=== PATIENT | male | born 1935 | race Caucasian/White ===

== ENCOUNTER 2024-01-28 09:18 | Emergency (ER) | payer MEDICARE, SELFPAY ==
--- NOTE | 2024-01-28 09:21 | ED.GENMED ---
History of Present Illness
General
Chief Complaint: Fall
Time Seen by Provider: 01/28/24 09:20
History of Present Illness
History of Present Illness:
HPI: I spoke to the ER nurse who spoke to EMS for the history. The patient fell earlier today. He had some hip pain earlier that is since resolved. The etiology of the fall is unclear and he is somewhat of a limited historian. When he was moving
from EMS stretcher to our stretcher, he had a small episode of vomitus but currently denies any pain.
EXAM:
GENERAL: Appears chronically ill
CERVICAL SPINE: No midline c-spine tenderness with excellent AROM
HEAD: No evidence of craniofacial trauma
CHEST: No chest wall tenderness, normal heart sounds
LUNGS: Equal lung sounds, no respiratory distress
ABDOMEN: No abdominal tenderness, no peritoneal signs, Alvarado catheter present
EXTREMITIES: Normal active range of motion, no tenderness
NEURO: Equally decreased strength all extremities, somewhat limited insight and judgment and is a limited historian
ED COURSE:
9:30 AM: I initially evaluated patient
NUMBER AND COMPLEXITY OF PROBLEMS ADDRESSED AT THE ENCOUNTER
� Chronic conditions affecting care: High blood pressure, hyperlipidemia, BPH/prostate cancer
� Acute Exacerbation and/or Progression of Chronic Illness: This is an acute problem
� Differential Diagnosis includes: Anemia, electrolyte normality, failure to thrive
AMOUNT AND/OR COMPLEXITY OF DATA TO BE REVIEWED AND ANALYZED
� I performed an independent evaluation of and my interpretation is:
EKG:
CT:
X-rays: I see no evidence of periprosthetic fracture or dislocation on right hip/pelvis x-ray
Laboratory Studies: White count 9.3, hemoglobin 11.3, bicarb slightly high at 32, glucose is 220, otherwise chemistries unremarkable
Other:
� Review of other/old records: The patient was admitted here 3 months ago with hyponatremia
� Clinical information was obtained by an independent historian: I spoke to the daughter over the phone twice. The patient fell overnight and had difficulty getting up complaining of right hip pain earlier.
� Prescriptions/Medications Considered but not given:
� Further testing considered but not performed:
RISK OF COMPLICATIONS AND/OR MORBIDITY OR MORTALITY OF PATIENT MANAGEMENT
� Social determinants of health affecting care: Lives at home with
� Discussion with other providers:
� Escalation of care including admission/observation vs risk of discharge considered: ED RN is calling for further information. CBC reassuring�chronically mildly anemic. No evidence of fracture. The patient currently
denies any pain. Family will be coming to get him.
Past History
Past History
ED Past Medical History: Cancer (Prostate), HTN, Hypercholesterolemia, NIDDM, Valvular disease, Other (Empyema, BPH, chronic indwelling Alvarado catheter, intermittent bladder spasms) and Other (Benign prostate hypertrophy)
ED Past Surgical History: Cardiac and Orthopedic
Patient has exhibited threatening behavior?: No
PSI?: No
Social History
Tobacco: Former smoker
Alcohol: None
Drug: None
Living: with family
Employment: Retired
Phy Exam
Physical Exam
Physical Exam:
See HPI
Course
Orders/Labs/Results
Orders:
Orders
01/28/24 09:37
Basic Metabolic Panel Urgent
Complete Blood Count/With Diff Urgent
01/28/24 09:52
CR Hip - RT w/wo Pel 2-3 Vw* Urgent
Comment:
Reason For Exam: fall pain
Include a pelvis x-ray?: Yes
Abnormal Lab Results
01/28/24
09:37
RBC 3.83 L 10^6/uL
(4.70-6.10)
Hgb 11.3 L g/dL
(13.0-18.0)
Hct 33.2 L %
(39.0-52.0)
Absolute Neuts (auto) 7.1 H 10^3/uL
(1.4-6.5)
Absolute Monos (auto) 0.8 H 10^3/uL
(0.1-0.6)
Neutrophils % 76.9 H %
(42.2-75.2)
Lymphocytes % 14.2 L %
(20.5-51.1)
Sodium 134 L mmol/L
(135-145)
Carbon Dioxide 32 H mmol/L
(22-30)
Glucose 220 H mg/dl
(70-99)
01/28/24 09:37
01/28/24 09:37
Vital Signs
Initial and Last Documented VS:
Initial Vital Signs
Temp Pulse Resp BP Pulse Ox
97.5 F 109 18 146/81 97
01/28/24 09:24 01/28/24 09:24 01/28/24 09:24 01/28/24 09:24 01/28/24 09:24
Last Documented Vital Signs
Temp Pulse Resp BP Pulse Ox
97.5 F 109 18 146/81 97
01/28/24 09:24 01/28/24 09:24 01/28/24 09:24 01/28/24 09:24 01/28/24 09:24
*Critical Care Note
Total Time (30-74mins, 75-104mins- exclusive of procedures): Not Applicable
ED Attending Note
-
Portions of this chart may have been created with voice recognition software.� Occasional wrong word or��sound alike� substitutions may have occurred due to the inherent limitations of voice recognition software.
Discharge Plan
Departure
Patient Disposition: Home (Routine Discharge)
Date of Disposition: 01/28/24
Time of Disposition: 12:28
Patient with high blood pressure during this ER visit?: Yes
Discharge Problem:
Fall
Instructions: Preventing falls in adults
Prescriptions:
No Action
tamsulosin 0.4 MG capsule
0.4 mg PO HS
ferrous sulfate [FeroSul] 325 MG tablet
325 mg PO DAILY
cyanocobalamin (vitamin B-12) 1,000 MCG tablet
1,000 mcg PO DAILY Qty: 30 0RF
metformin 1,000 MG tablet
1,000 mg PO BID@0800,1700 Qty: 180 1RF
Hold Instructions: Resume on 08/23/22. Hold until 08/23/2022
Januvia 100 MG tablet
100 mg PO DAILY Qty: 90 1RF
tolterodine 2 mg Tablet
2 mg PO BIDPRN PRN (Reason: bladder spasms)
Myrbetriq 50 mg Tablet Extended Release 24 Hr
50 mg PO DAILY
atorvastatin 20 mg Tablet
20 mg PO DAILY
clopidogrel [Plavix] 75 mg tablet
75 mg PO DAILY
Xarelto 20 mg tablet
20 mg PO QPM
metoprolol succinate 25 mg Tablet Extended Release 24 Hr
25 mg PO HS Qty: 30 0RF
torsemide 20 mg Tablet
40 mg PO DAILY Qty: 30 0RF
potassium chloride 20 mEq Tablet,Er Particles/Crystals
20 meq PO DAILY Qty: 30 0RF
cefdinir 300 mg capsule
300 mg PO Q12H 6 Days Qty: 12 0RF
Referrals:
Franky Martinez MD [Family Provider] -
Activity Restrictions/Additional Instructions:
X-ray of the right hip and pelvis showed no sign of fracture or dislocation. Basic blood work was relatively unremarkable with exception of elevated glucose. Return here if worse and follow-up with your primary care physician.
Interventions
Interventions:
*Risk Screen - Suicide Last Done: 01/28/24 09:24
*General Assessment Last Done: 01/28/24 09:24
*Neglect/Abuse Screening Last Done: 01/28/24 09:24
ED-Musculoskeletal Assessment Last Done: 01/28/24 09:41
ED- Neurological Assessment Last Done: 01/28/24 09:41
ED-Skin Assessment Last Done: 01/28/24 09:41
[2024-01-28 09:24] VITALS: BP 146/81
[2024-01-28 09:47] LABS: % Basophils 0.2 % (0-2); % Eosinophils 0.2 % (0-6); % Immature Granulocytes 0.4 % (0-0.5); % Lymphocytes 14.2 % (20.5-51.1); % Monocytes 8.1 % (1.7-9.3); % Neutrophils 76.9 % (42.2-75.2); Absolute Lymphocytes 1.3 10^3/uL (1.2-3.4); Absolute Monocytes 0.8 10^3/uL (0.1-0.6); Absolute Neutrophils 7.1 10^3/uL (1.4-6.5); Hematocrit 33.2 % (39.0-52.0); Hemoglobin 11.3 g/dL (13.0-18.0); Mean Corpuscular Hgb 29.5 pg (27.0-31.0); Mean Corpuscular Volume 86.7 fL (80.0-94.0); Mean Platelet Volume 8.9 fL (7.4-10.4); Nucleated Red Blood Cells % 0 % (-); Platelet Count 250 10^3/uL (130-400); Red Blood Cell Count 3.83 10^6/uL (4.70-6.10); Red Cell Dist. Width 13.9 % (11.5-14.5); White Blood Cell Count 9.3 10^3/uL (4.8-10.8)
[2024-01-28 10:00] LABS: Blood Urea Nitrogen 15 mg/dl (9-20); Calcium 9.4 mg/dl (8.4-10.2); Carbon Dioxide 32 mmol/L (22-30); Chloride 98 mmol/L (98-107); Glucose 220 mg/dl (70-99); Potassium 3.6 mmol/L (3.5-5.1); Sodium 134 mmol/L (135-145); eGFR > 60.00
== END 2024-01-28 15:38 | disposition home or self-care (01) ==
LOC: EMR 09:18
PROVIDERS: EMERGENCY PHYSICIAN Emergency Medicine; FAMILY PHYSICIAN Family Medicine
DX: M25.551 Pain in right hip (principal); W19.XXXA Unspecified fall, initial encounter; Z87.891 Personal history of nicotine dependence; I10 Essential (primary) hypertension; E78.00 Pure hypercholesterolemia, unspecified
CPT/HCPCS: 99284; 73502; 80048; 85025

== ENCOUNTER 2024-01-31 20:52 | Inpatient (IN) | payer MEDICARE, SELFPAY ==
[2024-01-31] VITALS (10 sets, daily range): BP systolic 112–139; BP diastolic 62–114; PULSE 105–110; BMI 25.8
[2024-01-31 14:57] LABS: % Basophils 0.2 % (0-2); % Eosinophils 0.2 % (0-6); % Immature Granulocytes 0.4 % (0-0.5); % Lymphocytes 9.9 % (20.5-51.1); % Monocytes 7.6 % (1.7-9.3); % Neutrophils 81.7 % (42.2-75.2); Absolute Lymphocytes 0.8 10^3/uL (1.2-3.4); Absolute Monocytes 0.6 10^3/uL (0.1-0.6); Absolute Neutrophils 6.7 10^3/uL (1.4-6.5); Hematocrit 33.6 % (39.0-52.0); Hemoglobin 11.2 g/dL (13.0-18.0); Mean Corp Hgb Conc. 33.3 g/dL (33.0-37.0); Mean Corpuscular Hgb 29.2 pg (27.0-31.0); Mean Corpuscular Volume 87.7 fL (80.0-94.0); Mean Platelet Volume 8.8 fL (7.4-10.4); Nucleated Red Blood Cells % 0 % (-); Platelet Count 233 10^3/uL (130-400); Red Blood Cell Count 3.83 10^6/uL (4.70-6.10); Red Cell Dist. Width 14.1 % (11.5-14.5); White Blood Cell Count 8.3 10^3/uL (4.8-10.8)
[2024-01-31 15:19] LABS: ALT (SGPT) 10 U/L (0-50); AST (SGOT) 12 U/L (17-59); Albumin 3.9 g/dl (3.5-5.0); Alkaline Phosphatase 76 U/L (38-126); Blood Urea Nitrogen 24 mg/dl (9-20); Calcium 10.3 mg/dl (8.4-10.2); Carbon Dioxide 31 mmol/L (22-30); Chloride 97 mmol/L (98-107); Glucose 238 mg/dl (70-99); Potassium 3.9 mmol/L (3.5-5.1); Sodium 133 mmol/L (135-145); Total Protein 7.1 g/dl (6.3-8.2); eGFR > 60.00
[2024-01-31 17:09] LABS: Urine Albumin Trace (Neg - Trace); Urine Bilirubin Negative (Negative); Urine Character Slightly Cloudy (Clear); Urine Color Yellow; Urine Glucose Negative (Negative); Urine Ketone Negative (Negative); Urine Leukocyte 2+ (Negative); Urine Nitrite Positive (Negative); Urine Occult Blood 2+ (Negative); Urine Specific Gravity 1.015 (<1.030); Urine Urobilinogen Negative (Neg - 1+)
[2024-01-31 17:22] LABS: Urine Bacteria Many (Negative); Urine Calcium Oxalate Crystals Seen; Urine White Cell >100 /HPF (0-5)
[2024-01-31 17:24] LABS: COVID-19 Antigen Negative (Negative)
[2024-01-31 17:30] LABS: NT-proBNP 924 pg/ml
--- NOTE | 2024-01-31 17:31 | ED.GENMED ---
History of Present Illness
General
Chief Complaint: Fall
Source: patient
Exam Limitations: none
Time Seen by Provider: 01/31/24 17:10
Nursing documentation reviewed up to this point in time: agreed with
Travel History
Have you had any contact with someone who has COVID-19?: No
Do you have any symptoms of coronavirus? Fever > 100 degrees, chills, cough, shortness of breath, sore throat, loss of taste or smell, muscle aches, or headache?: No
History of Present Illness
History of Present Illness:
The patient is an 88-year-old man who arrives from home. Patient reports he lives with his and [id number]. Patient reports that he got up and fell due to generalized weakness. He did not hit his head. Patient did not hurt his arms, legs
or back from the fall. Patient complains of decreased appetite and a feeling of fatigue. I called and got a history from his daughter over the phone who reports that the patient has been weak and falling over the last 2 days. She denies any
hitting of the head. patient denies nausea and vomiting.
He denies chest pain shortness of breath.
Past History
Past History
ED Past Medical History: Cancer (Prostate), HTN, Hypercholesterolemia, NIDDM, Valvular disease, Other (Empyema, BPH, chronic indwelling Alvarado catheter, intermittent bladder spasms) and Other (Benign prostate hypertrophy)
ED Past Surgical History: Cardiac and Orthopedic
Patient has exhibited threatening behavior?: No
PSI?: No
Social History
Tobacco: Former smoker
Alcohol: None
Drug: None
Living: with family
Employment: Retired
Family History
Family History: Other
Review of Systems
Review of Systems
Allergies reviewed?: Yes
All Other Systems: ROS reviewed and negative except as documented in HPI and ROS
Constitutional: Reports fatigue
EENT: Reports no symptoms
Respiratory: Reports no symptoms
Cardiac: Reports no symptoms
ABD/GI: Reports no symptoms
: Reports no symptoms
Musculoskeletal: Reports no symptoms
Neurological: Reports no symptoms
Endocrine: Reports no symptoms
Hematologic/Lymphatic: Reports no symptoms
Psychiatric: Reports no symptoms
Phy Exam
Physical Exam
Physical Exam:
Physical Exam
General: no apparent distress, not acutely ill. Atraumatic appearing head and face
Neck: supple. no meningeal signs. normal posterior pharynx. Nontender
Heart: Tachycardic, regular
Lungs: no acute respiratory distress. clear bilaterally. No vertebral spine tenderness
Abdomen: normal bowel sounds. not tender. no CVAT
Neuro: alert and oriented. no focal neurological deficits
Skin: no rash
Psychiatric: well kept. interactive and cooperative
Extremities: no edema. no calf tenderness. negative homans. good distal pulses. Nontender pelvis and hips. Full range of movement in upper lower extremities
Course
Orders/Labs/Results
Orders:
Orders
01/31/24 14:43
CBC/With Diff [Complete Blood Count/With Diff] Urgent
CMP [Comprehensive Metabolic Panel] Urgent
01/31/24 16:39
EKG [Electrocardiogram (*1)] Urgent
Reason for Study: Vertigo / Dizzy
EKG- Treatment ONCE
01/31/24 16:40
Urinalysis Reflex To Culture Urgent
Date Specimen was Collected: 01/31/24
Time Specimen was Collected: 16:39
Urine Microscopic Reflex Cult Urgent
Urine Culture Urgent
VICTOR HUGO Source: U
Specimen Description:
Date Specimen was Collected: 01/31/24
Time Specimen was Collected: 16:39
01/31/24 16:51
COVID-19 Antigen Urgent
Source: Nasal Swab
Pro-BNP [NT-proBNP] Urgent
Influenza A+B Rapid Molecular Urgent
VICTOR HUGO Source: Nasal Swab
Specimen Description:
01/31/24 17:43
0.9% Sodium Chloride 1000 ml [Nss] 1,000 ml IV BOLUS
01/31/24 17:44
CefTRIAXone [Rocephin] 1,000 mg IV NOW STA
Abnormal Lab Results
01/31/24 01/31/24
14:43 16:40
RBC 3.83 L 10^6/uL
(4.70-6.10)
Hgb 11.2 L g/dL
(13.0-18.0)
Hct 33.6 L %
(39.0-52.0)
Absolute Neuts (auto) 6.7 H 10^3/uL
(1.4-6.5)
Absolute Lymphs (auto) 0.8 L 10^3/uL
(1.2-3.4)
Neutrophils % 81.7 H %
(42.2-75.2)
Lymphocytes % 9.9 L %
(20.5-51.1)
Sodium 133 L mmol/L
(135-145)
Chloride 97 L mmol/L
(98-107)
Carbon Dioxide 31 H mmol/L
(22-30)
BUN 24 H mg/dl
(9-20)
Glucose 238 H mg/dl
(70-99)
Calcium 10.3 H mg/dl
(8.4-10.2)
AST 12 L U/L
(17-59)
Ur Occult Blood Reflex 2+ A
(Negative)
Urine Nitrite (Reflex) Positive A
(Negative)
Leukocyte Esterase Rfl 2+ A
(Negative)
Urine RBC 3-6 A /HPF
(0-2)
Urine WBC (Reflex) >100 A /HPF
(0-5)
Urine Bacteria (Reflex) Many A
(Negative)
01/31/24 14:43
03/08/24 14:43
Vital Signs
Initial and Last Documented VS:
Initial Vital Signs
Temp Pulse Resp BP Pulse Ox
97.5 F 115 16 124/80 98
01/31/24 14:34 01/31/24 14:34 01/31/24 14:34 01/31/24 14:34 01/31/24 14:34
Last Documented Vital Signs
Temp Pulse Resp BP Pulse Ox
97.5 F 98 26 131/78 97
01/31/24 14:34 01/31/24 19:00 01/31/24 16:28 01/31/24 18:00 01/31/24 18:45
MDM/Problems Addressed
Differential Diagnosis Includes:
UTI, dehydration, pneumonia
MDM/Problems Addressed:
Patient presents with 2 days of acute fatigue and falls
*Pulse Oximetry
Patient hypoxic: no
*EKG
Interpreted by ED Provider?: Yes
Interpretation: abnormal
Comparison EKG: changes noted (Heart rate more elevated)
[place]: left axis deviation
Interval: normal interval
QRS Pattern: left bundle branch block
Ischemia: non-specific ST changes
*Chain [employer] Machine Interpretation
Rate: normal
Interpretation: normal
Rhythm: sinus
*Critical Care Note
Total Time (30-74mins, 75-104mins- exclusive of procedures): Not Applicable
Data Reviewed
Review of Other/Old Records Reveals: Labs ( urine culture from 10/2023 showed Klebsiella)
Source: family (Spoke to patient's daughter over the phone who gave a good history)
Patient Management
Discussion with other providers: Hospitalist
ED Attending Note
-
Portions of this chart may have been created with voice recognition software.� Occasional wrong word or��sound alike� substitutions may have occurred due to the inherent limitations of voice recognition software.
Discharge Plan
Departure
Patient Disposition: Admit
Date of Disposition: 01/31/24
Time of Disposition: 19:12
Admit to: Med/Surg
Presentation/result/management discussed w/ accepting MD/DO: Hospitalist
Patient with high blood pressure during this ER visit?: Yes
Condition: Good
Covid-19: Negative COVID-19
Discharge Problem:
Acute fatigue, Frequent falls, Acute UTI
Prescriptions:
No Action
tamsulosin 0.4 MG capsule
0.4 mg PO HS
ferrous sulfate [FeroSul] 325 MG tablet
325 mg PO DAILY
cyanocobalamin (vitamin B-12) 1,000 MCG tablet
1,000 mcg PO DAILY Qty: 30 0RF
metformin 1,000 MG tablet
1,000 mg PO BID@0800,1700 Qty: 180 1RF
Hold Instructions: Resume on 08/23/22. Hold until 08/23/2022
Januvia 100 MG tablet
100 mg PO DAILY Qty: 90 1RF
tolterodine 2 mg Tablet
2 mg PO BIDPRN PRN (Reason: bladder spasms)
Myrbetriq 50 mg Tablet Extended Release 24 Hr
50 mg PO DAILY
atorvastatin 20 mg Tablet
20 mg PO DAILY
clopidogrel [Plavix] 75 mg tablet
75 mg PO DAILY
Xarelto 20 mg tablet
20 mg PO QPM
metoprolol succinate 25 mg Tablet Extended Release 24 Hr
25 mg PO HS Qty: 30 0RF
torsemide 20 mg Tablet
40 mg PO DAILY Qty: 30 0RF
potassium chloride 20 mEq Tablet,Er Particles/Crystals
20 meq PO DAILY Qty: 30 0RF
Referrals:
UNKNOWN - PT DOES,NOT KNOW [Unknown Provider] -
Interventions
Interventions:
*Risk Screen - Suicide Last Done: 01/31/24 16:39
*General Assessment Last Done: 01/31/24 16:39
*Neglect/Abuse Screening Last Done: 01/31/24 16:39
ED- Fall Risk Assessment Last Done: 01/31/24 16:39
*ED COVID-19 Vaccine History Last Done: 01/31/24 16:39
ED-Musculoskeletal Assessment Last Done: 01/31/24 16:39
ED- Neurological Assessment Last Done: 01/31/24 16:39
ED-Skin Assessment Last Done: 01/31/24 16:39
[2024-01-31] MEDS: ROCEPHIN 1000 MG IV (17:52)
[2024-01-31] MEDS: NSS 1000 IV (17:52)
--- NOTE | 2024-01-31 19:29 | PHANOTE ---
med rec note- called family on file, Chip the son did not answer but did leave message, called daughter on file she said she does not know his medication and patient not answer question appropriately. did use ecw (as per the daughter) but daughter
did reach out to of patient to see if she could help with medication.
--- NOTE | 2024-01-31 20:46 | HPS.HSE ---
Addendum entered and electronically signed by Williams Marshall DO 01/31/24 21:57:
Patient seen and examined independently. Agree with findings and plan as set forth by Arlene Contreras PA-C.
Patient is an 88y M with PMH significant for CHF, hypertension and DM-II who presents to ED for evaluation after a fall at home. Patient has reportedly been weak for the past 2-3 days according to family. He stood up today and his legs 'gave
out' resulting in a fall. Patient denies any head injury or LOC. He was brought to the ED for further evaluation.
In the ED, patient has UA consistent with infection. He has a chronic indwelling Alvarado catheter.
On exam, patient does have some lower abdominal / suprapubic tenderness.
Ass:
CAUTI - Present on Admission
Generalized weakness
Fall secondary to the above
ASCVD
Benign Hypertension
DM-II
Paroxysmal Atrial Fibrillation / Flutter
BPH with AL and Chronic Alvarado
Plan:
Admit for further evaluation and treatment.
Continue IV abx pending urine culture data.
Exchange Alvarado on admission.
Supportive care including IVFs, etc.
PT / OT evaluations.
Hold diuretics acutely. Follow I/Os, daily weights, etc.
Continue other usual outpatient medications including Xarelto.
Follow glucose and cover with SSI as needed.
Original Note:
Family Physician
-
Family Physician: Amberly Rodriguez DO
Chief Complaint
-
Weakness and Fall
History of Present Illness
Patient is an 88 y/o male with PMH of recurrent UTIs, CHF, hypertension, and lzo-awdxief-chxvjrtdk type II diabetes mellitus who presents to the ED from home after a fall. History is limited due to language barrier. Patient says he fell while
walking with a wheelchair. He admits to lower abdominal discomfort. He reports generalized weakness. He denies fever, sweats or chill, nausea, or diarrhea.
Medical History
Past Medical History
Past Medical History: Reports Other
Additional Past Medical History:
Peripheral Arterial Disease s/p Right Carotid
Heart Failure with preserved EF
Aortic Valve Replacement
Paroxysmal Atrial Fibrillation/Flutter
Essential Hypertension
Hyperlipidemia
Diabetes Mellitus
Interstitial Lung Disease
BPH with Chronic Alvarado
Prostate Cancer
Past Surgical History: Reports Other
Additional Past Surgical History:
Aortic Valve Replacement
Right Hip Surgery
Social History
Tobacco: Former Smoker (Quit over 10 years ago)
Alcohol: Occasional
Living: With Family (Patient reports he lives with his mother in law and )
Family History
Family History: Unable to Obtain
Allergies / Home Medications
Allergies reflects when Allergies were last updated in [employer].
Home Medications with original date entered in [employer]
Allergy/Medication List:
Allergies
Allergy/AdvReac Type Severity Reaction Status Date / Time
No Known Allergies Allergy Verified 06/11/23 13:34
Home Medications
ferrous sulfate 325 mg (65 mg iron) tablet (FeroSul) 325 mg PO DAILY Supplement 10/06/21
tamsulosin 0.4 mg capsule 0.4 mg PO HS Urinary issue 10/06/21
cyanocobalamin (vitamin B-12) 1,000 mcg tablet 1,000 mcg PO DAILY #30 tabs 10/08/21
metformin 1,000 mg tablet 1,000 mg PO BID@0800,1700 Diabetes #180 tabs 05/31/22
sitagliptin phosphate 100 mg tablet (Januvia) 100 mg PO DAILY Diabetes #90 tabs 05/31/22
mirabegron 50 mg tablet,extended release 24 hr (Myrbetriq) 50 mg PO DAILY Urinary issue 07/24/22
tolterodine 2 mg tablet 2 mg PO BIDPRN PRN bladder spasms 08/21/22
atorvastatin 20 mg tablet 20 mg PO DAILY High Cholesterol 11/01/23
clopidogrel 75 mg tablet (Plavix) 75 mg PO DAILY Blood Clot Prevention/Tx 11/01/23
rivaroxaban 20 mg tablet (Xarelto) 20 mg PO QPM Blood Clot Prevention/Tx 11/01/23
metoprolol succinate 25 mg tablet,extended release 24 hr 25 mg PO HS #30 tabs 11/08/23
potassium chloride 20 mEq tablet,extended release(part/cryst) 20 meq PO DAILY #30 tabs 11/08/23
torsemide 20 mg tablet 40 mg PO DAILY #30 tabs 11/08/23
Review of Systems
-
Unable to obtain full review of systems at this time due to: Language Barrier
Physical Exam
Vital Signs
Vital Signs
Temp Pulse Resp BP Pulse Ox
99.3 F 100 20 125/78 98
01/31/24 19:49 01/31/24 19:49 01/31/24 19:49 01/31/24 19:49 01/31/24 19:49
Physical Exam
General: Comfortable and Conversant
HEENT: NormoCephalic and Anicteric
Respiratory: Clear (Anteriorly) and Non Labored Respirations
Cardiac: S1/S2, Regular Rhythm and Murmur
GI: Soft and Tender (Supra-pubic region without rebound or guardin)
Rectal: Deferred by Provider
Genito-urinary: Alvarado
Musculoskeletal: No Clubbing, No Cyanosis and No Edema
Skin: Warm and Dry
Neuro: Awake, Alert, Oriented and Nonfocal/grossly intact
Laboratory Results
-
01/31/24 14:43
01/31/24 14:43
Laboratory Results
Total Bilirubin 1.0 mg/dl (0.2-1.3) 01/31/24 14:43
AST 12 U/L (17-59) L 01/31/24 14:43
ALT 10 U/L (0-50) 01/31/24 14:43
Alkaline Phosphatase 76 U/L (38-126) 01/31/24 14:43
Data Reviewed
-
Lab Data: Labs Reviewed by me
Old Records: Reviewed
Impression/Plan
-
Catheter Associated Urinary Tract Infection
-Change Alvarado catheter
-Continue ceftriaxone
-Await urine and blood culture
Peripheral Arterial Disease s/p Right Carotid Artery Stent
-Continue Plavix
Heart Failure with preserved EF
-Hold Torsemide as patient appears volume depleted
-Monitor Is&Os and Daily Weights
Paroxysmal Atrial Fibrillation/Flutter
-Continue Xarelto for anticoagulation
-Continue metoprolol
Essential Hypertension
-Continue metoprolol with parameters
Hyperlipidemia
-Continue atorvastatin
Diabetes Mellitus, Type II
-Continue Januvia and Metformin
-Monitor sugars and continue coverage inuslin
BPH with Chronic Alvarado
DVT proph: Lovenox
Code Status: Full Code
[2024-01-31] MEDS: TOPROL XL 25 MG PO (23:29)
[2024-01-31] MEDS: FLOMAX 0.400000000000000022 MG PO (23:30)
[2024-01-31 23:34] LABS: Glucose - Point of Care 203 mg/dl (70-99)
--- NOTE | 2024-02-01 03:51 | PTCARENOTE ---
Pt arrived via stretcher from ED. Pt AAOX3. Primary language is colombian. Communicates well enough in Panamanian to complete admission assessment. Pt has chronic Arriaga present on admission. Exchange for new arriaga per order. Call franklin within reach and bed
in lowest position.
[2024-02-01 06:00] VITALS: BMI 26.0
[2024-02-01 07:13] VITALS: BP 107/61
[2024-02-01 07:54] LABS: Glucose - Point of Care 176 mg/dl (70-99)
--- NOTE | 2024-02-01 07:59 | W.PN.HOSP.TC ---
Today's Communication/Plan
-
cont abx
follow urine culture
glycemic control
daily weight I/O
PT/OT
Assessment / Plan
Assessment / Plan
Physical Exam
General: Comfortable and Conversant
HEENT: NormoCephalic and Anicteric
Respiratory: Clear and Non Labored Respirations
Cardiac: S1/S2, Regular Rhythm
GI: Soft nontender Tender Supra-pubic region without rebound or guarding
Genito-urinary: Alvarado
Musculoskeletal: No Clubbing, No Cyanosis and No Edema
Skin: Warm and Dry
Neuro: Awake, Alert, Oriented and Nonfocal/grossly intact
88M PMH recurrent UTI, CHF, HTN, and NIDDM hx Rt Hip Replacement presents from home after fall without loss of consciousness denied head trauma, reportedly weak for past 2-3 days as per family. Urinalysis suggestive of UTI
Catheter Associated Urinary Tract Infection
-Alvarado catheter changed
-Continue ceftriaxone
-follow urine culture
Rt Carotid artery dz/stenosis s/p Stent
-Continue Plavix
Heart Failure with preserved EF
-Torsemide on hold of now, concerns volume depleted
-Monitor Is&Os and Daily Weights
Paroxysmal Atrial Fibrillation/Flutter
-Continue Xarelto for anticoagulation
-Continue metoprolol
Essential Hypertension
-Continue metoprolol with parameters
Hyperlipidemia
-Continue atorvastatin
Diabetes Mellitus, Type II
-Continue Januvia and Metformin
-sliding scale
Mild anemia
monitor H&H
check iron studies B12 level AM
BPH with Chronic Alvarado
DVT proph: Lovenox
Code Status: Full Code
Discussed with patient and his son Chip
I spent a total of 52 minutes with the patient or on the floor. More than 50% of this time involved counseling and coordination of care.
Anticipated Discharge: 24 - 48 hours
Subjective/Interval History
-
Date of Service: February 01, 2024
No acute distress sitting up comfortably in bed. reports overall feeling well. Mozambican speaking but also speaks Maltese. 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 Hard of hearing. Limited Interview.
Objective Data
-
Labs:
Laboratory Results
02/01/24
07:54
WBC Pending
Hgb Pending
Hct Pending
Plt Count Pending
Sodium Pending
Potassium Pending
Chloride Pending
Carbon Dioxide Pending
BUN Pending
Creatinine Pending
Glucose Pending
Calcium Pending
Vital Signs:
Vital Signs
Temp Pulse Resp BP Pulse Ox
99.6 F 98 18 127/82 99
01/31/24 22:35 01/31/24 23:29 01/31/24 22:35 01/31/24 23:29 01/31/24 22:35
I&O
01/31/24 02/01/24 02/02/24
06:59 06:59 07:59
Intake Total 920 / 920
Output Total 520 / 520
Balance 400 / 400
[2024-02-01 08:27] LABS: Hematocrit 28.8 % (39.0-52.0); Hemoglobin 9.9 g/dL (13.0-18.0); Mean Corp Hgb Conc. 34.4 g/dL (33.0-37.0); Mean Corpuscular Hgb 29.6 pg (27.0-31.0); Mean Platelet Volume 9.2 fL (7.4-10.4); Platelet Count 201 10^3/uL (130-400); Red Blood Cell Count 3.35 10^6/uL (4.70-6.10); Red Cell Dist. Width 14.2 % (11.5-14.5); White Blood Cell Count 5.3 10^3/uL (4.8-10.8)
[2024-02-01] MEDS: LIPITOR 20 MG PO (08:30)
[2024-02-01] MEDS: GLUCOPHAGE 1000 MG PO ×2 (08:30→17:20)
[2024-02-01] MEDS: JANUVIA 100 MG PO (08:30)
[2024-02-01] MEDS: FEOSOL 325 MG PO (08:30)
[2024-02-01] MEDS: PLAVIX 75 MG PO (08:30)
[2024-02-01] MEDS: VITAMIN B-12 1000 MCG PO (08:30)
[2024-02-01] MEDS: KCL 20 MEQ PO (08:30)
[2024-02-01 09:09] LABS: Blood Urea Nitrogen 22 mg/dl (9-20); Calcium 9.5 mg/dl (8.4-10.2); Carbon Dioxide 31 mmol/L (22-30); Chloride 100 mmol/L (98-107); Estimated Creatinine Clearance 84 ml/min; Glucose 171 mg/dl (70-99); Potassium 3.7 mmol/L (3.5-5.1); Sodium 133 mmol/L (135-145); eGFR > 60.00
[2024-02-01 09:39] LABS: Glycohemoglobin (HgbA1c) 7.8 % (4.0-5.6)
[2024-02-01] MEDS: NOVOLOG FLEXPEN-LOW RESISTANCE 1 UNITS SC ×2 (10:17→17:19)
[2024-02-01 11:55] LABS: Glucose - Point of Care 228 mg/dl (70-99)
[2024-02-01] MEDS: NOVOLOG FLEXPEN-LOW RESISTANCE 2 UNITS SC (12:07)
[2024-02-01 13:10] LABS: Hematocrit 31.8 % (39.0-52.0); Hemoglobin 10.7 g/dL (13.0-18.0)
--- NOTE | 2024-02-01 14:40 | CM ---
CM following re: discharge planning.
Reviewed pt's chart, met with pt.
Pt is an 88 year old male, admitted with primary dx of Weakness and Fall.
Pt reports he lives with spouse in a 2SH, has 2 supportive children. Pt reports 'i could ambulate with a walker, I could do everything for myself, I could walk independently, I could go to rehab , i never been at rehab'. It was not clear whether or
not pt provides me with accurate information. CM left a message to pt's daughter Dot.
Per chart review, pt was at [facility] and [facility] in the past.
PCP: Amberly Rodriguez
Pharmacy: [facility] [place]
D/C plan: uncertain at this time. PT and OT will evaluate. CM will confirm with the family.
CM will follow with discharge plan updates as hospitalization progresses
[2024-02-01 15:15] VITALS: BP 114/68
[2024-02-01 17:15] LABS: Glucose - Point of Care 176 mg/dl (70-99)
[2024-02-01] MEDS: ROCEPHIN 1000 MG IV (17:22)
[2024-02-01] MEDS: XARELTO 20 MG PO (17:22)
[2024-02-01] MEDS: STERILE WATER FOR INJECTION 10 ML IV (17:22)
[2024-02-01] MEDS: FLUSH (NSS) 2 FLUSH IV (17:23)
[2024-02-01 17:30] VITALS: BP 114/68
[2024-02-01 21:35] LABS: Glucose - Point of Care 155 mg/dl (70-99)
[2024-02-01] MEDS: FLOMAX 0.400000000000000022 MG PO (21:57)
[2024-02-01] MEDS: TOPROL XL 25 MG PO (21:59)
[2024-02-01 23:39] VITALS: BP 122/73
[2024-02-02 06:00] VITALS: BMI 24.4
--- NOTE | 2024-02-02 07:33 | W.PN.HOSP.TC ---
Today's Communication/Plan
-
cont abx converted to oral based on culture sensitivity results
glycemic control
daily weight I/O
PT/OT
discharge planning snf rehab
Assessment / Plan
Assessment / Plan
Physical Exam
General: Comfortable and Conversant
HEENT: NormoCephalic and Anicteric
Respiratory: Clear and Non Labored Respirations
Cardiac: S1/S2, Regular Rhythm
GI: Soft nontender Tender Supra-pubic region without rebound or guarding
Genito-urinary: Alvarado
Musculoskeletal: No Clubbing, No Cyanosis and No Edema
Skin: Warm and Dry
Neuro: Awake, Alert, Oriented and Nonfocal/grossly intact
88M PMH recurrent UTI, CHF, HTN, and NIDDM hx Rt Hip Replacement presents from home after fall without loss of consciousness denied head trauma, reportedly weak for past 2-3 days as per family. Urinalysis suggestive of UTI
Catheter Associated Urinary Tract Infection
-Alvarado catheter changed
-urine culture appreciated citrobacter and serratia with resistance to ampicillin, augmentin, unasyn, and cefazolin
-ceftriaxone converted to cefdinir 5 more days
Rt Carotid artery dz/stenosis s/p Stent
-Continue Plavix
Heart Failure with preserved EF
-Torsemide on hold for now, concerns volume depleted
-Monitor Is&Os and Daily Weights
Paroxysmal Atrial Fibrillation/Flutter
-Continue Xarelto for anticoagulation
-Continue metoprolol
Essential Hypertension
-Continue metoprolol with parameters
Hyperlipidemia
-Continue atorvastatin
Diabetes Mellitus, Type II
-Continue Januvia and Metformin
-sliding scale
Mild anemia
Anemia of Chronic Disease
mild Iron deficiency on oral iron supplements home
monitor H&H
Oral Iron switched to IV while in hospital
Unspecified Depression
psych eval appreciated
patient declines antidepressant
BPH with Chronic Alvarado
DVT proph: Lovenox
Code Status: Full Code
Discussed with patient and his daughter Dot
I spent a total of 52 minutes with the patient or on the floor. More than 50% of this time involved counseling and coordination of care.
Anticipated Discharge: 24 - 48 hours
Subjective/Interval History
-
Date of Service: February 02, 2024
No acute distress resting comfortably in bed. Reports feeling 'bad,' seems to have difficulty elaborating. Denies pain fever.
Objective Data
-
Labs:
Laboratory Results
02/02/24
07:13
WBC Pending
Hgb Pending
Hct Pending
Plt Count Pending
Sodium Pending
Potassium Pending
Chloride Pending
Carbon Dioxide Pending
BUN Pending
Creatinine Pending
Glucose Pending
Calcium Pending
Vital Signs:
Vital Signs
Temp Pulse Resp BP Pulse Ox
98.7 F 77 20 122/73 98
02/01/24 23:39 02/01/24 23:39 02/01/24 23:39 02/01/24 23:39 02/01/24 23:39
I&O
02/01/24 02/02/24 02/03/24
05:59 06:59 06:59
Intake Total
Output Total
Balance
[2024-02-02 07:37] LABS: Hematocrit 29.3 % (39.0-52.0); Hemoglobin 9.8 g/dL (13.0-18.0); Mean Corp Hgb Conc. 33.4 g/dL (33.0-37.0); Mean Corpuscular Hgb 29.1 pg (27.0-31.0); Mean Corpuscular Volume 86.9 fL (80.0-94.0); Mean Platelet Volume 9.3 fL (7.4-10.4); Platelet Count 208 10^3/uL (130-400); Red Blood Cell Count 3.37 10^6/uL (4.70-6.10); Red Cell Dist. Width 14.4 % (11.5-14.5); White Blood Cell Count 4.8 10^3/uL (4.8-10.8)
[2024-02-02 07:40] LABS: Glucose - Point of Care 158 mg/dl (70-99)
[2024-02-02 07:52] VITALS: BP 109/61
[2024-02-02 07:58] LABS: Blood Urea Nitrogen 20 mg/dl (9-20); Calcium 9.3 mg/dl (8.4-10.2); Carbon Dioxide 29 mmol/L (22-30); Chloride 102 mmol/L (98-107); Estimated Creatinine Clearance 98 ml/min; Glucose 138 mg/dl (70-99); Iron 32 ug/dl (49-181); Magnesium 1.8 mg/dl (1.6-2.3); Potassium 3.7 mmol/L (3.5-5.1); Sodium 133 mmol/L (135-145); eGFR > 60.00
[2024-02-02 08:07] LABS: Percent Saturation 12 % (20-50); Total Iron Binding Capacity 251 ug/dl (261-462)
[2024-02-02 09:18] LABS: Vitamin B12 843 pg/ml (239-931)
[2024-02-02] MEDS: PLAVIX 75 MG PO (09:20)
[2024-02-02] MEDS: FEOSOL PO (09:20)
[2024-02-02] MEDS: JANUVIA 100 MG PO (09:20)
[2024-02-02] MEDS: KCL 20 MEQ PO (09:20)
[2024-02-02] MEDS: NOVOLOG FLEXPEN-LOW RESISTANCE 1 UNITS SC ×2 (09:20→16:58)
[2024-02-02] MEDS: GLUCOPHAGE 1000 MG PO ×2 (09:20→16:53)
[2024-02-02] MEDS: LIPITOR 20 MG PO (09:20)
[2024-02-02] MEDS: VITAMIN B-12 1000 MCG PO (09:20)
[2024-02-02] MEDS: OMNICEF 300 MG PO ×2 (11:04→21:10)
[2024-02-02 11:51] LABS: Glucose - Point of Care 202 mg/dl (70-99)
[2024-02-02] MEDS: NOVOLOG FLEXPEN-LOW RESISTANCE 2 UNITS SC (11:54)
--- NOTE | 2024-02-02 12:21 | CS.PSYCHR ---
Consult Summary - Psychiatry
-
Psychiatry consult for depression. Chart reviewed. 88 yo [place] male admitted 3/ s/p fall at home after 2-3 days of weakness, being treated for UTI. Patient admits to being depressed for the past month which he relates to his health condition. He
denies suicidal ideations. He says he does not want any psychiatric medications because he does not believe in them. He says he believes in medications for medical issues only. I explained the potential benefits of an antidepressant but he continues
to refuse politely. Per primary team, family is also leary of starting antidepressants secondary to polypharmacy concerns but they state he has been depressed for years since getting chronic arriaga.
MSE- good eye contact. cooperative. impoverished speech. depressed mood. flat affect. poverty of thought but logical. Denies SI/HI/AVH. no delusions. oriented to person, [facility], month and year
PMH- UTI, CHF, HTN, DM@, BPH with AL and chronic arriaga, parox afib/flutter
Past psych- no prior history
Social- Originally from [place]. primary language is [place]. . lives with . 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
A/P- 88 yo male with unspecified depression. He could likely benefit from an antidepressant but is refusing at this time. Watch for a hypoactive delirium in the context of UTI in eldery too which can look like depression. Psychiatry will sign off.
If patient changes mind about treatment, please call team.
[2024-02-02] MEDS: TYLENOL 650 MG PO (13:00)
[2024-02-02] MEDS: FERRLECIT 110 MG IV (14:41)
[2024-02-02] MEDS: FLUSH (NSS) 2 FLUSH IV (14:42)
[2024-02-02 15:00] VITALS: BP 107/66; PULSE 73; O2SAT 99
[2024-02-02 15:40] VITALS: BP 107/66
[2024-02-02] MEDS: XARELTO 20 MG PO (16:56)
[2024-02-02 16:59] LABS: Glucose - Point of Care 171 mg/dl (70-99)
[2024-02-02] MEDS: FLOMAX 0.400000000000000022 MG PO (20:44)
[2024-02-02] MEDS: TOPROL XL 25 MG PO (20:46)
[2024-02-02 21:29] LABS: Glucose - Point of Care 138 mg/dl (70-99)
[2024-02-02 23:02] VITALS: BP 125/74
[2024-02-03 05:48] VITALS: BMI 24.3
[2024-02-03 06:43] LABS: Hematocrit 32.4 % (39.0-52.0); Hemoglobin 10.8 g/dL (13.0-18.0); Mean Corp Hgb Conc. 33.3 g/dL (33.0-37.0); Mean Corpuscular Hgb 29.5 pg (27.0-31.0); Mean Corpuscular Volume 88.5 fL (80.0-94.0); Mean Platelet Volume 9.4 fL (7.4-10.4); Platelet Count 226 10^3/uL (130-400); Red Blood Cell Count 3.66 10^6/uL (4.70-6.10); Red Cell Dist. Width 14.2 % (11.5-14.5); White Blood Cell Count 4.8 10^3/uL (4.8-10.8)
[2024-02-03 07:03] LABS: Blood Urea Nitrogen 19 mg/dl (9-20); Calcium 9.9 mg/dl (8.4-10.2); Carbon Dioxide 28 mmol/L (22-30); Chloride 98 mmol/L (98-107); Estimated Creatinine Clearance 98 ml/min; Glucose 145 mg/dl (70-99); Magnesium 1.7 mg/dl (1.6-2.3); Phosphorus 3.1 mg/dl (2.5-4.5); Potassium 3.6 mmol/L (3.5-5.1); Sodium 133 mmol/L (135-145); eGFR > 60.00
[2024-02-03 07:35] VITALS: BP 120/75
[2024-02-03 08:00] LABS: Glucose - Point of Care 158 mg/dl (70-99)
[2024-02-03] MEDS: NOVOLOG FLEXPEN-LOW RESISTANCE 1 UNITS SC (09:19)
[2024-02-03] MEDS: KCL 20 MEQ PO (09:22)
[2024-02-03] MEDS: PLAVIX 75 MG PO (09:22)
[2024-02-03] MEDS: JANUVIA 100 MG PO (09:22)
[2024-02-03] MEDS: GLUCOPHAGE 1000 MG PO ×2 (09:22→16:22)
[2024-02-03] MEDS: LIPITOR 20 MG PO (09:23)
[2024-02-03] MEDS: VITAMIN B-12 1000 MCG PO (09:23)
[2024-02-03] MEDS: OMNICEF 300 MG PO ×2 (10:18→20:57)
--- NOTE | 2024-02-03 10:37 | W.PN.HOSP.TC ---
Today's Communication/Plan
-
stool studies
Await placement
Assessment / Plan
Assessment / Plan
Physical Exam
General: Comfortable and Conversant
HEENT: NormoCephalic and Anicteric
Respiratory: Clear and Non Labored Respirations
Cardiac: S1/S2, Regular Rhythm
GI: Soft nontender Tender Supra-pubic region without rebound or guarding
Genito-urinary: Alvarado
Musculoskeletal: No Clubbing, No Cyanosis and No Edema
Skin: Warm and Dry
Neuro: Awake, Alert, Oriented and Nonfocal/grossly intact
88M PMH recurrent UTI, CHF, HTN, and NIDDM hx Rt Hip Replacement presents from home after fall without loss of consciousness denied head trauma, reportedly weak for past 2-3 days as per family. Urinalysis suggestive of UTI
Catheter Associated Urinary Tract Infection
-Alvarado catheter changed
-urine culture appreciated citrobacter and serratia with resistance to ampicillin, augmentin, unasyn, and cefazolin
-ceftriaxone converted to cefdinir
Loose stools ?abx associated
-check stool studies
-may need to start probiotics.
Rt Carotid artery dz/stenosis s/p Stent
-Continue Plavix
Heart Failure with preserved EF
-Torsemide on hold for now, concerns volume depleted
-Monitor Is&Os and Daily Weights
Paroxysmal Atrial Fibrillation/Flutter
-Continue Xarelto for anticoagulation
-Continue metoprolol
Essential Hypertension
-Continue metoprolol with parameters
Hyperlipidemia
-Continue atorvastatin
Diabetes Mellitus, Type II
-Continue Januvia and Metformin
-sliding scale
Mild anemia
Anemia of Chronic Disease
mild Iron deficiency on oral iron supplements home
monitor H&H
Oral Iron switched to IV while in hospital
Unspecified Depression
psych eval appreciated
patient declines antidepressant
BPH with Chronic Alvarado
DVT proph: Lovenox
Code Status: Full Code
PT/OT-SNF. CM aware.
Anticipated Discharge: Within 24 hours
Subjective/Interval History
-
Date of Service: February 03, 2024
3 loose stools
tolerating diet
afebrile
Objective Data
-
Labs:
Laboratory Results
02/03/24
06:16
WBC 4.8
Hgb 10.8 L
Hct 32.4 L
Plt Count 226
Sodium 133 L
Potassium 3.6
Chloride 98
Carbon Dioxide 28
BUN 19
Creatinine 0.6 L
Glucose 145 H
Calcium 9.9
Vital Signs:
Vital Signs
Temp Pulse Resp BP Pulse Ox
97.6 F 79 16 120/75 99
02/03/24 07:35 02/03/24 07:35 02/03/24 07:35 02/03/24 07:35 02/03/24 07:35
I&O
02/02/24 02/03/24 02/04/24
06:59 06:59 06:59
Intake Total 480 / 480
Output Total 650 / 650
Balance -170 / -170
--- NOTE | 2024-02-03 11:00 | CM ---
Reviewed the chart notes and spoke with the patient's son via telephone. IMM reviewed, no questions with regards to the letter. The patient's son in agreement with referral to [facility] and aware that there maybe a co-pay of $20.00/per day since [facility]
is iod-la-gorzsgy. Patient has [id number]-[id number] insurance. CM continues to be available to patient/family and is monitoring medical plan for needs at discharge.
Plan: Discharge to SNF/rehab once bed found and precert obtained. Referral sent to [facility].
[2024-02-03 11:54] VITALS: BMI 24.3
[2024-02-03 12:53] LABS: Glucose - Point of Care 174 mg/dl (70-99)
[2024-02-03] MEDS: NOVOLOG FLEXPEN-LOW RESISTANCE 300 UNITS SC (13:45)
--- NOTE | 2024-02-03 15:10 | PN.CDI ---
CDI
- -
CDI:
Physician Documentation Request
Admit Date: 01/31/24 20:52
Dear Doctor Jace,
Hospitalist progress notes states ' Heart Failure with preserved EF-torsemide on hold for now, concerns volume depleted-Monitor Is&Os and Daily Weights'
Please clarify which of the following accurately represents the acuity of the HFpEF
____ Acute
Acute on Chronic
Chronic
____ Other
Use of terms such as suspected, likely, concern for, or probable (associated with a specific diagnosis that is being evaluated, monitored, or treated as if it exists) are acceptable and can be coded in the inpatient setting, when documented at the
time of discharge.
Thank you,
Krista Rodarte RN, BSN
CDI Specialist
tiger text
Please use your independent medical judgment in providing your response.
[2024-02-03 15:58] VITALS: BP 134/84
[2024-02-03] MEDS: FERRLECIT 110 MG IV (16:21)
[2024-02-03] MEDS: VISBIOME 2 CAP PO (16:21)
[2024-02-03 17:06] LABS: Glucose - Point of Care 125 mg/dl (70-99)
[2024-02-03] MEDS: NOVOLOG FLEXPEN-LOW RESISTANCE SC (17:23)
[2024-02-03] MEDS: XARELTO 20 MG PO (17:24)
[2024-02-03] MEDS: FLOMAX 0.400000000000000022 MG PO (20:57)
[2024-02-03] MEDS: TOPROL XL 25 MG PO (21:01)
[2024-02-03 21:44] LABS: Glucose - Point of Care 150 mg/dl (70-99)
[2024-02-03 23:22] VITALS: BP 130/77
[2024-02-04 06:00] VITALS: BMI 24.4
[2024-02-04 07:25] VITALS: BP 122/69
[2024-02-04 07:47] LABS: Glucose - Point of Care 114 mg/dl (70-99)
[2024-02-04] MEDS: NOVOLOG FLEXPEN-LOW RESISTANCE SC ×2 (07:51→12:08)
[2024-02-04] MEDS: VISBIOME 2 CAP PO (08:07)
[2024-02-04] MEDS: GLUCOPHAGE 1000 MG PO ×2 (08:08→17:27)
[2024-02-04] MEDS: JANUVIA 100 MG PO (08:08)
[2024-02-04] MEDS: LIPITOR 20 MG PO (08:08)
[2024-02-04] MEDS: PLAVIX 75 MG PO (08:08)
[2024-02-04] MEDS: KCL 20 MEQ PO (08:08)
[2024-02-04] MEDS: OMNICEF 300 MG PO ×2 (08:12→20:32)
[2024-02-04] MEDS: VITAMIN B-12 1000 MCG PO (08:12)
--- NOTE | 2024-02-04 10:02 | W.PN.HOSP.TC ---
Addendum entered and electronically signed by Cecilio Mccormick MD 02/04/24 10:08:
chronic HFpEF
Original Note:
Today's Communication/Plan
-
cont abx
monitor mentation
await placement
Assessment / Plan
Assessment / Plan
Physical Exam
General: Comfortable and Conversant
HEENT: NormoCephalic and Anicteric
Respiratory: Clear and Non Labored Respirations
Cardiac: S1/S2, Regular Rhythm
GI: Soft nontender Tender Supra-pubic region without rebound or guarding
Genito-urinary: Alvarado
Musculoskeletal: No Clubbing, No Cyanosis and No Edema
Skin: Warm and Dry
Neuro: Awake, Alert, and Nonfocal/grossly intact. following all commands
88M PMH recurrent UTI, CHF, HTN, and NIDDM hx Rt Hip Replacement presents from home after fall without loss of consciousness denied head trauma, reportedly weak for past 2-3 days as per family. Urinalysis suggestive of UTI
Catheter Associated Urinary Tract Infection
-Alvarado catheter changed
-urine culture appreciated citrobacter and serratia with resistance to ampicillin, augmentin, unasyn, and cefazolin
-ceftriaxone converted to cefdinir
Loose stools due to overflow diarrhea
-had solid bm on 02/03.
-cont probiotics as on abx.
Rt Carotid artery dz/stenosis s/p Stent
-Continue Plavix
Heart Failure with preserved EF
-Torsemide restarted-home dose.
-Monitor Is&Os and Daily Weights
Paroxysmal Atrial Fibrillation/Flutter
-Continue Xarelto for anticoagulation
-Continue metoprolol
Essential Hypertension
-Continue metoprolol with parameters
Hyperlipidemia
-Continue atorvastatin
Diabetes Mellitus, Type II
-Continue Januvia and Metformin
-sliding scale
Mild anemia
Anemia of Chronic Disease
mild Iron deficiency on oral iron supplements home
monitor H&H
Oral Iron switched to IV while in hospital
Unspecified Depression
psych eval appreciated
patient declines antidepressant
BPH with Chronic Alvarado
DVT proph: Lovenox
Code Status: Full Code
PT/OT-SNF. CM aware. await placement
Anticipated Discharge: Within 24 hours
Subjective/Interval History
-
Date of Service: February 04, 2024
Had a huge solid Bm earlier today
intermittent confusion
Objective Data
-
Vital Signs:
Vital Signs
Temp Pulse Resp BP Pulse Ox
97.8 F 73 16 122/69 100
02/04/24 07:25 02/04/24 07:25 02/04/24 07:25 02/04/24 07:25 02/04/24 07:25
I&O
02/03/24 02/04/24 02/05/24
06:59 06:59 06:59
Intake Total 480 / 480 1700 / 1700
Output Total 650 / 650 700 / 700
Balance -170 / -170 1000 / 1000
[2024-02-04 12:01] LABS: Glucose - Point of Care 108 mg/dl (70-99)
[2024-02-04] MEDS: FERRLECIT 110 MG IV (13:46)
[2024-02-04 15:56] VITALS: BP 106/64
--- NOTE | 2024-02-04 16:23 | CM ---
Reviewed the chart notes and attempt to start auth for [facility] through [facility] [employer] ([phone]). Ref# [id number]. Per [employer] representative Stephani, their system was down and to call back tomorrow.
[facility] NPI# [id number]
Dr. Arellano NPI# [id number]
Plan: Discharge to [facility] once auth is obtained.
[2024-02-04 17:06] LABS: Glucose - Point of Care 169 mg/dl (70-99)
[2024-02-04] MEDS: XARELTO 20 MG PO (17:27)
[2024-02-04] MEDS: IMODIUM 2 MG PO (17:27)
[2024-02-04] MEDS: NOVOLOG FLEXPEN-LOW RESISTANCE 1 UNITS SC (17:27)
[2024-02-04] MEDS: TOPROL XL PO (22:08)
[2024-02-04] MEDS: FLOMAX 0.400000000000000022 MG PO (22:09)
[2024-02-04] MEDS: TOPROL XL 25 MG PO (22:12)
[2024-02-04 22:22] LABS: Glucose - Point of Care 133 mg/dl (70-99)
[2024-02-04 23:03] VITALS: BP 101/63
[2024-02-05 06:00] VITALS: BMI 23.8
[2024-02-05 07:40] VITALS: BP 113/67
[2024-02-05 08:01] LABS: Glucose - Point of Care 111 mg/dl (70-99)
[2024-02-05] MEDS: NOVOLOG FLEXPEN-LOW RESISTANCE SC ×2 (08:14→12:16)
[2024-02-05] MEDS: DEMADEX 40 MG PO (08:44)
[2024-02-05] MEDS: VISBIOME 2 CAP PO (08:44)
[2024-02-05] MEDS: VITAMIN B-12 1000 MCG PO (08:45)
[2024-02-05] MEDS: KCL 20 MEQ PO (08:45)
[2024-02-05] MEDS: GLUCOPHAGE 1000 MG PO (08:45)
[2024-02-05] MEDS: LIPITOR 20 MG PO (08:45)
[2024-02-05] MEDS: JANUVIA 100 MG PO (08:45)
[2024-02-05] MEDS: PLAVIX 75 MG PO (08:45)
[2024-02-05] MEDS: OMNICEF 300 MG PO (08:45)
[2024-02-05 09:45] VITALS: BP 113/69; PULSE 70; O2SAT 99
--- NOTE | 2024-02-05 10:55 | W.PN.HOSP.TC ---
Today's Communication/Plan
-
po abx with probiotics
PT/OT
cont home meds
Assessment / Plan
Assessment / Plan
Physical Exam
General: Comfortable and Conversant
HEENT: NormoCephalic and Anicteric
Respiratory: Clear and Non Labored Respirations
Cardiac: S1/S2, Regular Rhythm
GI: Soft nontender Tender Supra-pubic region without rebound or guarding
Genito-urinary: Alvarado
Musculoskeletal: No Clubbing, No Cyanosis and No Edema
Skin: Warm and Dry
Neuro: Awake, Alert, and Nonfocal/grossly intact. following all commands
88M PMH recurrent UTI, CHF, HTN, and NIDDM hx Rt Hip Replacement presents from home after fall without loss of consciousness denied head trauma, reportedly weak for past 2-3 days as per family. Urinalysis suggestive of UTI
Catheter Associated Urinary Tract Infection
-Alvarado catheter changed
-urine culture appreciated citrobacter and serratia with resistance to ampicillin, augmentin, unasyn, and cefazolin
-ceftriaxone converted to cefdinir. Probiotics added.
Loose stools due to overflow diarrhea
-had solid bm on 02/03.
-cont probiotics as on abx.
Rt Carotid artery dz/stenosis s/p Stent
-Continue Plavix
Heart Failure with preserved EF
-Torsemide restarted-home dose.
-Monitor Is&Os and Daily Weights
Paroxysmal Atrial Fibrillation/Flutter
-Continue Xarelto for anticoagulation
-Continue metoprolol
Essential Hypertension
-Continue metoprolol with parameters
Hyperlipidemia
-Continue atorvastatin
Diabetes Mellitus, Type II
-Continue Januvia and Metformin
-sliding scale
Mild anemia
Anemia of Chronic Disease
mild Iron deficiency on oral iron supplements home
monitor H&H
Oral Iron switched to IV while in hospital
Unspecified Depression
psych eval appreciated
patient declines antidepressant
BPH with Chronic Alvarado
DVT proph: Lovenox
Code Status: Full Code
PT/OT-SNF. CM aware. await placement.
Anticipated Discharge: Today
Subjective/Interval History
-
Date of Service: February 05, 2024
No overnight events
had multiple bm yesterday
tolerating diet
Objective Data
-
Vital Signs:
Vital Signs
Temp Pulse Resp BP Pulse Ox
97.4 F 70 18 113/67 100
02/05/24 07:40 02/05/24 08:44 02/05/24 07:40 02/05/24 08:44 02/05/24 07:40
I&O
02/04/24 02/05/24 02/06/24
06:59 06:59 06:59
Intake Total 1700 / 1700 1260 / 1260
Output Total 700 / 700 675 / 675
Balance 1000 / 1000 585 / 585
--- NOTE | 2024-02-05 11:27 | CM ---
Addendum entered by Corine Larios RN 02/05/24 12:25:
CM spoke with the patient's son Cihp and updated on status and anticipated discharge to [facility] today. Discussed transportation arrangements. Family unable to provide transportation, but are agreeable to w/c van and cost of approximately $100.00.
[employer] will be providing credit card to [facility].
Addendum entered by Corine Larios RN 02/05/24 11:51:
Auth approved from [employer]; 02/04-02/06; NRD 02/06 with Daniela Ferguson (p: [phone]/f: [phone]). Per [employer], use reference # [id number].
Original Note:
IMM signed and placed on chart. [facility][phone][facility] Ref# [id number]; Clinicals faxed to ([phone]). CM continues to be available to patient/family and is monitoring medical plan for needs at discharge.
Plan: Discharge to [facility] once auth obtained.
[2024-02-05 11:42] LABS: Glucose - Point of Care 131 mg/dl (70-99)
[2024-02-05] MEDS: TYLENOL 650 MG PO (12:05)
--- NOTE | 2024-02-05 12:16 | W.DCSUMMARY ---
Discharge Summary
Discharge Data
Date of Admission: 01/31/24
Date of Discharge: 02/05/24
-
Pending Results: No
Hospital Course
88M PMH recurrent UTI, CHF, HTN, and NIDDM hx Rt Hip Replacement presents from home after fall without loss of consciousness denied head trauma, reportedly weak for past 2-3 days as per family [employer]. Found to have a catheter associated new tract
infection. Urine culture appreciated citrobacter and serratia with resistance to ampicillin, augmentin, unasyn, and cefazolin. ceftriaxone converted to cefdinir. Probiotics added. Patient also with depression and psychiatry was consulted.
Patient and family did not want started on antidepressant. Anemia with iron deficiency and IV iron received in the hospital. Patient was eval by physical and Occupational Therapy. Patient be discharged to SNF
Discharge Plan
-
Patient Disposition: [facility]/SNF
Discharge Diagnosis/Procedures: Anemia of Chronic Disease, Iron Deficiency, Chronic Alvarado, Urinary Tract infection
Condition: Fair
Diet: Regular
Activity: With assistance and As tolerated
Driving Restrictions: Not until seen by your Dr
Blood Work: cbc and bmp in 1 week via primary doctor.
Referrals:
Hugo Castillo DO [Active] - in two to four weeks
Amberly Rodriguez DO [Family Provider] - in one week
Prescriptions:
New
cefdinir 300 mg Capsule
300 mg PO Q12 Qty: 5 0RF
Lactobac/Bifidobac [Visbiome]
2 cap PO DAILY 10 Days 0RF
Continued
tamsulosin 0.4 MG capsule
0.4 mg PO HS
ferrous sulfate [FeroSul] 325 MG tablet
325 mg PO DAILY
cyanocobalamin (vitamin B-12) 1,000 MCG tablet
1,000 mcg PO DAILY Qty: 30 0RF
metformin 1,000 MG tablet
1,000 mg PO BID@0800,1700 Qty: 180 1RF
Hold Instructions: Resume on 08/23/22. Hold until 08/23/2022
Januvia 100 MG tablet
100 mg PO DAILY Qty: 90 1RF
tolterodine 2 mg Tablet
2 mg PO BIDPRN PRN (Reason: bladder spasms)
Myrbetriq 50 mg Tablet Extended Release 24 Hr
50 mg PO DAILY
atorvastatin 20 mg Tablet
20 mg PO DAILY
clopidogrel [Plavix] 75 mg tablet
75 mg PO DAILY
Xarelto 20 mg tablet
20 mg PO QPM
metoprolol succinate 25 mg Tablet Extended Release 24 Hr
25 mg PO HS Qty: 30 0RF
torsemide 20 mg Tablet
40 mg PO DAILY Qty: 30 0RF
potassium chloride 20 mEq Tablet,Er Particles/Crystals
20 meq PO DAILY Qty: 30 0RF
Discharge Orders:
Discharge Patient (As Directed); Ordered 02/05/24
Ordered By: Cecilio Mccormick
[2024-02-05] MEDS: FERRLECIT 110 MG IV (15:00)
[2024-02-05 15:25] VITALS: BP 105/65
== END 2024-02-05 17:09 | DRG 699 ==
LOC: 2 NORTH 20:52
PROVIDERS: Emergency Medicine; Internal Medicine; Physician Assistant Medical; ADMITTING PHYSICIAN Hospitalist; ATTENDING PHYSICIAN Hospitalist; EMERGENCY PHYSICIAN Emergency Medicine; FAMILY PHYSICIAN Family Medicine; OTHER PHYSICIAN Psychiatry & Neurology Psychiatry
DX: T83.511A Infection and inflammatory reaction due to indwelling urethral catheter, initial encounter (principal); I48.92 Unspecified atrial flutter; I50.32 Chronic diastolic (congestive) heart failure; I11.0 Hypertensive heart disease with heart failure; D63.8 Anemia in other chronic diseases classified elsewhere; I48.0 Paroxysmal atrial fibrillation; E11.9 Type 2 diabetes mellitus without complications; Y84.6 Urinary catheterization as the cause of abnormal reaction of the patient, or of later complication, without mention of misadventure at the time of the procedure; Z79.01 Long term (current) use of anticoagulants; Z79.02 Long term (current) use of antithrombotics/antiplatelets; Z79.84 Long term (current) use of oral hypoglycemic drugs; Z87.891 Personal history of nicotine dependence
CPT/HCPCS: 70450; 80048; 80053; 81003; 81015; 82607; 82962; 83036; 83540; 83550; 83735; 83880; 84100; 85014; 85018; 85025; 85027; 87077; 87086; 87186; 87324; 87449; 87502; 87798; 87811; 93005; 96361; 96374; 97162; 97166; 97530; 99285; J2916

== ENCOUNTER → 2024-02-12 12:11 | Outpatient (REF) | payer MEDICARE, SELFPAY ==
[2024-02-12 13:10] LABS: % Basophils 0.1 % (0-2); % Eosinophils 0.1 % (0-6); % Immature Granulocytes 0.6 % (0-0.5); % Lymphocytes 4.8 % (20.5-51.1); % Monocytes 5.9 % (1.7-9.3); % Neutrophils 88.5 % (42.2-75.2); Absolute Immature Granulocytes 0.1 10^3/uL (0-0.05); Absolute Lymphocytes 0.7 10^3/uL (1.2-3.4); Absolute Monocytes 0.9 10^3/uL (0.1-0.6); Absolute Neutrophils 13.7 10^3/uL (1.4-6.5); Hematocrit 31.2 % (39.0-52.0); Hemoglobin 10.5 g/dL (13.0-18.0); Mean Corp Hgb Conc. 33.7 g/dL (33.0-37.0); Mean Corpuscular Hgb 29.1 pg (27.0-31.0); Mean Corpuscular Volume 86.4 fL (80.0-94.0); Mean Platelet Volume 9.7 fL (7.4-10.4); Nucleated Red Blood Cells % 0 % (-); Platelet Count 267 10^3/uL (130-400); Red Blood Cell Count 3.61 10^6/uL (4.70-6.10); Red Cell Dist. Width 15.6 % (11.5-14.5); White Blood Cell Count 15.5 10^3/uL (4.8-10.8)
[2024-02-12 13:19] LABS: Blood Urea Nitrogen 31 mg/dl (9-20); Calcium 8.5 mg/dl (8.4-10.2); Carbon Dioxide 27 mmol/L (22-30); Chloride 93 mmol/L (98-107); Glucose 240 mg/dl (70-99); Potassium 3.8 mmol/L (3.5-5.1); Sodium 130 mmol/L (135-145); eGFR > 60.00
== END ==
LOC: OLABPG 12:11
PROVIDERS: ATTENDING PHYSICIAN Family Medicine
DX: I50.30 Unspecified diastolic (congestive) heart failure (principal); J44.9 Chronic obstructive pulmonary disease, unspecified; I11.0 Hypertensive heart disease with heart failure; E11.9 Type 2 diabetes mellitus without complications; I48.0 Paroxysmal atrial fibrillation; D64.9 Anemia, unspecified; Z85.46 Personal history of malignant neoplasm of prostate; N40.1 Benign prostatic hyperplasia with lower urinary tract symptoms; E87.1 Hypo-osmolality and hyponatremia; N39.0 Urinary tract infection, site not specified
CPT/HCPCS: 36415; 80048; 85025

== ENCOUNTER → 2024-02-12 23:50 | Outpatient (REF) | payer OTHER, MEDICARE, SELFPAY ==
[2024-02-13 10:36] LABS: % Basophils 0.2 % (0-2); % Eosinophils 0.3 % (0-6); % Immature Granulocytes 1.2 % (0-0.5); % Monocytes 4.9 % (1.7-9.3); % Neutrophils 89.4 % (42.2-75.2); Absolute Eosinophils 0.1 10^3/uL (0-0.7); Absolute Immature Granulocytes 0.2 10^3/uL (0-0.05); Absolute Lymphocytes 0.7 10^3/uL (1.2-3.4); Absolute Monocytes 0.9 10^3/uL (0.1-0.6); Absolute Neutrophils 15.4 10^3/uL (1.4-6.5); Hematocrit 30.7 % (39.0-52.0); Hemoglobin 10.4 g/dL (13.0-18.0); Mean Corp Hgb Conc. 33.9 g/dL (33.0-37.0); Mean Corpuscular Hgb 29.4 pg (27.0-31.0); Mean Corpuscular Volume 86.7 fL (80.0-94.0); Mean Platelet Volume 9.9 fL (7.4-10.4); Nucleated Red Blood Cells % 0 % (-); Platelet Count 242 10^3/uL (130-400); Red Blood Cell Count 3.54 10^6/uL (4.70-6.10); Red Cell Dist. Width 15.5 % (11.5-14.5); White Blood Cell Count 17.3 10^3/uL (4.8-10.8)
[2024-02-13 10:59] LABS: Blood Urea Nitrogen 47 mg/dl (9-20); Calcium 8.1 mg/dl (8.4-10.2); Carbon Dioxide 24 mmol/L (22-30); Chloride 92 mmol/L (98-107); Glucose 261 mg/dl (70-99); Potassium 4.2 mmol/L (3.5-5.1); Sodium 130 mmol/L (135-145); eGFR 44.78
[2024-02-13 19:44] LABS: Urine Albumin 3+ (Neg - Trace); Urine Bilirubin Negative (Negative); Urine Character Bloody (Clear); Urine Color Red; Urine Glucose Negative (Negative); Urine Ketone Negative (Negative); Urine Leukocyte 1+ (Negative); Urine Nitrite Negative (Negative); Urine Occult Blood 4+ (Negative); Urine Urobilinogen Negative (Neg - 1+); Urine pH 6.5 (5.0-9.0)
[2024-02-13 20:10] LABS: Urine Red Blood Cell >100 /HPF (0-2); Urine White Cell >100 /HPF (0-5)
== END ==
LOC: OLABP 23:50
PROVIDERS: ATTENDING PHYSICIAN Family Medicine
DX: I48.0 Paroxysmal atrial fibrillation (principal); D64.9 Anemia, unspecified; N40.1 Benign prostatic hyperplasia with lower urinary tract symptoms; N39.0 Urinary tract infection, site not specified; E87.1 Hypo-osmolality and hyponatremia; I11.0 Hypertensive heart disease with heart failure; I50.30 Unspecified diastolic (congestive) heart failure; J44.9 Chronic obstructive pulmonary disease, unspecified
CPT/HCPCS: 36415; 80048; 81003; 81015; 85025; 87086

== ENCOUNTER 2024-02-13 22:53 | Inpatient (IN) | payer MEDICARE, SELFPAY ==
[2024-02-13] VITALS (13 sets, daily range): BP systolic 88–126; BP diastolic 58–85
[2024-02-13 18:29] LABS: % Basophils 0.2 % (0-2); % Eosinophils 0.1 % (0-6); % Immature Granulocytes 0.5 % (0-0.5); % Lymphocytes 2.5 % (20.5-51.1); % Monocytes 4.9 % (1.7-9.3); % Neutrophils 91.8 % (42.2-75.2); Absolute Immature Granulocytes 0.1 10^3/uL (0-0.05); Absolute Lymphocytes 0.5 10^3/uL (1.2-3.4); Absolute Monocytes 0.9 10^3/uL (0.1-0.6); Absolute Neutrophils 16.3 10^3/uL (1.4-6.5); Hematocrit 33.8 % (39.0-52.0); Hemoglobin 11.6 g/dL (13.0-18.0); Mean Corp Hgb Conc. 34.3 g/dL (33.0-37.0); Mean Corpuscular Hgb 29.1 pg (27.0-31.0); Mean Corpuscular Volume 84.9 fL (80.0-94.0); Nucleated Red Blood Cells % 0 % (-); Platelet Count 236 10^3/uL (130-400); Red Blood Cell Count 3.98 10^6/uL (4.70-6.10); Red Cell Dist. Width 15.2 % (11.5-14.5); White Blood Cell Count 17.7 10^3/uL (4.8-10.8)
--- NOTE | 2024-02-13 18:32 | EDRN ---
Per INTELLIGENCE CLERK, Arriaga cath replaced, pt with a new 16fr arriaga cath, draining bloody-orange urine. Sample sent to lab.
--- NOTE | 2024-02-13 18:40 | ED.GENMED ---
History of Present Illness
General
Chief Complaint: Change in Mental Status
Source: patient
Exam Limitations: none
Time Seen by Provider: 02/13/24 17:54
Travel History
Have you had any contact with someone who has COVID-19?: No
Do you have any symptoms of coronavirus? Fever > 100 degrees, chills, cough, shortness of breath, sore throat, loss of taste or smell, muscle aches, or headache?: No
History of Present Illness
History of Present Illness:
This is a 88 year old male that is brought in by ambulance. Patient states that he was at Rehab and he is not sure why they sent him in. Nursing states that he was sent in with change in mental status. Patient states that he is a little dizzy.
Patient has an indwelling arriaga catheter. Denies any fever, chills, chest pain, SOB, abd pain, nausea, vomiting, diarrhea, headache.
Past History
Past History
ED Past Medical History: Arrthythmia (Atrial fib), Cancer (Prostate), CHF, COPD, HTN, Hypercholesterolemia, NIDDM, Valvular disease, Other (Empyema, BPH, chronic indwelling Arriaga catheter, intermittent bladder spasms, UTi, ) and Other (Benign
prostate hypertrophy)
ED Past Surgical History: Cardiac (Valve replacement) and Orthopedic (right hip surgery)
Patient has exhibited threatening behavior?: No
PSI?: No
Social History
Tobacco: Former smoker
Alcohol: Occasional
Drug: None
Personal:
Living: snf ([facility])
Employment: Retired
Family History
Family History: Other
Review of Systems
Review of Systems
All Other Systems: ROS reviewed and negative except as documented in HPI and ROS
Constitutional: Reports no symptoms; Denies fever or chills
EENT: Reports no symptoms
Respiratory: Reports no symptoms; Denies cough or trouble breathing
Cardiac: Reports no symptoms; Denies chest pain
ABD/GI: Reports no symptoms; Denies abdominal pain, nausea, vomiting or diarrhea
: Reports other (Indwelling Catheter, Hematuria)
Musculoskeletal: Reports no symptoms
Skin: Reports no symptoms
Neurological: Reports dizzy; Denies headache
Psychiatric: Reports no symptoms
Phy Exam
General Physical Exam
General Presentation: no apparent distress
General age: appears stated age
General Skin: warm and dry
General Habitus: elderly
General Mental: alert (Patient able to answer questions properly Oriented to time, place and person)
General Hydration: appears well hydrated
ENT Exam
ENT Exam: TM's normal, pharynx normal and neck supple
Eye Exam
Eye Exam: EOMI
Cardiovascular Exam
Cardiovascular Exam: no edema, normal peripheral pulses, irregularly irregular and tachycardia
Pulmonary Exam
Pulmonary Exam: lungs clear, no respiratory distress, no rales, chest non tender, no crackles, no rhonchi, no wheezing and no cough
Gastrointestinal Exam
Gastrointestinal Exam: normal bowel sounds, soft, no organomegaly, no pulsatile mass, non distended and tender (Generalized abd tenderness with palpation)
Musculoskeletal Exam
Musculoskeletal Exam: full ROM and no edema
Skin Exam
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 )
Psychiatric Exam
Psychiatric Exam: normal mood/affect
Course
Orders/Labs/Results
Orders:
Orders
02/13/24 18:04
EKG [Electrocardiogram (*1)] Urgent
Reason for Study: Tachycardia
EKG- Treatment ONCE
02/13/24 18:20
Complete Blood Count/With Diff Urgent
Comprehensive Metabolic Panel Urgent
Lactic Acid Urgent
PT/INR [Prothrombin Time] Urgent
Blood Culture Q30M
VICTOR HUGO Source: Blood/Venous
Specimen Description:
02/13/24 18:30
Urinalysis Reflex To Culture Urgent
Date Specimen was Collected: 02/13/24
Time Specimen was Collected: 18:29
Urine Microscopic Reflex Cult Urgent
Blood Culture Q30M
VICTOR HUGO Source: Blood/Venous
Specimen Description:
Urine Culture Urgent
VICTOR HUGO Source: U
Specimen Description:
Date Specimen was Collected: 02/13/24
Time Specimen was Collected: 18:29
02/13/24 18:38
Arriaga Placement- Treatment ONCE
Reason for insertion: Chronic Arriaga on Admit
02/13/24 18:39
0.9% Sodium Chloride 500 ml [Nss] 500 ml IV BOLUS
02/13/24 18:48
CT Abd/pel (oral only)-DH Only Urgent
Comment:
Reason For Exam: Generalized abd pain
Iohexol [Omnipaque] See Protocol PO NOW STA
02/13/24 20:46
Piperacillin/Tazo 3.375 Gram [Zosyn] 3.375 gram in 50 ml IV NOW
02/13/24 22:10
0.9% Sodium Chloride 500 ml [Nss] 500 ml IV BOLUS
02/13/24 22:39
Admit/Transfer Patient As Directed
Co-Sign Provider:
Level of Care: Inpatient admission
Assign to:: IMU- Intermediate Care
Physician / Group: ajit
Diagnosis: sepsis catheter associated uti
Reason for Hospitalization: sepsis catheter associated uti
Expected length of stay greater than two midnights?: Yes
ELOS- Estimated Length of Stay in days: 2
I certify the patient meets the requirements for IP care: Yes
Code Status As Directed
Resuscitation Status: Full Code
Abnormal Lab Results
02/13/24 02/13/24
18:20 18:30
WBC 17.7 H 10^3/uL
(4.8-10.8)
RBC 3.98 L 10^6/uL
(4.70-6.10)
Hgb 11.6 L g/dL
(13.0-18.0)
Hct 33.8 L %
(39.0-52.0)
RDW 15.2 H %
(11.5-14.5)
Abs Immat Gran (auto) 0.1 H 10^3/uL
(0-0.05)
Absolute Neuts (auto) 16.3 H 10^3/uL
(1.4-6.5)
Absolute Lymphs (auto) 0.5 L 10^3/uL
(1.2-3.4)
Absolute Monos (auto) 0.9 H 10^3/uL
(0.1-0.6)
Neutrophils % 91.8 H %
(42.2-75.2)
Lymphocytes % 2.5 L %
(20.5-51.1)
PT 16.7 H Sec
(11.4-14.6)
Sodium 130 L mmol/L
(135-145)
Chloride 92 L mmol/L
(98-107)
BUN 53 H mg/dl
(9-20)
Creatinine 1.7 H mg/dL
(0.7-1.3)
Glucose 313 H mg/dl
(70-99)
Lactic Acid 3.4 H mmol/L
(0.7-2.0)
AST 15 L U/L
(17-59)
Urine Ketones Trace A
(Negative)
Ur Occult Blood Reflex 4+ A
(Negative)
Urine Nitrite (Reflex) Positive A
(Negative)
Urine Bilirubin 1+ A
(Negative)
Leukocyte Esterase Rfl 2+ A
(Negative)
Urine RBC >100 A /HPF
(0-2)
Urine WBC (Reflex) >100 A /HPF
(0-5)
Urine Albumin (Reflex) 2+ A
(Neg - Trace)
02/13/24 18:20
02/13/24 18:20
Leukocytosis, H/H low. Sodium slightly low. Chloride low, Chronic renal insufficiency, Glucose nonfasting, Lactic acid elevated at 3.4 PT 16.7 with INR 1.35, Urine positive for infection.
Vital Signs
Initial and Last Documented VS:
Initial Vital Signs
Temp Pulse Resp BP Pulse Ox
99 F 112 16 126/85 98
02/13/24 17:58 02/13/24 17:58 02/13/24 17:58 02/13/24 17:58 02/13/24 17:58
Last Documented Vital Signs
Temp Pulse Resp BP Pulse Ox
99 F 99 23 100/66 98
02/13/24 17:58 02/13/24 21:25 02/13/24 21:25 02/13/24 22:08 02/13/24 17:58
MDM/Problems Addressed
Differential Diagnosis Includes:
UTI, Hematuria
MDM/Problems Addressed:
This is a 88 year old male that comes in with c/o change in mental status according to the snf. Patient states that he is not sure why they sent him. Patient is able to answer questions.
Will check labs urine and get CT of abd. Will change arriaga catheter and give IV fluids
Back into see patient. Explained that he will be admitted. Will give IV antibiotics for the UTI. CT of abd is still pending.
Chronic conditions affecting care:
Indwelling arriaga, UTI
Acute Exacerbation and/or Progression of Chronic Illness:
UTI
*Radiology
Radiology exam reviewed: radiology read reviewed (CT-chronic lung changes in both lung bases right greater then left. Small 1cm left adrenal gland adenoma. 1cm sold nodule in the body the pancreas. Follow-up with contrast-enhanced MRI of the
pancreas is recommended to fully evaluate. mild wall Thickening of the sigmoid colon, may represent very), all reviewed NAD by ED Provider (CT cont- mild colitis. Rim calcified oval structure measuring 5X2cm in the right mid abdomen adjacent to the
ascending colon suggests the possibility of either a enlarged divertciulum or chronic epiploic appendagitis. There is no bowel obstruction. There is a large amount of stool in the colon, ) and other (CT cont- consistent with constipation. No free
air, No free fluid or fluid collection.)
*Pulse Oximetry
Patient hypoxic: no
*EKG
Interpreted by ED Provider?: Yes
Heart Rate: 112
Rate: tachycardiac
Rhythm: sinus tachycardia
[place]: left axis deviation
Interval: normal interval
QRS Pattern: left bundle branch block
Ischemia: no ischemia
*Tariff Supervisor Interpretation
Rate: tachycardiac
Heart Rate: 112
Rhythm: sinus
*Critical Care Note
Total Time (30-74mins, 75-104mins- exclusive of procedures): Not Applicable
ED Attending Note
-
Portions of this chart may have been created with voice recognition software.� Occasional wrong word or��sound alike� substitutions may have occurred due to the inherent limitations of voice recognition software.
Discharge Plan
Departure
Patient Disposition: Admit
Date of Disposition: 02/13/24
Time of Disposition: 21:48
Admit to: Med/Surg
Presentation/result/management discussed w/ accepting MD/DO: Hospitalist
Patient with high blood pressure during this ER visit?: No
Condition: Good
Covid-19: Not Applicable
Discharge Problem:
Urinary tract infection
Prescriptions:
No Action
tamsulosin 0.4 MG capsule
0.4 mg PO HS
ferrous sulfate [FeroSul] 325 MG tablet
325 mg PO DAILY
cyanocobalamin (vitamin B-12) 1,000 MCG tablet
1,000 mcg PO DAILY Qty: 30 0RF
Januvia 100 MG tablet
100 mg PO DAILY Qty: 90 1RF
tolterodine 2 mg Tablet
2 mg PO BID
Myrbetriq 50 mg Tablet Extended Release 24 Hr
50 mg PO DAILY
atorvastatin 20 mg Tablet
20 mg PO HS
clopidogrel [Plavix] 75 mg tablet
75 mg PO DAILY
Xarelto 20 mg tablet
20 mg PO QPM
metoprolol succinate 25 mg Tablet Extended Release 24 Hr
25 mg PO HS Qty: 30 0RF
torsemide 20 mg Tablet
40 mg PO DAILY Qty: 30 0RF
potassium chloride 20 mEq Tablet,Er Particles/Crystals
20 meq PO DAILY Qty: 30 0RF
cefdinir 300 mg Capsule
300 mg PO Q12 Qty: 5 0RF
acetaminophen 325 mg Tablet
650 mg PO Q4H PRN (Reason: mild pain/fever>100)
phenazopyridine [Pyridium] 200 mg Tablet
200 mg PO TID
magnesium hydroxide [Milk of Magnesia] 400 mg/5 mL Suspension
30 ml PO DAILY PRN (Reason: if no bm on day 4)
bisacodyl [Dulcolax (bisacodyl)] 10 mg Suppository
10 mg WA DAILY PRN (Reason: constipation)
Fleet Enema 19-7 gram/118 mL Enema
118 ml WA DAILY PRN (Reason: constipation)
Visbiome 112.5 billion cell Capsule
2 cap PO DAILY
metformin 1,000 MG tablet
1,000 mg PO BID
Referrals:
Dhaval Arellano MD [Family Provider] -
Interventions
Interventions:
*Risk Screen - Suicide Last Done: 02/13/24 18:06
*General Assessment Last Done: 02/13/24 18:05
*Neglect/Abuse Screening Last Done: 02/13/24 18:06
ED- Fall Risk Assessment Last Done: 02/13/24 18:07
*ED COVID-19 Vaccine History Last Done: 02/13/24 18:03
ED- Neurological Assessment Last Done: 02/13/24 18:07
ED Swallowing Screen Last Done: 02/13/24 19:00
[2024-02-13 18:42] LABS: Lactic Acid 3.4 mmol/L (0.7-2.0)
[2024-02-13 18:43] LABS: ALT (SGPT) 14 U/L (0-50); AST (SGOT) 15 U/L (17-59); Albumin 3.5 g/dl (3.5-5.0); Alkaline Phosphatase 120 U/L (38-126); Blood Urea Nitrogen 53 mg/dl (9-20); Calcium 8.9 mg/dl (8.4-10.2); Carbon Dioxide 23 mmol/L (22-30); Chloride 92 mmol/L (98-107); Glucose 313 mg/dl (70-99); Potassium 5.1 mmol/L (3.5-5.1); Sodium 130 mmol/L (135-145); Total Bilirubin 1.2 mg/dl (0.2-1.3); Total Protein 6.8 g/dl (6.3-8.2); eGFR 38.53
[2024-02-13 18:44] LABS: INR 1.35; PT 16.7 Sec (11.4-14.6)
[2024-02-13 18:56] LABS: Urine Albumin 2+ (Neg - Trace); Urine Bilirubin 1+ (Negative); Urine Character Slightly Cloudy (Clear); Urine Color Amber; Urine Glucose Negative (Negative); Urine Ketone Trace (Negative); Urine Leukocyte 2+ (Negative); Urine Nitrite Positive (Negative); Urine Occult Blood 4+ (Negative); Urine Specific Gravity 1.015 (<1.030); Urine Urobilinogen 1+ (Neg - 1+)
[2024-02-13] MEDS: OMNIPAQUE 50 ML PO (19:08)
[2024-02-13] MEDS: NSS 500 IV ×2 (19:11→22:10)
[2024-02-13 19:17] LABS: Urine Red Blood Cell >100 /HPF (0-2); Urine White Cell >100 /HPF (0-5)
[2024-02-13] MEDS: ZOSYN 50 IV (21:06)
--- NOTE | 2024-02-13 22:43 | HPS.HSE ---
Family Physician
-
Family Physician: Dhaval Arellano MD
Chief Complaint
-
altered mental status
History of Present Illness
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
iron deficiency anemia, depression, BPH with chronic Alvarado catheter, presenting from rehab apparently for change in mental status. Patient does not know why he is in the hospital. Complains of some dizziness. He denies any abdominal pain or
nausea vomiting or diarrhea. He denies constipation states he had a bowel movement yesterday and has been going regularly. Denies any chest pain or shortness of breath or headache.
Patient was just admitted from 01/30 to 02/04 for catheter associated urinary tract infection secondary to Citrobacter/Serratia.
Medical History
Past Medical History
Past Medical History: Reports Other (recurrent UTI, HFpEF, paroxysmal atrial fibrillation, right carotid artery stenosis status post stent, hypertension, diabetes, right hip replacement, hyperlipidemia, diabetes, mild anemia of chronic disease, iron
deficiency anemia, depression, BPH with chronic Alvarado catheter)
Past Surgical History: Reports None
Social History
Tobacco: Non-smoker
Alcohol: None
Drug: None
Family History
Family History: Not pertinent
Allergies / Home Medications
Allergies reflects when Allergies were last updated in [facility].
Home Medications with original date entered in [facility]
Allergy/Medication List:
Allergies
Allergy/AdvReac Type Severity Reaction Status Date / Time
No Known Allergies Allergy Verified 06/11/23 13:34
Home Medications
ferrous sulfate 325 mg (65 mg iron) tablet (FeroSul) 325 mg PO DAILY Supplement 10/06/21
tamsulosin 0.4 mg capsule 0.4 mg PO HS Urinary issue 10/06/21
cyanocobalamin (vitamin B-12) 1,000 mcg tablet 1,000 mcg PO DAILY #30 tabs 10/08/21
sitagliptin phosphate 100 mg tablet (Januvia) 100 mg PO DAILY Diabetes #90 tabs 05/31/22
mirabegron 50 mg tablet,extended release 24 hr (Myrbetriq) 50 mg PO DAILY Urinary issue 07/24/22
tolterodine 2 mg tablet 2 mg PO BID 08/21/22
atorvastatin 20 mg tablet 20 mg PO HS High Cholesterol 11/01/23
clopidogrel 75 mg tablet (Plavix) 75 mg PO DAILY Blood Clot Prevention/Tx 11/01/23
rivaroxaban 20 mg tablet (Xarelto) 20 mg PO QPM Blood Clot Prevention/Tx 11/01/23
metoprolol succinate 25 mg tablet,extended release 24 hr 25 mg PO HS #30 tabs 11/08/23
potassium chloride 20 mEq tablet,extended release(part/cryst) 20 meq PO DAILY #30 tabs 11/08/23
torsemide 20 mg tablet 40 mg PO DAILY #30 tabs 11/08/23
cefdinir 300 mg capsule 300 mg PO Q12 #5 caps 02/05/24
Lactobac no.2-Bifidobac no.1-S. thermo 112.5 billion cell capsule (Visbiome) 2 cap PO DAILY 02/13/24
acetaminophen 325 mg tablet 650 mg PO Q4H PRN mild pain/fever>100 02/13/24
bisacodyl 10 mg rectal suppository (Dulcolax (bisacodyl)) 10 mg AL DAILY PRN constipation 02/13/24
magnesium hydroxide 400 mg/5 mL oral suspension (Milk of Magnesia) 30 ml PO DAILY PRN if no bm on day 4 02/13/24
metformin 1,000 mg tablet 1,000 mg PO BID Diabetes 02/13/24
phenazopyridine 200 mg tablet (Pyridium) 200 mg PO TID 02/13/24
sodium phosphates 19 gram-7 gram/118 mL enema (Fleet Enema) 118 ml AL DAILY PRN constipation 02/13/24
Review of Systems
-
History Source: Patient
A 12 point ROS was completed and negative except as noted: Yes
Constitutional: Reports No Symptoms
EENT: Reports No Symptoms
Respiratory: Reports No Symptoms
Cardiac: Reports No Symptoms
Abdomen/GI: Reports No Symptoms
: Reports No Symptoms
Musculoskeletal: Reports No Symptoms
Skin: Reports No Symptoms
Neurological: Reports No Symptoms
Endocrine: Reports No Symptoms
Hematologic/Lymphatic: Reports No Symptoms
Psych: Reports No Symptoms
Physical Exam
Vital Signs
Vital Signs
Temp Pulse Resp BP Pulse Ox
99 F 99 23 100/66 98
02/13/24 17:58 02/13/24 21:25 02/13/24 21:25 02/13/24 22:08 02/13/24 17:58
Physical Exam
General: Well Developed, Well Nourished and No Apparent Distress
HEENT: NormoCephalic, Moist mucous membranes and Atraumatic
Respiratory: Clear
Cardiac: S1/S2 and Regular Rhythm; No Murmur or Rub
GI: Soft, Non Tender, Non Distended and Normal Bowel Sounds; No Organomegaly
Rectal: Deferred by Provider
Musculoskeletal: No Clubbing, No Cyanosis and No Edema
Skin: No Rash
Neuro: Nonfocal/grossly intact
Laboratory Results
-
02/13/24 18:20
02/13/24 18:20
Laboratory Results
PT 16.7 Sec (11.4-14.6) H 02/13/24 18:20
INR 1.35 02/13/24 18:20
Lactic Acid 3.4 mmol/L (0.7-2.0) H 02/13/24 18:20
Total Bilirubin 1.2 mg/dl (0.2-1.3) 02/13/24 18:20
AST 15 U/L (17-59) L 02/13/24 18:20
ALT 14 U/L (0-50) 02/13/24 18:20
Alkaline Phosphatase 120 U/L (38-126) 02/13/24 18:20
Data Reviewed
-
Lab Data: Labs Reviewed by me
Old Records: Reviewed
Impression/Plan
-
IMPRESSION:
PLAN:
# Sepsis (tachycardia, tachypnea, leukocytosis, hypertension) secondary to catheter associated UTI/hemorrhagic cystitis
-Urinalysis positive for infection, and gross/microscopic hematuria
-Urine, blood cultures pending
-CT abdomen/pelvis pending
-Alvarado catheter exchanged
-Prior urine culture grew Citrobacter, Serratia
-IV fluids
-Zosyn
-Continue Pyridium
-Hold Xarelto
# Acute kidney injury likely prerenal
-Hold torsemide
-IV fluids
BPH with chronic Alvarado catheter
-Continue Myrbetriq, tolterodine
-Continue tamsulosin
Chronic HFpEF
-Hold torsemide
Paroxysmal atrial fibrillation
-Continue metoprolol
-Hold Xarelto
Right carotid artery stenosis status post stent
-Continue Plavix
Essential hypertension
Type 2 diabetes
-Hold Januvia
-Hold metformin
-Insulin sliding scale
Right hip replacement
Hyperlipidemia
-Continue statin
Type 2 diabetes
Mild anemia of chronic disease/iron deficiency anemia
-Continue iron supplement
Depression
-Patient declined antidepressant
Full code
DVT prophylaxis�SCDs
Diabetic diet/cardiac
[2024-02-14] VITALS (26 sets, daily range): BP systolic 90–131; BP diastolic 56–97; BMI 25.0
--- NOTE | 2024-02-14 00:42 | PTCARENOTE ---
Pt received from ED via stretcher to ICU room 3372 as IMU level of care. Pt Ox3, drowsy. Primary language is Setswana. SR, palpable pulses, BP stable. RA, breath sounds diminished, pulse ox 95%. Alvarado in place, draining orange urine. L lower leg red
with scabs. NSS @ 100ml/hr. Safe environment maintained, call franklin within reach.
[2024-02-14] MEDS: ZOSYN 50 IV ×4 (04:36→21:52)
--- NOTE | 2024-02-14 06:01 | PTCARENOTE ---
Received call from pts daughter Dot, brianda.
--- NOTE | 2024-02-14 07:48 | W.PN.HOSP.TC ---
Today's Communication/Plan
-
see A/P
Assessment / Plan
Assessment / Plan
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
iron deficiency anemia, depression, BPH with chronic Alvarado catheter, presented from rehab apparently for change in mental status.� Patient does not know why he is in the hospital.� Complains of some dizziness.� He denies any abdominal pain or nausea
vomiting or diarrhea.� He denies constipation.�Denies chest pain or shortness of breath or headache.
Patient was just admitted from 01/30 to 02/04 for catheter associated urinary tract infection secondary to Citrobacter/Serratia.
A/P:
# Sepsis (tachycardia, tachypnea, leukocytosis, hypotension) secondary to catheter associated UTI/hemorrhagic cystitis
# mild lactic acidosis POA
Urinalysis positive for infection, and gross/microscopic hematuria
Follow Urine, blood cultures
CT abdomen/pelvis noted: Small 1 cm left adrenal gland adenoma. 1 cm solid nodule in the body the pancreas. Mild wall thickening of the sigmoid colon, may represent very mild colitis. Also large amount of stool in the colon, consistent with
constipation.�No intrarenal calcifications. No hydronephrosis.
Alvarado catheter was exchanged on admission 02/12
Prior urine culture grew Citrobacter, Serratia
Cont IV fluids
Cont Zosyn
Continue Pyridium
Hold Xarelto
# Acute kidney injury likely prerenal
Hold TOMOGRAPHIC TECH torsemide
Cont IV fluids
Follow SCr
# BPH with chronic Alvarado catheter
Continue Myrbetriq, tolterodine
Continue tamsulosin
# Chronic HFpEF
Hold torsemide
# Paroxysmal atrial fibrillation
Continue metoprolol
Hold Xarelto
# Right carotid artery stenosis status post stent
Continue Plavix
# Essential hypertension
# Type 2 diabetes
Hold Januvia
Hold metformin
Insulin sliding scale
# Right hip replacement
# Hyperlipidemia
Continue statin
# Type 2 diabetes
# Mild anemia of chronic disease/iron deficiency anemia
Continue iron supplement
# Depression
Patient declined antidepressant
# Incidental finding of Small 1 cm left adrenal gland adenoma.
# Incidental finding of 1 cm solid nodule in the body the pancreas
Recc outpt contrast MRI to further evaluate the pancreas nodule
Informed daughter on the phone about this
Full code
DVT prophylaxis�SCDs, TOMOGRAPHIC TECH Xarelto on hold
Diabetic diet/cardiac
DW RN
updated daughter on the phone
total time spent 51 min
Anticipated Discharge: > 48 hours
Subjective/Interval History
-
Date of Service: February 14, 2024
Objective Data
-
Labs:
Laboratory Results
02/14/24
04:33
WBC Pending
Hgb Pending
Hct Pending
Plt Count Pending
Sodium Pending
Potassium Pending
Chloride Pending
Carbon Dioxide Pending
BUN Pending
Creatinine Pending
Glucose Pending
Calcium Pending
Total Bilirubin Pending
AST Pending
ALT Pending
Alkaline Phosphatase Pending
Vital Signs:
Vital Signs
Temp Pulse Resp BP Pulse Ox
36.5 C 94 17 102/65 98
02/14/24 07:42 02/14/24 01:30 02/14/24 01:30 02/14/24 01:30 02/14/24 02:48
I&O
02/13/24 02/14/24 02/15/24
06:59 06:59 06:59
Intake Total 550 / 550
Output Total 1750 / 1750
Balance -1200 / -1200
Review of Systems
-
All other systems: Reviewed and negative
Physical Exam
-
General: Well Developed, Well Nourished, Comfortable and Conversant
HEENT: Normocephalic, Atraumatic and Oxygen (2L NC)
Respiratory: Clear to Auscultation and Non Labored Respirations; Negative Accessory Resp Muscle Use
Cardiac: Regular Rhythm and S1/S2
GI: Soft
Genito-urinary: Alvarado
Neuro: Awake and Alert
Psych: Calm and Intact Judgement/Insight
Data Reviewed
-
CT Scan: Report Reviewed by me
Labs: Labs Reviewed by me
[2024-02-14 08:20] LABS: % Basophils 0.3 % (0-2); % Eosinophils 1.1 % (0-6); % Immature Granulocytes 0.7 % (0-0.5); % Lymphocytes 5.2 % (20.5-51.1); % Monocytes 4.1 % (1.7-9.3); % Neutrophils 88.6 % (42.2-75.2); Absolute Eosinophils 0.1 10^3/uL (0-0.7); Absolute Immature Granulocytes 0.1 10^3/uL (0-0.05); Absolute Lymphocytes 0.6 10^3/uL (1.2-3.4); Absolute Monocytes 0.5 10^3/uL (0.1-0.6); Absolute Neutrophils 10.5 10^3/uL (1.4-6.5); Hematocrit 27.2 % (39.0-52.0); Mean Corp Hgb Conc. 33.8 g/dL (33.0-37.0); Mean Corpuscular Hgb 28.9 pg (27.0-31.0); Mean Corpuscular Volume 85.5 fL (80.0-94.0); Mean Platelet Volume 10.1 fL (7.4-10.4); Nucleated Red Blood Cells % 0 % (-); Platelet Count 203 10^3/uL (130-400); Red Blood Cell Count 3.18 10^6/uL (4.70-6.10); Red Cell Dist. Width 15.1 % (11.5-14.5); White Blood Cell Count 11.8 10^3/uL (4.8-10.8)
[2024-02-14 08:24] LABS: Hemoglobin 9.2 g/dL (13.0-18.0)
[2024-02-14] MEDS: PLAVIX 75 MG PO (08:48)
[2024-02-14] MEDS: FEOSOL 325 MG PO (08:48)
[2024-02-14] MEDS: DETROL 2 MG PO ×2 (08:48→19:59)
[2024-02-14] MEDS: VISBIOME 2 CAP PO (08:48)
[2024-02-14] MEDS: VITAMIN B-12 1000 MCG PO (08:48)
[2024-02-14] MEDS: NSS 1000 IV ×3 (08:52→19:59)
[2024-02-14 09:22] LABS: % Basophils 0.2 % (0-2); % Eosinophils 1.1 % (0-6); % Immature Granulocytes 0.4 % (0-0.5); % Lymphocytes 5.9 % (20.5-51.1); % Monocytes 4.8 % (1.7-9.3); % Neutrophils 87.6 % (42.2-75.2); Absolute Eosinophils 0.1 10^3/uL (0-0.7); Absolute Immature Granulocytes 0.1 10^3/uL (0-0.05); Absolute Lymphocytes 0.7 10^3/uL (1.2-3.4); Absolute Monocytes 0.6 10^3/uL (0.1-0.6); Absolute Neutrophils 10.5 10^3/uL (1.4-6.5); Hematocrit 29.1 % (39.0-52.0); Hemoglobin 9.7 g/dL (13.0-18.0); Mean Corp Hgb Conc. 33.3 g/dL (33.0-37.0); Mean Corpuscular Hgb 29.5 pg (27.0-31.0); Mean Corpuscular Volume 88.4 fL (80.0-94.0); Mean Platelet Volume 10.1 fL (7.4-10.4); Nucleated Red Blood Cells % 0 % (-); Platelet Count 185 10^3/uL (130-400); Red Blood Cell Count 3.29 10^6/uL (4.70-6.10); Red Cell Dist. Width 15.3 % (11.5-14.5)
[2024-02-14 09:49] LABS: ALT (SGPT) < 10 U/L (0-50); AST (SGOT) 13 U/L (17-59); Albumin 2.6 g/dl (3.5-5.0); Alkaline Phosphatase 114 U/L (38-126); Blood Urea Nitrogen 43 mg/dl (9-20); Calcium 7.6 mg/dl (8.4-10.2); Carbon Dioxide 26 mmol/L (22-30); Chloride 98 mmol/L (98-107); Estimated Creatinine Clearance 42 ml/min; Glucose 156 mg/dl (70-99); Potassium 3.6 mmol/L (3.5-5.1); Sodium 130 mmol/L (135-145); Total Bilirubin 0.7 mg/dl (0.2-1.3); Total Protein 5.3 g/dl (6.3-8.2); eGFR 53.17
[2024-02-14 09:53] LABS: Lactic Acid 1.3 mmol/L (0.7-2.0)
[2024-02-14 09:58] LABS: ALT (SGPT) 11 U/L (0-50); AST (SGOT) 14 U/L (17-59); Albumin 2.9 g/dl (3.5-5.0); Alkaline Phosphatase 96 U/L (38-126); Blood Urea Nitrogen 39 mg/dl (9-20); Calcium 7.9 mg/dl (8.4-10.2); Carbon Dioxide 24 mmol/L (22-30); Chloride 100 mmol/L (98-107); Estimated Creatinine Clearance 55 ml/min; Glucose 165 mg/dl (70-99); Sodium 131 mmol/L (135-145); Total Protein 5.8 g/dl (6.3-8.2); eGFR > 60.00
[2024-02-14] MEDS: NOVOLOG FLEXPEN-LOW RESISTANCE 3 UNITS SC (10:47)
[2024-02-14 13:10] LABS: Glucose - Point of Care 160 mg/dl (70-99)
[2024-02-14 13:10] LABS: Glucose - Point of Care 234 mg/dl (70-99)
[2024-02-14 13:10] LABS: Glucose - Point of Care 253 mg/dl (70-99)
--- NOTE | 2024-02-14 13:29 | CM ---
CM following re: discharge planning.
Reviewed pt's chart, met with pt. Pt's spouse Janelle and cousin Brian an bedside.
Pt is an 88 year old male, admitted with primary dx of Sepsis (tachycardia, tachypnea, leukocytosis, hypertension) secondary to catheter associated UTI/hemorrhagic cystitis
Pt reports he lives with spouse in a 2SH, has 2 supportive children. Per spouse, pt was discharged to [facility] last week and she is requested pt returns back to [facility] for a short term rehabilitation treatment.
PT and OT will evaluate the pt to determine a level of care at discharge.
Per chart review, pt was at [facility] and [facility] in the past.
PCP: Amberly Rodriguez
Pharmacy: [facility] [place]
D/C plan: [facility] for a short term rehab.
CM will follow with discharge plan updates as hospitalization progresses
[2024-02-14] MEDS: NOVOLOG FLEXPEN-LOW RESISTANCE 2 UNITS SC (13:57)
--- NOTE | 2024-02-14 14:09 | PTCARENOTE ---
Patient maintains on IVF/abx this shift. Voiding via catheter. 1L NC removed and patient has been 98% all day on RA. Glucose levels corrected per order. Patient remains pleasantly confused- A&Ox2 this shift. Family visited and was updated on plan of
care
[2024-02-14] MEDS: NOVOLOG FLEXPEN-LOW RESISTANCE 4 UNITS SC (16:36)
[2024-02-14 16:46] LABS: Glucose - Point of Care 318 mg/dl (70-99)
[2024-02-14 21:34] LABS: Glucose - Point of Care 183 mg/dl (70-99)
[2024-02-14] MEDS: FLOMAX 0.400000000000000022 MG PO (21:52)
[2024-02-14] MEDS: LIPITOR 20 MG PO (21:52)
[2024-02-14] MEDS: TOPROL XL 25 MG PO (21:52)
--- NOTE | 2024-02-14 22:57 | PTCARENOTE ---
Pt resting comfortably, pleasantly confused, able to make needs known. NÚÑEZ, helps turn in bed but needs assistance. No c/o pain. Afebrile. Controlled Afib on monitor. BP stable. IV lines flushed/patent. Pulses palpable. IVF as ordered along with
antibiotics. Room air, 97%. No distress. Tolerating 2000 ADA diet, ate about 50% dinner. BM on previous shift. Incontinent. Chronic arriaga maintained, draining orange urine. Skin as documented. Will monitor.
[2024-02-15] VITALS (12 sets, daily range): BP systolic 102–161; BP diastolic 65–102; BMI 25.7
[2024-02-15] MEDS: ZOSYN 50 IV ×4 (04:15→21:15)
[2024-02-15] MEDS: NSS 1000 IV (05:16)
[2024-02-15 05:18] LABS: % Basophils 0.1 % (0-2); % Eosinophils 1.8 % (0-6); % Immature Granulocytes 0.5 % (0-0.5); % Lymphocytes 8.1 % (20.5-51.1); % Monocytes 4.8 % (1.7-9.3); % Neutrophils 84.7 % (42.2-75.2); Absolute Eosinophils 0.1 10^3/uL (0-0.7); Absolute Lymphocytes 0.6 10^3/uL (1.2-3.4); Absolute Monocytes 0.4 10^3/uL (0.1-0.6); Absolute Neutrophils 6.6 10^3/uL (1.4-6.5); Hematocrit 29.2 % (39.0-52.0); Hemoglobin 9.6 g/dL (13.0-18.0); Mean Corp Hgb Conc. 32.9 g/dL (33.0-37.0); Mean Corpuscular Hgb 28.8 pg (27.0-31.0); Mean Corpuscular Volume 87.7 fL (80.0-94.0); Mean Platelet Volume 9.4 fL (7.4-10.4); Nucleated Red Blood Cells % 0 % (-); Platelet Count 169 10^3/uL (130-400); Red Blood Cell Count 3.33 10^6/uL (4.70-6.10); Red Cell Dist. Width 14.8 % (11.5-14.5); White Blood Cell Count 7.7 10^3/uL (4.8-10.8)
[2024-02-15 05:42] LABS: Blood Urea Nitrogen 21 mg/dl (9-20); Calcium 7.8 mg/dl (8.4-10.2); Carbon Dioxide 26 mmol/L (22-30); Chloride 104 mmol/L (98-107); Estimated Creatinine Clearance 78 ml/min; Glucose 169 mg/dl (70-99); Potassium 3.6 mmol/L (3.5-5.1); Sodium 131 mmol/L (135-145); eGFR > 60.00
--- NOTE | 2024-02-15 07:44 | W.PN.HOSP.TC ---
Today's Communication/Plan
-
downgrade to tele
Assessment / Plan
Assessment / Plan
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
iron deficiency anemia, depression, BPH with chronic Alvarado catheter, presented from rehab apparently for change in mental status.� Patient does not know why he is in the hospital.� Complains of some dizziness.� He denies any abdominal pain or nausea
vomiting or diarrhea.� He denies constipation.�Denies chest pain or shortness of breath or headache.
Patient was just admitted from 01/30 to 02/04 for catheter associated urinary tract infection secondary to Citrobacter/Serratia.
A/P:
# Sepsis (tachycardia, tachypnea, leukocytosis, hypotension) POA secondary to catheter associated UTI/hemorrhagic cystitis
# mild lactic acidosis POA, resolved
Follow Urine Cx,
blood cultures neg
CT abdomen/pelvis noted: Small 1 cm left adrenal gland adenoma. 1 cm solid nodule in the body the pancreas. Mild wall thickening of the sigmoid colon, may represent very mild colitis. Also large amount of stool in the colon, consistent with
constipation.�No intrarenal calcifications. No hydronephrosis.
Alvarado catheter was exchanged on admission 02/12
Prior urine culture grew Citrobacter, Serratia
Observe off IV fluids
Cont Zosyn
Continue Pyridium
# Acute kidney injury likely prerenal, resolved
SCr on admission at 1.7, today at 0.7
Hold DAIRY INSPECTOR torsemide
Observe off IV fluids
Follow SCr
# BPH with chronic Alvarado catheter
Continue Myrbetriq, tolterodine
Continue tamsulosin
# Chronic HFpEF
Hold torsemide
# Paroxysmal atrial fibrillation
Continue metoprolol
resume DAIRY INSPECTOR Xarelto and observe
# Right carotid artery stenosis status post stent
Continue Plavix
# Essential hypertension
# Type 2 diabetes
Hold Januvia
Hold metformin
Insulin sliding scale
# Right hip replacement
# Hyperlipidemia
Continue statin
# Type 2 diabetes
# Mild anemia of chronic disease/iron deficiency anemia
Continue iron supplement
# Depression
Patient declined antidepressant
# Incidental finding of Small 1 cm left adrenal gland adenoma.
# Incidental finding of 1 cm solid nodule in the body the pancreas
Recc outpt contrast MRI to further evaluate the pancreas nodule
Informed daughter on the phone about these
# subjective nausea per pt
SPL eval
Full code
DVT prophylaxis�resume DAIRY INSPECTOR Xarelto and observe
Diabetic diet/cardiac
DW RN
left VM to daughter on the phone
Anticipated Discharge: 24 - 48 hours
Subjective/Interval History
-
Date of Service: February 15, 2024
Objective Data
-
Labs:
Laboratory Results
02/15/24
05:07
WBC 7.7
Hgb 9.6 L
Hct 29.2 L
Plt Count 169
Sodium 131 L
Potassium 3.6
Chloride 104
Carbon Dioxide 26
BUN 21 H
Creatinine 0.7
Glucose 169 H
Calcium 7.8 L
Vital Signs:
Vital Signs
Temp Pulse Resp BP Pulse Ox
36.9 C 84 17 127/77 96
02/15/24 04:10 02/15/24 06:15 02/15/24 06:15 02/15/24 06:00 02/15/24 06:15
I&O
02/14/24 02/15/24 02/16/24
06:59 06:59 06:59
Intake Total 550 / 550 3740 / 3740
Output Total 1750 / 1750 2550 / 2550
Balance -1200 / -1200 1190 / 1190
Review of Systems
-
All other systems: Reviewed and negative
Physical Exam
-
General: Well Developed, Well Nourished, Comfortable and Conversant
HEENT: Normocephalic and Atraumatic; Negative Oxygen
Respiratory: Clear to Auscultation and Non Labored Respirations; Negative Accessory Resp Muscle Use
Cardiac: Regular Rhythm and S1/S2
GI: Soft
Genito-urinary: Alvarado
Neuro: Awake and Alert
Psych: Calm
Data Reviewed
-
CT Scan: Report Reviewed by me
Labs: Labs Reviewed by me
[2024-02-15 07:56] LABS: Glucose - Point of Care 233 mg/dl (70-99)
[2024-02-15] MEDS: VITAMIN B-12 1000 MCG PO (07:57)
[2024-02-15] MEDS: PLAVIX 75 MG PO (07:57)
[2024-02-15] MEDS: VISBIOME 2 CAP PO (07:57)
[2024-02-15] MEDS: FEOSOL 325 MG PO (07:57)
[2024-02-15] MEDS: DETROL 2 MG PO ×2 (07:57→21:14)
[2024-02-15] MEDS: NOVOLOG FLEXPEN-LOW RESISTANCE 2 UNITS SC ×2 (09:28→12:23)
[2024-02-15] MEDS: ZOFRAN 4 MG IV (11:17)
[2024-02-15 11:47] LABS: Glucose - Point of Care 202 mg/dl (70-99)
--- NOTE | 2024-02-15 12:29 | PTOTSP ---
ST Acute Care Evaluation
This was a limited dysphagia evaluation, as insufficient amount of PO trials were consumed due nausea, bouts of regurgitation/dry-heaving, and pt refusal.
Recommendations:
- Full liquid diet, meds crushed in puree
- Aspiration and reflux/vomiting precautions
- GI consult
- MACHINE ATTENDANT to follow-up
[2024-02-15 15:35] LABS: Glucose - Point of Care 187 mg/dl (70-99)
[2024-02-15] MEDS: NOVOLOG FLEXPEN-LOW RESISTANCE 1 UNITS SC (17:50)
[2024-02-15] MEDS: XARELTO 20 MG PO (17:50)
--- NOTE | 2024-02-15 20:38 | PTCARENOTE ---
Assumed care of pt at 1900. Pt has periods of confusion/says things that don't make sense for the situation at times but generally appropriate with conversation. A/O to person, place time, loosely to situation but not always. Able to follow commands
and make needs known. No c/o pain, and pt reports that he no longer feels nauseous like he did during the day. At start of shift, pt's dinner tray was still in room and he had eaten approx 75% of his full liquid tray. AFib on monitor, 70s-80s. SpO2
97% on RA. Physical assessment completed, see nursing shift assessment flowsheet for full details.
[2024-02-15] MEDS: TOPROL XL 25 MG PO (21:14)
[2024-02-15] MEDS: LIPITOR 20 MG PO (21:14)
[2024-02-15] MEDS: FLOMAX 0.400000000000000022 MG PO (21:15)
[2024-02-15 21:32] LABS: Glucose - Point of Care 277 mg/dl (70-99)
[2024-02-16] VITALS (9 sets, daily range): BP systolic 91–123; BP diastolic 57–70; PULSE 75
[2024-02-16] MEDS: ZOSYN 50 IV ×4 (03:18→21:12)
[2024-02-16 04:33] LABS: % Basophils 0.2 % (0-2); % Eosinophils 1.4 % (0-6); % Immature Granulocytes 1.1 % (0-0.5); % Lymphocytes 15.7 % (20.5-51.1); % Monocytes 6.4 % (1.7-9.3); % Neutrophils 75.2 % (42.2-75.2); Absolute Eosinophils 0.1 10^3/uL (0-0.7); Absolute Immature Granulocytes 0.1 10^3/uL (0-0.05); Absolute Monocytes 0.4 10^3/uL (0.1-0.6); Absolute Neutrophils 4.7 10^3/uL (1.4-6.5); Hematocrit 27.9 % (39.0-52.0); Hemoglobin 9.5 g/dL (13.0-18.0); Mean Corp Hgb Conc. 34.1 g/dL (33.0-37.0); Mean Corpuscular Hgb 29.3 pg (27.0-31.0); Mean Corpuscular Volume 86.1 fL (80.0-94.0); Mean Platelet Volume 9.6 fL (7.4-10.4); Nucleated Red Blood Cells % 0 % (-); Platelet Count 182 10^3/uL (130-400); Red Blood Cell Count 3.24 10^6/uL (4.70-6.10); Red Cell Dist. Width 14.7 % (11.5-14.5); White Blood Cell Count 6.3 10^3/uL (4.8-10.8)
[2024-02-16 05:03] LABS: Blood Urea Nitrogen 13 mg/dl (9-20); Calcium 8.2 mg/dl (8.4-10.2); Carbon Dioxide 28 mmol/L (22-30); Chloride 100 mmol/L (98-107); Estimated Creatinine Clearance 91 ml/min; Glucose 180 mg/dl (70-99); Potassium 3.5 mmol/L (3.5-5.1); Sodium 133 mmol/L (135-145); eGFR > 60.00
--- NOTE | 2024-02-16 05:39 | PTCARENOTE ---
Pt being transferred to room 333. Report called MARIA ELENA Moser.
--- NOTE | 2024-02-16 05:57 | PTCARENOTE ---
Pt transferred to room 333 via wheelchair with RN and PCT at 0555.
--- NOTE | 2024-02-16 06:13 | PTCARENOTE ---
Addendum entered by Megan Chaudhary RN 02/16/24 06:36:
Initiated on electronic device monitor #24 -- AFib with BBBC/prolonged QT, HR 60s.
Original Note:
Patient arrived to [facility] via wheelchair from ICU, assist of 2 person to bed from wheelchair, patient unsteady. Alert and oriented to questions, appears to be forgetful and confused at times. Patient found to have new skin tear to left forearm/wrist
upon arrival - cleaned with saline and silicone foam placed to site. Patient with scattered ecchymosis throughout entire body. Alvarado catheter in place -- small amount of orange urine present in drainage bag upon arrival. Patient has no complaints of
pain, denies SOB/GALLEGOS. Patient is comfortable in bed at this time, call franklin is within reach and patient verbalizes understanding of its use. Will monitor.
[2024-02-16 07:36] LABS: Glucose - Point of Care 172 mg/dl (70-99)
[2024-02-16 07:46] LABS: Magnesium 1.7 mg/dl (1.6-2.3)
[2024-02-16] MEDS: FEOSOL 325 MG PO (09:22)
[2024-02-16] MEDS: VITAMIN B-12 1000 MCG PO (09:22)
[2024-02-16] MEDS: PLAVIX 75 MG PO (09:23)
[2024-02-16] MEDS: VISBIOME 2 CAP PO (09:23)
--- NOTE | 2024-02-16 09:39 | PTCARENOTE ---
Pt getting meds late d/t pharmacy. No meds in the pyxis and awaiting meds to come up from the tube system.
[2024-02-16] MEDS: NOVOLOG FLEXPEN-LOW RESISTANCE 1 UNITS SC (09:40)
[2024-02-16] MEDS: KCL 40 MEQ PO (09:41)
[2024-02-16] MEDS: DETROL 2 MG PO ×2 (09:41→21:11)
--- NOTE | 2024-02-16 09:52 | CM ---
Addendum entered by Gisele Lamb 02/16/24 11:34:
Bedside meeting with family per request
Pt, spouse and his MIL mostly speak Persian
Private paid caregiver bedside-they requested for update on [facility] referral
Noted admissions closed over weekend, will have update likely tomorrow
CM department number provided to caregiver per his request
Original Note:
CM reviewed chart- ADC 1-2 days
Prior CM notes indicate spouse requesting SNF to be arranged at [facility]
TT/Dr Justin requesting PT/OT orders
Pt will require [facility] auth for SNF
Discharge Disposition- anticipate SNF pending outcome of PT/OT evals
--- NOTE | 2024-02-16 10:23 | W.PN.HOSP.TC ---
Today's Communication/Plan
-
see A/P
Assessment / Plan
Assessment / Plan
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
iron deficiency anemia, depression, BPH with chronic Alvarado catheter, presented from rehab apparently for change in mental status.� Patient does not know why he is in the hospital.� Complains of some dizziness.� He denies any abdominal pain or nausea
vomiting or diarrhea.� He denies constipation.�Denies chest pain or shortness of breath or headache.
Patient was just admitted from 01/30 to 02/04 for catheter associated urinary tract infection secondary to Citrobacter/Serratia.
A/P:
# Sepsis (tachycardia, tachypnea, leukocytosis, hypotension) POA secondary to catheter associated UTI/hemorrhagic cystitis
# mild lactic acidosis POA, resolved
Urine Cx with Pseudomonas, follow Abx sensitivity
blood cultures neg
CT abdomen/pelvis noted: Small 1 cm left adrenal gland adenoma. 1 cm solid nodule in the body the pancreas. Mild wall thickening of the sigmoid colon, may represent very mild colitis. Also large amount of stool in the colon, consistent with
constipation.�No intrarenal calcifications. No hydronephrosis.
Alvarado catheter was exchanged on admission 02/12
Off IV fluid
Cont Zosyn
Continue Pyridium
# Acute kidney injury likely prerenal, resolved
SCr on admission at 1.7, today at 0.6
Cont to hold LITHOGRAPH PRESS OPERATOR TINWARE torsemide
Off IV fluid
Follow SCr
# BPH with chronic Alvarado catheter
Continue Myrbetriq, tolterodine
Continue tamsulosin
# Chronic HFpEF
Hold torsemide
# Paroxysmal atrial fibrillation
Continue metoprolol
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
# Right carotid artery stenosis status post stent
Continue Plavix
# Essential hypertension
# Type 2 diabetes
Hold Januvia, Hold metformin
Insulin sliding scale
# Right hip replacement
# Hyperlipidemia
Continue statin
# Type 2 diabetes
# Mild anemia of chronic disease/iron deficiency anemia
Continue iron supplement
# Depression
Patient declined antidepressant
# Incidental finding of Small 1 cm left adrenal gland adenoma.
# Incidental finding of 1 cm solid nodule in the body the pancreas
Recc outpt contrast MRI to further evaluate the pancreas nodule
Informed daughter on the phone about these
# subjective nausea per pt following diet
SPL eval noted bouts of regurgitation/dry-heaving after trial, but improved with soft and bite size
Per family, pt is on modified diet at home
No further nausea
No need for GI CS
Full code
DVT prophylaxis� LITHOGRAPH PRESS OPERATOR TINWARE Xarelto
Dispo: PT OT eval
DW several family members at bedside (, MIL, adopted grandson)
Anticipated Discharge: 24 - 48 hours
Subjective/Interval History
-
Date of Service: February 16, 2024
Objective Data
-
Labs:
Laboratory Results
02/16/24
04:28
WBC 6.3
Hgb 9.5 L
Hct 27.9 L
Plt Count 182
Sodium 133 L
Potassium 3.5
Chloride 100
Carbon Dioxide 28
BUN 13
Creatinine 0.6 L
Glucose 180 H
Calcium 8.2 L
Vital Signs:
Vital Signs
Temp Pulse Resp BP Pulse Ox
36.6 C 68 17 113/66 97
02/16/24 07:00 02/16/24 07:00 02/16/24 07:00 02/16/24 07:00 02/16/24 07:00
I&O
02/15/24 02/16/24 02/17/24
06:59 06:59 06:59
Intake Total 3740 / 4140 690 / 690
Output Total 2550 / 2550 1200 / 1200
Balance 1190 / 1590 -510 / -510
Review of Systems
-
All other systems: Reviewed and negative
Physical Exam
-
General: Well Developed, Well Nourished, Comfortable, Conversant and Appears Chronically Ill
HEENT: Normocephalic, Atraumatic, Nose Appears Normal and Ears Appear Normal; Negative Oxygen
Respiratory: Clear to Auscultation and Non Labored Respirations; Negative Accessory Resp Muscle Use
Cardiac: Regular Rhythm and S1/S2
GI: Soft
Genito-urinary: Alvarado
Neuro: Awake and Alert
Psych: Calm
Data Reviewed
-
CT Scan: Report Reviewed by me
Labs: Labs Reviewed by me
--- NOTE | 2024-02-16 10:53 | PTOTSP ---
ST Follow-Up
Pt presents with mild to moderate oral phase dysphagia characterized by prolonged mastication and bolus formation 2/2 reduced dentition and possible altered mental status.
Recommendations:
- Diet upgrade to SOFT BITE SIZED SOLIDS with REGULAR THIN LIQUIDS; meds as tolerated.
- General aspiration precautions.
- Compensatory strategies: alternate liquids/solids.
- BRIM MOLDER to continue to follow.
[2024-02-16 12:00] LABS: Glucose - Point of Care 253 mg/dl (70-99)
[2024-02-16] MEDS: NOVOLOG FLEXPEN-LOW RESISTANCE 3 UNITS SC (12:27)
[2024-02-16 16:35] LABS: Glucose - Point of Care 243 mg/dl (70-99)
[2024-02-16] MEDS: NOVOLOG FLEXPEN-LOW RESISTANCE 2 UNITS SC (17:10)
[2024-02-16] MEDS: XARELTO 20 MG PO (17:11)
--- NOTE | 2024-02-16 18:08 | PTCARENOTE ---
Pt is alert and oriented x3. Denies any pain. Tolerating diet well. Pt is mostly tunisian speaking but understands most Hungarian. Pt continues on IV abx. Chronic arriaga intact draining yellow/orange urine. Pt currently eating dinner in the chair. Chair
alarm on for safety and pt rings appropriately for needs. VSS. Call franklin is within reach.
[2024-02-16] MEDS: FLOMAX 0.400000000000000022 MG PO (21:11)
[2024-02-16] MEDS: LIPITOR 20 MG PO (21:11)
[2024-02-16] MEDS: TOPROL XL 25 MG PO (21:11)
[2024-02-16 21:36] LABS: Glucose - Point of Care 247 mg/dl (70-99)
[2024-02-17 03:45] VITALS: BP 120/70
[2024-02-17] MEDS: ZOSYN 50 IV ×4 (04:14→22:13)
[2024-02-17 06:22] VITALS: BMI 26.3
[2024-02-17 06:24] LABS: % Basophils 0.3 % (0-2); % Eosinophils 1.6 % (0-6); % Immature Granulocytes 1.9 % (0-0.5); % Lymphocytes 17.9 % (20.5-51.1); % Monocytes 6.9 % (1.7-9.3); % Neutrophils 71.4 % (42.2-75.2); Absolute Eosinophils 0.1 10^3/uL (0-0.7); Absolute Immature Granulocytes 0.1 10^3/uL (0-0.05); Absolute Lymphocytes 1.1 10^3/uL (1.2-3.4); Absolute Monocytes 0.4 10^3/uL (0.1-0.6); Absolute Neutrophils 4.5 10^3/uL (1.4-6.5); Hematocrit 29.6 % (39.0-52.0); Hemoglobin 9.8 g/dL (13.0-18.0); Mean Corp Hgb Conc. 33.1 g/dL (33.0-37.0); Mean Corpuscular Hgb 28.8 pg (27.0-31.0); Mean Corpuscular Volume 87.1 fL (80.0-94.0); Mean Platelet Volume 9.8 fL (7.4-10.4); Nucleated Red Blood Cells % 0 % (-); Platelet Count 194 10^3/uL (130-400); Red Cell Dist. Width 14.3 % (11.5-14.5); White Blood Cell Count 6.3 10^3/uL (4.8-10.8)
[2024-02-17 06:49] LABS: Blood Urea Nitrogen 8 mg/dl (9-20); Calcium 8.5 mg/dl (8.4-10.2); Carbon Dioxide 28 mmol/L (22-30); Chloride 100 mmol/L (98-107); Estimated Creatinine Clearance 91 ml/min; Glucose 153 mg/dl (70-99); Magnesium 1.6 mg/dl (1.6-2.3); Potassium 4.1 mmol/L (3.5-5.1); Sodium 130 mmol/L (135-145); eGFR > 60.00
[2024-02-17 07:00] VITALS: BP 115/72
[2024-02-17 07:47] LABS: Glucose - Point of Care 168 mg/dl (70-99)
[2024-02-17] MEDS: PLAVIX 75 MG PO (09:05)
[2024-02-17] MEDS: DETROL 2 MG PO ×2 (09:05→19:44)
[2024-02-17] MEDS: FEOSOL 325 MG PO (09:05)
[2024-02-17] MEDS: NOVOLOG FLEXPEN-LOW RESISTANCE 1 UNITS SC (09:05)
[2024-02-17] MEDS: VISBIOME 2 CAP PO (09:05)
[2024-02-17] MEDS: VITAMIN B-12 1000 MCG PO (09:05)
[2024-02-17 11:00] VITALS: BP 100/55
[2024-02-17 12:02] LABS: Glucose - Point of Care 222 mg/dl (70-99)
[2024-02-17] MEDS: NOVOLOG FLEXPEN-LOW RESISTANCE 2 UNITS SC ×2 (12:15→17:08)
--- NOTE | 2024-02-17 12:32 | CM ---
CM following for d/c planning
Met with Brian who reports he is a family member and has been helping the pt and family at home
Updated - referral sent to [facility], accepted pending bed availability
Concerned about LTC - explained LTC is not covered thru insurance, facilities require financial information
CM left a list of facilities in pts room
Pts requesting CM call her daughter Dot
CM will reach out to daughter
[2024-02-17 15:00] VITALS: BP 111/68
--- NOTE | 2024-02-17 15:41 | W.PN.HOSP.TC ---
Addendum entered and electronically signed by Dhaval Arellano MD 02/17/24 23:52:
Attending Addendum-
I saw and evaluated the patient. I reviewed the resident�s note and agree with findings and plan as documented in the resident�s note. feels fatigued and weak. Full 12 point ROS reviewed and negative except as documented exam: gen NAD, heart irreg
irreg lungs clear abd soft LE trace b/l edema - arriaga in place draining clear yellow urine Plan:
# Sepsis secondary to CAUTI- recurrent, resolving- urine cx- pseudomonas pansusseptable- transition to PO abx on DC, c/s uro for eval cbc bmp in am
# ERASMO- resolved on IVF cont to monitor dc IVF- repeat BMP in am
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
# Hyponatremia- appears hypervolemic restart torsemide in am, repeat BMP in am
# HFpEF- restart torsemide in am, daily weights fluid restrict strict I and Os
# Paroxysmal A fib- cont xarelto cont meds monitor on tele
# Left carotid stenosis- s/p Left NISHA- cont plavix
Time spent coordinating care, review of plan of care with resident, review of records, med rec, consults, notes, labs, rads, d/w nursing � 56 mins
Original Note:
Today's Communication/Plan
-
IV fluids
Transition to poor oral antibiotics
Urology consult patient
Assessment / Plan
Assessment / Plan
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
iron deficiency anemia, depression, BPH with chronic Arriaga catheter, presented from rehab apparently for change in mental status.� Patient does not know why he is in the hospital.� Complains of some dizziness.� He denies any abdominal pain or nausea
vomiting or diarrhea.� He denies constipation.�Denies chest pain or shortness of breath or headache.
Patient was just admitted from 01/30 to 02/04 for catheter associated urinary tract infection secondary to Citrobacter/Serratia.
A/P:
# Sepsis (tachycardia, tachypnea, leukocytosis, hypotension) secondary to catheter associated UTI/hemorrhagic cystitis
Zosyn-day 5
Will transition patient to oral antibiotics
Urine Cx with Pseudomonas, follow Abx sensitivity
blood cultures neg
Continue Pyridium
Monitor urine output
Consult urology
CT abdomen/pelvis noted: Small 1 cm left adrenal gland adenoma. 1 cm solid nodule in the body the pancreas. Mild wall thickening of the sigmoid colon, may represent very mild colitis. Also large amount of stool in the colon, consistent with
constipation.�No intrarenal calcifications. No hydronephrosis.
# Acute kidney injury
Serum creatinine improving 0.6
Cont to hold torsemide
Volume status hypovolemic, start IV fluids
Follow SCr
# BPH with chronic Arriaga catheter
Continue Myrbetriq, tolterodine
Continue tamsulosin
# Chronic HFpEF
Hold torsemide
# Paroxysmal atrial fibrillation
Continue metoprolol
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
# Right carotid artery stenosis status post stent
Continue Plavix
# Essential hypertension
# Type 2 diabetes
Hold Januvia, Hold metformin
Insulin sliding scale
# Right hip replacement
# Hyperlipidemia
Continue statin
# Type 2 diabetes
# Mild anemia of chronic disease/iron deficiency anemia
Continue iron supplement
# Depression
Patient declined antidepressant
# Incidental finding of Small 1 cm left adrenal gland adenoma.
# Incidental finding of 1 cm solid nodule in the body the pancreas
Recc outpt contrast MRI to further evaluate the pancreas nodule
Informed daughter on the phone about these
# subjective nausea per pt following diet
SPL eval noted bouts of regurgitation/dry-heaving after trial, but improved with soft and bite size
Per family, pt is on modified diet at home
No further nausea
No need for GI CS
Full code
DVT prophylaxis� AUTOMOBILE SERVICE STATION MECHANIC Xarelto
Dispo: PT OT eval
DW several family members at bedside (, SHANIQUA, adopted grandson)
Anticipated Discharge: 24 - 48 hours
Subjective/Interval History
-
Date of Service: February 17, 2024
Patient denies chest pain shortness of breath abdominal pain
Objective Data
-
Labs:
Laboratory Results
02/17/24
05:33
WBC 6.3
Hgb 9.8 L
Hct 29.6 L
Plt Count 194
Sodium 130 L
Potassium 4.1
Chloride 100
Carbon Dioxide 28
BUN 8 L
Creatinine 0.6 L
Glucose 153 H
Calcium 8.5
Vital Signs:
Vital Signs
Temp Pulse Resp BP Pulse Ox
98.2 F 73 17 111/68 97
02/17/24 15:00 02/17/24 15:00 02/17/24 15:00 02/17/24 15:00 02/17/24 15:00
I&O
02/16/24 02/17/24 02/18/24
06:59 06:59 06:59
Intake Total 690 / 690 1000 / 1000
Output Total 1200 / 1200 800 / 800
Balance -510 / -510 200 / 200
Review of Systems
-
History Source: Patient
All other systems: Reviewed and negative
Physical Exam
-
General: Well Developed
HEENT: Normocephalic and Atraumatic
Respiratory: Crackles (b/l bases )
Cardiac: Regular Rhythm and S1/S2
GI: Soft and Nontender
Genito-urinary: Arriaga (Right dark yellow urine)
Neuro: AO x 3
Psych: Calm
Data Reviewed
-
Labs: Labs Reviewed by me and Discussed with Physician
[2024-02-17 16:54] LABS: Glucose - Point of Care 245 mg/dl (70-99)
[2024-02-17] MEDS: XARELTO 20 MG PO (17:08)
[2024-02-17] MEDS: ZOFRAN 4 MG IV (17:12)
[2024-02-17 19:11] VITALS: BP 137/73
[2024-02-17 21:32] LABS: Glucose - Point of Care 262 mg/dl (70-99)
[2024-02-17] MEDS: COMPAZINE 5 MG IV (22:14)
[2024-02-17] MEDS: LIPITOR 20 MG PO (22:14)
[2024-02-17] MEDS: FLOMAX 0.400000000000000022 MG PO (22:14)
[2024-02-17] MEDS: TOPROL XL 25 MG PO (22:14)
[2024-02-17 23:40] VITALS: BP 152/92
[2024-02-18] VITALS (7 sets, daily range): BP systolic 100–142; BP diastolic 54–100; PULSE 66–69; O2SAT 99–100
[2024-02-18] MEDS: ZOSYN 50 IV ×4 (04:25→21:23)
[2024-02-18 06:35] LABS: % Basophils 0.3 % (0-2); % Eosinophils 1.3 % (0-6); % Lymphocytes 15.4 % (20.5-51.1); % Monocytes 7.8 % (1.7-9.3); % Neutrophils 73.2 % (42.2-75.2); Absolute Eosinophils 0.1 10^3/uL (0-0.7); Absolute Immature Granulocytes 0.1 10^3/uL (0-0.05); Absolute Monocytes 0.5 10^3/uL (0.1-0.6); Absolute Neutrophils 4.5 10^3/uL (1.4-6.5); Hematocrit 27.8 % (39.0-52.0); Hemoglobin 9.2 g/dL (13.0-18.0); Mean Corp Hgb Conc. 33.1 g/dL (33.0-37.0); Mean Corpuscular Hgb 28.8 pg (27.0-31.0); Mean Corpuscular Volume 87.1 fL (80.0-94.0); Mean Platelet Volume 9.8 fL (7.4-10.4); Nucleated Red Blood Cells % 0 % (-); Platelet Count 197 10^3/uL (130-400); Red Blood Cell Count 3.19 10^6/uL (4.70-6.10); Red Cell Dist. Width 14.6 % (11.5-14.5); White Blood Cell Count 6.2 10^3/uL (4.8-10.8)
[2024-02-18 06:57] LABS: Blood Urea Nitrogen 5 mg/dl (9-20); Calcium 8.2 mg/dl (8.4-10.2); Carbon Dioxide 27 mmol/L (22-30); Chloride 102 mmol/L (98-107); Estimated Creatinine Clearance 91 ml/min; Glucose 191 mg/dl (70-99); Sodium 130 mmol/L (135-145); eGFR > 60.00
[2024-02-18 08:33] LABS: Glucose - Point of Care 202 mg/dl (70-99)
[2024-02-18] MEDS: PLAVIX 75 MG PO (08:43)
[2024-02-18] MEDS: DETROL 2 MG PO ×2 (08:43→19:39)
[2024-02-18] MEDS: FEOSOL 325 MG PO (08:43)
[2024-02-18] MEDS: VITAMIN B-12 1000 MCG PO (08:43)
[2024-02-18] MEDS: VISBIOME 2 CAP PO (08:43)
[2024-02-18] MEDS: NOVOLOG FLEXPEN-LOW RESISTANCE 2 UNITS SC (08:49)
--- NOTE | 2024-02-18 10:08 | CM ---
Addendum entered by Jaqueline Figueroa 02/18/24 15:00:
Pt for poss d/c tomorrow per Dr Steven Marrero
Pt for SNF - accepted at [facility]
LM for [facility] at [facility] to check on bed availability for tomorrow
Pt will need auth
Addendum entered by Jaqueline Figueroa 02/18/24 10:49:
Received call from pts daughter Dot
Reviewed d/c plan - CM will update Dot and family of d/c plan
Original Note:
CM following for d/c planning
Asked by pts to call her daughter Dot [phone]
Called Dot Agudelo LM with call back number on asking for a return call
Pt for SNF when medically ready - Accepted at [facility], pending bed availability
[2024-02-18 11:25] LABS: Glucose - Point of Care 192 mg/dl (70-99)
--- NOTE | 2024-02-18 11:36 | W.PN.URO.CBU ---
Today's Communication / Plan
-
d/c when stable iout patient follow up
Assessment / Plan
-
resoloving urosepsi no mallorie arriaga discusssed optioons pt interestes in outpatient eval to see if candiddate for voifding
Diagnosis
-
Date of Service: February 18, 2024
-
Patient Diagnosis:
recurent urosespsi in pt with indwelling arriaga for retention
Post Op Day:
Subjective
-
feels better
Objective
-
Vital Signs
Temp Pulse Resp BP Pulse Ox
97.9 F 72 16 142/100 99
02/18/24 10:59 02/18/24 10:59 02/18/24 10:59 02/18/24 10:59 02/18/24 10:59
Intake and Output
02/17/24 02/18/24 02/19/24
06:59 06:59 06:59
Intake Total 1000 / 1000 900 / 900
Output Total 800 / 800 2925 / 2925
Balance 200 / 200 -2024 /
Intake:
Oral fluids 900 / 900 900 / 900
IV piggybacks 100 / 100
Output:
Urine, Arriaga 800 / 800 2925 / 2925
Other:
Number of approximated MODERATE 2
amounts of urine
Laboratory Results
02/18/24 05:38
02/18/24 05:38
Review of Systems
-
: Difficulty Voiding
Physical Exam
-
General - well developed, well nourished, no acute distress
Chest - clear bilaterally
Abdomen - soft, non-tender, positive bowel sounds, no CVAT, no incisional pain or distention
Genitalia - normal
Rectal - normal
Skin - warm & dry with no rash
Neuro - AOx3, no motor deficits
Extremities - no clubbing, no cyanosis, no edema
Incision - clean, dry
Dressing - clean, dry, intact
Care Review
Data Reviewed
CT Scan: Image Pers Reviewed
[2024-02-18] MEDS: NOVOLOG FLEXPEN-LOW RESISTANCE 1 UNITS SC (11:38)
--- NOTE | 2024-02-18 14:46 | W.PN.HOSP.TC ---
Addendum entered and electronically signed by Dhaval Arellano MD 02/18/24 21:28:
Attending Addendum-
I saw and evaluated the patient. I reviewed the resident�s note and agree with findings and plan as documented in the resident�s note. poor historian, states doesnt feel good but cant explain why, Full 12 point ROS reviewed and negative except as
documented exam: gen NAD, heart irreg irreg lungs clear abd soft LE trace b/l edema - arriaga in place draining clear yellow urine Plan:
# Sepsis secondary to CAUTI- recurrent, resolving- urine cx- pseudomonas pansusseptable- cont zosyn transition to PO cipro on DC, c/s uro - no new suggestions while IP, OP follow Up on DC for voiding trial, cbc bmp in am
# ERASMO- resolved on IVF cont to monitor dc IVF- repeat BMP in am
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
# Hyponatremia- appears hypervolemic restart torsemide, repeat BMP in am
# HFpEF- restart torsemide, daily weights fluid restrict strict I and Os
# Paroxysmal A fib- cont xarelto cont meds monitor on tele
# Left carotid stenosis- s/p Left NISHA- cont plavix
Dispo- DC to [facility] tomorrow
Time spent coordinating care, review of plan of care with resident, review of records, med rec, consults, notes, labs, rads, d/w nursing, SW � 51 mins
Original Note:
Today's Communication/Plan
-
Likely discharge tomorrow to [facility]
Transition to p.o. fluoroquinolones
CBC BMP in a.m.
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
Assessment / Plan
Assessment / Plan
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
iron deficiency anemia, depression, BPH with chronic Arriaga catheter, presented from rehab apparently for change in mental status.� Patient does not know why he is in the hospital.� Complains of some dizziness.� He denies any abdominal pain or nausea
vomiting or diarrhea.� He denies constipation.�Denies chest pain or shortness of breath or headache.
Patient was just admitted from 01/30 to 02/04 for catheter associated urinary tract infection secondary to Citrobacter/Serratia.
A/P:
# Sepsis (tachycardia, tachypnea, leukocytosis, hypotension) secondary to catheter associated UTI/hemorrhagic cystitis
Zosyn-day 6
plan is to discharge patient tomorrow to [facility].
Transition from IV antibiotics to p.o. fluoroquinolones for 7 days course on discharge
Appreciate urology evaluation
Urosepsis resolving
Outpatient urology follow-up
Monitor urine output
CT abdomen/pelvis noted: Small 1 cm left adrenal gland adenoma. 1 cm solid nodule in the body the pancreas. Mild wall thickening of the sigmoid colon, may represent very mild colitis. Also large amount of stool in the colon, consistent with
constipation.�No intrarenal calcifications. No hydronephrosis.
# Acute kidney injury
Serum creatinine improving 0.6
Restart torsemide
# BPH with chronic Arriaga catheter
Continue Myrbetriq, tolterodine
Continue tamsulosin
# Chronic HFpEF
Restart torsemide
Monitor I/O, daily weights
# Paroxysmal atrial fibrillation
Continue metoprolol
resumed [employer]ING Xarelto
# Right carotid artery stenosis status post stent
Continue Plavix
# Type 2 diabetes
Hold Januvia, Hold metformin
Blood glucose 262, 202, 192
Moderate dose insulin sliding scale
# Hyperlipidemia
Continue statin
# Type 2 diabetes
Sliding scale
# Mild anemia of chronic disease/iron deficiency anemia
Continue iron supplement
# Depression
Patient declined antidepressant
# Incidental finding of Small 1 cm left adrenal gland adenoma.
# Incidental finding of 1 cm solid nodule in the body the pancreas
Per family, pt is on modified diet at home
No further nausea
No need for GI CS
Full code
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
Dispo: PT OT eval
DW several family members at bedside (, SHANIQUA, adopted grandson)
Anticipated Discharge: Within 24 hours
Subjective/Interval History
-
Date of Service: February 18, 2024
Objective Data
-
Labs:
Laboratory Results
02/18/24
05:38
WBC 6.2
Hgb 9.2 L
Hct 27.8 L
Plt Count 197
Sodium 130 L
Potassium 4.0
Chloride 102
Carbon Dioxide 27
BUN 5 L
Creatinine 0.6 L
Glucose 191 H
Calcium 8.2 L
Vital Signs:
Vital Signs
Temp Pulse Resp BP Pulse Ox
97.9 F 72 16 142/100 99
02/18/24 10:59 02/18/24 10:59 02/18/24 10:59 02/18/24 10:59 02/18/24 10:59
I&O
02/17/24 02/18/24 02/19/24
06:59 06:59 06:59
Intake Total 1000 / 1000 900 / 900
Output Total 800 / 800 2925 / 2925
Balance 200 / 200 -2024 /
Review of Systems
-
History Source: Patient
All other systems: Reviewed and negative
Physical Exam
-
General: Comfortable
HEENT: Normocephalic and Atraumatic
Respiratory: Crackles (Left lower base)
Cardiac: Regular Rhythm and S1/S2
GI: Soft, Nontender and Nondistended
Genito-urinary: Arriaga (Dark yellow urine)
Neuro: AO x 3
Psych: Calm
Data Reviewed
-
Labs: Labs Reviewed by me and Discussed with Physician
[2024-02-18 16:49] LABS: Glucose - Point of Care 196 mg/dl (70-99)
[2024-02-18] MEDS: XARELTO 20 MG PO (17:02)
[2024-02-18] MEDS: DEMADEX 40 MG PO (17:02)
[2024-02-18] MEDS: NOVOLOG FLEXPEN-MODERATE RESISTANCE 1 UNITS SC (17:03)
[2024-02-18] MEDS: MILK OF MAGNESIA 30 ML PO (19:47)
[2024-02-18] MEDS: TOPROL XL PO (21:22)
[2024-02-18] MEDS: LIPITOR 20 MG PO (21:23)
[2024-02-18] MEDS: FLOMAX 0.400000000000000022 MG PO (21:23)
[2024-02-18 21:39] LABS: Glucose - Point of Care 312 mg/dl (70-99)
[2024-02-18] MEDS: NOVOLOG FLEXPEN 7 UNITS SC (22:14)
[2024-02-19 00:10] LABS: Glucose - Point of Care 237 mg/dl (70-99)
--- NOTE | 2024-02-19 03:28 | DOWNTIME ---
There was a [employer] Downtime on 02/19/2024 from 0100 to 02/19/2024 at 0322. Downtime documentation of patient's care, including medication administrations, has been reconciled in the electronic record per guidelines. Refer to the
patient's paper chart under the miscellaneous tab to see printed paper medication records and downtime forms.
[2024-02-19] MEDS: ZOSYN 50 IV ×4 (03:55→21:18)
[2024-02-19 06:48] LABS: % Basophils 0.4 % (0-2); % Eosinophils 1.6 % (0-6); % Immature Granulocytes 2.3 % (0-0.5); % Lymphocytes 14.3 % (20.5-51.1); % Monocytes 6.1 % (1.7-9.3); % Neutrophils 75.3 % (42.2-75.2); Absolute Eosinophils 0.1 10^3/uL (0-0.7); Absolute Immature Granulocytes 0.2 10^3/uL (0-0.05); Absolute Monocytes 0.4 10^3/uL (0.1-0.6); Absolute Neutrophils 5.3 10^3/uL (1.4-6.5); Hemoglobin 9.6 g/dL (13.0-18.0); Mean Corp Hgb Conc. 33.1 g/dL (33.0-37.0); Mean Corpuscular Hgb 28.7 pg (27.0-31.0); Mean Corpuscular Volume 86.8 fL (80.0-94.0); Mean Platelet Volume 9.6 fL (7.4-10.4); Nucleated Red Blood Cells % 0 % (-); Platelet Count 200 10^3/uL (130-400); Red Blood Cell Count 3.34 10^6/uL (4.70-6.10); Red Cell Dist. Width 14.6 % (11.5-14.5); White Blood Cell Count 7.1 10^3/uL (4.8-10.8)
[2024-02-19 07:00] VITALS: BP 110/67
[2024-02-19 07:42] LABS: Blood Urea Nitrogen 5 mg/dl (9-20); Calcium 8.3 mg/dl (8.4-10.2); Carbon Dioxide 29 mmol/L (22-30); Chloride 99 mmol/L (98-107); Estimated Creatinine Clearance 78 ml/min; Glucose 103 mg/dl (70-99); Potassium 3.6 mmol/L (3.5-5.1); Sodium 132 mmol/L (135-145); eGFR > 60.00
[2024-02-19 08:40] LABS: Glucose - Point of Care 135 mg/dl (70-99)
[2024-02-19] MEDS: FEOSOL 325 MG PO (08:40)
[2024-02-19] MEDS: VITAMIN B-12 1000 MCG PO (08:40)
[2024-02-19] MEDS: NOVOLOG FLEXPEN-MODERATE RESISTANCE SC (08:40)
[2024-02-19] MEDS: DETROL 2 MG PO ×2 (08:40→21:17)
[2024-02-19] MEDS: PLAVIX 75 MG PO (08:40)
[2024-02-19] MEDS: VISBIOME 2 CAP PO (08:40)
[2024-02-19] MEDS: DEMADEX 40 MG PO (08:40)
--- NOTE | 2024-02-19 08:40 | W.PN.HOSP.TC ---
Addendum entered and electronically signed by Dhaval Arellano MD 02/19/24 21:27:
Attending Addendum-
I saw and evaluated the patient. I reviewed the resident�s note and agree with findings and plan as documented in the resident�s note. poor historian, no complaints Full 12 point ROS reviewed and negative except as documented Exam: gen NAD, heart
irreg irreg, lungs clear, abd soft, LE trace b/l edema - arriaga in place draining clear yellow urine Plan:
# Sepsis secondary to CAUTI- recurrent, resolving- urine cx- pseudomonas pansusseptable- cont zosyn transition to PO cipro on DC, uro input appreciated - sceduled OP follow up on DC for voiding trial/cystoscopy, cbc, bmp in am
# DM- uncontrolled-restart home metformin and januvia-cont SSI
# ERASMO- resolved on IVF cont to monitor dc IVF- repeat BMP in am
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 Mcgill, cont meds
# Hyponatremia- hypervolemic- improved with restart torsemide, repeat BMP in am
# HFpEF- restart torsemide, daily weights fluid restrict strict I and Os
# Paroxysmal A fib- cont xarelto cont meds monitor on tele
# Left carotid stenosis- s/p Left NISHA- cont plavix
Dispo- DC to [facility] tomorrow
Time spent coordinating care, review of plan of care with resident, review of records, med rec, consults, notes, labs, rads, d/w nursing, SW � 35 mins
Original Note:
Today's Communication/Plan
-
Likely discharge tomorrow
Assessment / Plan
Assessment / Plan
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
iron deficiency anemia, depression, BPH with chronic Arriaga catheter, presented from rehab apparently for change in mental status.� Patient does not know why he is in the hospital.� Complains of some dizziness.� He denies any abdominal pain or nausea
vomiting or diarrhea.� He denies constipation.�Denies chest pain or shortness of breath or headache.
Patient was just admitted from 01/30 to 02/04 for catheter associated urinary tract infection secondary to Citrobacter/Serratia.
A/P:
# Sepsis (tachycardia, tachypnea, leukocytosis, hypotension) secondary to catheter associated UTI/hemorrhagic cystitis
Still waiting for an available bed at [facility], likely discharge tomorrow
Oral ciprofloxacin 500 twice daily 10-day course at discharge
Outpatient urology follow-up
Urine looks clear yellow
CT abdomen/pelvis noted: Small 1 cm left adrenal gland adenoma. 1 cm solid nodule in the body the pancreas. Mild wall thickening of the sigmoid colon, may represent very mild colitis. Also large amount of stool in the colon, consistent with
constipation.�No intrarenal calcifications. No hydronephrosis.
# Acute kidney injury
Serum creatinine improving 0.6
Hyponatremia has improved with start of torsemide
# BPH with chronic Arriaga catheter
Continue Myrbetriq, tolterodine
Continue tamsulosin
# Chronic HFpEF
Continue torsemide
Monitor I/O, daily weights
# Paroxysmal atrial fibrillation
Continue metoprolol
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
# Right carotid artery stenosis status post stent
Continue Plavix
# Type 2 diabetes
Resume home antidiabetic medications
# Hyperlipidemia
Continue statin
# Mild anemia of chronic disease/iron deficiency anemia
Continue iron supplement
# Depression
Patient declined antidepressant
# Incidental finding of Small 1 cm left adrenal gland adenoma.
# Incidental finding of 1 cm solid nodule in the body the pancreas
Per family, pt is on modified diet at home
No further nausea
No need for GI CS
Full code
DVT prophylaxis� [employer] Xarelto
Dispo: PT OT eval
DW several family members at bedside (, MIL, adopted grandson)
Anticipated Discharge: Within 24 hours
Subjective/Interval History
-
Date of Service: February 19, 2024
Objective Data
-
Labs:
Laboratory Results
02/19/24
06:16
WBC 7.1
Hgb 9.6 L
Hct 29.0 L
Plt Count 200
Sodium 132 L
Potassium 3.6
Chloride 99
Carbon Dioxide 29
BUN 5 L
Creatinine 0.7
Glucose 103 H
Calcium 8.3 L
Vital Signs:
Vital Signs
Temp Pulse Resp BP Pulse Ox
97.6 F 72 16 103/57 99
02/18/24 23:40 02/18/24 23:40 02/18/24 23:40 02/18/24 23:40 02/18/24 23:40
I&O
02/18/24 02/19/24 02/20/24
06:59 06:59 06:59
Intake Total 900 / 900 700 / 700 240 / 240
Output Total 2925 / 2925 650 / 650 1550 / 1550
Balance -2024 / -2024 50 / 50 -1310 / -1310
Review of Systems
-
History Source: Patient
All other systems: Reviewed and negative
Physical Exam
-
General: Comfortable
HEENT: Normocephalic and Atraumatic
Respiratory: Crackles
Cardiac: Regular Rhythm and S1/S2
Genito-urinary: Arriaga (Clear yellow)
Musculoskeletal: No Edema
Neuro: AO x 3
Psych: Calm
Data Reviewed
-
Labs: Labs Reviewed by me and Discussed with Physician
[2024-02-19] MEDS: DESENEX/MITRAZOL/ZEASORB 1 APPLIC TOPICAL ×2 (08:41→21:17)
--- NOTE | 2024-02-19 09:10 | W.PN.URO.CBU ---
Today's Communication / Plan
-
per hospitalist
Assessment / Plan
-
resoloving urosepsi no mallorie arriaga discusssed optioons pt interestes in outpatient eval to see if candiddate for voifding
Diagnosis
-
Date of Service: February 19, 2024
-
Patient Diagnosis:
Post Op Day:
Patient Diagnosis:
recurent urosespsi in pt with indwelling arriaga for retention
Post Op Day:
Subjective
-
feeling baseline
Objective
-
Vital Signs
Temp Pulse Resp BP Pulse Ox
97.6 F 86 16 110/67 99
02/18/24 23:40 02/19/24 08:40 02/18/24 23:40 02/19/24 08:40 02/18/24 23:40
Intake and Output
02/18/24 02/19/24 02/20/24
06:59 06:59 06:59
Intake Total 900 / 900 700 / 700 240 / 240
Output Total 2925 / 2925 650 / 650 1550 / 1550
Balance -2024 / -2024 50 / 50 -1310 / -1310
Intake:
Oral fluids 900 / 900 600 / 600 240 / 240
IV piggybacks 100 / 100
Output:
Urine, Arriaga 2925 / 2925 650 / 650 1550 / 1550
Laboratory Results
02/19/24 06:16
02/19/24 06:16
Review of Systems
-
: Difficulty Voiding
Physical Exam
-
General - well developed, well nourished, no acute distress
Chest - clear bilaterally
Abdomen - soft, non-tender, positive bowel sounds, no CVAT, no incisional pain or distention
Genitalia - normal
Rectal - normal
Skin - warm & dry with no rash
Neuro - AOx3, no motor deficits
Extremities - no clubbing, no cyanosis, no edema
Incision - clean, dry
Dressing - clean, dry, intact
--- NOTE | 2024-02-19 09:46 | CM ---
Addendum entered by Jaqueline Figueroa 02/19/24 15:39:
Called and spoke with pts daughter Dot - updated of plan to transfer to [facility] when auth obtained
Original Note:
Spoke with Lina at [facility], can accept pt
Called [facility] [phone], opt 3 to start auth
Spoke with Janiya
Ref # [id number]
Clinicals faxed to [phone]
Plan - transfer to [facility] when auth obtained
[2024-02-19 10:00] VITALS: BMI 25.7
[2024-02-19 12:58] LABS: Glucose - Point of Care 229 mg/dl (70-99)
[2024-02-19] MEDS: NOVOLOG FLEXPEN-MODERATE RESISTANCE 3 UNITS SC ×2 (13:48→17:32)
[2024-02-19 15:30] VITALS: BP 127/86
--- NOTE | 2024-02-19 16:46 | CM ---
Spoke with Hilda form [facility] obtained for [facility] form 02/20/24 to 02/24/24. [facility] fax clinical to [phone] Daniela Sheehan Ref # [id number]
PLAN To [facility]
[2024-02-19] MEDS: XARELTO 20 MG PO (17:21)
[2024-02-19 17:25] LABS: Glucose - Point of Care 204 mg/dl (70-99)
[2024-02-19] MEDS: FLOMAX 0.400000000000000022 MG PO (21:16)
[2024-02-19] MEDS: LIPITOR 20 MG PO (21:17)
[2024-02-19] MEDS: TOPROL XL 25 MG PO (21:17)
[2024-02-19 21:28] LABS: Glucose - Point of Care 165 mg/dl (70-99)
[2024-02-19] MEDS: GLUCOPHAGE 1000 MG PO (21:29)
[2024-02-19] MEDS: ANESTHETIC LOZENGE 1 LOZENGE PO (21:37)
[2024-02-19 23:19] VITALS: BP 123/73
[2024-02-20] MEDS: TYLENOL 650 MG PO (02:29)
[2024-02-20] MEDS: ZOSYN 50 IV ×2 (03:48→10:26)
[2024-02-20 06:00] VITALS: BMI 25.0
[2024-02-20 06:22] LABS: % Basophils 0.3 % (0-2); % Eosinophils 0.2 % (0-6); % Immature Granulocytes 1.3 % (0-0.5); % Lymphocytes 7.7 % (20.5-51.1); % Monocytes 4.7 % (1.7-9.3); % Neutrophils 85.8 % (42.2-75.2); Absolute Immature Granulocytes 0.1 10^3/uL (0-0.05); Absolute Lymphocytes 0.7 10^3/uL (1.2-3.4); Absolute Monocytes 0.4 10^3/uL (0.1-0.6); Absolute Neutrophils 8.1 10^3/uL (1.4-6.5); Hematocrit 27.6 % (39.0-52.0); Hemoglobin 9.2 g/dL (13.0-18.0); Mean Corp Hgb Conc. 33.3 g/dL (33.0-37.0); Mean Corpuscular Hgb 28.8 pg (27.0-31.0); Mean Corpuscular Volume 86.5 fL (80.0-94.0); Mean Platelet Volume 9.4 fL (7.4-10.4); Nucleated Red Blood Cells % 0 % (-); Platelet Count 240 10^3/uL (130-400); Red Blood Cell Count 3.19 10^6/uL (4.70-6.10); Red Cell Dist. Width 15.1 % (11.5-14.5); White Blood Cell Count 9.4 10^3/uL (4.8-10.8)
[2024-02-20 06:30] LABS: Blood Urea Nitrogen 18 mg/dl (9-20); Calcium 8.1 mg/dl (8.4-10.2); Carbon Dioxide 26 mmol/L (22-30); Chloride 100 mmol/L (98-107); Estimated Creatinine Clearance 78 ml/min; Glucose 168 mg/dl (70-99); Potassium 3.7 mmol/L (3.5-5.1); Sodium 128 mmol/L (135-145); eGFR > 60.00
[2024-02-20 07:00] VITALS: BP 112/62
[2024-02-20] MEDS: DETROL 2 MG PO (07:55)
[2024-02-20] MEDS: VISBIOME 2 CAP PO (07:55)
[2024-02-20] MEDS: DEMADEX 40 MG PO (07:55)
[2024-02-20] MEDS: JANUVIA 100 MG PO (07:55)
[2024-02-20] MEDS: PLAVIX 75 MG PO (07:56)
[2024-02-20] MEDS: GLUCOPHAGE 1000 MG PO (07:56)
[2024-02-20] MEDS: FEOSOL 325 MG PO (07:56)
[2024-02-20] MEDS: DESENEX/MITRAZOL/ZEASORB 1 APPLIC TOPICAL (07:56)
[2024-02-20] MEDS: VITAMIN B-12 1000 MCG PO (07:56)
[2024-02-20 08:01] LABS: Glucose - Point of Care 222 mg/dl (70-99)
[2024-02-20] MEDS: NOVOLOG FLEXPEN-MODERATE RESISTANCE 3 UNITS SC (08:02)
--- NOTE | 2024-02-20 10:02 | W.PN.URO.CBU ---
Today's Communication / Plan
-
per hospitalist f/up outpatient eval
Assessment / Plan
-
resoloving urosepsi no mallorie arriaga discusssed optioons pt interestes in outpatient eval to see if candiddate for voifding
Diagnosis
-
Date of Service: February 20, 2024
-
Patient Diagnosis:
Post Op Day:
Patient Diagnosis:
Post Op Day:
Patient Diagnosis:
recurent urosespsi in pt with indwelling arriaga for retention
Post Op Day:
Subjective
-
feels baseline
Objective
-
Vital Signs
Temp Pulse Resp BP Pulse Ox
98.6 F 85 17 112/62 97
02/20/24 07:00 02/20/24 07:55 02/20/24 07:00 02/20/24 07:55 02/20/24 07:00
Intake and Output
02/19/24 02/20/24 02/21/24
06:59 06:59 06:59
Intake Total 700 / 700 720 / 720
Output Total 650 / 650 3675 / 3675
Balance 50 / 50 -2955 / -2955
Intake:
Oral fluids 600 / 600 720 / 720
IV piggybacks 100 / 100
Output:
Urine, Arriaga 650 / 650 3675 / 3675
Laboratory Results
02/20/24 05:44
02/20/24 05:44
Review of Systems
-
: Difficulty Voiding
Physical Exam
-
General - well developed, well nourished, no acute distress
Chest - clear bilaterally
Abdomen - soft, non-tender, positive bowel sounds, no CVAT, no incisional pain or distention
Genitalia - normal
Rectal - normal
Skin - warm & dry with no rash
Neuro - AOx3, no motor deficits
Extremities - no clubbing, no cyanosis, no edema
Incision - clean, dry
Dressing - clean, dry, intact
Counseling
-
per hospitalist
--- NOTE | 2024-02-20 10:43 | CM ---
Addendum entered by Jaqueline Figueroa 02/20/24 13:48:
Transport scheduled for 3PM
Notified Lina at [facility]
Notified daughter Dot
Discussed IMM with daughter
Original Note:
Spoke with Lina at [facility]
Given auth number and review information
Ref # [id number]
From 02/20/24 to 02/24/24. [facility] fax clinical to [phone] Daniela Sheehan
Hospitalist made aware
Plan - transfer to [facility]
R - [phone]
F - [phone]
[2024-02-20 12:11] LABS: Glucose - Point of Care 171 mg/dl (70-99)
[2024-02-20] MEDS: NOVOLOG FLEXPEN-MODERATE RESISTANCE 1 UNITS SC (12:42)
--- NOTE | 2024-02-20 13:15 | W.PN.HOSP.TC ---
Addendum entered and electronically signed by Dhaval Arellano MD 02/20/24 23:14:
Attending Addendum-
I saw and evaluated the patient. I reviewed the resident�s note and agree with findings and plan as documented in the resident�s note. poor historian, no complaints, ' ifeel OK' Full 12 point ROS reviewed and negative except as documented Exam: gen
NAD, heart irreg irreg, lungs clear, abd soft, LE trace b/l edema - arriaga in place draining clear yellow urine Plan:
# Sepsis secondary to CAUTI- recurrent, resolving- urine cx- pseudomonas pansusseptable- cont PO cipro on DC, uro input appreciated - scheduled OP follow up on DC for voiding trial/cystoscopy, cbc, bmp f/u OP
# DM- better controlled-cont home metformin and januvia
# ERASMO- resolved on IVF cont to monitor dc IVF- repeat BMP as op
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 Mcgill, cont meds
# Hyponatremia- hypervolemic- mildly worse start salt tabs on DC restart torsemide, repeat BMP as op
# HFpEF- restart torsemide, daily weights fluid restrict strict I and Os
# Paroxysmal A fib- cont xarelto cont meds monitor on tele
# Left carotid stenosis- s/p Left NISHA- cont plavix
Dispo- DC to [facility] today enema x 2 given prior to DC
Time spent coordinating care, review of plan of care with resident, DC planning review of records, med rec, consults, notes, labs, rads, d/w nursing, � 38 mins
Original Note:
Today's Communication/Plan
-
Discharge today on antibiotics and salt tabs
Repeat EKG at [facility], BMP in 1 week
Assessment / Plan
Assessment / Plan
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
iron deficiency anemia, depression, BPH with chronic Arriaga catheter, presented from rehab apparently for change in mental status.� Patient does not know why he is in the hospital.� Complains of some dizziness.� He denies any abdominal pain or nausea
vomiting or diarrhea.� He denies constipation.�Denies chest pain or shortness of breath or headache.
Patient was just admitted from 01/30 to 02/04 for catheter associated urinary tract infection secondary to Citrobacter/Serratia.
A/P:
# Sepsis (tachycardia, tachypnea, leukocytosis, hypotension) secondary to catheter associated UTI/hemorrhagic cystitis
Discharge patient today
Oral ciprofloxacin 500 twice daily 3-day course at discharge
Repeat EKG for QTc interval at [facility]
Outpatient urology follow-up
Urine looks clear yellow
CT abdomen/pelvis noted: Small 1 cm left adrenal gland adenoma. 1 cm solid nodule in the body the pancreas. Mild wall thickening of the sigmoid colon, may represent very mild colitis. Also large amount of stool in the colon, consistent with
constipation.�No intrarenal calcifications. No hydronephrosis.
# Acute kidney injury
Serum creatinine improving 0.6
Sodium 128
Added salt tabs 1 g twice daily
1500 mill fluid restriction
BMP in 1 week
# BPH with chronic Arriaga catheter
Continue Myrbetriq, tolterodine
Continue tamsulosin
# Chronic HFpEF
Continue torsemide
# Paroxysmal atrial fibrillation
Continue metoprolol for rate control
Continue Xarelto
# Right carotid artery stenosis status post stent
Continue Plavix
# Type 2 diabetes
Metformin 1000 mg twice daily and Januvia 100 mg daily
# Hyperlipidemia
Continue statin
# Mild anemia of chronic disease/iron deficiency anemia
Continue iron supplement
# Depression
Patient declined antidepressant
Follow-up for CT scan of abdomen pelvis for pancreatic nodule
Full code
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
Dispo: Discharge today
Anticipated Discharge: Today
Subjective/Interval History
-
Date of Service: February 20, 2024
Discharge planning today
Objective Data
-
Labs:
Laboratory Results
02/20/24
05:44
WBC 9.4
Hgb 9.2 L
Hct 27.6 L
Plt Count 240
Sodium 128 L
Potassium 3.7
Chloride 100
Carbon Dioxide 26
BUN 18
Creatinine 0.7
Glucose 168 H
Calcium 8.1 L
Vital Signs:
Vital Signs
Temp Pulse Resp BP Pulse Ox
98.6 F 85 17 112/62 97
02/20/24 07:00 02/20/24 07:55 02/20/24 07:00 02/20/24 07:55 02/20/24 07:00
I&O
02/19/24 02/20/24 02/21/24
06:59 06:59 06:59
Intake Total 700 / 700 720 / 720
Output Total 650 / 650 3675 / 3675
Balance 50 / 50 -2955 / -2955
Review of Systems
-
History Source: Patient
All other systems: Reviewed and negative
Physical Exam
-
General: No Apparent Distress
HEENT: Normocephalic and Atraumatic
Respiratory: Clear to Auscultation
Cardiac: Regular Rhythm and S1/S2
GI: Soft, Nontender and Nondistended
Genito-urinary: Arriaga (Clear yellow)
Musculoskeletal: No Edema
Neuro: AO x 3
Psych: Calm
Data Reviewed
-
Labs: Labs Reviewed by me and Discussed with Physician
--- NOTE | 2024-02-20 13:27 | W.DCSUMMARY ---
Addendum entered and electronically signed by Dhaval Arellano MD 02/20/24 23:15:
Read, reviewed, and agree.
Matthew Arellano MD
Original Note:
Documented by User: Steven Marrero MD, Resident 02/20/24 13:27
Discharge Summary
Discharge Data
Date of Admission: 02/13/24
Date of Discharge: 02/20/24
-
Pending Results: No
Hospital Course
Discharge diagnosis
Sepsis secondary to catheter associated UTI
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
Hyponatremia
Right carotid artery stenosis status post stent
HFpEF
Proximal atrial fibrillation
Type 2 diabetes mellitus
Hyperlipidemia
Hospital course:
88-year-old male presented to the ED from [facility] with sepsis secondary to catheter associated UTI. In the ED there was change in mental status, presence of indwelling Arriaga's catheter. Vitals in the ED patient was tachycardic, febrile,
normotensive. Patient was started on Zosyn and IV fluids. Urine and blood cultures and CT abdomen were done . There was an incidental finding of a pancreatic nodule on the CT scan. Creatinine level was 1.5 on admission suspecting acute kidney
injury. We held torsemide and patient was started on IV fluids. Urine culture positive for Pseudomonas. EKG showed left bundle branch block, QTc 540 ON on 02/12. Subsequent EKG on 02/16 showed QTc 501. Patient has a history of type 2 diabetes
mellitus he was started on low-dose of insulin sliding scale. His blood glucose level was above above 160, POC above 250. We changed to moderate moderate insulin sliding scale. Over the course of hospital stay his urine color improved from bloody
red to dark yellow/orange. Urology was consulted, patient agreed to follow outpatient. Urosepsis is improving. Creatinine level started to improve, latest 0.6. Hyponatremia, sodium continues to be at 130, volume status hypervolemic, restarted
torsemide 40 mg p.o.
Sepsis secondary to catheter associated UTI
Start ciprofloxacin 500 mg twice daily for 10-day course. As patient's QTc was 501 on recent EKG. it is recommended to repeat EKG at [facility] to follow QT interval as the patient is on ciprofloxacin which causes increase in the QT interval.
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
Patient will go home on Arriaga's catheter.
Resume Pyridium, Myrbetriq, tolterodine, tamsulosin
-Patient has to follow-up with urologist for cystoscopy and urodynamics once infection has resolved. Also for voiding trials.
Hyponatremia
Repeat BMP in 1 week. 1500 mL fluid restriction. Start salt tab 1 g twice daily
HFpEF
Resume torsemide, metoprolol succinate
Right carotid artery stenosis status post stent\\
Resume on Plavix
Proximal atrial fibrillation
Resume on metoprolol, Xarelto
Type 2 diabetes mellitus
Resume on Januvia 100 mg po , metformin 1000 mg twice daily
Hyperlipidemia
Resume on atorvastatin
Discharge Plan
-
Patient Disposition: Halfway/SNF
Discharge Diagnosis/Procedures: Sepsis secondary to catheter associated UTI
Acute kidney injury
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
Hyponatremia
HFpEF
Paroxysmal atrial fibrillation
Condition: Fair
Diet: Diabetic, Carb Controlled
Additional Diets: 1500 mL fluid restriction
Bathing Restrictions: None
Blood Work: BMP in 1 week
Others Tests: Contrast MRI to further evaluate the pancreas nodule and left adrenal gland adenoma.
EKG to follow QTc
Referrals:
Kendell Mcgill MD [Active] - (call urology Dr Mcgill [phone] if interested in testing to determine if arriaga cath can be removed if not interested no followup indicated)
Dhaval Arellano MD [Family Provider] - in less than 1 week
Additional Discharge Medication Instructions: Ciprofloxacin 500 mg twice daily for 3 days for catheter associated UTI
Salt tabs 1 g twice daily
Prescriptions:
New
ciprofloxacin HCl 500 mg tablet
500 mg PO BID 3 Days Qty: 6 0RF
sodium chloride 1,000 mg tablet,soluble
1,000 mg PO BID 30 Days Qty: 60 0RF
Continued
ferrous sulfate [FeroSul] 325 MG tablet
325 mg PO DAILY
cyanocobalamin (vitamin B-12) 1,000 MCG tablet
1,000 mcg PO DAILY Qty: 30 0RF
Januvia 100 MG tablet
100 mg PO DAILY Qty: 90 1RF
atorvastatin 20 mg Tablet
20 mg PO HS
metoprolol succinate 25 mg Tablet Extended Release 24 Hr
25 mg PO HS Qty: 30 0RF
potassium chloride 20 mEq Tablet,Er Particles/Crystals
20 meq PO DAILY Qty: 30 0RF
acetaminophen 325 mg Tablet
650 mg PO Q4H PRN (Reason: mild pain/fever>100)
magnesium hydroxide [Milk of Magnesia] 400 mg/5 mL Suspension
30 ml PO DAILY PRN (Reason: if no bm on day 4)
bisacodyl [Dulcolax (bisacodyl)] 10 mg Suppository
10 mg IA DAILY PRN (Reason: constipation)
Fleet Enema 19-7 gram/118 mL Enema
118 ml IA DAILY PRN (Reason: constipation)
metformin 1,000 MG tablet
1,000 mg PO BID
torsemide 20 mg tablet
40 mg PO DAILY 30 Days Qty: 60 0RF
phenazopyridine [Pyridium] 200 mg Tablet
200 mg PO TID Qty: 30 0RF
clopidogrel [Plavix] 75 mg tablet
75 mg PO DAILY 30 Days Qty: 30 0RF
tolterodine 2 mg Tablet
2 mg PO BID Qty: 30 0RF
tamsulosin 0.4 MG capsule
0.4 mg PO HS 30 Days Qty: 30 0RF
Visbiome 112.5 billion cell Capsule
2 cap PO DAILY Qty: 30 0RF
Xarelto 20 mg tablet
20 mg PO QPM Qty: 30 0RF
Myrbetriq 50 mg Tablet Extended Release 24 Hr
50 mg PO DAILY 30 Days Qty: 30 0RF
Discontinued
cefdinir 300 mg capsule
300 mg PO Q12
Discharge Orders:
Discharge Patient (As Directed); Ordered 02/20/24
Ordered By: Steven Marrero
Discharge Date and Time
Discharge Date/Time: 02/20/24 16:36
Print Language: MICRONESIAN

Documented by User: Dhaval Arellano MD 02/20/24 23:11
Discharge Summary
Discharge Data
Date of Admission: 02/13/24
Date of Discharge: 02/20/24
Discharge Plan
-
Patient Disposition: Halfway/SNF
Discharge Diagnosis/Procedures: Sepsis secondary to catheter associated UTI
Acute kidney injury
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
Hyponatremia
HFpEF
Paroxysmal atrial fibrillation
Condition: Fair
Diet: Diabetic, Carb Controlled
Additional Diets: 1500 mL fluid restriction
Bathing Restrictions: None
Blood Work: BMP in 1 week
Others Tests: Contrast MRI to further evaluate the pancreas nodule and left adrenal gland adenoma.
EKG to follow QTc
Referrals:
Kendell Mcgill MD [Active] - (call urology Dr Mcgill [phone] if interested in testing to determine if arriaga cath can be removed if not interested no followup indicated)
Dhaval Arellano MD [Family Provider] - in less than 1 week
Additional Discharge Medication Instructions: Ciprofloxacin 500 mg twice daily for 3 days for catheter associated UTI
Salt tabs 1 g twice daily
Prescriptions:
New
ciprofloxacin HCl 500 mg tablet
500 mg PO BID 3 Days Qty: 6 0RF
sodium chloride 1,000 mg tablet,soluble
1,000 mg PO BID 30 Days Qty: 60 0RF
Continued
ferrous sulfate [FeroSul] 325 MG tablet
325 mg PO DAILY
cyanocobalamin (vitamin B-12) 1,000 MCG tablet
1,000 mcg PO DAILY Qty: 30 0RF
Januvia 100 MG tablet
100 mg PO DAILY Qty: 90 1RF
atorvastatin 20 mg Tablet
20 mg PO HS
metoprolol succinate 25 mg Tablet Extended Release 24 Hr
25 mg PO HS Qty: 30 0RF
potassium chloride 20 mEq Tablet,Er Particles/Crystals
20 meq PO DAILY Qty: 30 0RF
acetaminophen 325 mg Tablet
650 mg PO Q4H PRN (Reason: mild pain/fever>100)
magnesium hydroxide [Milk of Magnesia] 400 mg/5 mL Suspension
30 ml PO DAILY PRN (Reason: if no bm on day 4)
bisacodyl [Dulcolax (bisacodyl)] 10 mg Suppository
10 mg IA DAILY PRN (Reason: constipation)
Fleet Enema 19-7 gram/118 mL Enema
118 ml IA DAILY PRN (Reason: constipation)
metformin 1,000 MG tablet
1,000 mg PO BID
torsemide 20 mg tablet
40 mg PO DAILY 30 Days Qty: 60 0RF
phenazopyridine [Pyridium] 200 mg Tablet
200 mg PO TID Qty: 30 0RF
clopidogrel [Plavix] 75 mg tablet
75 mg PO DAILY 30 Days Qty: 30 0RF
tolterodine 2 mg Tablet
2 mg PO BID Qty: 30 0RF
tamsulosin 0.4 MG capsule
0.4 mg PO HS 30 Days Qty: 30 0RF
Visbiome 112.5 billion cell Capsule
2 cap PO DAILY Qty: 30 0RF
Xarelto 20 mg tablet
20 mg PO QPM Qty: 30 0RF
Myrbetriq 50 mg Tablet Extended Release 24 Hr
50 mg PO DAILY 30 Days Qty: 30 0RF
Discontinued
cefdinir 300 mg capsule
300 mg PO Q12
Discharge Orders:
Discharge Patient (As Directed); Ordered 02/20/24
Ordered By: Steven Marrero
Discharge Date and Time
Discharge Date/Time: 02/20/24 16:36
Print Language: MICRONESIAN
[2024-02-20 15:29] VITALS: BP 106/66
--- NOTE | 2024-02-20 16:21 | PTCARENOTE ---
tap water enema given w/out bm. milk and molasses enema given with small soft bm.
== END 2024-02-20 16:36 | DRG 698 ==
LOC: 3 WEST ACU 22:53
PROVIDERS: Clinical Nurse Specialist Family Health; Internal Medicine; Student in an Organized Health Care Education/Training Program; ADMITTING PHYSICIAN Hospitalist; ATTENDING PHYSICIAN Family Medicine; CONSULT PHYSICIAN Specialist; EMERGENCY PHYSICIAN Emergency Medicine; FAMILY PHYSICIAN Family Medicine
DX: T83.518A Infection and inflammatory reaction due to other urinary catheter, initial encounter (principal); A41.9 Sepsis, unspecified organism; N17.9 Acute kidney failure, unspecified; I50.32 Chronic diastolic (congestive) heart failure; I13.0 Hypertensive heart and chronic kidney disease with heart failure and stage 1 through stage 4 chronic kidney disease, or unspecified chronic kidney disease; E87.1 Hypo-osmolality and hyponatremia; Z87.891 Personal history of nicotine dependence; N30.91 Cystitis, unspecified with hematuria; Y84.6 Urinary catheterization as the cause of abnormal reaction of the patient, or of later complication, without mention of misadventure at the time of the procedure; N40.0 Benign prostatic hyperplasia without lower urinary tract symptoms; I48.0 Paroxysmal atrial fibrillation; I65.21 Occlusion and stenosis of right carotid artery; Z79.02 Long term (current) use of antithrombotics/antiplatelets; N18.9 Chronic kidney disease, unspecified; E11.22 Type 2 diabetes mellitus with diabetic chronic kidney disease; Z96.641 Presence of right artificial hip joint; D50.9 Iron deficiency anemia, unspecified; D63.8 Anemia in other chronic diseases classified elsewhere; F32.A Depression, unspecified; C61 Malignant neoplasm of prostate; E78.00 Pure hypercholesterolemia, unspecified; R33.8 Other retention of urine
CPT/HCPCS: 51702; 74176; 80048; 80053; 81003; 81015; 82962; 83605; 83735; 85025; 85610; 87040; 87077; 87086; 87186; 92526; 92610; 93005; 96361; 96365; 97162; 97166; 97530; 97535; 99285

== ENCOUNTER → 2024-02-21 09:36 | Outpatient (REF) | payer MEDICARE, SELFPAY ==
[2024-02-21 12:05] LABS: % Basophils 0.2 % (0-2); % Eosinophils 0.2 % (0-6); % Immature Granulocytes 0.7 % (0-0.5); % Lymphocytes 5.1 % (20.5-51.1); % Monocytes 4.2 % (1.7-9.3); % Neutrophils 89.6 % (42.2-75.2); Absolute Immature Granulocytes 0.1 10^3/uL (0-0.05); Absolute Lymphocytes 0.4 10^3/uL (1.2-3.4); Absolute Monocytes 0.3 10^3/uL (0.1-0.6); Absolute Neutrophils 7.2 10^3/uL (1.4-6.5); Hematocrit 25.1 % (39.0-52.0); Hemoglobin 8.5 g/dL (13.0-18.0); Mean Corp Hgb Conc. 33.9 g/dL (33.0-37.0); Mean Corpuscular Hgb 29.1 pg (27.0-31.0); Nucleated Red Blood Cells % 0 % (-); Platelet Count 200 10^3/uL (130-400); Red Blood Cell Count 2.92 10^6/uL (4.70-6.10); Red Cell Dist. Width 15.5 % (11.5-14.5); White Blood Cell Count 8.1 10^3/uL (4.8-10.8)
[2024-02-21 12:06] LABS: Blood Urea Nitrogen 22 mg/dl (9-20); Carbon Dioxide 25 mmol/L (22-30); Chloride 101 mmol/L (98-107); Glucose 179 mg/dl (70-99); Potassium 3.6 mmol/L (3.5-5.1); Sodium 129 mmol/L (135-145); eGFR > 60.00
== END ==
LOC: OLABP 09:36
PROVIDERS: ATTENDING PHYSICIAN Family Medicine
DX: J44.9 Chronic obstructive pulmonary disease, unspecified (principal); E87.1 Hypo-osmolality and hyponatremia; I50.30 Unspecified diastolic (congestive) heart failure; I11.0 Hypertensive heart disease with heart failure; E11.9 Type 2 diabetes mellitus without complications; D64.9 Anemia, unspecified; N39.0 Urinary tract infection, site not specified
CPT/HCPCS: 36415; 80048; 85025

== ENCOUNTER → 2024-02-24 12:50 | Outpatient (REF) | payer OTHER, MEDICARE, SELFPAY ==
[2024-02-24 13:44] LABS: % Basophils 0.4 % (0-2); % Eosinophils 0.9 % (0-6); % Immature Granulocytes 0.7 % (0-0.5); % Lymphocytes 17.2 % (20.5-51.1); % Monocytes 8.3 % (1.7-9.3); % Neutrophils 72.5 % (42.2-75.2); Absolute Lymphocytes 0.8 10^3/uL (1.2-3.4); Absolute Monocytes 0.4 10^3/uL (0.1-0.6); Absolute Neutrophils 3.3 10^3/uL (1.4-6.5); Hematocrit 24.8 % (39.0-52.0); Hemoglobin 8.3 g/dL (13.0-18.0); Mean Corp Hgb Conc. 33.5 g/dL (33.0-37.0); Mean Corpuscular Volume 86.7 fL (80.0-94.0); Mean Platelet Volume 9.7 fL (7.4-10.4); Nucleated Red Blood Cells % 0 % (-); Platelet Count 231 10^3/uL (130-400); Red Blood Cell Count 2.86 10^6/uL (4.70-6.10); Red Cell Dist. Width 15.7 % (11.5-14.5); White Blood Cell Count 4.6 10^3/uL (4.8-10.8)
[2024-02-24 13:53] LABS: Blood Urea Nitrogen 19 mg/dl (9-20); Calcium 8.2 mg/dl (8.4-10.2); Carbon Dioxide 28 mmol/L (22-30); Chloride 104 mmol/L (98-107); Glucose 136 mg/dl (70-99); Potassium 3.1 mmol/L (3.5-5.1); Sodium 132 mmol/L (135-145); eGFR > 60.00
== END ==
LOC: OLABP 12:50
PROVIDERS: ATTENDING PHYSICIAN Family Medicine
DX: A41.9 Sepsis, unspecified organism (principal); T83.511D Infection and inflammatory reaction due to indwelling urethral catheter, subsequent encounter; N30.01 Acute cystitis with hematuria; M62.81 Muscle weakness (generalized); I50.30 Unspecified diastolic (congestive) heart failure; E11.9 Type 2 diabetes mellitus without complications; E78.5 Hyperlipidemia, unspecified; Z85.46 Personal history of malignant neoplasm of prostate; B96.5 Pseudomonas (aeruginosa) (mallei) (pseudomallei) as the cause of diseases classified elsewhere; R41.82 Altered mental status, unspecified; N40.1 Benign prostatic hyperplasia with lower urinary tract symptoms; E87.1 Hypo-osmolality and hyponatremia; R26.2 Difficulty in walking, not elsewhere classified; Z74.1 Need for assistance with personal care; R27.8 Other lack of coordination; D64.9 Anemia, unspecified; N13.9 Obstructive and reflux uropathy, unspecified
CPT/HCPCS: 36415; 80048; 85025

== ENCOUNTER → 2024-02-26 10:20 | Outpatient (REF) | payer MEDICARE, SELFPAY ==
[2024-02-26 10:46] LABS: Hematocrit 26.7 % (39.0-52.0); Hemoglobin 8.9 g/dL (13.0-18.0); Mean Corp Hgb Conc. 33.3 g/dL (33.0-37.0); Mean Corpuscular Hgb 28.5 pg (27.0-31.0); Mean Corpuscular Volume 85.6 fL (80.0-94.0); Mean Platelet Volume 9.9 fL (7.4-10.4); Platelet Count 257 10^3/uL (130-400); Red Blood Cell Count 3.12 10^6/uL (4.70-6.10); Red Cell Dist. Width 15.5 % (11.5-14.5); White Blood Cell Count 6.6 10^3/uL (4.8-10.8)
[2024-02-26 11:48] LABS: ALT (SGPT) < 10 U/L (0-50); AST (SGOT) 11 U/L (17-59); Albumin 2.6 g/dl (3.5-5.0); Alkaline Phosphatase 101 U/L (38-126); Blood Urea Nitrogen 14 mg/dl (9-20); Carbon Dioxide 27 mmol/L (22-30); Chloride 101 mmol/L (98-107); Glucose 122 mg/dl (70-99); Potassium 3.1 mmol/L (3.5-5.1); Sodium 132 mmol/L (135-145); Total Bilirubin 0.6 mg/dl (0.2-1.3); Total Protein 5.5 g/dl (6.3-8.2); eGFR > 60.00
== END ==
LOC: OLABP 10:20
PROVIDERS: ATTENDING PHYSICIAN Family Medicine
DX: I50.30 Unspecified diastolic (congestive) heart failure (principal); J44.9 Chronic obstructive pulmonary disease, unspecified; I11.0 Hypertensive heart disease with heart failure; E11.9 Type 2 diabetes mellitus without complications; I48.0 Paroxysmal atrial fibrillation; D64.9 Anemia, unspecified; Z85.46 Personal history of malignant neoplasm of prostate; N40.1 Benign prostatic hyperplasia with lower urinary tract symptoms; E87.1 Hypo-osmolality and hyponatremia
CPT/HCPCS: 36415; 80053; 85027

== ENCOUNTER → 2024-02-27 10:57 | Outpatient (REF) | payer OTHER, MEDICARE, SELFPAY ==
[2024-02-27 12:44] LABS: % Basophils 0.2 % (0-2); % Eosinophils 1.1 % (0-6); % Immature Granulocytes 0.6 % (0-0.5); % Lymphocytes 18.9 % (20.5-51.1); % Monocytes 5.9 % (1.7-9.3); % Neutrophils 73.3 % (42.2-75.2); Absolute Eosinophils 0.1 10^3/uL (0-0.7); Absolute Lymphocytes 1.3 10^3/uL (1.2-3.4); Absolute Monocytes 0.4 10^3/uL (0.1-0.6); Absolute Neutrophils 4.8 10^3/uL (1.4-6.5); Hematocrit 27.9 % (39.0-52.0); Hemoglobin 8.9 g/dL (13.0-18.0); Mean Corp Hgb Conc. 31.9 g/dL (33.0-37.0); Mean Corpuscular Hgb 28.5 pg (27.0-31.0); Mean Corpuscular Volume 89.4 fL (80.0-94.0); Mean Platelet Volume 9.7 fL (7.4-10.4); Nucleated Red Blood Cells % 0 % (-); Platelet Count 248 10^3/uL (130-400); Red Blood Cell Count 3.12 10^6/uL (4.70-6.10); White Blood Cell Count 6.6 10^3/uL (4.8-10.8)
[2024-02-27 12:53] LABS: Blood Urea Nitrogen 19 mg/dl (9-20); Calcium 8.1 mg/dl (8.4-10.2); Carbon Dioxide 25 mmol/L (22-30); Chloride 101 mmol/L (98-107); Glucose 96 mg/dl (70-99); Magnesium 1.4 mg/dl (1.6-2.3); Potassium 3.1 mmol/L (3.5-5.1); Sodium 132 mmol/L (135-145); eGFR 44.78
== END ==
LOC: OLABP 10:57
PROVIDERS: ATTENDING PHYSICIAN Family Medicine
DX: I50.30 Unspecified diastolic (congestive) heart failure (principal); J44.9 Chronic obstructive pulmonary disease, unspecified; I11.0 Hypertensive heart disease with heart failure; E11.9 Type 2 diabetes mellitus without complications; I48.0 Paroxysmal atrial fibrillation; D64.9 Anemia, unspecified; Z85.46 Personal history of malignant neoplasm of prostate; N40.1 Benign prostatic hyperplasia with lower urinary tract symptoms; E87.1 Hypo-osmolality and hyponatremia; N39.0 Urinary tract infection, site not specified
CPT/HCPCS: 36415; 80048; 83735; 85025

== ENCOUNTER → 2024-02-28 11:00 | Outpatient (REF) | payer OTHER, MEDICARE, SELFPAY ==
[2024-02-28 11:34] LABS: Blood Urea Nitrogen 19 mg/dl (9-20); Calcium 8.1 mg/dl (8.4-10.2); Carbon Dioxide 27 mmol/L (22-30); Chloride 100 mmol/L (98-107); Glucose 73 mg/dl (70-99); Magnesium 1.3 mg/dl (1.6-2.3); Potassium 3.3 mmol/L (3.5-5.1); Sodium 131 mmol/L (135-145); eGFR > 60.00
== END ==
LOC: OLABP 11:00
PROVIDERS: ATTENDING PHYSICIAN Family Medicine
DX: Z85.46 Personal history of malignant neoplasm of prostate (principal); A41.9 Sepsis, unspecified organism; T83.511A Infection and inflammatory reaction due to indwelling urethral catheter, initial encounter; B96.5 Pseudomonas (aeruginosa) (mallei) (pseudomallei) as the cause of diseases classified elsewhere; R41.82 Altered mental status, unspecified; N30.01 Acute cystitis with hematuria; I65.21 Occlusion and stenosis of right carotid artery; I50.30 Unspecified diastolic (congestive) heart failure; J44.9 Chronic obstructive pulmonary disease, unspecified; I11.0 Hypertensive heart disease with heart failure; I48.0 Paroxysmal atrial fibrillation; E11.9 Type 2 diabetes mellitus without complications
CPT/HCPCS: 36415; 80048; 83735

== ENCOUNTER → 2024-03-02 15:57 | Outpatient (REF) | payer OTHER, MEDICARE, SELFPAY ==
[2024-03-02 16:27] LABS: % Basophils 0.2 % (0-2); % Eosinophils 0.9 % (0-6); % Immature Granulocytes 0.9 % (0-0.5); % Lymphocytes 14.2 % (20.5-51.1); % Monocytes 8.1 % (1.7-9.3); % Neutrophils 75.7 % (42.2-75.2); Absolute Eosinophils 0.1 10^3/uL (0-0.7); Absolute Immature Granulocytes 0.1 10^3/uL (0-0.05); Absolute Lymphocytes 0.9 10^3/uL (1.2-3.4); Absolute Monocytes 0.5 10^3/uL (0.1-0.6); Hematocrit 27.6 % (39.0-52.0); Hemoglobin 9.2 g/dL (13.0-18.0); Mean Corp Hgb Conc. 33.3 g/dL (33.0-37.0); Mean Corpuscular Hgb 29.7 pg (27.0-31.0); Mean Platelet Volume 9.8 fL (7.4-10.4); Nucleated Red Blood Cells % 0 % (-); Platelet Count 320 10^3/uL (130-400); Red Cell Dist. Width 16.8 % (11.5-14.5); White Blood Cell Count 6.5 10^3/uL (4.8-10.8)
[2024-03-02 16:34] LABS: Blood Urea Nitrogen 21 mg/dl (9-20); Calcium 8.7 mg/dl (8.4-10.2); Carbon Dioxide 29 mmol/L (22-30); Chloride 101 mmol/L (98-107); Glucose 136 mg/dl (70-99); Magnesium 1.4 mg/dl (1.6-2.3); Potassium 4.5 mmol/L (3.5-5.1); Sodium 131 mmol/L (135-145); eGFR > 60.00
== END ==
LOC: OLABP 15:57
PROVIDERS: ATTENDING PHYSICIAN Family Medicine
DX: A41.9 Sepsis, unspecified organism (principal); R41.82 Altered mental status, unspecified; N30.01 Acute cystitis with hematuria; I65.21 Occlusion and stenosis of right carotid artery; I50.30 Unspecified diastolic (congestive) heart failure; J44.9 Chronic obstructive pulmonary disease, unspecified; I11.0 Hypertensive heart disease with heart failure; E11.9 Type 2 diabetes mellitus without complications
CPT/HCPCS: 36415; 80048; 83735; 85025

== ENCOUNTER → 2024-03-09 08:54 | Outpatient (REF) | payer OTHER, MEDICARE, SELFPAY ==
[2024-03-09 09:45] LABS: % Basophils 0.6 % (0-2); % Eosinophils 1.6 % (0-6); % Immature Granulocytes 1.1 % (0-0.5); % Lymphocytes 17.7 % (20.5-51.1); % Monocytes 8.5 % (1.7-9.3); % Neutrophils 70.5 % (42.2-75.2); Absolute Eosinophils 0.1 10^3/uL (0-0.7); Absolute Immature Granulocytes 0.1 10^3/uL (0-0.05); Absolute Lymphocytes 1.1 10^3/uL (1.2-3.4); Absolute Monocytes 0.5 10^3/uL (0.1-0.6); Absolute Neutrophils 4.5 10^3/uL (1.4-6.5); Hematocrit 25.6 % (39.0-52.0); Hemoglobin 8.3 g/dL (13.0-18.0); Mean Corp Hgb Conc. 32.4 g/dL (33.0-37.0); Mean Corpuscular Hgb 28.6 pg (27.0-31.0); Mean Corpuscular Volume 88.3 fL (80.0-94.0); Mean Platelet Volume 10.1 fL (7.4-10.4); Nucleated Red Blood Cells % 0 % (-); Platelet Count 264 10^3/uL (130-400); Red Cell Dist. Width 17.2 % (11.5-14.5); White Blood Cell Count 6.3 10^3/uL (4.8-10.8)
[2024-03-09 09:58] LABS: ALT (SGPT) < 10 U/L (0-50); AST (SGOT) 11 U/L (17-59); Albumin 2.5 g/dl (3.5-5.0); Alkaline Phosphatase 106 U/L (38-126); Blood Urea Nitrogen 15 mg/dl (9-20); Calcium 8.8 mg/dl (8.4-10.2); Carbon Dioxide 28 mmol/L (22-30); Chloride 95 mmol/L (98-107); Glucose 112 mg/dl (70-99); Magnesium 1.5 mg/dl (1.6-2.3); Potassium 4.2 mmol/L (3.5-5.1); Sodium 129 mmol/L (135-145); Total Bilirubin 0.4 mg/dl (0.2-1.3); Total Protein 5.4 g/dl (6.3-8.2); eGFR > 60.00
== END ==
LOC: OLABP 08:54
PROVIDERS: ATTENDING PHYSICIAN Family Medicine
DX: A41.9 Sepsis, unspecified organism (principal); B96.5 Pseudomonas (aeruginosa) (mallei) (pseudomallei) as the cause of diseases classified elsewhere; R41.82 Altered mental status, unspecified; N30.01 Acute cystitis with hematuria; I65.21 Occlusion and stenosis of right carotid artery; I50.30 Unspecified diastolic (congestive) heart failure; J44.9 Chronic obstructive pulmonary disease, unspecified; I11.0 Hypertensive heart disease with heart failure; E11.9 Type 2 diabetes mellitus without complications
CPT/HCPCS: 36415; 80053; 83735; 85025

== ENCOUNTER → 2024-03-11 11:17 | Outpatient (REF) | payer OTHER, MEDICARE, SELFPAY ==
[2024-03-11 12:58] LABS: Hematocrit 27.7 % (39.0-52.0); Hemoglobin 9.2 g/dL (13.0-18.0); Mean Corp Hgb Conc. 33.2 g/dL (33.0-37.0); Mean Corpuscular Hgb 29.4 pg (27.0-31.0); Mean Corpuscular Volume 88.5 fL (80.0-94.0); Mean Platelet Volume 10.4 fL (7.4-10.4); Platelet Count 208 10^3/uL (130-400); Red Blood Cell Count 3.13 10^6/uL (4.70-6.10); Red Cell Dist. Width 17.6 % (11.5-14.5); White Blood Cell Count 5.7 10^3/uL (4.8-10.8)
[2024-03-11 14:14] LABS: Blood Urea Nitrogen 13 mg/dl (9-20); Calcium 8.9 mg/dl (8.4-10.2); Carbon Dioxide 26 mmol/L (22-30); Chloride 96 mmol/L (98-107); Glucose 85 mg/dl (70-99); Magnesium 1.6 mg/dl (1.6-2.3); Potassium 4.7 mmol/L (3.5-5.1); Sodium 131 mmol/L (135-145); eGFR > 60.00
== END ==
LOC: OLABP 11:17
PROVIDERS: ATTENDING PHYSICIAN Family Medicine
DX: I50.30 Unspecified diastolic (congestive) heart failure (principal); A41.9 Sepsis, unspecified organism; B96.5 Pseudomonas (aeruginosa) (mallei) (pseudomallei) as the cause of diseases classified elsewhere; R41.82 Altered mental status, unspecified; I65.21 Occlusion and stenosis of right carotid artery; I11.0 Hypertensive heart disease with heart failure; E11.9 Type 2 diabetes mellitus without complications
CPT/HCPCS: 36415; 80048; 83735; 85027

== ENCOUNTER → 2024-03-16 12:27 | Outpatient (REF) | payer OTHER, MEDICARE, SELFPAY ==
[2024-03-16 13:12] LABS: % Basophils 0.7 % (0-2); % Immature Granulocytes 0.4 % (0-0.5); % Lymphocytes 20.9 % (20.5-51.1); % Monocytes 11.9 % (1.7-9.3); % Neutrophils 64.1 % (42.2-75.2); Absolute Eosinophils 0.1 10^3/uL (0-0.7); Absolute Lymphocytes 1.1 10^3/uL (1.2-3.4); Absolute Monocytes 0.7 10^3/uL (0.1-0.6); Absolute Neutrophils 3.5 10^3/uL (1.4-6.5); Hematocrit 26.1 % (39.0-52.0); Hemoglobin 8.5 g/dL (13.0-18.0); Mean Corp Hgb Conc. 32.6 g/dL (33.0-37.0); Mean Corpuscular Hgb 29.3 pg (27.0-31.0); Mean Platelet Volume 9.9 fL (7.4-10.4); Nucleated Red Blood Cells % 0 % (-); Platelet Count 174 10^3/uL (130-400); Red Cell Dist. Width 18.7 % (11.5-14.5); White Blood Cell Count 5.5 10^3/uL (4.8-10.8)
[2024-03-16 13:53] LABS: ALT (SGPT) < 10 U/L (0-50); AST (SGOT) 10 U/L (17-59); Albumin 2.5 g/dl (3.5-5.0); Alkaline Phosphatase 113 U/L (38-126); Blood Urea Nitrogen 16 mg/dl (9-20); Calcium 8.8 mg/dl (8.4-10.2); Carbon Dioxide 29 mmol/L (22-30); Chloride 102 mmol/L (98-107); Glucose 89 mg/dl (70-99); Magnesium 1.6 mg/dl (1.6-2.3); Potassium 3.8 mmol/L (3.5-5.1); Sodium 135 mmol/L (135-145); Total Bilirubin 0.5 mg/dl (0.2-1.3); Total Protein 5.4 g/dl (6.3-8.2); eGFR > 60.00
== END ==
LOC: OLABP 12:27
PROVIDERS: ATTENDING PHYSICIAN Family Medicine
DX: A41.9 Sepsis, unspecified organism (principal); T83.511D Infection and inflammatory reaction due to indwelling urethral catheter, subsequent encounter; B96.5 Pseudomonas (aeruginosa) (mallei) (pseudomallei) as the cause of diseases classified elsewhere; R41.82 Altered mental status, unspecified; N30.01 Acute cystitis with hematuria; I65.21 Occlusion and stenosis of right carotid artery; I50.30 Unspecified diastolic (congestive) heart failure; J44.9 Chronic obstructive pulmonary disease, unspecified; I11.0 Hypertensive heart disease with heart failure; E11.9 Type 2 diabetes mellitus without complications; I48.0 Paroxysmal atrial fibrillation
CPT/HCPCS: 36415; 80053; 83735; 85025

== ENCOUNTER 2024-03-20 13:33 | Inpatient (IN) | payer MEDICARE, SELFPAY ==
[2024-03-20] VITALS (24 sets, daily range): BP systolic 84–127; BP diastolic 53–114
--- NOTE | 2024-03-20 08:26 | ED.GENMED ---
History of Present Illness
General
Chief Complaint: Catheter/Tube Problem
Source: records (Consult from urology Dr. Mcgill from prior visit reviewed) and previous hospital records
Exam Limitations: dementia
Time Seen by Provider: 03/20/24 08:09
Nursing documentation reviewed up to this point in time: agreed with
Travel History
Have you had any contact with someone who has COVID-19?: No
Do you have any symptoms of coronavirus? Fever > 100 degrees, chills, cough, shortness of breath, sore throat, loss of taste or smell, muscle aches, or headache?: No
History of Present Illness
History of Present Illness:
89-year-old male from home via EMS nonfunctioning Alvarado catheter patient without complaints has been admitted previously with urosepsis apparently has an indwelling Alvarado
Past History
Past History
ED Past Medical History: Arrthythmia (Atrial fib), Cancer (Prostate), CHF, COPD, HTN, Hypercholesterolemia, NIDDM, Valvular disease, Other (Empyema, BPH, chronic indwelling Alvarado catheter, intermittent bladder spasms, UTi, ) and Other (Benign
prostate hypertrophy)
ED Past Surgical History: Cardiac (Valve replacement) and Orthopedic (right hip surgery)
Patient has exhibited threatening behavior?: No
PSI?: No
Social History
Tobacco: Former smoker
Alcohol: Occasional
Drug: None
Personal:
Living: [facility] ([facility])
Employment: Retired
Family History
Family History: Other
Review of Systems
Review of Systems
All Other Systems: Not applicable
Phy Exam
Physical Exam
Physical Exam:
Physical Exam
General: Disheveled male
Neck: No jaundice
Heart: Regular
Lungs: no acute respiratory distress.
Abdomen: mild suprpubic pain
Neuro: alert and oriented.
Skin: no rash
Psychiatric: dishelved
Extremities: no edema.
Course
Orders/Labs/Results
Orders:
Orders
03/20/24 08:23
Lidocaine 2% [Lidocaine Uro-Jet 2%] 1 syringe .ROUTE .STK-MED ONE
03/20/24 08:29
Alvarado Placement- Treatment ONCE
Reason for insertion: Outlet obstruction
03/20/24 08:30
Case Management Consult ONCE
Case Management Consult: Discharge Planning
03/20/24 08:53
Urinalysis Reflex To Culture Urgent
Date Specimen was Collected: 03/20/24
Time Specimen was Collected: 08:48
Urine Microscopic Reflex Cult Urgent
Urine Culture Urgent
VICTOR HUGO Source: U
Specimen Description:
Obtained by: Random
Date Specimen was Collected: 03/20/24
Time Specimen was Collected: 08:48
03/20/24 09:10
0.9% Sodium Chloride 1000 ml [Nss] 2,000 ml IV BOLUS
03/20/24 09:11
Cefepime HCl [Maxipime] 1,000 mg IV NOW STA
03/20/24 09:15
CMP [Comprehensive Metabolic Panel] Urgent
Complete Blood Count/With Diff Urgent
Lactic Acid Urgent
Blood Culture Routine
VICTOR HUGO Source: Blood/Venous
Specimen Description:
Date Specimen was Collected: 03/20/24
Time Specimen was Collected: 09:09
03/20/24 09:19
Blood Culture Routine
VICTOR HUGO Source: Blood/Venous
Specimen Description:
Date Specimen was Collected: 03/20/24
Time Specimen was Collected: 09:11
03/20/24 09:26
Sterile Water [Sterile Water For Injection] 10 ml .ROUTE .STK-MED ONE
03/20/24 11:39
NSS 1000mL Bolus WIDE OPEN 0.9% Sodium Chloride 1000 ml [Nss] 1,000 ml IV BOLUS
03/20/24 11:45
NORepinephrine INF (STD CONC) CONTINUOUS NORepinephrine 4 MG/250 ML [Levophed] 4 mg in 250 ml IV PER PROTOCOL
Initial dose in mcg/min, then titrate:: 2
Titrate to keep:: SBP > 90 mmHg
Titrate by mcg/min:: 1-2 mcg/min
Frequency of titrations (minutes):: 5
Maximum dose in ICU in mcg/min:: 30
Maximum dose in IMU in mcg/min:: 8
Maximum dose in IVU in mcg/min:: 4
Begin to taper infusion when:: Remained at goal for 4hrs
Taper by mcg/min:: 1-2 mcg/min
Frequency of taper (minutes) if patient maintains goal:: 30
Taper to off?: Yes
If infusion off & no longer maintaining goal:: Contact Provider
03/20/24 13:15
Lactic Acid Urgent
Abnormal Lab Results
03/20/24 03/20/24
08:53 09:15
RBC 3.45 L 10^6/uL
(4.70-6.10)
Hgb 10.2 L g/dL
(13.0-18.0)
Hct 31.3 L %
(39.0-52.0)
MCHC 32.6 L g/dL
(33.0-37.0)
RDW 19.2 H %
(11.5-14.5)
Absolute Neuts (auto) 7.3 H 10^3/uL
(1.4-6.5)
Absolute Lymphs (auto) 0.4 L 10^3/uL
(1.2-3.4)
Neutrophils % 87.8 H %
(42.2-75.2)
Lymphocytes % 5.1 L %
(20.5-51.1)
Sodium 134 L mmol/L
(135-145)
Glucose 194 H mg/dl
(70-99)
Lactic Acid 2.7 H mmol/L
(0.7-2.0)
AST 12 L U/L
(17-59)
Alkaline Phosphatase 156 H U/L
(38-126)
Albumin 3.2 L g/dl
(3.5-5.0)
Urine Ketones Trace A
(Negative)
Ur Occult Blood Reflex 4+ A
(Negative)
Leukocyte Esterase Rfl 2+ A
(Negative)
Urine RBC 30-40 A /HPF
(0-2)
Urine WBC (Reflex) 11-15 A /HPF
(0-5)
Urine Bacteria (Reflex) Few A
(Negative)
03/20/24 09:15
03/20/24 09:15
Vital Signs
Initial and Last Documented VS:
Initial Vital Signs
Temp Pulse Resp BP Pulse Ox
99.0 F 113 18 119/64 95
03/20/24 08:06 03/20/24 08:06 03/20/24 08:06 03/20/24 08:06 03/20/24 08:06
Last Documented Vital Signs
Temp Pulse Resp BP Pulse Ox
99.6 F 92 21 99/67 98
03/20/24 09:07 03/20/24 11:00 03/20/24 11:00 03/20/24 11:00 03/20/24 10:00
MDM/Problems Addressed
Differential Diagnosis Includes:
Blocked Alvarado infection, no stones by urology report
MDM/Problems Addressed:
Nonfunctioning Alvarado
Chronic conditions affecting care: DM and Neurological disorder
Acute Exacerbation and/or Progression of Chronic Illness: DM and Neurological disorder
*Critical Care Note
Total Time (30-74mins, 75-104mins- exclusive of procedures): 32
Patient Management
Social determinants of health affecting care: Living situation and Poor social support
Update Note
Update Note:
Alvarado switched out by RN patient with blood and pus, now low blood pressure prior records reviewed with Pseudomonas in his urine pansensitive cefepime ordered well resuscitation ordered reviewed with case management was recently discharged from [facility]
run to home with elderly caregivers
11:40 AM reviewed with nursing blood pressure still low after 2 L of give third liter then start pressors
ED Attending Note
-
Portions of this chart may have been created with voice recognition software.� Occasional wrong word or��sound alike� substitutions may have occurred due to the inherent limitations of voice recognition software.
Discharge Plan
Departure
Patient Disposition: Admit
Date of Disposition: 03/20/24
Time of Disposition: 11:04
Admit to: Med/Surg and IMU
Presentation/result/management discussed w/ accepting MD/DO: Hospitalist
Patient with high blood pressure during this ER visit?: No
Condition: Fair
Covid-19: Not Applicable
Discharge Problem:
Urinary retention, Lactic acidosis, urosepsis
Prescriptions:
No Action
cyanocobalamin (vitamin B-12) 1,000 MCG tablet
1,000 mcg PO DAILY Qty: 30 0RF
Januvia 100 MG tablet
100 mg PO DAILY Qty: 90 1RF
atorvastatin 20 mg Tablet
20 mg PO DAILY
metoprolol succinate 25 mg Tablet Extended Release 24 Hr
25 mg PO HS Qty: 30 0RF
Patient Comments:
03/20/2024, HOLD for SBP<100 or AP<60.
acetaminophen 325 mg Tablet
650 mg PO Q4H MDD 3000 mg PRN (Reason: mild pain/fever>100)
magnesium hydroxide [Milk of Magnesia] 400 mg/5 mL Suspension
30 ml PO DAILY PRN (Reason: if no BM on day 4)
bisacodyl [Dulcolax (bisacodyl)] 10 mg Suppository
10 mg [place] DAILY PRN (Reason: constipation)
Fleet Enema 19-7 gram/118 mL Enema
118 ml [place] DAILY PRN (Reason: constipation)
metformin 1,000 MG tablet
1,000 mg PO BID
sodium chloride 1,000 mg tablet,soluble
1,000 mg PO BID 30 Days Qty: 60 0RF
clopidogrel [Plavix] 75 mg tablet
75 mg PO DAILY 30 Days Qty: 30 0RF
tolterodine 2 mg Tablet
2 mg PO BID Qty: 30 0RF
Visbiome 112.5 billion cell Capsule
2 cap PO DAILY Qty: 30 0RF
Myrbetriq 50 mg Tablet Extended Release 24 Hr
50 mg PO DAILY 30 Days Qty: 30 0RF
polyethylene glycol 3350 [Miralax] 17 gram Powder In Packet
17 g PO BID
midodrine 5 mg Tablet
5 mg PO TID
pantoprazole 40 mg Tablet,Delayed Release (Dr/Ec)
40 mg PO BID
ferrous sulfate 325 mg (65 mg iron) Tablet
325 mg PO DAILY
mirtazapine 15 mg Tablet
15 mg PO DAILY
potassium chloride 20 mEq Tablet Extended Release
20 meq PO DAILY
magnesium oxide 400 mg magnesium Tablet
400 mg PO TID
torsemide 20 mg tablet
20 mg PO DAILY
tamsulosin 0.4 MG capsule
0.4 mg PO DAILY
Xarelto 20 mg tablet
20 mg PO DAILY
Referrals:
Amberly Rodriguez DO [Family Provider] -
Interventions
Interventions:
*General Assessment Last Done: 03/20/24 08:28
ED- Fall Risk Assessment Last Done: 03/20/24 08:47
*ED COVID-19 Vaccine History Last Done: 03/20/24 08:06
OD-Ncufna-Rwzwrzknba Assessment Last Done: 03/20/24 09:06
ED-Male Genitourinary Assessment Last Done: 03/20/24 09:06
Discharge Date and Time
Print Language: AFGHAN
--- NOTE | 2024-03-20 08:30 | EDRN ---
EMS reported pt lives in a private residence and caretakers ' were incompetant' to take care of him
--- NOTE | 2024-03-20 08:42 | CM ---
CM reviewed medical records. CM left message for Lina at [facility] to discuss discharge planning after patient left [facility].
--- NOTE | 2024-03-20 08:44 | EDRN ---
The arriaga that was in place from home was removed-- was not in the bladder as it fell out when I defalted the balloon followed by bleeding from the urethat. His penis was incredibly dirty - pericare given ( uncircumcised ) and without difficult a
new catheter was placed. Urine initially bloody and cloudy but then cleared. Provider updated. Sean well
--- NOTE | 2024-03-20 08:47 | EDRN ---
see arriaga note
--- NOTE | 2024-03-20 08:55 | CM ---
Addendum entered by Di Hernandez RN 03/20/24 09:18:
CM update [facility] application development liaison that patient had presented to ED.
Addendum entered by Di Hernandez RN 03/20/24 09:13:
CM updated beside RN and ED MD. Plan for admit/OBS.
Addendum entered by Di Hernandez RN 03/20/24 09:02:
Patient was just discharged from [facility]. Patient was discharged as [facility] would no longer authorize additional time. Patient lives with and mother in law. Patient's family is paying for home health aides from 10-2 7 days per week
through [employer]. Patient was also referred to [facility]. Patient has a electric hospital bed, wheelchair and walker. LITHOPRESS OPERATOR at [facility] made a recommendation that patient have additional care in the home, but family decided on only 4 hours/day.
There were discussions with family about LTC, but family decided on home discharge.
Original Note:
Cm was advised by bedside RN that EMS felt patient was not adequately able to care for patient. EMS did not describe who was in the home at the time. Bedside RN found arriaga catheter dislodged and 'wrapped around' patient's penis. Bedside RN did
confirm that patient was not clean and looks very dishevel.
Patient was just recently discharged from [facility]. CM left message for patient's social worker health services Jazmine Palomino [phone] to discuss services.
[2024-03-20 09:00] LABS: Urine Albumin Trace (Neg - Trace); Urine Bilirubin Negative (Negative); Urine Character Very Cloudy (Clear); Urine Color Yellow; Urine Glucose Negative (Negative); Urine Ketone Trace (Negative); Urine Leukocyte 2+ (Negative); Urine Nitrite Negative (Negative); Urine Occult Blood 4+ (Negative); Urine Urobilinogen Negative (Neg - 1+)
[2024-03-20] MEDS: NSS 2000 IV (09:17)
[2024-03-20 09:29] LABS: % Basophils 0.4 % (0-2); % Eosinophils 0.2 % (0-6); % Immature Granulocytes 0.4 % (0-0.5); % Lymphocytes 5.1 % (20.5-51.1); % Monocytes 6.1 % (1.7-9.3); % Neutrophils 87.8 % (42.2-75.2); Absolute Lymphocytes 0.4 10^3/uL (1.2-3.4); Absolute Monocytes 0.5 10^3/uL (0.1-0.6); Absolute Neutrophils 7.3 10^3/uL (1.4-6.5); Hematocrit 31.3 % (39.0-52.0); Hemoglobin 10.2 g/dL (13.0-18.0); Mean Corp Hgb Conc. 32.6 g/dL (33.0-37.0); Mean Corpuscular Hgb 29.6 pg (27.0-31.0); Mean Corpuscular Volume 90.7 fL (80.0-94.0); Mean Platelet Volume 9.6 fL (7.4-10.4); Nucleated Red Blood Cells % 0 % (-); Platelet Count 194 10^3/uL (130-400); Red Blood Cell Count 3.45 10^6/uL (4.70-6.10); Red Cell Dist. Width 19.2 % (11.5-14.5); White Blood Cell Count 8.4 10^3/uL (4.8-10.8)
[2024-03-20 09:33] LABS: Urine Bacteria Few (Negative); Urine Red Blood Cell 30-40 /HPF (0-2)
[2024-03-20] MEDS: MAXIPIME 1000 MG IV (09:36)
[2024-03-20 09:40] LABS: ALT (SGPT) 12 U/L (0-50); AST (SGOT) 12 U/L (17-59); Albumin 3.2 g/dl (3.5-5.0); Alkaline Phosphatase 156 U/L (38-126); Blood Urea Nitrogen 17 mg/dl (9-20); Calcium 9.4 mg/dl (8.4-10.2); Carbon Dioxide 30 mmol/L (22-30); Chloride 101 mmol/L (98-107); Glucose 194 mg/dl (70-99); Lactic Acid 2.7 mmol/L (0.7-2.0); Potassium 4.2 mmol/L (3.5-5.1); Sodium 134 mmol/L (135-145); Total Bilirubin 0.7 mg/dl (0.2-1.3); Total Protein 6.4 g/dl (6.3-8.2); eGFR > 60.00
[2024-03-20] MEDS: NSS 1000 IV ×2 (11:42→17:19)
[2024-03-20] MEDS: LEVOPHED 250 IV (13:16)
--- NOTE | 2024-03-20 13:21 | HPS.HSE ---
Family Physician
-
Family Physician: Amberly Rodriguez, DO
Chief Complaint
-
I do not feel good
History of Present Illness
89-year-old male past medical history of multiple hospitalization for urinary tract infection is presenting from home. Patient was recently admitted to hospital and subsequently transferred to [facility]. Patient was discharged from [facility] due to
insurance issues and is did not authorize additional time. Patient was transferred to home with home health aide. Upon admission to the ER and found Alvarado catheter dislodged and wrapped around his penis. Alvarado catheter easily came out. Upon
insertion of new Alvarado catheter pulse was noted in the ER. Currently patient finished third liter of IV fluid and remains persistent hypotensive. Patient currently feels tired. Denies any chest pain shortness of breath. States of intermittent
cough. No nausea vomiting or diarrhea. States not currently hungry. Denies lightheadedness or dizziness.
Medical History
Past Medical History
Past Medical History: Reports Other
Additional Past Medical History:
Chronic Alvarado catheter
History of Alvarado catheter associated UTI
Chronic HFpEF
Atrial fibrillation paroxysmal
Right carotid artery stenosis status post stent
Primary hypertension
Diabetes mellitus
Hyperlipidemia
Anemia of chronic disease
Iron deficiency anemia
Depression
BPH
Past Surgical History: Reports Other
Additional Past Surgical History:
Right carotid artery stenosis status post stent
Aortic Valve Replacement
Social History
Tobacco: Former Smoker (Quit over 10 years ago)
Living: With Family
Family History
Family History: Not pertinent
Allergies / Home Medications
Allergies reflects when Allergies were last updated in [employer].
Home Medications with original date entered in [facility]
Allergy/Medication List:
Allergies
Allergy/AdvReac Type Severity Reaction Status Date / Time
No Known Allergies Allergy Verified 03/20/24 08:07
Home Medications
cyanocobalamin (vitamin B-12) 1,000 mcg tablet 1,000 mcg PO DAILY #30 tabs 10/08/21
sitagliptin phosphate 100 mg tablet (Januvia) 100 mg PO DAILY Diabetes #90 tabs 05/31/22
atorvastatin 20 mg tablet 20 mg PO DAILY High Cholesterol 11/01/23
metoprolol succinate 25 mg tablet,extended release 24 hr 25 mg PO HS #30 tabs 11/08/23
acetaminophen 325 mg tablet 650 mg PO Q4H PRN mild pain/fever>100 02/13/24
bisacodyl 10 mg rectal suppository (Dulcolax (bisacodyl)) 10 mg MA DAILY PRN constipation 02/13/24
magnesium hydroxide 400 mg/5 mL oral suspension (Milk of Magnesia) 30 ml PO DAILY PRN if no BM on day 4 02/13/24
metformin 1,000 mg tablet 1,000 mg PO BID Diabetes 02/13/24
sodium phosphates 19 gram-7 gram/118 mL enema (Fleet Enema) 118 ml MA DAILY PRN constipation 02/13/24
Lactobac no.2-Bifidobac no.1-S. thermo 112.5 billion cell capsule (Visbiome) 2 cap PO DAILY Gastrointestinal Issue #30 caps 02/20/24
clopidogrel 75 mg tablet (Plavix) 75 mg PO DAILY Blood Clot Prevention/Tx 30 days #30 tabs 02/20/24
mirabegron 50 mg tablet,extended release 24 hr (Myrbetriq) 50 mg PO DAILY Urinary issue 30 days #30 tabs 02/20/24
sodium chloride 1,000 mg soluble tablet 1,000 mg PO BID 30 days #60 tabs 02/20/24
tolterodine 2 mg tablet 2 mg PO BID Urinary Issue #30 tabs 02/20/24
ferrous sulfate 325 mg (65 mg iron) tablet 325 mg PO DAILY 03/20/24
magnesium oxide 400 mg PO TID 03/20/24
midodrine 5 mg tablet 5 mg PO TID 03/20/24
mirtazapine 15 mg tablet 15 mg PO DAILY 03/20/24
pantoprazole 40 mg tablet,delayed release 40 mg PO BID 03/20/24
polyethylene glycol 3350 17 gram oral powder packet (Miralax) 17 g PO BID 03/20/24
potassium chloride 20 mEq tablet,extended release 20 meq PO DAILY 03/20/24
rivaroxaban 20 mg tablet (Xarelto) 20 mg PO DAILY Blood Clot Prevention/Tx 03/20/24
tamsulosin 0.4 mg capsule 0.4 mg PO DAILY Urinary issue 03/20/24
torsemide 20 mg tablet 20 mg PO DAILY Fluid Retention/Swelling 03/20/24
Review of Systems
-
Unable to obtain full review of systems at this time due to: Acuity
Physical Exam
Vital Signs
Vital Signs
Temp Pulse Resp BP Pulse Ox
99.6 F 85 20 89/56 98
03/20/24 09:07 03/20/24 13:00 03/20/24 13:00 03/20/24 13:00 03/20/24 10:00
Physical Exam
General: Well Developed, Well Nourished and No Apparent Distress
HEENT: NormoCephalic, Moist mucous membranes and Atraumatic
Respiratory: Clear
Cardiac: S1/S2 and Regular Rhythm; No Murmur or Rub
GI: Soft, Non Tender, Non Distended and Normal Bowel Sounds; No Organomegaly
Rectal: Deferred by Provider
Musculoskeletal: No Clubbing, No Cyanosis and No Edema
Skin: No Rash
Neuro: Awake and Nonfocal/grossly intact
Psych: Calm
Laboratory Results
-
03/20/24 09:15
03/20/24 09:15
Laboratory Results
Lactic Acid 2.7 mmol/L (0.7-2.0) H 03/20/24 09:15
Total Bilirubin 0.7 mg/dl (0.2-1.3) 03/20/24 09:15
AST 12 U/L (17-59) L 03/20/24 09:15
ALT 12 U/L (0-50) 03/20/24 09:15
Alkaline Phosphatase 156 U/L (38-126) H 03/20/24 09:15
Impression/Plan
-
#Sepsis shock likely 2/2 CAUTI -poa
#Chronic Alvarado catheter
#History of Alvarado catheter associated UTI
#BPH
Status post 3 L IV fluid bolus per sepsis protocol
Remains with hypotension started on Levophed
Continue with midodrine
Started on IV cefepime based on prior cultures
Lactic acidosis resolved with IV fluid.
#Chronic hypotension
Restart home dose of midodrine
#Chronic HFpEF
Hold diuretics septic shock
Monitor oxygenation closely
#Paroxysmal Atrial Fibrillation/Flutter
Continue Xarelto for anticoagulation
hold metoprolol
#Hyperlipidemia
Continue atorvastatin
#Diabetes Mellitus, Type II
hold Januvia and Metformin
sliding scale
#Mild anemia
Anemia of Chronic Disease
-monitor H&H
# Chronic hyponatremia
Continue salt tabs. Monitor sodium closely.
#Unspecified Depression
Refused antidepressant in the past
Continue Remeron
DVT proph: Xarelto
Code Status: Full Code
I spent a total of 78 minutes with the patient or on the floor. More than 50% of this time involved counseling and coordination of care.
[2024-03-20 13:39] LABS: Lactic Acid 1.5 mmol/L (0.7-2.0)
--- NOTE | 2024-03-20 16:34 | PTCARENOTE ---
Pt received from ED via stretcher. Aox3, CATAWBA and forgetful. Reports Uzbek is his first language. NSR on tele monitor. Levo infusing as ordered via RAC. DTI present on b/l buttocks- open to air. Air cushion under pt. Alvarado draining yellow urine with
sediment. Able to make needs known, call franklin within reach.
[2024-03-20 16:53] LABS: Glucose - Point of Care 167 mg/dl (70-99)
[2024-03-20] MEDS: ProAmatine 5 MG PO (17:13)
[2024-03-20] MEDS: STERILE WATER FOR INJECTION 10 ML IV (17:14)
[2024-03-20] MEDS: MAXIPIME 2000 MG IV (17:14)
[2024-03-20] MEDS: NOVOLOG FLEXPEN-LOW RESISTANCE 1 UNITS SC (17:22)
[2024-03-20] MEDS: PROTONIX 40 MG PO (20:02)
[2024-03-20] MEDS: SODIUM CHLORIDE 1 GRAM PO (20:02)
[2024-03-20] MEDS: MIRALAX PO (20:02)
[2024-03-20] MEDS: MAG-TAB SR 84 MG PO (20:02)
[2024-03-20] MEDS: REMERON 15 MG PO (20:04)
[2024-03-20] MEDS: DETROL 2 MG PO (20:05)
[2024-03-20 22:00] LABS: Glucose - Point of Care 190 mg/dl (70-99)
[2024-03-21] VITALS (26 sets, daily range): BP systolic 86–124; BP diastolic 52–76; BMI 25.4
--- NOTE | 2024-03-21 00:11 | PTCARENOTE ---
Patient with positive blood cultures- gram positive bacilli. weight caller provider made aware. Patient already on IV abx.
[2024-03-21] MEDS: MAXIPIME 2000 MG IV ×3 (02:00→17:55)
[2024-03-21] MEDS: STERILE WATER FOR INJECTION 10 ML IV ×3 (02:01→17:55)
[2024-03-21] MEDS: NSS 1000 IV (03:49)
[2024-03-21 04:05] LABS: % Basophils 0.3 % (0-2); % Eosinophils 2.5 % (0-6); % Immature Granulocytes 0.3 % (0-0.5); % Lymphocytes 19.2 % (20.5-51.1); % Monocytes 9.1 % (1.7-9.3); % Neutrophils 68.6 % (42.2-75.2); Absolute Eosinophils 0.2 10^3/uL (0-0.7); Absolute Lymphocytes 1.4 10^3/uL (1.2-3.4); Absolute Monocytes 0.7 10^3/uL (0.1-0.6); Absolute Neutrophils 4.9 10^3/uL (1.4-6.5); Hematocrit 25.7 % (39.0-52.0); Hemoglobin 8.3 g/dL (13.0-18.0); Mean Corp Hgb Conc. 32.3 g/dL (33.0-37.0); Mean Corpuscular Hgb 29.6 pg (27.0-31.0); Mean Corpuscular Volume 91.8 fL (80.0-94.0); Mean Platelet Volume 9.2 fL (7.4-10.4); Nucleated Red Blood Cells % 0 % (-); Platelet Count 151 10^3/uL (130-400); Red Cell Dist. Width 19.6 % (11.5-14.5); White Blood Cell Count 7.2 10^3/uL (4.8-10.8)
[2024-03-21 04:29] LABS: Blood Urea Nitrogen 13 mg/dl (9-20); Calcium 8.5 mg/dl (8.4-10.2); Carbon Dioxide 25 mmol/L (22-30); Chloride 109 mmol/L (98-107); Estimated Creatinine Clearance 90 ml/min; Glucose 113 mg/dl (70-99); Potassium 3.8 mmol/L (3.5-5.1); Sodium 135 mmol/L (135-145); eGFR > 60.00
[2024-03-21 07:47] LABS: Glucose - Point of Care 125 mg/dl (70-99)
--- NOTE | 2024-03-21 08:52 | PHA.VAN.IN ---
Assessment
- Assessment
Renal Function: Appears similar to baseline
Maximum Temperature: 99
Minimum Temperature: 97.4
Concomitant Antimicrobials: Cefepime
Plan
- Plan
Initial / Loading Dose: Vanc 2000mg--24.5mg/kg. Administration pending
Maintenance Regimen: PRN by level for now. May switch to 1gm q12H if SCr/CrCl stable
Monitoring: Random level 02/19 AM
Pharmacokinetics Vancomycin I
- -
Patient Age: 89
Patient Sex: Male
Vancomycin Day #: 1
Indication: Bacteremia
Requesting Provider: Jace
Height / Weight:
Height 5 ft 10.6 in
Actual Weight 81.6 kg
IBW in k.4
Adjusted BW in k.3
Pertinent Past Medical History: Chronic arriaga catheter. Hx arriaga catheter UTI
- Vital Signs / Lab Results
Temp Pulse Resp BP Pulse Ox
97.4 F 77 14 110/67 98
03/21/24 07:26 03/21/24 06:03 03/21/24 06:03 03/21/24 06:03 03/21/24 06:03
Lab Results - Hematology
03/20/24 03/21/24
09:15 03:57
WBC 8.4 7.2
Lab Results - Chemistry
03/20/24 03/21/24
09:15 03:57
BUN 17 13
Creatinine 0.9 0.6 L
Estimated Creat Clear 90
Albumin 3.2 L
03/20/24 03/20/24
09:15 13:18
Lactic Acid 2.7 H 1.5
Lab Results - Urine
03/20/24
08:53
Urine Nitrite (Reflex) Negative
Leukocyte Esterase Rfl 2+ A
Urine WBC (Reflex) 11-15 A
Urine Bacteria (Reflex) Few A
Microbiology Results
03/20/24 08:53 Urine Culture - Preliminary
Urine Enterococcus species
03/20/24 09:19 Blood Culture - Preliminary
Blood/Venous Positive culture in progress
Gram Stain - Final
03/20/24 09:15 Blood Culture - Preliminary
Blood/Venous Positive culture in progress
Gram Stain - Final
[2024-03-21] MEDS: NOVOLOG FLEXPEN-LOW RESISTANCE SC ×3 (09:01→16:54)
[2024-03-21] MEDS: MIRALAX 17 GRAMS PO ×2 (09:10→19:18)
[2024-03-21] MEDS: MYRBETRIQ EXTENDED RELEASE 50 MG PO (09:10)
[2024-03-21] MEDS: MAG-TAB SR 84 MG PO ×2 (09:11→19:18)
[2024-03-21] MEDS: PROTONIX 40 MG PO ×2 (09:14→19:17)
[2024-03-21] MEDS: VISBIOME 2 CAP PO (09:14)
[2024-03-21] MEDS: FLOMAX 0.400000000000000022 MG PO (09:15)
[2024-03-21] MEDS: VITAMIN B-12 1000 MCG PO (09:15)
[2024-03-21] MEDS: LIPITOR 20 MG PO (09:15)
[2024-03-21] MEDS: SODIUM CHLORIDE 1 GRAM PO ×2 (09:15→19:17)
[2024-03-21] MEDS: DETROL 2 MG PO ×2 (09:16→19:17)
[2024-03-21] MEDS: PLAVIX 75 MG PO (09:16)
[2024-03-21] MEDS: FEOSOL 325 MG PO (09:17)
[2024-03-21] MEDS: XARELTO 20 MG PO (09:17)
[2024-03-21] MEDS: VANCOCIN 540 MG IV (09:24)
[2024-03-21 09:31] LABS: Glycohemoglobin (HgbA1c) 7.2 % (4.0-5.6)
[2024-03-21] MEDS: ProAmatine 5 MG PO ×3 (09:31→17:54)
--- NOTE | 2024-03-21 11:19 | CON.ID ---
Consultation
-
Date/Time Consultation Requested: March 21, 2024 0821
Date/Time Consultation Performed: March 21, 2024 1120
Requesting Provider: Dr. Cecilio Mccormick
Performing Provider: Dr. Violetta Barrera
Reason for Consultation: Bacteremia
Chief Complaint / Past History
Chief Complaint
Feels weak.
History of Present Illness
89-year-old male with history of diabetes mellitus, urinary retention with chronic indwelling Arriaga catheter, atrial fibrillation, who was hospitalized in January for Pseudomonas CAUTI than he was transferred to [facility]. He was then discharged to
home recently. While at home patient noted to have decreased urine output in the Arriaga bag. He had suprapubic pain. EMS was called and brought to the hospital March 20. The Arriaga noted to be partially dislodged and wrapped around his penis. The
Arriaga was replaced. Patient then dropped his blood pressure which responded to IV fluids. His blood cultures are now positive. Patient reports no fevers or chills at home. No flank pain. No nausea vomiting or diarrhea. Appetite is poor.
Past History
Additional Past Medical History:
Diabetes mellitus
Hypertension
Dyslipidemia
paroxysmal Atrial fibrillation
Heart failure with preserved EF
BPH with chronic indwelling Arriaga catheter
Right carotid artery stenosis status post stent
Depression
R THR
Allergy History:
No Known Allergies Allergy (Verified 03/20/24 08:07)
Medications Reviewed: Yes
Current Antibiotics:
Vancomycin
Cefepime
Social History
Tobacco: Former Smoker
Alcohol: None
Drug: None
Personal:
Family History
Family History: Not Pertinent
Review of Systems
Review of Systems
General: Change in Appetite; Negative Fever or Chills
HEENT: Negative Sinus Problems, Headache or Pharyngitis
Cardiovascular: Negative Chest Pain or Dyspnea
Respiratory: Negative Dyspnea or Cough
Gasteroenterology: Negative Nausea or Vomiting
Genital / Urological: Negative Flank Pain
Endocrine: Weakness
Skin / Hair / Nails: Negative Rash
Neurological: Negative Headache or Dizziness
All systems: All other systems were reviewed and were negative
Vital Signs
Temp Pulse Resp BP Pulse Ox
97.7 F 70 17 116/63 96
03/21/24 11:10 03/21/24 10:00 03/21/24 10:00 03/21/24 10:00 03/21/24 10:56
Physical Exam
Physical Exam
Constitutional: No Acute Distress
Eyes: No Conjunctival Hemorrhage and Sclera Anicteric
Cardiovascular: Regular Rate and S1/S2
Pulmonary: Clear
Gastrointestinal: Soft, Non Tender, Non Distended and Normal Bowel Sounds
Genito-Urinary: Arriaga (dark clear urine); Negative CVA Tenderness
Extremities: Negative Edema
Neurological: AO x 3
Lab / Diagnostic Study Results
03/21/24 03:57
03/21/24 03:57
Abs Immat Gran (auto) 0.0 10^3/uL (0-0.05) 03/21/24 03:57
Absolute Neuts (auto) 4.9 10^3/uL (1.4-6.5) 03/21/24 03:57
Absolute Lymphs (auto) 1.4 10^3/uL (1.2-3.4) 03/21/24 03:57
Absolute Monos (auto) 0.7 10^3/uL (0.1-0.6) H 03/21/24 03:57
Absolute Basos (auto) 0.0 10^3/uL (0-0.2) 03/21/24 03:57
Immature Gran % 0.3 % (0-0.5) 03/21/24 03:57
Neutrophils % 68.6 % (42.2-75.2) 03/21/24 03:57
Lymphocytes % 19.2 % (20.5-51.1) L 03/21/24 03:57
Monocytes % 9.1 % (1.7-9.3) 03/21/24 03:57
Eosinophils % 2.5 % (0-6) 03/21/24 03:57
Basophils % 0.3 % (0-2) 03/21/24 03:57
Lactic Acid 1.5 mmol/L (0.7-2.0) 03/20/24 13:18
Microbiology Results
Micro:
03/20/24 09:15 Blood Culture - Preliminary
Blood/Venous Enterococcus faecalis
Gram Stain - Final
03/20/24 08:53 Urine Culture - Preliminary
Urine Enterococcus species
03/20/24 09:19 Blood Culture - Preliminary
Blood/Venous Positive culture in progress
Gram Stain - Final
03/20/24 CXR: No focal parenchymal consolidation to suggest pneumonia.
Assessment / Plan
# Enterococcus faecalis bacteremia due to malfunctioned chronic arriaga
- Repeat blood cx's
- Start ampicillin 2g IV q6h
-DC Vanco/cefepime.
--- NOTE | 2024-03-21 12:32 | W.PN.HOSP.TC ---
Today's Communication/Plan
-
wean off levophed as tolerated
Continue midodrine
Antibiotic adjusted
Assessment / Plan
Assessment / Plan
#Sepsis shock likely 2/2 Enterococcus faecalis bacteremia secondary to malfunctioning chronic Alvarado catheter
#Chronic Alvaraod catheter
#History of Alvarado catheter associated UTI
#BPH
Status post 3 L IV fluid bolus per sepsis protocol
Remains on Levophed
Continue with midodrine
Lactic acidosis resolved with IV fluid.
Identification with Enterococcus and antibiotics adjusted by infectious disease. Started on ampicillin
Vanco and cefepime discontinued
Surveillance cultures ordered
#Chronic hypotension
Restart home dose of midodrine
#Chronic HFpEF
Hold diuretics septic shock and requiring Levophed
Monitor oxygenation closely
#Paroxysmal Atrial Fibrillation/Flutter
Continue Xarelto for anticoagulation
hold metoprolol
#Hyperlipidemia
Continue atorvastatin
#Diabetes Mellitus, Type II
hold Januvia and Metformin
sliding scale. A1C at 7.2
#Mild anemia
Anemia of Chronic Disease
-monitor H&H
# Chronic hyponatremia
Continue salt tabs. Monitor sodium closely.
#Unspecified Depression
Refused antidepressant in the past
Continue Remeron
DVT proph: Xarelto
Code Status: Full Code
Updated patient's son over the phone in details.
Anticipated Discharge: > 48 hours
Subjective/Interval History
-
Date of Service: March 21, 2024
not much appetite
requiring pressors
Objective Data
-
Labs:
Laboratory Results
03/21/24
03:57
WBC 7.2
Hgb 8.3 L
Hct 25.7 L
Plt Count 151 D
Sodium 135
Potassium 3.8
Chloride 109 H
Carbon Dioxide 25
BUN 13
Creatinine 0.6 L
Glucose 113 H
Calcium 8.5
Vital Signs:
Vital Signs
Temp Pulse Resp BP Pulse Ox
97.7 F 70 17 116/63 96
03/21/24 11:10 03/21/24 10:00 03/21/24 10:00 03/21/24 10:00 03/21/24 10:56
I&O
03/20/24 03/21/24 03/22/24
06:59 06:59 06:59
Intake Total 1850 / 1850
Output Total 1275 / 1275
Balance 575 / 575
Physical Exam
-
General: No Apparent Distress
HEENT: Normocephalic and Atraumatic
Respiratory: Clear to Auscultation
Cardiac: Regular Rhythm and S1/S2
GI: Soft, Nontender and Nondistended
Genito-urinary: Alvarado (Clear yellow)
Musculoskeletal: No Edema
Neuro: Awake and No Motor Deficits
Psych: Calm
Data Reviewed
-
Total Time Spent with Patient (in minutes): 55
[2024-03-21] MEDS: AMPICILLIN 108 MG IV ×3 (12:56→23:30)
[2024-03-21 13:10] LABS: Glucose - Point of Care 138 mg/dl (70-99)
[2024-03-21 17:05] LABS: Glucose - Point of Care 113 mg/dl (70-99)
[2024-03-21] MEDS: REMERON 15 MG PO (19:17)
[2024-03-21 22:22] LABS: Glucose - Point of Care 133 mg/dl (70-99)
[2024-03-22] VITALS (25 sets, daily range): BP systolic 78–141; BP diastolic 50–98; PULSE 102; BMI 25.7
[2024-03-22] MEDS: MAXIPIME 2000 MG IV (02:04)
[2024-03-22] MEDS: STERILE WATER FOR INJECTION 10 ML IV (02:05)
[2024-03-22 04:36] LABS: % Basophils 0.4 % (0-2); % Eosinophils 3.2 % (0-6); % Immature Granulocytes 0.7 % (0-0.5); % Lymphocytes 11.7 % (20.5-51.1); % Monocytes 5.6 % (1.7-9.3); % Neutrophils 78.4 % (42.2-75.2); Absolute Eosinophils 0.2 10^3/uL (0-0.7); Absolute Immature Granulocytes 0.1 10^3/uL (0-0.05); Absolute Lymphocytes 0.9 10^3/uL (1.2-3.4); Absolute Monocytes 0.4 10^3/uL (0.1-0.6); Absolute Neutrophils 5.7 10^3/uL (1.4-6.5); Hematocrit 29.2 % (39.0-52.0); Hemoglobin 9.4 g/dL (13.0-18.0); Mean Corp Hgb Conc. 32.2 g/dL (33.0-37.0); Mean Corpuscular Hgb 29.1 pg (27.0-31.0); Mean Corpuscular Volume 90.4 fL (80.0-94.0); Mean Platelet Volume 9.5 fL (7.4-10.4); Nucleated Red Blood Cells % 0 % (-); Platelet Count 199 10^3/uL (130-400); Red Blood Cell Count 3.23 10^6/uL (4.70-6.10); Red Cell Dist. Width 19.9 % (11.5-14.5); White Blood Cell Count 7.3 10^3/uL (4.8-10.8)
[2024-03-22] MEDS: AMPICILLIN 108 MG IV ×3 (05:08→17:48)
[2024-03-22 05:14] LABS: Blood Urea Nitrogen 13 mg/dl (9-20); Calcium 9.1 mg/dl (8.4-10.2); Carbon Dioxide 25 mmol/L (22-30); Chloride 108 mmol/L (98-107); Estimated Creatinine Clearance 90 ml/min; Glucose 101 mg/dl (70-99); Potassium 4.3 mmol/L (3.5-5.1); Sodium 136 mmol/L (135-145); eGFR > 60.00
--- NOTE | 2024-03-22 06:30 | PTCARENOTE ---
No acute events overnight. Afebrile.
[2024-03-22] MEDS: VISBIOME 2 CAP PO (07:41)
[2024-03-22] MEDS: FEOSOL 325 MG PO (07:41)
[2024-03-22] MEDS: VITAMIN B-12 1000 MCG PO (07:42)
[2024-03-22] MEDS: DETROL 2 MG PO ×2 (07:42→20:00)
[2024-03-22] MEDS: SODIUM CHLORIDE 1 GRAM PO ×2 (07:43→20:00)
[2024-03-22] MEDS: PROTONIX 40 MG PO ×2 (07:43→20:00)
[2024-03-22] MEDS: XARELTO 20 MG PO (07:43)
[2024-03-22] MEDS: MAG-TAB SR 84 MG PO ×2 (07:44→20:00)
[2024-03-22] MEDS: LIPITOR 20 MG PO (07:44)
[2024-03-22] MEDS: ProAmatine 5 MG PO ×3 (07:45→20:00)
[2024-03-22] MEDS: FLOMAX 0.400000000000000022 MG PO (07:46)
[2024-03-22] MEDS: MYRBETRIQ EXTENDED RELEASE 50 MG PO (07:46)
[2024-03-22] MEDS: MIRALAX 17 GRAMS PO ×2 (07:48→20:01)
[2024-03-22 08:23] LABS: Glucose - Point of Care 121 mg/dl (70-99)
[2024-03-22] MEDS: NOVOLOG FLEXPEN-LOW RESISTANCE SC ×3 (09:19→18:28)
--- NOTE | 2024-03-22 10:06 | W.PN.ID1 ---
Date of Service
Date of Service: March 22, 2024
Today's Communication
Continue IV ampicillin.
Assessment / Plan
# Enterococcus faecalis bacteremia due to malfunctioned chronic arriaga
- Repeat blood cx's
- Continue ampicillin 2g IV q6h (d2)
#Additional Past Medical History:
Diabetes mellitus
Hypertension
Dyslipidemia
paroxysmal Atrial fibrillation
Heart failure with preserved EF
BPH with chronic indwelling Arriaga catheter
Right carotid artery stenosis status post stent
Depression
R THR
Chief Complaint
-: UTI and Bacteremia
Subjective / Review of Systems
Feels OK today.
Vital Signs / Physical Exam
Vital Signs
Vital Signs
Temp Pulse Resp BP Pulse Ox
97.5 F 95 15 118/75 99
03/22/24 08:00 03/22/24 06:00 03/22/24 06:00 03/22/24 07:45 03/22/24 06:00
Physical Exam
Constitutional: No Acute Distress and Comfortable
Gastrointestinal: Soft, Non Tender and Non Distended
Genito-Urinary: Arriaga
Objective Data
Lab Data
Lab Results
03/22/24 04:20
03/22/24 04:20
Estimated Creat Clear 90 ml/min 03/22/24 04:20
Lactic Acid 1.5 mmol/L (0.7-2.0) 03/20/24 13:18
Total Bilirubin 0.7 mg/dl (0.2-1.3) 03/20/24 09:15
AST 12 U/L (17-59) L 03/20/24 09:15
ALT 12 U/L (0-50) 03/20/24 09:15
Alkaline Phosphatase 156 U/L (38-126) H 03/20/24 09:15
Most recent labs reviewed.
Micro Results:
03/20/24 08:53 Urine Culture - Final
Urine Enterococcus faecalis
03/20/24 09:19 Blood Culture - Preliminary
Blood/Venous Enterococcus faecalis
Gram Stain - Final
03/20/24 09:15 Blood Culture - Preliminary
Blood/Venous Enterococcus faecalis
Gram Stain - Final
03/22/24 04:20 Blood Culture - Pending
Blood/Venous
03/20/24 CXR: No focal parenchymal consolidation to suggest pneumonia.
--- NOTE | 2024-03-22 10:52 | W.PN.HOSP.TC ---
Today's Communication/Plan
-
restart diuretics
monitor BP
IV abx
surveillance culture
PT/OT
Assessment / Plan
Assessment / Plan
#Sepsis shock likely 2/2 Enterococcus faecalis bacteremia secondary to malfunctioning chronic Alvarado catheter
#Chronic Alvarado catheter
#History of Alvarado catheter associated UTI
#BPH
Status post 3 L IV fluid bolus per sepsis protocol
s/p Levophed. BP stable
Continue with midodrine
Lactic acidosis resolved with IV fluid.
Identification with Enterococcus and antibiotics adjusted by infectious disease. Started on ampicillin
Vanco and cefepime discontinued
Surveillance cultures ordered
#Chronic hypotension
Restart home dose of midodrine
#Chronic HFpEF
restart diuretics and monitor BP
Monitor oxygenation closely
#Paroxysmal Atrial Fibrillation/Flutter
Continue Xarelto for anticoagulation
RESTART metoprolol
#Hyperlipidemia
Continue atorvastatin
#Diabetes Mellitus, Type II
hold Januvia and Metformin
sliding scale. A1C at 7.2
#Mild anemia
Anemia of Chronic Disease
-monitor H&H
# Chronic hyponatremia
monitor on salt tab at home
#Unspecified Depression
Refused antidepressant in the past
Continue Remeron
DVT proph: Xarelto
Code Status: Full Code
PT/OT
Updated patient's son over the phone in details on 03/21
Anticipated Discharge: > 48 hours
Subjective/Interval History
-
Date of Service: March 22, 2024
afebrile overnight
no complaints this morning
Objective Data
-
Labs:
Laboratory Results
03/22/24
04:20
WBC 7.3
Hgb 9.4 L
Hct 29.2 L
Plt Count 199 D
Sodium 136
Potassium 4.3
Chloride 108 H
Carbon Dioxide 25
BUN 13
Creatinine 0.6 L
Glucose 101 H
Calcium 9.1
Vital Signs:
Vital Signs
Temp Pulse Resp BP Pulse Ox
97.5 F 95 15 118/75 99
03/22/24 08:00 03/22/24 06:00 03/22/24 06:00 03/22/24 07:45 03/22/24 06:00
I&O
03/21/24 03/22/24 03/23/24
06:59 06:59 06:59
Intake Total 1850 / 1850
Output Total 1275 / 1275 925 / 925
Balance 575 / 575 -925 / -925
Physical Exam
-
General: No Apparent Distress
HEENT: Normocephalic and Atraumatic
Respiratory: Clear to Auscultation
Cardiac: Regular Rhythm and S1/S2
GI: Soft, Nontender and Nondistended
Genito-urinary: Alvarado (Clear yellow)
Musculoskeletal: No Edema
Neuro: Awake and No Motor Deficits
Psych: Calm
Data Reviewed
-
Total Time Spent with Patient (in minutes): 55
[2024-03-22] MEDS: DEMADEX 20 MG PO (11:25)
[2024-03-22 12:33] LABS: Glucose - Point of Care 138 mg/dl (70-99)
[2024-03-22] MEDS: ProAmatine PO (13:35)
[2024-03-22 18:17] LABS: Glucose - Point of Care 148 mg/dl (70-99)
[2024-03-22] MEDS: TOPROL XL PO (19:54)
[2024-03-22] MEDS: REMERON 15 MG PO (20:00)
[2024-03-22] MEDS: NSS 250 IV (20:01)
[2024-03-22 22:08] LABS: Glucose - Point of Care 190 mg/dl (70-99)
[2024-03-23] VITALS (29 sets, daily range): BP systolic 79–128; BP diastolic 56–106; PULSE 88–100; O2SAT 98–100; BMI 25.5
[2024-03-23] MEDS: AMPICILLIN 108 MG IV ×4 (00:21→17:49)
[2024-03-23 04:12] LABS: % Basophils 0.6 % (0-2); % Eosinophils 3.6 % (0-6); % Immature Granulocytes 0.4 % (0-0.5); % Lymphocytes 22.6 % (20.5-51.1); % Monocytes 8.9 % (1.7-9.3); % Neutrophils 63.9 % (42.2-75.2); Absolute Eosinophils 0.2 10^3/uL (0-0.7); Absolute Lymphocytes 1.2 10^3/uL (1.2-3.4); Absolute Monocytes 0.5 10^3/uL (0.1-0.6); Absolute Neutrophils 3.4 10^3/uL (1.4-6.5); Hematocrit 27.1 % (39.0-52.0); Mean Corp Hgb Conc. 33.2 g/dL (33.0-37.0); Mean Corpuscular Hgb 29.8 pg (27.0-31.0); Mean Corpuscular Volume 89.7 fL (80.0-94.0); Mean Platelet Volume 9.6 fL (7.4-10.4); Nucleated Red Blood Cells % 0 % (-); Platelet Count 172 10^3/uL (130-400); Red Blood Cell Count 3.02 10^6/uL (4.70-6.10); Red Cell Dist. Width 19.7 % (11.5-14.5); White Blood Cell Count 5.3 10^3/uL (4.8-10.8)
[2024-03-23 04:30] LABS: Blood Urea Nitrogen 11 mg/dl (9-20); Calcium 8.4 mg/dl (8.4-10.2); Carbon Dioxide 27 mmol/L (22-30); Chloride 106 mmol/L (98-107); Estimated Creatinine Clearance 90 ml/min; Glucose 114 mg/dl (70-99); Potassium 3.6 mmol/L (3.5-5.1); Sodium 133 mmol/L (135-145); eGFR > 60.00
--- NOTE | 2024-03-23 07:37 | PTCARENOTE ---
NO acute events overnight. Afebrile. Soft BPs- remains on room air.
[2024-03-23 08:21] LABS: Glucose - Point of Care 108 mg/dl (70-99)
[2024-03-23] MEDS: NOVOLOG FLEXPEN-LOW RESISTANCE SC (08:39)
[2024-03-23] MEDS: LIPITOR 20 MG PO (08:50)
[2024-03-23] MEDS: VISBIOME 2 CAP PO (08:50)
[2024-03-23] MEDS: VITAMIN B-12 1000 MCG PO (08:51)
[2024-03-23] MEDS: FLOMAX 0.400000000000000022 MG PO (08:51)
[2024-03-23] MEDS: SODIUM CHLORIDE 1 GRAM PO ×2 (08:51→20:34)
[2024-03-23] MEDS: PROTONIX 40 MG PO ×2 (08:51→20:34)
[2024-03-23] MEDS: DEMADEX 20 MG PO (08:51)
[2024-03-23] MEDS: ProAmatine 5 MG PO ×3 (08:51→17:48)
[2024-03-23] MEDS: FEOSOL 325 MG PO (08:51)
[2024-03-23] MEDS: MAG-TAB SR 84 MG PO ×2 (08:51→20:34)
[2024-03-23] MEDS: DETROL 2 MG PO ×2 (08:51→20:48)
[2024-03-23] MEDS: MYRBETRIQ EXTENDED RELEASE 50 MG PO (08:51)
[2024-03-23] MEDS: MIRALAX 17 GRAMS PO ×2 (08:52→20:34)
[2024-03-23] MEDS: XARELTO 20 MG PO (08:52)
--- NOTE | 2024-03-23 09:24 | WOUNDNOTE ---
R GREAT TOE (MEDIAL)
--- NOTE | 2024-03-23 09:25 | WOUNDNOTE ---
[facility] RN note: Patient admitted with sepsis, dislodged Alvarado. ED reinserted Alvarado. Patient admitted from home after recent discharge from [facility].
See H&P for complete history.
PMH: Alvarado, UTI, CHF, A fib, R carotid artery stenosis post stent, HTN, DM, anemia, depression, BPH, aortic valve replacement, former smoker.
Wound Location and type/assessment: Patient admitted with: sacral/buttocks scattered red skin with stage 2 pressure injuries. L lateral posterior heel stage 2 pressure injury. R heel stage 1 pressure injury. L lateral calf dermal pink abrasion vs
broken blister. R medial great toe small dry scabbed abrasion.
Appetite: good.
Pressure redistribution devices in place: [employer] NicOx air bed. Patient assists with turning. Heels off bed with pillow. Air chair cushion.
Plan: Patient incontinent of smear soft BM, jennyfer care given. Silicone border foam changed on sacrum. Non adhesive foam maintained on heels. Silicone border foam to L calf. Patient turned to L semi side lying position with help from ISMAEL Brito. Heels
off bed with pillow.
Will confirm orders with hospitalist and updated MARIA ELENA Drake.
Care plan to be updated and will follow as needed.
Note to case management of equipment requested for discharge: hospital bed with air overlay or air mattress.
Recommend follow up at wound care center upon discharge.
--- NOTE | 2024-03-23 11:56 | W.PN.ID1 ---
Date of Service
Date of Service: March 23, 2024
Today's Communication
- Continue ampicillin 2g IV q6h (d3)
- At time of discharge, transition to amoxicillin 1000 mg po tid through 04/13/2024.
Assessment / Plan
# Enterococcus faecalis bacteremia due to malfunctioned chronic arriaga
- blood cx's neg to date
- Continue ampicillin 2g IV q6h (d3)
- At time of discharge, transition to amoxicillin 1000 mg po tid through 04/13/2024.
#Additional Past Medical History:
Diabetes mellitus
Hypertension
Dyslipidemia
paroxysmal Atrial fibrillation
Heart failure with preserved EF
BPH with chronic indwelling Arriaga catheter
Right carotid artery stenosis status post stent
Depression
R THR
Chief Complaint
-: UTI and Bacteremia
Subjective / Review of Systems
at bedside.
Vital Signs / Physical Exam
Vital Signs
Vital Signs
Temp Pulse Resp BP Pulse Ox
97.7 F 88 19 110/63 97
03/23/24 07:25 03/23/24 11:00 03/23/24 11:00 03/23/24 11:00 03/23/24 11:00
Physical Exam
Constitutional: No Acute Distress and Comfortable
Gastrointestinal: Soft, Non Tender and Non Distended
Genito-Urinary: Arriaga and Clear Urine
Objective Data
Lab Data
Lab Results
03/23/24 03:46
03/23/24 03:46
Estimated Creat Clear 90 ml/min 03/23/24 03:46
Lactic Acid 1.5 mmol/L (0.7-2.0) 03/20/24 13:18
Total Bilirubin 0.7 mg/dl (0.2-1.3) 03/20/24 09:15
AST 12 U/L (17-59) L 03/20/24 09:15
ALT 12 U/L (0-50) 03/20/24 09:15
Alkaline Phosphatase 156 U/L (38-126) H 03/20/24 09:15
Most recent labs reviewed.
Micro Results:
03/20/24 09:19 Blood Culture - Final
Blood/Venous Enterococcus faecalis
Gram Stain - Final
03/20/24 09:15 Blood Culture - Final
Blood/Venous Enterococcus faecalis
Gram Stain - Final
03/22/24 04:20 Blood Culture - Preliminary
Blood/Venous No Growth in 24 hours- Final report to follow
03/23/24 03:46 Blood Culture - Pending
Blood/Venous
03/20/24 08:53 Urine Culture - Final
Urine Enterococcus faecalis
03/20/24 CXR: No focal parenchymal consolidation to suggest pneumonia.
[2024-03-23 12:55] LABS: Glucose - Point of Care 193 mg/dl (70-99)
[2024-03-23] MEDS: NOVOLOG FLEXPEN-LOW RESISTANCE 1 UNITS SC (13:48)
--- NOTE | 2024-03-23 16:42 | W.PN.HOSP.TC ---
Today's Communication/Plan
-
continue current Tx, plan transfer [facility] if continues to do well within next 24 hrs
Assessment / Plan
Assessment / Plan
#Sepsis shock likely 2/2 Enterococcus faecalis bacteremia secondary to malfunctioning chronic Alvarado catheter
#Chronic Alvarado catheter
#History of Alvarado catheter associated UTI
#BPH
Status post 3 L IV fluid bolus per sepsis protocol
s/p Levophed. off pressors and BP stable
Continue with midodrine
Lactic acidosis resolved with IV fluid.
Identification with Enterococcus and antibiotics adjusted by infectious disease. Started on ampicillin
Vanco and cefepime discontinued
Surveillance cultures ordered
#Chronic hypotension
Restart home dose of midodrine
#Chronic HFpEF
restart diuretics and monitor BP
Monitor oxygenation closely
#Paroxysmal Atrial Fibrillation/Flutter
Continue Xarelto for anticoagulation
RESTARTed metoprolol
#Hyperlipidemia
Continue atorvastatin
#Diabetes Mellitus, Type II
hold Januvia and Metformin
sliding scale. A1C at 7.2
#Mild anemia
Anemia of Chronic Disease
-monitor H&H
# Chronic hyponatremia
monitor on salt tab at home
#Unspecified Depression
Refused antidepressant in the past
Continue Remeron
DVT proph: Xarelto
Code Status: Full Code
PT/OT
Dr. Mccormick updated patient's son over the phone in details on 03/21
Anticipated Discharge: > 48 hours
Subjective/Interval History
-
Date of Service: March 23, 2024
remains weak
Objective Data
-
Vital Signs:
Vital Signs
Temp Pulse Resp BP Pulse Ox
98.5 F 88 19 114/75 97
03/23/24 15:58 03/23/24 11:00 03/23/24 11:00 03/23/24 13:49 04/29/24 11:00
I&O
03/22/24 03/23/24 03/24/24
06:59 06:59 06:59
Intake Total 1666 / 1666
Output Total 925 / 925 1250 / 1250 1400 / 1400
Balance -925 / -925 416 / 416 -1400 / -1400
Review of Systems
-
History Source: Patient and Coordinated Provider
Constitutional: Denies Fever
EENT: Reports No Symptoms Reported
Respiratory: Reports No Symptoms
Cardiac: Reports No Symptoms
Abdomen/GI: Reports No Symptoms
Neuro: Reports Weakness
Physical Exam
-
General: No Apparent Distress
HEENT: Normocephalic and Atraumatic
Respiratory: Clear to Auscultation
Cardiac: Regular Rhythm and S1/S2
GI: Soft, Nontender and Nondistended
Genito-urinary: Alvarado (Clear yellow)
Musculoskeletal: No Edema
Neuro: Awake and No Motor Deficits
Psych: Calm
[2024-03-23 16:56] LABS: Glucose - Point of Care 210 mg/dl (70-99)
[2024-03-23] MEDS: NOVOLOG FLEXPEN-LOW RESISTANCE 2 UNITS SC (17:48)
[2024-03-23] MEDS: DESENEX/MITRAZOL/ZEASORB 1 APPLIC TOPICAL (20:35)
--- NOTE | 2024-03-23 20:42 | PTCARENOTE ---
Pt received from day shift. pt finishing dinner up in the chair. pt ate 75% of dinner. pt took Pm oral pills with apple juice without complication. Pt AAO, makes needs known. pt resting in chair. pt brushed teeth with assistance. Pt satting 99% on
RA. call franklin in reach.
[2024-03-23] MEDS: REMERON 15 MG PO (21:47)
[2024-03-23] MEDS: TOPROL XL 25 MG PO (21:47)
[2024-03-23 21:58] LABS: Glucose - Point of Care 271 mg/dl (70-99)
--- NOTE | 2024-03-23 22:11 | PTCARENOTE ---
Pt transferred from chair to bed. Pt required assistance of 2 RNS, and rolling walker. Pt stood and pivoted with difficulty, pt had weakness in his legs when ambulating. Pt now resting in bed. call franklin in reach.
[2024-03-24] VITALS (22 sets, daily range): BP systolic 92–139; BP diastolic 56–81; BMI 25.8
[2024-03-24] MEDS: AMPICILLIN 108 MG IV ×4 (00:10→18:13)
--- NOTE | 2024-03-24 04:32 | PTCARENOTE ---
Pt removed R AC IV during sleep. Pt stated it was an accident.
[2024-03-24] MEDS: VISBIOME 2 CAP PO (07:49)
[2024-03-24] MEDS: XARELTO 20 MG PO (07:49)
[2024-03-24] MEDS: FEOSOL 325 MG PO (07:49)
[2024-03-24] MEDS: ProAmatine 5 MG PO ×3 (07:49→17:23)
[2024-03-24] MEDS: DETROL 2 MG PO ×2 (07:49→20:58)
[2024-03-24] MEDS: MIRALAX 17 GRAMS PO ×2 (07:49→20:59)
[2024-03-24] MEDS: MAG-TAB SR 84 MG PO ×2 (07:50→20:59)
[2024-03-24] MEDS: VITAMIN B-12 1000 MCG PO (07:50)
[2024-03-24] MEDS: PROTONIX 40 MG PO ×2 (07:50→20:59)
[2024-03-24] MEDS: FLOMAX 0.400000000000000022 MG PO (07:50)
[2024-03-24] MEDS: MYRBETRIQ EXTENDED RELEASE 50 MG PO (07:50)
[2024-03-24] MEDS: LIPITOR 20 MG PO (07:50)
[2024-03-24] MEDS: SODIUM CHLORIDE 1 GRAM PO ×2 (07:50→20:59)
[2024-03-24] MEDS: DEMADEX 20 MG PO (07:51)
[2024-03-24] MEDS: NOVOLOG FLEXPEN-LOW RESISTANCE SC ×3 (08:44→17:00)
[2024-03-24 08:49] LABS: Glucose - Point of Care 112 mg/dl (70-99)
--- NOTE | 2024-03-24 09:05 | W.PN.ID1 ---
Addendum entered and electronically signed by Violetta Barrera MD 03/24/24 18:47:
CORRECTION. At time of discharge, transition to amoxicillin 1000 mg po tid through 04/03/2024 (not 04/13/2024).
Original Note:
Date of Service
Date of Service: March 24, 2024
Today's Communication
- At time of discharge, transition to amoxicillin 1000 mg po tid through 04/13/2024.
- From ID standpoint, OK for dc.
Assessment / Plan
# Enterococcus faecalis bacteremia due to malfunctioned chronic arriaga
- blood cx's neg to date
- Continue ampicillin 2g IV q6h
- At time of discharge, transition to amoxicillin 1000 mg po tid through 04/13/2024.
- From ID standpoint, OK for dc.
#Additional Past Medical History:
Diabetes mellitus
Hypertension
Dyslipidemia
paroxysmal Atrial fibrillation
Heart failure with preserved EF
BPH with chronic indwelling Arriaga catheter
Right carotid artery stenosis status post stent
Depression
R THR
Chief Complaint
-: UTI and Bacteremia
Subjective / Review of Systems
sleeping
Vital Signs / Physical Exam
Vital Signs
Vital Signs
Temp Pulse Resp BP Pulse Ox
98.1 F 68 16 106/66 99
03/24/24 07:21 03/24/24 06:01 03/24/24 06:01 03/24/24 06:00 03/24/24 06:01
Physical Exam
Constitutional: No Acute Distress
Gastrointestinal: Soft, Non Tender and Non Distended
Genito-Urinary: Arriaga and Clear Urine
Objective Data
Lab Data
Lab Results
03/23/24 03:46
03/23/24 03:46
Estimated Creat Clear 90 ml/min 03/23/24 03:46
Lactic Acid 1.5 mmol/L (0.7-2.0) 03/20/24 13:18
Total Bilirubin 0.7 mg/dl (0.2-1.3) 03/20/24 09:15
AST 12 U/L (17-59) L 03/20/24 09:15
ALT 12 U/L (0-50) 03/20/24 09:15
Alkaline Phosphatase 156 U/L (38-126) H 03/20/24 09:15
Most recent labs reviewed.
Micro Results:
03/22/24 04:20 Blood Culture - Preliminary
Blood/Venous No Growth in 48 hours- Final report to follow
03/23/24 03:46 Blood Culture - Preliminary
Blood/Venous No Growth in 24 hours- Final report to follow
03/20/24 09:19 Blood Culture - Final
Blood/Venous Enterococcus faecalis
Gram Stain - Final
03/20/24 09:15 Blood Culture - Final
Blood/Venous Enterococcus faecalis
Gram Stain - Final
03/20/24 08:53 Urine Culture - Final
Urine Enterococcus faecalis
03/20/24 CXR: No focal parenchymal consolidation to suggest pneumonia.
[2024-03-24 12:06] LABS: Glucose - Point of Care 115 mg/dl (70-99)
--- NOTE | 2024-03-24 14:07 | W.PN.HOSP.TC ---
Today's Communication/Plan
-
continue IV abx until dc, then oral Amox 1000 mg q8h through 04/13
await decision on optimal dispo, reviewed with CM
Assessment / Plan
Assessment / Plan
#Sepsis shock likely 2/2 Enterococcus faecalis bacteremia secondary to malfunctioning chronic Alvarado catheter
#Chronic Alvarado catheter
#History of Alvarado catheter associated UTI
#BPH
Status post 3 L IV fluid bolus per sepsis protocol
s/p Levophed. off pressors and BP stable
Continue with midodrine
Lactic acidosis resolved with IV fluid.
Identification with Enterococcus and antibiotics adjusted by infectious disease. Started on ampicillin
Vanco and cefepime discontinued
Surveillance cultures ordered
#Chronic hypotension
Restart home dose of midodrine
#Chronic HFpEF
restart diuretics and monitor BP
Monitor oxygenation closely
#Paroxysmal Atrial Fibrillation/Flutter
Continue Xarelto for anticoagulation
RESTARTed metoprolol
#Hyperlipidemia
Continue atorvastatin
#Diabetes Mellitus, Type II
hold Januvia and Metformin
sliding scale. A1C at 7.2
#Mild anemia
Anemia of Chronic Disease
-monitor H&H
# Chronic hyponatremia
monitor on salt tab at home
#Unspecified Depression
Refused antidepressant in the past
Continue Remeron
DVT proph: Xarelto
Code Status: Full Code
PT/OT
Dr. Mccormick updated patient's son over the phone in details on 03/21
Call placed and reviewed with [facility]. PT is recommending SNF, but family apparently wants to take home.
Will transfer to tele. DC once arrangements confirmed, SNF vs home
Anticipated Discharge: 24 - 48 hours
Subjective/Interval History
-
Date of Service: March 24, 2024
Awake, alert. Pt answering basic questions
Objective Data
-
Vital Signs:
Vital Signs
Temp Pulse Resp BP Pulse Ox
98.1 F 68 16 106/66 99
03/24/24 11:27 03/24/24 06:01 03/24/24 06:01 03/24/24 06:00 03/24/24 06:01
I&O
03/23/24 03/24/24 03/25/24
06:59 06:59 06:59
Intake Total 1666 / 1666
Output Total 1250 / 1250 1900 / 1900
Balance 416 / 416 -1900 / -1900
Review of Systems
-
History Source: Patient and Coordinated Provider
Constitutional: Denies Fever
EENT: Reports No Symptoms Reported
Respiratory: Reports No Symptoms
Cardiac: Reports No Symptoms
Abdomen/GI: Reports No Symptoms
Neuro: Reports Weakness
Physical Exam
-
General: No Apparent Distress
HEENT: Normocephalic and Atraumatic
Respiratory: Clear to Auscultation
Cardiac: Regular Rhythm and S1/S2
GI: Soft, Nontender and Nondistended
Genito-urinary: Alvarado (Clear yellow)
Musculoskeletal: No Edema
Neuro: Awake
Psych: Calm
--- NOTE | 2024-03-24 14:21 | CM ---
Addendum entered by Selina Zaidi RN 03/24/24 16:55:
Spoke with [facility]; they are able to accept the patient tomorrow once insurance approves.
Spoke with [facility] their computers are down so they cannot issue a reference #. CM can fax request for SNF to [phone]---> sent via [facility] Fax.
Plan [facility] SNF once insurance auth obtained.
Addendum entered by Selina Zaidi RN 03/24/24 15:45:
Met with patient with son Chip on speaker phone; patient agrees to short term SNF for rehab. Patient/son agree to referrals to [facility]. Son is flying in from [facility] and will be available by phone tomorrow and at
[facility] tomorrow around 5:30pm.
Spoke with [facility]; they have no available beds in the foreseeable future.
Spoke with [facility]; she will review the referral and let CM know if can accept.
Plan follow up SNF referrals.
Original Note:
Patient with Dx Sepsis likely bacteremia. Room air. Receiving IV Abx. PT & OT; requires mod/max assist of 2, recommend skilled rehab.
Case discussed with Dr Sotelo; possible concern for ability to care for self/neglect at home.
As per CM notes 03/20: ' was advised by bedside RN that EMS felt patient was not adequately able to care for patient. EMS did not describe who was in the home at the time...Bedside RN did confirm that patient was not clean and looks very
dishevel'.
Spoke with patient's daughter Dot, who lives in [place]; patient's is able to assist at home with personal care and meals. The mother in law is also in the home. Dot thinks that her parents have been managing well at home together.
Related patient's current status as per PT/OT. Daughter says that the patient doesn't want to return to [facility]. Her brother is working on [facility] - Dot says her brother Chip has been handling the caregiver arrangements. She thinks
her brother has also been looking into SNFs and she defers to him for d/c planning.
Spoke with Chip, patient's son, who lives in [place]; discussed short term SNF for rehab. His [facility] before and [facility]. Son liked [facility] but understands his sister's concern that they did not address his UTI
sooner. He will talk to his dad about his SNF preferences. He states his parents are very stubborn about accepting help at home. His mother is 68 yrs old, had a stroke 25 yrs ago, is hard to understand and cannot fully help the patient. Son had
to push his parents just to get [address] The mother in law is 97 yrs old but still well and assists. The son sees some issues with them managing at home however his parents are very independent and have resisted efforts for
more services. Discussed 24 hr caregiver need at this time if patient goes home. Discussed some local SNFs and provided NH ratings - Chip wants to talk with his father about SNF options.
Plan referral to [facility] if patient goes home.
Plan discuss SNF preferences with patient/son and make referrals.
[2024-03-24 17:04] LABS: Glucose - Point of Care 142 mg/dl (70-99)
[2024-03-24] MEDS: DESENEX/MITRAZOL/ZEASORB 1 APPLIC TOPICAL (21:04)
[2024-03-24 22:08] LABS: Glucose - Point of Care 183 mg/dl (70-99)
[2024-03-24] MEDS: TOPROL XL 25 MG PO (22:08)
[2024-03-24] MEDS: REMERON 15 MG PO (22:08)
[2024-03-25] VITALS (13 sets, daily range): BP systolic 97–131; BP diastolic 53–86; PULSE 88; BMI 25.3
[2024-03-25] MEDS: AMPICILLIN 108 MG IV ×4 (00:07→17:33)
[2024-03-25 08:13] LABS: Glucose - Point of Care 121 mg/dl (70-99)
[2024-03-25] MEDS: NOVOLOG FLEXPEN-LOW RESISTANCE SC ×2 (08:19→12:49)
[2024-03-25] MEDS: MYRBETRIQ EXTENDED RELEASE 50 MG PO (08:19)
[2024-03-25] MEDS: SENOKOT-S 1 TABLET PO (08:20)
[2024-03-25] MEDS: PROTONIX 40 MG PO ×2 (08:20→21:32)
[2024-03-25] MEDS: VISBIOME 2 CAP PO (08:20)
[2024-03-25] MEDS: DETROL 2 MG PO ×2 (08:20→21:31)
[2024-03-25] MEDS: FEOSOL 325 MG PO (08:20)
[2024-03-25] MEDS: XARELTO 20 MG PO (08:20)
[2024-03-25] MEDS: DEMADEX 20 MG PO (08:20)
[2024-03-25] MEDS: SODIUM CHLORIDE 1 GRAM PO ×2 (08:20→21:31)
[2024-03-25] MEDS: VITAMIN B-12 1000 MCG PO (08:20)
[2024-03-25] MEDS: MIRALAX 17 GRAMS PO (08:20)
[2024-03-25] MEDS: MAG-TAB SR 84 MG PO ×2 (08:20→21:31)
[2024-03-25] MEDS: ProAmatine 5 MG PO ×3 (08:21→18:00)
[2024-03-25] MEDS: DESENEX/MITRAZOL/ZEASORB 1 APPLIC TOPICAL ×2 (08:21→21:43)
[2024-03-25] MEDS: FLOMAX 0.400000000000000022 MG PO (08:21)
[2024-03-25] MEDS: LIPITOR 20 MG PO (08:21)
--- NOTE | 2024-03-25 09:17 | W.PN.ID1 ---
Date of Service
Date of Service: March 25, 2024
Today's Communication
- Continue ampicillin 2g IV q6h
- At time of discharge, transition to amoxicillin 1000 mg po tid through 04/13/2024.
Assessment / Plan
# Enterococcus faecalis bacteremia due to malfunctioned chronic arriaga
# Chronic hypotension
- blood cx's neg to date
- arriaga exchanged 03/20
- Continue ampicillin 2g IV q6h
- At time of discharge, transition to amoxicillin 1000 mg po tid through 04/13/2024.
- From ID standpoint, OK for dc.
#Additional Past Medical History:
Diabetes mellitus
Hypertension
Dyslipidemia
paroxysmal Atrial fibrillation
Heart failure with preserved EF
BPH with chronic indwelling Arriaga catheter
Right carotid artery stenosis status post stent
Depression
R THR
Chief Complaint
-: UTI and Bacteremia
Subjective / Review of Systems
afebrile
bp overall stable
no leukocytosis and L shift resolved when last evaluated 03/23
no new cbc or bmp today
03/22 and 03/23 blood cultures no growth to date
no suprapubic tenderness, no complaints
Vital Signs / Physical Exam
Vital Signs
Vital Signs
Temp Pulse Resp BP Pulse Ox
98.8 F 81 16 97/60 96
03/25/24 07:10 03/25/24 08:00 03/25/24 08:00 03/25/24 08:00 03/25/24 08:00
Physical Exam
Constitutional: No Acute Distress and Comfortable
Cardiovascular: Regular Rate and S1/S2; Negative Murmur or Rub
Pulmonary: Clear and Symmetric; Negative Wheezes or Rales
Gastrointestinal: Soft, Non Tender, Non Distended and Normal Bowel Sounds
Skin: Warm and Dry; Negative Rash or Jaundice
Objective Data
Lab Data
Lab Results
03/23/24 03:46
03/23/24 03:46
Estimated Creat Clear 90 ml/min 03/23/24 03:46
Lactic Acid 1.5 mmol/L (0.7-2.0) 03/20/24 13:18
Total Bilirubin 0.7 mg/dl (0.2-1.3) 03/20/24 09:15
AST 12 U/L (17-59) L 03/20/24 09:15
ALT 12 U/L (0-50) 03/20/24 09:15
Alkaline Phosphatase 156 U/L (38-126) H 03/20/24 09:15
Most recent labs reviewed.
Micro Results:
03/22/24 04:20 Blood Culture - Preliminary
Blood/Venous No Growth in 72 hours- Final report to follow
03/23/24 03:46 Blood Culture - Preliminary
Blood/Venous No Growth in 48 hours- Final report to follow
03/20/24 09:19 Blood Culture - Final
Blood/Venous Enterococcus faecalis
Gram Stain - Final
03/20/24 09:15 Blood Culture - Final
Blood/Venous Enterococcus faecalis
Gram Stain - Final
03/20/24 08:53 Urine Culture - Final
Urine Enterococcus faecalis
03/20/24 CXR: No focal parenchymal consolidation to suggest pneumonia.
--- NOTE | 2024-03-25 10:50 | CM ---
Patient with Dx Sepsis likely bacteremia. Room air. Receiving IV Abx. PT & OT; requires mod/max assist of 2, recommend skilled rehab.
Spoke with [facility] (ph [phone]); they received the fax of clinical info with request for SNF. Reference # [id number]. Case was assigned to clinician for review- will be completed today/tomorrow. Case
cannot be expedited.
Spoke with Chip, patient's son; he has flown in from [place] and stay locally in [place]. Provided update that insurance approval for [facility] is pending and unknown if will receive approval today or tomorrow. Son will be here after
5:30pm today to see his dad- CM agrees to call son today if patient would be discharging.
Plan [facility] once insurance auth obtained.
[2024-03-25 12:35] LABS: Glucose - Point of Care 178 mg/dl (70-99)
--- NOTE | 2024-03-25 15:47 | W.PN.HOSP.TC ---
Today's Communication/Plan
-
await prior auth
continue Amox 1000 mg q8h until 04/13 at time of discharge
Assessment / Plan
Assessment / Plan
#Sepsis shock likely 2/2 Enterococcus faecalis bacteremia secondary to malfunctioning chronic Alvarado catheter
#Chronic Alvarado catheter
#History of Alvarado catheter associated UTI
#BPH
Status post 3 L IV fluid bolus per sepsis protocol
s/p Levophed. off pressors and BP stable
Continue with midodrine
Lactic acidosis resolved with IV fluid.
Identification with Enterococcus and antibiotics adjusted by infectious disease. Started on ampicillin
Vanco and cefepime discontinued
Surveillance cultures ordered
Pt remains very weak post infection. Agree with planned dc to SNF. Discussed with [facility]. Await prior auth
#Chronic hypotension
Restart home dose of midodrine
#Chronic HFpEF
restart diuretics and monitor BP
Monitor oxygenation closely
#Paroxysmal Atrial Fibrillation/Flutter
Continue Xarelto for anticoagulation
RESTARTed metoprolol
currently in NSR
#Hyperlipidemia
Continue atorvastatin
#Diabetes Mellitus, Type II
hold Januvia and Metformin
sliding scale. A1C at 7.2
#Mild anemia
Anemia of Chronic Disease
-monitor H&H
# Chronic hyponatremia
monitor on salt tab at home
#Unspecified Depression
Refused antidepressant in the past
Continue Remeron
DVT proph: Xarelto
Code Status: Full Code
PT/OT
Dr. Mccormick updated patient's son over the phone in details on 03/21
Pt to go to SNF once auth obtained
change to oral abx on dc
Anticipated Discharge: Within 24 hours
Subjective/Interval History
-
Date of Service: March 25, 2024
Awake, conversant
Objective Data
-
Vital Signs:
Vital Signs
Temp Pulse Resp BP Pulse Ox
98.2 F 96 27 113/80 93
03/25/24 11:15 03/25/24 11:00 03/25/24 11:00 03/25/24 10:00 03/25/24 11:00
I&O
03/24/24 03/25/24 03/26/24
06:59 06:59 06:59
Intake Total 716 / 716
Output Total 1900 / 1900 2400 / 2400
Balance -1900 / -1900 -1684 / -1684
Review of Systems
-
History Source: Patient and Coordinated Provider
Constitutional: Denies Fever
EENT: Reports No Symptoms Reported
Respiratory: Reports No Symptoms
Cardiac: Reports No Symptoms
Abdomen/GI: Reports No Symptoms
Musculoskeletal: Reports Muscle Weakness
Neuro: Reports Weakness
Physical Exam
-
General: No Apparent Distress
HEENT: Normocephalic and Atraumatic
Respiratory: Clear to Auscultation
Cardiac: Regular Rhythm and S1/S2
GI: Soft, Nontender and Nondistended
Genito-urinary: Alvarado (Clear yellow)
Musculoskeletal: No Edema
Neuro: Awake
Psych: Calm
[2024-03-25] MEDS: NOVOLOG FLEXPEN-LOW RESISTANCE 1 UNITS SC (18:00)
[2024-03-25 18:07] LABS: Glucose - Point of Care 190 mg/dl (70-99)
[2024-03-25] MEDS: TOPROL XL 25 MG PO (21:31)
[2024-03-25] MEDS: MIRALAX PO (21:32)
[2024-03-25] MEDS: REMERON 15 MG PO (21:32)
[2024-03-25 21:54] LABS: Glucose - Point of Care 133 mg/dl (70-99)
[2024-03-26] VITALS (29 sets, daily range): BP systolic 73–122; BP diastolic 44–78; PULSE 70; O2SAT 98; BMI 24.7
[2024-03-26] MEDS: AMPICILLIN 108 MG IV ×4 (00:33→17:33)
--- NOTE | 2024-03-26 04:57 | PTCARENOTE ---
Family visited yesterday evening before bed. Patient understands [place] per the son. Pt very [place]. Denies any pain. NSR w/ BBB on tele, BP soft; asymptomatic. Alvarado draining yellow colored urine. Tolerating IV Abx. Swallowed pills with applesauce
w/o issues. Complete bed bath done this morning, all linens changed, pt shaved, hair washed. Repositioned throughout the night, heels floated. Bed alarm set for safety. Call franklin within reach.
[2024-03-26 08:08] LABS: Glucose - Point of Care 106 mg/dl (70-99)
[2024-03-26] MEDS: NOVOLOG FLEXPEN-LOW RESISTANCE SC (08:47)
[2024-03-26] MEDS: DEMADEX 20 MG PO (09:33)
[2024-03-26] MEDS: FLOMAX 0.400000000000000022 MG PO (09:34)
[2024-03-26] MEDS: FEOSOL 325 MG PO (09:34)
[2024-03-26] MEDS: LIPITOR 20 MG PO (09:34)
[2024-03-26] MEDS: DETROL 2 MG PO ×2 (09:34→20:35)
[2024-03-26] MEDS: MAG-TAB SR 84 MG PO ×2 (09:35→20:35)
[2024-03-26] MEDS: MIRALAX 17 GRAMS PO ×2 (09:36→20:35)
[2024-03-26] MEDS: MYRBETRIQ EXTENDED RELEASE 50 MG PO (09:36)
[2024-03-26] MEDS: ProAmatine 5 MG PO ×3 (09:38→17:34)
[2024-03-26] MEDS: SODIUM CHLORIDE 1 GRAM PO ×2 (09:39→20:35)
[2024-03-26] MEDS: PROTONIX 40 MG PO ×2 (09:39→20:35)
[2024-03-26] MEDS: VISBIOME 2 CAP PO (09:39)
[2024-03-26] MEDS: XARELTO 20 MG PO (09:40)
[2024-03-26] MEDS: VITAMIN B-12 1000 MCG PO (09:40)
--- NOTE | 2024-03-26 09:44 | PTCARENOTE ---
Assumed care of patient at change of shift. Patient with no complaints. VSS. Awaiting insurance approval for transfer to . Continuing to monitor.
--- NOTE | 2024-03-26 11:05 | WOUNDNOTE ---
WOC RN note: Mauri Doe re: recommend air mattress at SNF; patient has stage 2 sacral and heel pressure injuries.
[2024-03-26] MEDS: TYLENOL 650 MG PO (11:35)
[2024-03-26 12:08] LABS: Glucose - Point of Care 167 mg/dl (70-99)
[2024-03-26] MEDS: NOVOLOG FLEXPEN-LOW RESISTANCE 1 UNITS SC (12:31)
--- NOTE | 2024-03-26 12:47 | CM ---
Addendum entered by Israel Doe 03/26/24 16:20:
CM just received a phone call from [facility] event sales representative Neal and he stated after reviewing pt's updated PT and OT notes, MD has denied a request for SNF level of care.
Phone number to appeal: [phone].
CM will, develop an alterative discharge plan with the pt and his family.
Addendum entered by Israel Doe 03/26/24 14:03:
Updated PT and OT evaluations noted.
As requested by Dr. Padilla from [facility], CM faxed updated PT and OT note to [phone] forb a review.
Awaiting for determination from [facility].
If SNF level of care approved, then pt will be discharged to [facility] for a short term rehab.
Addendum entered by Israel Doe 03/26/24 13:00:
per physician advisor, [facility] medical and health services manager Dr. Padilla requested updated PT and OT notes.
CM spoke to PT and OT and they will re-evaluate the pt shortly.
CM will fax updated PT and OT note to [facility] with attention to Dr. Padilla.
Original Note:
CM following re: discharge planning.
Pt has been denied for SNF level of care by [facility]. Peer to peer offered. option 5. Phone call needs to be made by 4:00 p.m. today.
Physician advisor has been notified.
Peer to peer appeal in progress.
D/C plan: [facility] if insurance approves after peer to peer review.
--- NOTE | 2024-03-26 14:04 | W.PN.ID1 ---
Date of Service
Date of Service: March 26, 2024
Today's Communication
- Continue ampicillin 2g IV q6h
- At time of discharge, transition to amoxicillin 1000 mg po tid through 04/13/2024.
ID service will no longer actively follow this patient please recall for further questions
Assessment / Plan
# Enterococcus faecalis bacteremia due to malfunctioned chronic arriaga
# Chronic hypotension
- blood cx's neg to date
- arriaga exchanged 03/20
- Continue ampicillin 2g IV q6h
- At time of discharge, transition to amoxicillin 1000 mg po tid through 04/13/2024.
ID service will no longer actively follow this patient please recall for further questions
#Additional Past Medical History:
Diabetes mellitus
Hypertension
Dyslipidemia
paroxysmal Atrial fibrillation
Heart failure with preserved EF
BPH with chronic indwelling Arriaga catheter
Right carotid artery stenosis status post stent
Depression
R THR
Chief Complaint
-: UTI and Bacteremia
Subjective / Review of Systems
afebrile
bp overall stable
03/22 and 03/23 blood cultures no growth to date
no complaints
Vital Signs / Physical Exam
Vital Signs
Vital Signs
Temp Pulse Resp BP Pulse Ox
98.1 F 74 18 94/69 98
03/26/24 11:00 03/26/24 13:42 03/26/24 11:00 03/26/24 13:42 03/26/24 11:00
Physical Exam
Constitutional: No Acute Distress
Cardiovascular: Regular Rate and S1/S2; Negative Murmur or Rub
Pulmonary: Clear and Symmetric; Negative Wheezes or Rales
Gastrointestinal: Soft, Non Tender, Non Distended and Normal Bowel Sounds
Genito-Urinary: Negative Suprapubic Tenderness
Skin: Warm and Dry; Negative Rash or Jaundice
Objective Data
Lab Data
Lab Results
03/23/24 03:46
03/23/24 03:46
Estimated Creat Clear 90 ml/min 03/23/24 03:46
Lactic Acid 1.5 mmol/L (0.7-2.0) 03/20/24 13:18
Total Bilirubin 0.7 mg/dl (0.2-1.3) 03/20/24 09:15
AST 12 U/L (17-59) L 03/20/24 09:15
ALT 12 U/L (0-50) 03/20/24 09:15
Alkaline Phosphatase 156 U/L (38-126) H 03/20/24 09:15
Most recent labs reviewed.
Micro Results:
03/22/24 04:20 Blood Culture - Preliminary
Blood/Venous No Growth in 4 days- Final report to follow
03/23/24 03:46 Blood Culture - Preliminary
Blood/Venous No Growth in 72 hours- Final report to follow
03/20/24 09:19 Blood Culture - Final
Blood/Venous Enterococcus faecalis
Gram Stain - Final
03/20/24 09:15 Blood Culture - Final
Blood/Venous Enterococcus faecalis
Gram Stain - Final
03/20/24 08:53 Urine Culture - Final
Urine Enterococcus faecalis
03/20/24 CXR: No focal parenchymal consolidation to suggest pneumonia.
[2024-03-26] MEDS: NOVOLOG FLEXPEN-LOW RESISTANCE 3 UNITS SC (17:33)
[2024-03-26 17:43] LABS: Glucose - Point of Care 268 mg/dl (70-99)
--- NOTE | 2024-03-26 19:36 | W.PN.HOSP.TC ---
Today's Communication/Plan
-
continue current Tx
Assessment / Plan
Assessment / Plan
#Sepsis shock likely 2/2 Enterococcus faecalis bacteremia secondary to malfunctioning chronic Alvarado catheter
#Chronic Alvarado catheter
#History of Alvarado catheter associated UTI
#BPH
Status post 3 L IV fluid bolus per sepsis protocol
s/p Levophed. off pressors and BP stable
Continue with midodrine
Lactic acidosis resolved with IV fluid.
Identification with Enterococcus and antibiotics adjusted by infectious disease. Started on ampicillin
Vanco and cefepime discontinued
Surveillance cultures ordered
Pt remains very weak post infection. Agree with planned dc to SNF. Discussed with CM. Await prior auth
At 16:20 CM was notified that appeal of denial for SNF was reviewed and request for SNF was once again denied. CM states will develop an alternative discharge plan
#Chronic hypotension
Restart home dose of midodrine
#Chronic HFpEF
restart diuretics and monitor BP
Monitor oxygenation closely
#Paroxysmal Atrial Fibrillation/Flutter
Continue Xarelto for anticoagulation
RESTARTed metoprolol
currently in NSR
#Hyperlipidemia
Continue atorvastatin
#Diabetes Mellitus, Type II
hold Januvia and Metformin
sliding scale. A1C at 7.2
#Mild anemia
Anemia of Chronic Disease
-monitor H&H
# Chronic hyponatremia
monitor on salt tab at home
#Unspecified Depression
Refused antidepressant in the past
Continue Remeron
DVT proph: Xarelto
Code Status: Full Code
PT/OT
Dr. Mccormick updated patient's son over the phone in details on 03/21
Await further dispo plans
change to oral abx on dc
Anticipated Discharge: 24 - 48 hours
Subjective/Interval History
-
Date of Service: March 26, 2024
Remains weak
Objective Data
-
Vital Signs:
Vital Signs
Temp Pulse Resp BP Pulse Ox
97.6 F 74 23 122/65 95
03/26/24 19:27 03/26/24 19:00 03/26/24 19:00 03/26/24 18:00 03/26/24 19:00
I&O
03/25/24 03/26/24 03/27/24
06:59 06:59 06:59
Intake Total 716 / 716 456 / 456
Output Total 2400 / 2400 950 / 950
Balance -1684 / -1684 -494 / -494
Review of Systems
-
History Source: Patient and Coordinated Provider
Constitutional: Denies Fever
EENT: Reports No Symptoms Reported
Respiratory: Reports No Symptoms
Cardiac: Reports No Symptoms
Abdomen/GI: Reports No Symptoms
Musculoskeletal: Reports Muscle Weakness
Neuro: Reports Weakness
Physical Exam
-
General: No Apparent Distress
HEENT: Normocephalic and Atraumatic
Respiratory: Clear to Auscultation
Cardiac: Regular Rhythm and S1/S2
GI: Soft, Nontender and Nondistended
Genito-urinary: Alvarado (Clear yellow)
Musculoskeletal: No Edema
Neuro: Awake
Psych: Calm
[2024-03-26] MEDS: REMERON 15 MG PO (20:35)
[2024-03-26 21:00] LABS: Glucose - Point of Care 183 mg/dl (70-99)
[2024-03-26] MEDS: TOPROL XL PO (23:07)
[2024-03-27] VITALS (15 sets, daily range): BP systolic 92–142; BP diastolic 58–101; O2SAT 99; BMI 24.0
[2024-03-27] MEDS: AMPICILLIN 108 MG IV ×4 (00:56→17:41)
[2024-03-27 08:20] LABS: Glucose - Point of Care 118 mg/dl (70-99)
[2024-03-27] MEDS: NOVOLOG FLEXPEN-LOW RESISTANCE SC (09:09)
[2024-03-27] MEDS: SODIUM CHLORIDE 1 GRAM PO ×2 (09:20→20:36)
[2024-03-27] MEDS: FLOMAX 0.400000000000000022 MG PO (09:20)
[2024-03-27] MEDS: MYRBETRIQ EXTENDED RELEASE 50 MG PO (09:20)
[2024-03-27] MEDS: MIRALAX 17 GRAMS PO ×2 (09:20→20:36)
[2024-03-27] MEDS: VISBIOME 2 CAP PO (09:21)
[2024-03-27] MEDS: XARELTO 20 MG PO (09:21)
[2024-03-27] MEDS: ProAmatine 5 MG PO ×3 (09:25→17:41)
[2024-03-27] MEDS: MAG-TAB SR 84 MG PO ×2 (09:25→20:36)
[2024-03-27] MEDS: FEOSOL 325 MG PO (09:26)
[2024-03-27] MEDS: DETROL 2 MG PO ×2 (09:26→20:35)
[2024-03-27] MEDS: TYLENOL 650 MG PO (09:26)
[2024-03-27] MEDS: LIPITOR 20 MG PO (09:26)
[2024-03-27] MEDS: DEMADEX 20 MG PO (09:26)
[2024-03-27] MEDS: PROTONIX 40 MG PO ×2 (09:26→20:36)
[2024-03-27] MEDS: VITAMIN B-12 1000 MCG PO (09:26)
[2024-03-27 12:06] LABS: Glucose - Point of Care 201 mg/dl (70-99)
[2024-03-27] MEDS: NOVOLOG FLEXPEN-LOW RESISTANCE 2 UNITS SC (12:24)
--- NOTE | 2024-03-27 13:11 | PTCARENOTE ---
Patient AAOx2. No complaints, VSS. Up in chair with 2 assist. Moving better than yesterday. Awaiting discharge plans. Update provided to daughter Dot. Continuing to closely monitor.
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
--- NOTE | 2024-03-27 14:55 | PN.CDI ---
CDI
- -
CDI:
Physician Documentation Request
Admit Date: 03/20/24 13:33
Dear Doctor Deepak,
Patient admitted with sepsis.
03/23 N note, 'Patient admitted with: sacral/buttocks scattered red skin with stage 2 pressure injuries. L lateral posterior heel stage 2 pressure injury. R heel stage 1 pressure injury. '
Physician documentation of the type and location of wounds is required for compliant documentation. Based on the above clinical findings and your assessment, please provide the following in your progress note:
Type (etiology) of ulcer/wound:
- Pressure (decubitus) ulcer
- Other
- Unable to determine
For a pressure ulcer, please also include the stage* of the ulcer:
- Stage 1 - Skin intact, non-blanchable redness
- Stage 2 - Partial thickness loss of dermis, includes intact or open blister
- Stage 3 - Full thickness tissue not including bone, tendon or muscle
- Stage 4 - Full thickness tissue loss, including exposed bone, tendon or muscle
- Unstageable - Full thickness loss in which the base of the ulcer is covered by slough (yellow, barajas, burnham, green or brown) and/or eschar (barajas, brown or black) in the wound bed.
- Unable to determine
Use of terms such as suspected, likely, concern for, or probable (associated with a specific diagnosis that is being evaluated, monitored, or treated as if it exists) are acceptable and can be coded in the inpatient setting, when documented at the
time of discharge.
Thank you,
Riri PULIDO,RN,CCDS
CDI Specialist
Available via [place] text
Please use your independent medical judgment in providing your response.
*Source: National Pressure Ulcer Advisory Panel (NPUAP)
[2024-03-27 17:15] LABS: Glucose - Point of Care 160 mg/dl (70-99)
--- NOTE | 2024-03-27 17:37 | W.PN.HOSP.TC ---
Today's Communication/Plan
-
await final appeal for dc to SNF
Assessment / Plan
Assessment / Plan
#Sepsis shock likely 2/2 Enterococcus faecalis bacteremia secondary to malfunctioning chronic Alvarado catheter
#Chronic Alvarado catheter
#History of Alvarado catheter associated UTI
#BPH
Status post 3 L IV fluid bolus per sepsis protocol
s/p Levophed. off pressors and BP stable
Continue with midodrine
Lactic acidosis resolved with IV fluid.
Identification with Enterococcus and antibiotics adjusted by infectious disease. Started on ampicillin
Vanco and cefepime discontinued
Surveillance cultures ordered
Pt remains very weak post infection. Agree with planned dc to SNF. Discussed with CM. Await prior auth
At 16:20 on 03/26 CM was notified that appeal of denial for SNF was reviewed and request for SNF was once again denied. states will develop an alternative discharge plan. Son is doing a family appeal. Await response
#Chronic hypotension
Restart home dose of midodrine
#Chronic HFpEF
restart diuretics and monitor BP
Monitor oxygenation closely
#Paroxysmal Atrial Fibrillation/Flutter
Continue Xarelto for anticoagulation
RESTARTed metoprolol
currently in NSR
#Hyperlipidemia
Continue atorvastatin
#Diabetes Mellitus, Type II
hold Januvia and Metformin
sliding scale. A1C at 7.2
#Mild anemia
Anemia of Chronic Disease
-monitor H&H
# Chronic hyponatremia
monitor on salt tab at home
#Unspecified Depression
Refused antidepressant in the past
Continue Remeron
DVT proph: Xarelto
Code Status: Full Code
PT/OT
Dr. Mccormick updated patient's son over the phone in details on 03/21
Await further dispo plans
change to oral abx on dc
Anticipated Discharge: > 48 hours
Subjective/Interval History
-
Date of Service: March 27, 2024
Mentation ~same
Objective Data
-
Vital Signs:
Vital Signs
Temp Pulse Resp BP Pulse Ox
97.4 F 85 19 100/63 96
03/27/24 15:22 03/27/24 14:32 03/27/24 10:01 03/27/24 16:59 03/27/24 17:00
I&O
03/26/24 03/27/24 03/28/24
06:59 06:59 06:59
Intake Total 456 / 456 456 / 456
Output Total 950 / 950 1600 / 1600 900 / 900
Balance -494 / -494 -1144 / -1144 -900 / -900
Review of Systems
-
History Source: Patient and Coordinated Provider
Constitutional: Denies Fever
EENT: Reports No Symptoms Reported
Respiratory: Reports No Symptoms
Cardiac: Reports No Symptoms
Abdomen/GI: Reports No Symptoms
Musculoskeletal: Reports Muscle Weakness
Neuro: Reports Weakness
Physical Exam
-
General: No Apparent Distress
HEENT: Normocephalic and Atraumatic
Respiratory: Clear to Auscultation
Cardiac: Regular Rhythm and S1/S2
GI: Soft, Nontender and Nondistended
Genito-urinary: Alvarado (Clear yellow)
Musculoskeletal: No Edema
Neuro: Awake
Psych: Calm
[2024-03-27] MEDS: NOVOLOG FLEXPEN-LOW RESISTANCE 1 UNITS SC (17:40)
[2024-03-27] MEDS: DESENEX/MITRAZOL/ZEASORB 1 APPLIC TOPICAL (20:39)
[2024-03-27 21:56] LABS: Glucose - Point of Care 227 mg/dl (70-99)
[2024-03-27] MEDS: REMERON 15 MG PO (22:22)
[2024-03-27] MEDS: TOPROL XL 25 MG PO (22:23)
--- NOTE | 2024-03-27 22:39 | PTCARENOTE ---
Received Pt from Day RN. Pt family at bed side with food from home. Pt ate 100% of dinner from and food brought in from home. Pt has no complaints at this time. Assessment care and vitals as charted.
[2024-03-28] VITALS (12 sets, daily range): BP systolic 97–140; BP diastolic 56–85
[2024-03-28] MEDS: AMPICILLIN 108 MG IV ×4 (00:18→17:44)
[2024-03-28] MEDS: LIPITOR 20 MG PO (07:50)
[2024-03-28] MEDS: PROTONIX 40 MG PO ×2 (07:50→19:40)
[2024-03-28] MEDS: FLOMAX 0.400000000000000022 MG PO (07:50)
[2024-03-28] MEDS: VITAMIN B-12 1000 MCG PO (07:50)
[2024-03-28] MEDS: DETROL 2 MG PO ×2 (07:50→19:40)
[2024-03-28] MEDS: SODIUM CHLORIDE 1 GRAM PO ×2 (07:50→19:40)
[2024-03-28] MEDS: FEOSOL 325 MG PO (07:50)
[2024-03-28] MEDS: MIRALAX 17 GRAMS PO ×2 (07:51→19:41)
[2024-03-28] MEDS: MYRBETRIQ EXTENDED RELEASE 50 MG PO (07:51)
[2024-03-28] MEDS: ProAmatine 5 MG PO ×3 (07:51→17:45)
[2024-03-28] MEDS: DEMADEX 20 MG PO (07:51)
[2024-03-28] MEDS: VISBIOME 2 CAP PO (07:51)
[2024-03-28] MEDS: MAG-TAB SR 84 MG PO ×2 (07:51→19:40)
[2024-03-28] MEDS: XARELTO 20 MG PO (07:52)
[2024-03-28 08:20] LABS: Glucose - Point of Care 140 mg/dl (70-99)
[2024-03-28] MEDS: NOVOLOG FLEXPEN-LOW RESISTANCE SC ×2 (08:39→11:54)
[2024-03-28 12:05] LABS: Glucose - Point of Care 143 mg/dl (70-99)
--- NOTE | 2024-03-28 12:31 | PTCARENOTE ---
PT WITH RA INFILTRATE FROM US GUIDED IV =1-2 EDEMA. ARM ELEVATED AND WARM COMPRESS APPLIED. PT RESTING, WILL CONT TO MONITOR VAT NEEDS
--- NOTE | 2024-03-28 12:40 | PTCARENOTE ---
[PT WITH R HAND INFILTRATE +1 EDEMA. HAND ELEVATED, WARMTH APPLIED. WILL CONT TO MONITOR FOR VAT NEEDS
--- NOTE | 2024-03-28 16:41 | W.PN.HOSP.TC ---
Today's Communication/Plan
-
Family appeal on Saturday
Assessment / Plan
Assessment / Plan
#Sepsis shock likely 2/2 Enterococcus faecalis bacteremia secondary to malfunctioning chronic Alvarado catheter
#Chronic Alvarado catheter
#History of Alvarado catheter associated UTI
#BPH
Status post 3 L IV fluid bolus per sepsis protocol
s/p Levophed. off pressors and BP stable
Continue with midodrine
Lactic acidosis resolved with IV fluid.
Identification with Enterococcus and antibiotics adjusted by infectious disease. Started on ampicillin
Vanco and cefepime discontinued
Surveillance cultures ordered
Pt remains very weak post infection. Agree with planned dc to SNF. Discussed with CM. Await prior auth
At 16:20 on 03/26 CM was notified that appeal of denial for SNF was reviewed and request for SNF was once again denied. CM states will develop an alternative discharge plan. Son is doing a family appeal on Saturday. Await response
Met with son, Chip today 03/28.He is concerned that pt remains too weak to be dc to home. Also would like Torsemide decreased as pt showing no edema and is not taking in as much fluid as he did prior to becoming sick. He is also questioning why pt
needs to continue on supplemental oxygen
#Chronic hypotension
Restart home dose of midodrine
'Patient admitted with: sacral/buttocks scattered red skin with stage 2 pressure injuries. L lateral posterior heel stage 2 pressure injury. R heel stage 1 pressure injury
#Chronic HFpEF
restart diuretics and monitor BP
Monitor oxygenation closely
#Paroxysmal Atrial Fibrillation/Flutter
Continue Xarelto for anticoagulation
RESTARTed metoprolol
currently in NSR
#Hyperlipidemia
Continue atorvastatin
#Diabetes Mellitus, Type II
hold Januvia and Metformin
sliding scale. A1C at 7.2
can resume at time of DC
#Mild anemia
Anemia of Chronic Disease
-monitor H&H, will recheck
# Chronic hyponatremia
monitor on salt tab at home
#Unspecified Depression
Refused antidepressant in the past
Continue Remeron
DVT proph: Xarelto
Code Status: Full Code
PT/OT
Extensive review of multiples aspects with son 5/4 out of room
Await further dispo plans
change to oral abx on dc
Decrease Torsemide to 10 mg daily starting tomorrow
Try wean off oxygen as tolerates
Anticipated Discharge: > 48 hours
Subjective/Interval History
-
Date of Service: March 28, 2024
mentation remains less than prior to becoming sick, as per son
Objective Data
-
Vital Signs:
Vital Signs
Temp Pulse Resp BP Pulse Ox
97.8 F 78 19 97/56 96
03/28/24 11:35 03/28/24 14:05 03/28/24 14:00 03/28/24 14:05 03/28/24 14:00
I&O
03/27/24 03/28/24 03/29/24
06:59 06:59 06:59
Intake Total 456 / 456 806 / 806
Output Total 1600 / 1600 1450 / 1450
Balance -1144 / -1144 -644 / -644
Review of Systems
-
History Source: Patient and Coordinated Provider
Constitutional: Denies Fever
EENT: Reports No Symptoms Reported
Respiratory: Reports No Symptoms
Cardiac: Reports No Symptoms
Abdomen/GI: Reports No Symptoms
Musculoskeletal: Reports Muscle Weakness
Neuro: Reports Weakness
Physical Exam
-
General: No Apparent Distress
HEENT: Normocephalic and Atraumatic
Respiratory: Clear to Auscultation
Cardiac: Regular Rhythm and S1/S2
GI: Soft, Nontender and Nondistended
Genito-urinary: Alvarado (Clear yellow)
Musculoskeletal: No Edema
Neuro: Awake
Psych: Calm
[2024-03-28 17:12] LABS: Glucose - Point of Care 242 mg/dl (70-99)
[2024-03-28] MEDS: NOVOLOG FLEXPEN-LOW RESISTANCE 2 UNITS SC (17:44)
--- NOTE | 2024-03-28 19:08 | PTCARENOTE ---
Assumed care of pt from nightshift RN. no acute events throughout this shift. VSS. Full assessment is as charted.
[2024-03-28 22:06] LABS: Glucose - Point of Care 137 mg/dl (70-99)
[2024-03-28] MEDS: TOPROL XL 25 MG PO (22:09)
[2024-03-28] MEDS: REMERON 15 MG PO (22:10)
--- NOTE | 2024-03-28 22:42 | PTCARENOTE ---
Received pt from previous shift. aaox2, flat affect, sleepy. Remains on RA. NSR BBB. No pain. No SOB. +1 edema BLE. SCDS. Q2T. Lassiter in place draining. Bed alarm on. Call franklin in reach. PT sleeping, will continue to monitor.
[2024-03-29] VITALS (13 sets, daily range): BP systolic 83–138; BP diastolic 61–122
[2024-03-29] MEDS: AMPICILLIN 108 MG IV ×5 (01:00→23:00)
[2024-03-29 05:30] LABS: % Basophils 0.9 % (0-2); % Eosinophils 3.1 % (0-6); % Immature Granulocytes 0.7 % (0-0.5); % Lymphocytes 30.5 % (20.5-51.1); % Monocytes 11.3 % (1.7-9.3); % Neutrophils 53.5 % (42.2-75.2); Absolute Eosinophils 0.1 10^3/uL (0-0.7); Absolute Lymphocytes 1.4 10^3/uL (1.2-3.4); Absolute Monocytes 0.5 10^3/uL (0.1-0.6); Absolute Neutrophils 2.4 10^3/uL (1.4-6.5); Hematocrit 29.1 % (39.0-52.0); Hemoglobin 9.5 g/dL (13.0-18.0); Mean Corp Hgb Conc. 32.6 g/dL (33.0-37.0); Mean Corpuscular Volume 91.8 fL (80.0-94.0); Mean Platelet Volume 9.2 fL (7.4-10.4); Nucleated Red Blood Cells % 0 % (-); Platelet Count 222 10^3/uL (130-400); Red Blood Cell Count 3.17 10^6/uL (4.70-6.10); Red Cell Dist. Width 19.8 % (11.5-14.5); White Blood Cell Count 4.5 10^3/uL (4.8-10.8)
[2024-03-29 05:46] LABS: Blood Urea Nitrogen 11 mg/dl (9-20); Calcium 8.3 mg/dl (8.4-10.2); Carbon Dioxide 28 mmol/L (22-30); Chloride 101 mmol/L (98-107); Estimated Creatinine Clearance 90 ml/min; Glucose 107 mg/dl (70-99); Potassium 4.1 mmol/L (3.5-5.1); Sodium 133 mmol/L (135-145); eGFR > 60.00
--- NOTE | 2024-03-29 06:30 | PTCARENOTE ---
Pt pulled IV out X2, order for trin[place] [employer] cindy for pt protection. Pt also gave himself a skin tear on his RFA when removing his IV. Dressing applied.
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
[2024-03-29 09:01] LABS: Glucose - Point of Care 117 mg/dl (70-99)
[2024-03-29] MEDS: NOVOLOG FLEXPEN-LOW RESISTANCE SC ×2 (09:01→12:05)
[2024-03-29] MEDS: FEOSOL 325 MG PO (09:10)
[2024-03-29] MEDS: MAG-TAB SR 84 MG PO ×2 (09:11→19:40)
[2024-03-29] MEDS: MYRBETRIQ EXTENDED RELEASE 50 MG PO (09:11)
[2024-03-29] MEDS: VISBIOME 2 CAP PO (09:11)
[2024-03-29] MEDS: DETROL 2 MG PO ×2 (09:13→19:40)
[2024-03-29] MEDS: SODIUM CHLORIDE 1 GRAM PO ×2 (09:13→19:40)
[2024-03-29] MEDS: PROTONIX 40 MG PO ×2 (09:13→19:40)
[2024-03-29] MEDS: FLOMAX 0.400000000000000022 MG PO (09:14)
[2024-03-29] MEDS: VITAMIN B-12 1000 MCG PO (09:14)
[2024-03-29] MEDS: ProAmatine 5 MG PO ×3 (09:14→17:58)
[2024-03-29] MEDS: XARELTO 20 MG PO (09:15)
[2024-03-29] MEDS: LIPITOR 20 MG PO (09:16)
[2024-03-29] MEDS: MIRALAX 17 GRAMS PO ×2 (09:17→19:40)
[2024-03-29] MEDS: DEMADEX 10 MG PO (09:17)
--- NOTE | 2024-03-29 11:11 | W.PN.HOSP.TC ---
Today's Communication/Plan
-
Await family appeal to insurance regarding dispo
Assessment / Plan
Assessment / Plan
#Sepsis shock likely 2/2 Enterococcus faecalis bacteremia secondary to malfunctioning chronic Alvarado catheter
#Chronic Alvarado catheter
#History of Alvarado catheter associated UTI
#BPH
Status post 3 L IV fluid bolus per sepsis protocol
s/p Levophed. off pressors and BP stable
Continue with midodrine
Lactic acidosis resolved with IV fluid.
Identification with Enterococcus and antibiotics adjusted by infectious disease. Started on ampicillin
Vanco and cefepime discontinued
Surveillance cultures ordered
Pt remains very weak post infection. Agree with planned dc to SNF. Discussed with CM. Await prior auth
At 16:20 on 03/26 was notified that appeal of denial for SNF was reviewed and request for SNF was once again denied. states will develop an alternative discharge plan. Son is doing a family appeal on Saturday. Await response
Met with son, Chip 03/28.He is concerned that pt remains too weak to be dc to home. Also would like Torsemide decreased as pt showing no edema and is not taking in as much fluid as he did prior to becoming sick, this is a reasonable request and
Torsemide has been decreased. He is also questioning why pt needs to continue on supplemental oxygen, as such oxygen was weaned and at rest, on room air he is currently 94%
#Chronic hypotension
Restart home dose of midodrine
'Patient admitted with: sacral/buttocks scattered red skin with stage 2 pressure injuries. L lateral posterior heel stage 2 pressure injury. R heel stage 1 pressure injury
#Chronic HFpEF
restart diuretics and monitor BP
Monitor oxygenation closely
#Paroxysmal Atrial Fibrillation/Flutter
Continue Xarelto for anticoagulation
RESTARTed metoprolol
currently in NSR
#Hyperlipidemia
Continue atorvastatin
#Diabetes Mellitus, Type II
hold Januvia and Metformin
sliding scale. A1C at 7.2
can resume at time of DC
#Mild anemia
Anemia of Chronic Disease
-monitor H&H, will recheck
# Chronic hyponatremia
monitor on salt tab at home
#Unspecified Depression
Refused antidepressant in the past
Continue Remeron
DVT proph: Xarelto
Code Status: Full Code
PT/OT
Extensive review of multiples aspects with son 5/4 out of room
Await further dispo plans
change to oral abx on dc
Decrease Torsemide to 10 mg daily starting 03/29
Anticipated Discharge: 24 - 48 hours
Subjective/Interval History
-
Date of Service: March 29, 2024
As per nursing, Pt became confused and agitated during the night, currently sleeping
Objective Data
-
Labs:
Laboratory Results
03/29/24
04:52
WBC 4.5 L
Hgb 9.5 L
Hct 29.1 L
Plt Count 222 D
Sodium 133 L
Potassium 4.1
Chloride 101
Carbon Dioxide 28
BUN 11
Creatinine 0.6 L
Glucose 107 H
Calcium 8.3 L
Vital Signs:
Vital Signs
Temp Pulse Resp BP Pulse Ox
98.4 F 75 17 101/64 94
03/28/24 23:00 03/29/24 02:00 03/29/24 02:00 03/29/24 00:00 03/29/24 02:00
I&O
03/28/24 03/29/24 03/30/24
06:59 06:59 06:59
Intake Total 806 / 806
Output Total 1450 / 1450 1100 / 1100
Balance -644 / -644 -1100 / -1100
Review of Systems
-
History Source: Patient and Coordinated Provider
Constitutional: Denies Fever
EENT: Reports No Symptoms Reported
Respiratory: Reports No Symptoms
Cardiac: Reports No Symptoms
Abdomen/GI: Reports No Symptoms
Musculoskeletal: Reports Muscle Weakness
Neuro: Reports Weakness
Physical Exam
-
General: No Apparent Distress
HEENT: Normocephalic and Atraumatic
Respiratory: Clear to Auscultation
Cardiac: Regular Rhythm and S1/S2
GI: Soft, Nontender and Nondistended
Genito-urinary: Alvarado (Clear yellow)
Musculoskeletal: No Edema
Neuro: Awake
Psych: Calm
[2024-03-29 12:15] LABS: Glucose - Point of Care 148 mg/dl (70-99)
[2024-03-29] MEDS: NOVOLOG FLEXPEN-LOW RESISTANCE 1 UNITS SC (16:34)
[2024-03-29 16:47] LABS: Glucose - Point of Care 169 mg/dl (70-99)
[2024-03-29] MEDS: REMERON 15 MG PO (19:40)
[2024-03-29] MEDS: TOPROL XL 25 MG PO (19:40)
[2024-03-29 23:51] LABS: Glucose - Point of Care 158 mg/dl (70-99)
[2024-03-30] VITALS (12 sets, daily range): BP systolic 94–138; BP diastolic 46–97
[2024-03-30] MEDS: AMPICILLIN 108 MG IV ×3 (05:03→18:15)
[2024-03-30 05:38] LABS: Glucose - Point of Care 126 mg/dl (70-99)
[2024-03-30] MEDS: MIRALAX 17 GRAMS PO ×2 (08:04→20:37)
[2024-03-30] MEDS: DEMADEX 10 MG PO (08:04)
[2024-03-30] MEDS: XARELTO 20 MG PO (08:04)
[2024-03-30] MEDS: NOVOLOG FLEXPEN-LOW RESISTANCE SC (08:04)
[2024-03-30] MEDS: VITAMIN B-12 1000 MCG PO (08:04)
[2024-03-30] MEDS: LIPITOR 20 MG PO (08:04)
[2024-03-30] MEDS: VISBIOME 2 CAP PO (08:04)
[2024-03-30] MEDS: MYRBETRIQ EXTENDED RELEASE 50 MG PO (08:11)
[2024-03-30] MEDS: ProAmatine 5 MG PO ×3 (08:11→18:15)
[2024-03-30] MEDS: SODIUM CHLORIDE 1 GRAM PO ×2 (08:11→20:37)
[2024-03-30] MEDS: MAG-TAB SR 84 MG PO ×2 (08:11→20:36)
[2024-03-30] MEDS: FLOMAX 0.400000000000000022 MG PO (08:11)
[2024-03-30] MEDS: PROTONIX 40 MG PO ×2 (08:11→20:37)
[2024-03-30] MEDS: FEOSOL 325 MG PO (08:11)
[2024-03-30] MEDS: DETROL 2 MG PO ×2 (08:12→20:36)
[2024-03-30 08:24] LABS: Glucose - Point of Care 123 mg/dl (70-99)
--- NOTE | 2024-03-30 10:29 | CM ---
Addendum entered by Rachael Gamble 03/30/24 16:21:
Patient's son called and said [facility] called and told him that Auth was approved
CM called [facility] and confirmed that authorization for SNF was approved
Authorization # [id number]
Lenka Minaya said that she will call CM tomorrow morning and confirm if bed is available @ [facility]
CM needs to call [facility] @ [facility] if SNF admission date is confirmed for tomorrow, 03/31/24
Attending made aware of status
Addendum entered by Rachael Gamble 03/30/24 13:21:
Received a call from Josefa from [facility]; requested that CM call her @ #[phone] when discharge plan is finalized
Original Note:
Per request from Abigail @ [facility], current PT/OT and MD notes faxed to [phone]
--- NOTE | 2024-03-30 10:46 | PTCARENOTE ---
Received Pt resting comfortably in bed. AAO x 2; Pleasant, follows commands - d/c'd Medsitter. Improved appetite in AM; Denies pain; NSR w/ BBB on monitor. Possible d/c today - awaiting response from insurance for rehab coverage. Will continue
to monitor and assess.
--- NOTE | 2024-03-30 10:55 | W.PN.HOSP.TC ---
Today's Communication/Plan
-
Transfer out of IMU
Monitor POC
Await placement
Assessment / Plan
Assessment / Plan
#Sepsis shock likely 2/2 Enterococcus faecalis bacteremia secondary to malfunctioning chronic Arriaga catheter
#Chronic Arriaga catheter
#History of Arriaga catheter associated UTI
#BPH
Status post 3 L IV fluid bolus per sepsis protocol
s/p Levophed. off pressors and BP stable
Continue with midodrine
Lactic acidosis resolved with IV fluid.
Identification with Enterococcus and antibiotics adjusted by infectious disease. Started on ampicillin 2 g every 6 hours and on discharge transition to amoxicillin 1 g 3 times daily through 04/13/2024
Vanco and cefepime discontinued
Surveillance cultures ordered
#Chronic hypotension
Restart home dose of midodrine
BP holding so far
#Chronic HFpEF
restart diuretics at lower dose and monitor BP
Monitor oxygenation closely
#Paroxysmal Atrial Fibrillation/Flutter
Continue Xarelto for anticoagulation
Restarted metoprolol
currently in NSR
monitor on tele
#Hyperlipidemia
Continue atorvastatin
#Diabetes Mellitus, Type II
hold Metformin
Restart januvia and monitor poc
sliding scale. A1C at 7.2
#Mild anemia
Anemia of Chronic Disease
-monitor H&H. Hgb 9.5
# Chronic hyponatremia
monitor on salt tab at home
#Unspecified Depression
Refused antidepressant in the past
Continue Remeron
'Patient admitted with: sacral/buttocks scattered red skin with stage 2 pressure injuries. L lateral posterior heel stage 2 pressure injury. R heel stage 1 pressure injury
DVT proph: Xarelto
Code Status: Full Code
PT/OT-SNF. Will benefit from placement due to severe deconditioning, arriaga care management, medication adjustment etc. Family appeal to insurance company pending. Tx out of IMU
Anticipated Discharge: 24 - 48 hours
Subjective/Interval History
-
Date of Service: March 30, 2024
Eating breakfast
No overnight events
Objective Data
-
Vital Signs:
Vital Signs
Temp Pulse Resp BP Pulse Ox
97.9 F 85 19 109/72 96
03/30/24 07:10 03/30/24 10:00 03/30/24 10:00 03/30/24 10:00 03/30/24 10:15
I&O
03/29/24 03/30/24 03/31/24
06:59 06:59 06:59
Output Total 1100 / 1100
Balance -1100 / -1100
Physical Exam
-
General: No Apparent Distress and Appears Chronically Ill
HEENT: Normocephalic and Atraumatic
Respiratory: Clear to Auscultation
Cardiac: Regular Rhythm and S1/S2
GI: Soft, Nontender, Nondistended and Normal Bowel Sounds
Rectal: Deferred by Provider
Genito-urinary: Arriaga (Clear yellow)
Musculoskeletal: No Edema
Neuro: Awake
Psych: Calm
[2024-03-30 12:17] LABS: Glucose - Point of Care 229 mg/dl (70-99)
[2024-03-30] MEDS: NOVOLOG FLEXPEN-LOW RESISTANCE 2 UNITS SC ×2 (12:25→18:15)
[2024-03-30 17:46] LABS: Glucose - Point of Care 204 mg/dl (70-99)
--- NOTE | 2024-03-30 17:52 | WOUNDNOTE ---
[facility] RN note: t/c [address], spoke with RN Violetta who will confirm patient is on an air mattress or air overlay mattress.
--- NOTE | 2024-03-30 18:37 | PTCARENOTE ---
Received pt from IMU. Report from Cruz ARREDONDO. Pt awake, alert and oriented x2-3 confused at times. Pt is primarily Stateless speaking with thick accent but understands Italian. Pt has no c/o pain at this time. Pt VSS, 96% on RA. Pt previous NSR with BBBc
on tele. Rhythm appears irregular, Afib ? EKG showing 'undermined rhythm' MD aware pt does have hx of afib, rate controlled at this time. Waffle overlay placed on bed due to wounds. Pt oriented to room, call franklin within reach, bed alarm placed for
safety, plan of care ongoing.
[2024-03-30] MEDS: REMERON 15 MG PO (20:40)
[2024-03-30 21:34] LABS: Glucose - Point of Care 230 mg/dl (70-99)
[2024-03-31] MEDS: TOPROL XL 25 MG PO (00:08)
[2024-03-31] MEDS: FLUSH (NSS) 2 FLUSH IV (00:10)
[2024-03-31] MEDS: AMPICILLIN 108 MG IV ×3 (00:10→12:37)
[2024-03-31 03:15] VITALS: BP 106/66
[2024-03-31 07:44] LABS: Glucose - Point of Care 135 mg/dl (70-99)
[2024-03-31] MEDS: NOVOLOG FLEXPEN-LOW RESISTANCE SC (07:45)
[2024-03-31 07:55] VITALS: BP 115/80
[2024-03-31] MEDS: DETROL 2 MG PO (09:32)
[2024-03-31] MEDS: ProAmatine 5 MG PO ×2 (09:32→12:36)
[2024-03-31] MEDS: FEOSOL 325 MG PO (09:32)
[2024-03-31] MEDS: MYRBETRIQ EXTENDED RELEASE 50 MG PO (09:33)
[2024-03-31] MEDS: FLOMAX 0.400000000000000022 MG PO (09:33)
[2024-03-31] MEDS: XARELTO 20 MG PO (09:33)
[2024-03-31] MEDS: PLAVIX 75 MG PO (09:36)
[2024-03-31] MEDS: PROTONIX 40 MG PO (09:36)
[2024-03-31] MEDS: VITAMIN B-12 1000 MCG PO (09:38)
[2024-03-31] MEDS: LIPITOR 20 MG PO (09:38)
[2024-03-31] MEDS: JANUVIA 100 MG PO (09:38)
[2024-03-31] MEDS: SODIUM CHLORIDE 1 GRAM PO (09:38)
[2024-03-31] MEDS: DEMADEX 10 MG PO (09:39)
[2024-03-31] MEDS: MAG-TAB SR 84 MG PO (09:39)
[2024-03-31] MEDS: MIRALAX PO (09:40)
[2024-03-31] MEDS: VISBIOME 2 CAP PO (09:40)
--- NOTE | 2024-03-31 11:06 | W.PN.HOSP.TC ---
Today's Communication/Plan
-
dc to snf
po abx
Assessment / Plan
Assessment / Plan
#Sepsis shock likely 2/2 Enterococcus faecalis bacteremia secondary to malfunctioning chronic Alvarado catheter
#Chronic Alvarado catheter
#History of Alvarado catheter associated UTI
#BPH
Status post 3 L IV fluid bolus per sepsis protocol
s/p Levophed. off pressors and BP stable
Continue with midodrine
Lactic acidosis resolved with IV fluid.
Identification with Enterococcus and antibiotics adjusted by infectious disease. Started on ampicillin 2 g every 6 hours and on discharge transition to amoxicillin 1 g 3 times daily through 04/13/2024
Vanco and cefepime discontinued
Surveillance cultures negative.
#Chronic hypotension
Restart home dose of midodrine
BP stalbe
#Chronic HFpEF
restart diuretics
Monitor oxygenation closely
#Paroxysmal Atrial Fibrillation/Flutter
Continue Xarelto for anticoagulation
Restarted metoprolol
monitor on tele
#Hyperlipidemia
Continue atorvastatin
#Diabetes Mellitus, Type II
restart Metformin on dc
Restart januvia and monitor poc
sliding scale. A1C at 7.2
#Mild anemia
Anemia of Chronic Disease
-monitor H&H. Hgb 9.5
# Chronic hyponatremia
monitor on salt tab at home
#Unspecified Depression
Refused antidepressant in the past
Continue Remeron
'Patient admitted with: sacral/buttocks scattered red skin with stage 2 pressure injuries. L lateral posterior heel stage 2 pressure injury. R heel stage 1 pressure injury
DVT proph: Xarelto
Code Status: Full Code
PT/OT-SNF.
More than 30 minutes spent in discharge including
Final examination of the patient
Summarizing hospital stay
Instructions for continuing care to all relevant caregivers
Preparation of discharge records, prescriptions, and referral forms
Total time spent (in minutes): 52
Anticipated Discharge: Today
Subjective/Interval History
-
Date of Service: March 31, 2024
Tolerating diet
Had bowel movement earlier today
Denies any complaints. Denies any chest pain shortness of breath nausea vomiting.
Objective Data
-
Vital Signs:
Vital Signs
Temp Pulse Resp BP Pulse Ox
97.9 F 83 18 115/80 94
03/31/24 07:55 03/31/24 07:55 03/31/24 07:55 03/31/24 07:55 03/31/24 07:55
I&O
03/30/24 03/31/24 04/01/24
06:59 06:59 06:59
Intake Total 440 / 440
Output Total 525 / 525
Balance -85 / -85
Physical Exam
-
General: No Apparent Distress and Appears Chronically Ill
HEENT: Normocephalic and Atraumatic
Respiratory: Clear to Auscultation
Cardiac: Regular Rhythm and S1/S2
GI: Soft, Nontender, Nondistended and Normal Bowel Sounds
Rectal: Deferred by Provider
Genito-urinary: Alvarado (Clear yellow)
Musculoskeletal: No Edema
Neuro: Awake
Psych: Calm
--- NOTE | 2024-03-31 11:10 | W.DCSUMMARY ---
Discharge Summary
Discharge Data
Date of Admission: 03/20/24
Date of Discharge: 03/31/24
-
Pending Results: No
Hospital Course
89-year-old male past medical history of chronic hypertension, chronic HFpEF, atrial fibrillation, hyperlipidemia, diabetes mellitus, anemia, chronic hyponatremia, depression, BPH with history of chronic Alvarado catheter who is presenting from home
with fevers and chills. Upon admission the hospital it was found that patient Alvarado catheter was probably kinked and new Alvarado catheter was reinserted. However upon removing the old catheter pulse was noted in the urine. Patient with hypotension
and found to be in septic shock. Patient received 3L of IV fluids and was started on Levophed. Patient was started on broad-spectrum antibiotic with Vanco and cefepime. Patient was further found to have Enterococcus faecalis bacteremia and ID was
consulted. Levophed was weaned off and started on midodrine home dose. Blood pressure stabilized. Patient remains off Levophed. Antibiotics were adjusted by infectious disease and vancomycin and cefepime was discontinued and started on
ampicillin which was transition to amoxicillin on discharge. Patient remained afebrile. Patient was worked up by physical and Occupational Therapy. Diuretics dose was decreased as patient with decreased p.o. intake. Patient [facility].
Discharge Plan
-
Patient Disposition: Residential/SNF
Discharge Diagnosis/Procedures: Sepsis shock likely 2/2 Enterococcus faecalis bacteremia secondary to malfunctioning chronic Alvarado catheter
Chronic hypotension
Condition: Fair
Diet: Diabetic, Carb Controlled and Restrict fluids to 48 oz
Activity: With assistance and As tolerated
Driving Restrictions: No driving
Activity Restrictions/Additional Instructions:
Wound Care Instructions
Sacral/buttocks-clean with saline or soap and water, miconazole powder prn yeasty red skin followed by no sting barrier wipe, silicone border foam, change q 2 days and prn loosened dressing.
Bilateral heels-clean with saline, foam dressing, change q 3 days and prn loosened dressing.
L lateral calf wound-clean with saline, silicone border foam, change q 3 days and prn loosened dressing.
Air mattress.
Elevate heels off bed with pillows.
Pressure redistributing chair cushion (i.e. Air chair cushion).
Follow up at wound care center call for an appointment.
amoxicillin 1000 mg po tid through 04/13/2024.
Referrals:
Amberly Rodriguez DO [Family Provider] - in less than 1 week
Prescriptions:
New
amoxicillin 500 mg tablet
1,000 mg PO TID 14 Days Qty: 84 0RF
Continued
Januvia 100 MG tablet
100 mg PO DAILY Qty: 90 1RF
atorvastatin 20 mg Tablet
20 mg PO DAILY
acetaminophen 325 mg Tablet
650 mg PO Q4H MDD 3000 mg PRN (Reason: mild pain/fever>100)
magnesium hydroxide [Milk of Magnesia] 400 mg/5 mL Suspension
30 ml PO DAILY PRN (Reason: if no BM on day 4)
bisacodyl [Dulcolax (bisacodyl)] 10 mg Suppository
10 mg [place] DAILY PRN (Reason: constipation)
metformin 1,000 MG tablet
1,000 mg PO BID
clopidogrel [Plavix] 75 mg tablet
75 mg PO DAILY 30 Days Qty: 30 0RF
tolterodine 2 mg Tablet
2 mg PO BID Qty: 30 0RF
Visbiome 112.5 billion cell Capsule
2 cap PO DAILY Qty: 30 0RF
Myrbetriq 50 mg Tablet Extended Release 24 Hr
50 mg PO DAILY 30 Days Qty: 30 0RF
polyethylene glycol 3350 [Miralax] 17 gram Powder In Packet
17 g PO BID
midodrine 5 mg Tablet
5 mg PO TID
pantoprazole 40 mg Tablet,Delayed Release (Dr/Ec)
40 mg PO BID
ferrous sulfate 325 mg (65 mg iron) Tablet
325 mg PO DAILY
mirtazapine 15 mg Tablet
15 mg PO DAILY
magnesium oxide 400 mg magnesium Tablet
400 mg PO TID
tamsulosin 0.4 MG capsule
0.4 mg PO DAILY
Xarelto 20 mg tablet
20 mg PO DAILY
cyanocobalamin (vitamin B-12) 1,000 MCG tablet
1,000 mcg PO DAILY
metoprolol succinate 25 mg tablet extended release 24 hr
25 mg PO HS
Patient Comments:
03/20/2024, HOLD for SBP<100 or AP<60.
sodium chloride 1,000 mg tablet,soluble
1,000 mg PO BID
Changed
torsemide 20 mg tablet
10 mg PO DAILY Qty: 0 0RF
Discontinued
Fleet Enema 19-7 gram/118 mL Enema
118 ml [place] DAILY PRN (Reason: constipation)
potassium chloride 20 mEq Tablet Extended Release
20 meq PO DAILY
Discharge Orders:
Discharge Patient (As Directed); Ordered 03/31/24
Ordered By: Cecilio Mccormick
Discharge Date and Time
Print Language: ICELANDIC
--- NOTE | 2024-03-31 11:17 | CM ---
Addendum entered by Gisele Lamb 03/31/24 15:48:
Update/VM left for Jsoefa/Eduardo AAA [phone]
Original Note:
CM reviewed pt with Dr Mccormick- pt ready for dc
Bed confirmed with [facility]
Update to [facility] with discharge date
[facility] auth obtained day prior
Call to son with update
IMM verbally reviewed- copy emailed ([email or web address])
Transport forms on chart
Discharge Disposition- [facility] via ambulance
Phone- [phone] Fax- [phone]
[2024-03-31 11:37] VITALS: BP 95/56
[2024-03-31 12:36] LABS: Glucose - Point of Care 222 mg/dl (70-99)
[2024-03-31] MEDS: NOVOLOG FLEXPEN-LOW RESISTANCE 2 UNITS SC (12:37)
[2024-03-31 15:55] VITALS: BP 108/59
== END 2024-03-31 16:56 | DRG 698 ==
LOC: 4 EAST ACU 13:33
PROVIDERS: Internal Medicine; ADMITTING PHYSICIAN Hospitalist; CONSULT PHYSICIAN Internal Medicine Infectious Disease; EMERGENCY PHYSICIAN Emergency Medicine; FAMILY PHYSICIAN Family Medicine
DX: T83.518A Infection and inflammatory reaction due to other urinary catheter, initial encounter (principal); A41.81 Sepsis due to Enterococcus; R65.21 Severe sepsis with septic shock; N39.0 Urinary tract infection, site not specified; E87.20 Acidosis, unspecified; I50.32 Chronic diastolic (congestive) heart failure; I48.92 Unspecified atrial flutter; E87.1 Hypo-osmolality and hyponatremia; F03.93 Unspecified dementia, unspecified severity, with mood disturbance; Y84.6 Urinary catheterization as the cause of abnormal reaction of the patient, or of later complication, without mention of misadventure at the time of the procedure; I95.89 Other hypotension; I11.0 Hypertensive heart disease with heart failure; I48.0 Paroxysmal atrial fibrillation; E78.00 Pure hypercholesterolemia, unspecified; E11.9 Type 2 diabetes mellitus without complications; D50.9 Iron deficiency anemia, unspecified; D63.8 Anemia in other chronic diseases classified elsewhere; F32.A Depression, unspecified; N40.0 Benign prostatic hyperplasia without lower urinary tract symptoms; L89.622 Pressure ulcer of left heel, stage 2; L89.152 Pressure ulcer of sacral region, stage 2; L89.611 Pressure ulcer of right heel, stage 1
CPT/HCPCS: 51702; 51798; 71045; 80048; 80053; 81003; 81015; 82962; 83036; 83605; 85025; 87040; 87077; 87086; 87149; 87186; 87205; 93005; 96361; 96365; 96366; 96375; 97162; 97167; 97530; 97535; 99291

== ENCOUNTER 2024-05-01 11:57 | Inpatient (IN) | payer MEDICARE, SELFPAY ==
[2024-04-27 15:18] VITALS: BP 122/87
--- NOTE | 2024-04-27 15:40 | ED.GENMED ---
History of Present Illness
General
Chief Complaint: Breathing Problem
Source: patient
Exam Limitations: none
Time Seen by Provider: 04/27/24 15:14
Nursing documentation reviewed up to this point in time: agreed with
Travel History
Have you had any contact with someone who has COVID-19?: No
Do you have any symptoms of coronavirus? Fever > 100 degrees, chills, cough, shortness of breath, sore throat, loss of taste or smell, muscle aches, or headache?: No
History of Present Illness
History of Present Illness:
The patient is an 89-year-old man who reports that his doctor wanted him to come to the emergency department. Patient arrives by ambulance for shortness of breath. However, he denies all complaints including shortness of breath. However the
patient is tachypneic in the bed. The patient is coughing. He does report a cough and says that he has had pneumonia before and this feels like it. He denies chest pain and leg swelling. He denies fever, nausea and vomiting. He denies sick
contacts.
Past History
Past History
ED Past Medical History: Arrthythmia (Atrial fib), Cancer (Prostate), CHF, COPD, HTN, Hypercholesterolemia, NIDDM, Valvular disease, Other (Empyema, BPH, chronic indwelling Alvarado catheter, intermittent bladder spasms, UTi, ) and Other (Benign
prostate hypertrophy)
ED Past Surgical History: Cardiac (Valve replacement) and Orthopedic (right hip surgery)
Patient has exhibited threatening behavior?: No
PSI?: No
Social History
Tobacco: Former smoker
Alcohol: Occasional
Drug: None
Personal:
Living: penitentiary ([facility] rehab)
Employment: Retired
Family History
Family History: Other
Review of Systems
Review of Systems
Allergies reviewed?: Yes
All Other Systems: ROS reviewed and negative except as documented in HPI and ROS
Constitutional: Reports no symptoms
EENT: Reports no symptoms
Respiratory: Reports cough and trouble breathing
Cardiac: Reports no symptoms
ABD/GI: Reports no symptoms
: Reports no symptoms
Musculoskeletal: Reports no symptoms
Skin: Reports no symptoms
Neurological: Reports no symptoms
Endocrine: Reports no symptoms
Hematologic/Lymphatic: Reports no symptoms
Psychiatric: Reports no symptoms
Phy Exam
Physical Exam
Physical Exam:
Physical Exam
General: Nontoxic but appears tachypneic. Conversational. I did offer patient a Hungarian manager warehouse but he says he could speak Kiswahili
Neck: supple. no meningeal signs. normal psoterior pharynx
Heart: Tachycardic
Lungs: Decreased breath sounds bilaterally. Tachypneic at rest
Abdomen: normal bowel sounds. not tender. no CVAT
Neuro: alert and oriented. no focal neurological deficits
Skin: no rash
Psychiatric: well kept. interactive and cooperative
Extremities: no edema. no calf tenderness. negative homans. good distal pulses
Scores
Heart Failure Risk
Heart Failure Risk Score: Not Applicable
Course
Orders/Labs/Results
Orders:
Orders
04/27/24 15:40
Electrocardiogram (*1) Urgent
Reason for Study: Tachycardia
EKG- Treatment ONCE
04/27/24 15:[address] Non Medication Order As Directed
Physician Order: walking pulse ox
Above order entered?: Yes
CR Chest - 2 Views Urgent
Comment:
Reason For Exam: cough
04/27/24 16:10
Basic Metabolic Panel Urgent
COVID-19 Antigen Urgent
Source: Nasal Swab
Complete Blood Count/With Diff Urgent
Urinalysis Reflex To Culture Urgent
Date Specimen was Collected: 04/27/24
Time Specimen was Collected: 16:02
Urine Microscopic Reflex Cult Urgent
Urine Culture Urgent
VICTOR HUGO Source: U
Specimen Description:
Date Specimen was Collected: 04/27/24
Time Specimen was Collected: 16:02
04/27/24 17:43
Comprehensive Metabolic Panel Urgent
04/27/24 17:58
CT Chest Pe Study Urgent
Comment:
Reason For Exam: SOB, tachycardic
04/27/24 18:14
NT-proBNP Urgent
Troponin I Urgent
04/27/24 19:16
0.9% Sodium Chloride 500 ml [Nss] 500 ml IV BOLUS
Abnormal Lab Results
04/27/24 04/27/24
16:10 17:43
RBC 3.37 L 10^6/uL
(4.70-6.10)
Hgb 10.3 L g/dL
(13.0-18.0)
Hct 30.5 L %
(39.0-52.0)
RDW 16.7 H %
(11.5-14.5)
Monocytes % 10.5 H %
(1.7-9.3)
Sodium 134 L mmol/L
(135-145)
Creatinine 0.5 L mg/dL 0.5 L mg/dL
(0.7-1.3) (0.7-1.3)
Glucose 115 H mg/dl 113 H mg/dl
(70-99) (70-99)
AST 10 L U/L
(17-59)
Albumin 3.1 L g/dl
(3.5-5.0)
Urine Ketones Trace A
(Negative)
Ur Occult Blood Reflex 4+ A
(Negative)
Urine Nitrite (Reflex) Positive A
(Negative)
Urine Bilirubin 1+ A
(Negative)
Urine Urobilinogen 2+ A
(Neg - 1+)
Leukocyte Esterase Rfl 2+ A
(Negative)
Urine RBC 16-20 A /HPF
(0-2)
Urine WBC (Reflex) 50-60 A /HPF
(0-5)
Urine Bacteria (Reflex) Moderate A
(Negative)
Urine Albumin (Reflex) 1+ A
(Neg - Trace)
04/27/24 16:10
04/27/24 17:43
Vital Signs
Initial and Last Documented VS:
Initial Vital Signs
Temp Pulse Resp BP Pulse Ox
98.2 F 113 24 122/87 94
04/27/24 15:18 04/27/24 15:18 04/27/24 15:18 04/27/24 15:18 04/27/24 15:18
Last Documented Vital Signs
Temp Pulse Resp BP Pulse Ox
98.2 F 94 19 143/94 94
04/27/24 15:18 04/27/24 21:30 04/27/24 21:30 04/27/24 21:30 04/27/24 21:30
MDM/Problems Addressed
Differential Diagnosis Includes:
Pneumonia, CHF, PE
MDM/Problems Addressed:
Patient presents with acute cough and shortness of breath
Chronic conditions affecting care: Cardiomyopathy and Arrhythmia
Acute Exacerbation and/or Progression of Chronic Illness:
Patient may have acute exacerbation of A-fib. We will check EKG
*Radiology
Radiology exam reviewed: preliminary read by ED provider (Cardiomegaly without acute disease) and radiology read reviewed
*Pulse Oximetry
Patient hypoxic: no
Comment: 91% ROOM AIR
*EKG
Interpreted by ED Provider?: Yes
Interpretation: abnormal
Comparison EKG: changes noted
Rate: normal
Rhythm: sinus
Kingsley: left axis deviation
Interval: normal interval
QRS Pattern: left bundle branch block
Ischemia: non-specific ST changes
*Arts Administrator Or Manager Interpretation
Rate: tachycardiac
Interpretation: abnormal
Rhythm: sinus
*Critical Care Note
Total Time (30-74mins, 75-104mins- exclusive of procedures): Not Applicable
Patient Management
Social determinants of health affecting care: Living situation and Strong social support
Discussion with other providers: Hospitalist
Escalation/DeEscalation of care consider admission/obs:
Patient is still tachypneic at rest. CT shows bilateral pleural effusions that are new. Patient is coughing, however, he has no fever or elevated white blood cell count. Perhaps this could be new onset heart failure or copd
ED Attending Note
-
Portions of this chart may have been created with voice recognition software.� Occasional wrong word or��sound alike� substitutions may have occurred due to the inherent limitations of voice recognition software.
Discharge Plan
Departure
Patient Disposition: Admit
Date of Disposition: 04/27/24
Time of Disposition: 22:34
Admit to: Med/Surg
Presentation/result/management discussed w/ accepting MD/DO: Hospitalist
Patient with high blood pressure during this ER visit?: Yes
Condition: Good
Discharge Problem:
acute tachypnea , Bilateral pleural effusion
Prescriptions:
No Action
Januvia 100 MG tablet
100 mg PO DAILY Qty: 90 1RF
atorvastatin 20 mg Tablet
20 mg PO DAILY
acetaminophen 325 mg Tablet
650 mg PO Q4H MDD 3000 mg PRN (Reason: mild pain/fever>100)
magnesium hydroxide [Milk of Magnesia] 400 mg/5 mL Suspension
30 ml PO DAILY PRN (Reason: if no BM on day 4)
bisacodyl [Dulcolax (bisacodyl)] 10 mg Suppository
10 mg SD DAILY PRN (Reason: constipation)
metformin 1,000 MG tablet
1,000 mg PO BID
clopidogrel [Plavix] 75 mg tablet
75 mg PO DAILY 30 Days Qty: 30 0RF
tolterodine 2 mg Tablet
2 mg PO BID Qty: 30 0RF
Visbiome 112.5 billion cell Capsule
2 cap PO DAILY Qty: 30 0RF
mirabegron [Myrbetriq] 50 mg Tablet Extended Release 24 Hr
50 mg PO DAILY 30 Days Qty: 30 0RF
polyethylene glycol 3350 [Miralax] 17 gram Powder In Packet
17 g PO BID
midodrine 5 mg Tablet
5 mg PO TID
pantoprazole 40 mg Tablet,Delayed Release (Dr/Ec)
40 mg PO BID
ferrous sulfate 325 mg (65 mg iron) Tablet
325 mg PO DAILY
mirtazapine 15 mg Tablet
15 mg PO DAILY
magnesium oxide 400 mg magnesium Tablet
400 mg PO TID
tamsulosin 0.4 MG capsule
0.4 mg PO DAILY
Xarelto 20 mg tablet
20 mg PO DAILY
cyanocobalamin (vitamin B-12) 1,000 MCG tablet
1,000 mcg PO DAILY
metoprolol succinate 25 mg tablet extended release 24 hr
25 mg PO HS
Patient Comments:
03/20/2024, HOLD for SBP<100 or AP<60.
sodium chloride 1,000 mg tablet,soluble
1,000 mg PO BID
amoxicillin 500 mg tablet
1,000 mg PO TID 14 Days Qty: 84 0RF
torsemide 20 mg tablet
10 mg PO DAILY Qty: 0 0RF
Referrals:
Franky Martinez MD [Family Provider] -
Interventions
Interventions:
*Risk Screen - Suicide Last Done: 04/27/24 15:18
*General Assessment Last Done: 04/27/24 15:18
*Neglect/Abuse Screening Last Done: 04/27/24 15:18
ED- Fall Risk Assessment Last Done: 04/27/24 18:59
ED- Cardiac Assessment Last Done: 04/27/24 18:59
ED- Pulmonary Assessment Last Done: 04/27/24 18:59
Discharge Date and Time
Print Language: PANAMANIAN
[2024-04-27 16:18] LABS: % Basophils 0.9 % (0-2); % Eosinophils 5.2 % (0-6); % Immature Granulocytes 0.3 % (0-0.5); % Lymphocytes 24.4 % (20.5-51.1); % Monocytes 10.5 % (1.7-9.3); % Neutrophils 58.7 % (42.2-75.2); Absolute Basophils 0.1 10^3/uL (0-0.2); Absolute Eosinophils 0.3 10^3/uL (0-0.7); Absolute Lymphocytes 1.4 10^3/uL (1.2-3.4); Absolute Monocytes 0.6 10^3/uL (0.1-0.6); Absolute Neutrophils 3.4 10^3/uL (1.4-6.5); Hematocrit 30.5 % (39.0-52.0); Hemoglobin 10.3 g/dL (13.0-18.0); Mean Corp Hgb Conc. 33.8 g/dL (33.0-37.0); Mean Corpuscular Hgb 30.6 pg (27.0-31.0); Mean Corpuscular Volume 90.5 fL (80.0-94.0); Mean Platelet Volume 9.6 fL (7.4-10.4); Nucleated Red Blood Cells % 0 % (-); Platelet Count 311 10^3/uL (130-400); Red Blood Cell Count 3.37 10^6/uL (4.70-6.10); Red Cell Dist. Width 16.7 % (11.5-14.5); White Blood Cell Count 5.7 10^3/uL (4.8-10.8)
[2024-04-27 16:21] LABS: Urine Albumin 1+ (Neg - Trace); Urine Bilirubin 1+ (Negative); Urine Character Slightly Cloudy (Clear); Urine Color Yellow; Urine Glucose Negative (Negative); Urine Ketone Trace (Negative); Urine Leukocyte 2+ (Negative); Urine Nitrite Positive (Negative); Urine Occult Blood 4+ (Negative); Urine Urobilinogen 2+ (Neg - 1+)
[2024-04-27 16:35] LABS: Urine Bacteria Moderate (Negative); Urine Red Blood Cell 16-20 /HPF (0-2); Urine White Cell 50-60 /HPF (0-5)
[2024-04-27 16:41] LABS: COVID-19 Antigen Negative (Negative)
[2024-04-27 16:49] LABS: Blood Urea Nitrogen 11 mg/dl (9-20); Calcium 9.2 mg/dl (8.4-10.2); Carbon Dioxide 23 mmol/L (22-30); Chloride 105 mmol/L (98-107); Glucose 115 mg/dl (70-99); Sodium 134 mmol/L (135-145); eGFR > 60.00
[2024-04-27 18:30] LABS: ALT (SGPT) < 10 U/L (0-50); AST (SGOT) 10 U/L (17-59); Albumin 3.1 g/dl (3.5-5.0); Alkaline Phosphatase 116 U/L (38-126); Blood Urea Nitrogen 10 mg/dl (9-20); Calcium 9.1 mg/dl (8.4-10.2); Carbon Dioxide 26 mmol/L (22-30); Chloride 105 mmol/L (98-107); Glucose 113 mg/dl (70-99); Potassium 4.3 mmol/L (3.5-5.1); Sodium 136 mmol/L (135-145); Total Bilirubin 0.4 mg/dl (0.2-1.3); Total Protein 6.4 g/dl (6.3-8.2); eGFR > 60.00
[2024-04-27 18:45] LABS: NT-proBNP 1050 pg/ml; Troponin I < 0.012 ng/ml
[2024-04-27 19:07] VITALS: BP 123/80
[2024-04-27] MEDS: NSS 500 IV (19:34)
[2024-04-27 21:30] VITALS: BP 143/94
--- NOTE | 2024-04-27 23:10 | HPS.HSE ---
Addendum entered and electronically signed by Williams Marshall DO 04/28/24 02:21:
Late Entry - Patient seen and examined 04/27/24.
Patient seen and examined independently. Agree with findings and plan as set forth by CLINT Garcia.
Patient is an 89y M with PMH significant for CHF, COPD, DM-II and chronic indwelling Alvarado who presents to ED from home complaining of cough. No fevers / chills. Cough is non-productive. No chest pain or dyspnea.
Evaluation in the ED is fairly unremarkable. 'Tiny' pleural effusions seen on CT. UA c/w possible infection - but with chronic Alvarado in place.
At the time of my exam, patient is sleeping comfortably.
Ass:
Cough
Chronic HFpEF
COPD without Acute Exacerbation
Anemia of Chronic Disease
Paroxysmal A-Fib / Flutter
ASCVD
Chronic Hypotension
DM-II
Chronic Indwelling Alvarado Catheter
Plan:
Observe overnight for further evaluation and treatment.
Patient reportedly in significantly greater distress previously with tachypnea - now sleeping.
Afebrile non-toxic appearing, etc.
Observe off of any abx.
Supportive care with budesonide, cough suppressants, nebs, etc.
Speech eval - ? aspiration.
Patient's medications seem significantly changed from prior discharge - including absence of diuretics, etc.
Resume appropriate medications including torsemide.
Follow I/Os, daily weights, etc.
Original Note:
Family Physician
-
Family Physician: Franky Martinez
Chief Complaint
-
cough
History of Present Illness
89 year old with PMH for atrial fib, CHF, COPD, HTN, HLD, NIDDM< BPH, chornic Alvarado cath, UTI, BPH presented to us with terrible cough for past few days. denied any sputum production. denied chest pain, sob. denied KENNEDY, dizzy or syncopal episode.
denied abdominal pain, n,v,d. denied dysuria hematuria.
positive UA in ER. chest CT with pleural effusion. received normal saline in ER. admitting for further management.
Medical History
Past Medical History
Past Medical History: Reports Other
Additional Past Medical History:
bladder retention
right carotid artery stenosis
BPH
ILD
PAD
type 2 DM
chronic catheter
ambulatory dysfunction
iron def anemia
HLD
SVT
CHF
CAD
neurogenic bladder
paroxysmal atrial fib
o
Past Surgical History: Reports Other
Additional Past Surgical History:
heart valve replacement
carotid endarterectomy
right THR
Social History
Tobacco: Non-smoker
Alcohol: None
Drug: None
Living: With Family
Family History
Family History: Not pertinent
Allergies / Home Medications
Allergies reflects when Allergies were last updated in [email or web address].
Home Medications with original date entered in [email or web address]
Allergy/Medication List:
Allergies
Allergy/AdvReac Type Severity Reaction Status Date / Time
No Known Allergies Allergy Verified 04/27/24 15:17
Home Medications
sitagliptin phosphate 100 mg tablet (Januvia) 100 mg PO DAILY Diabetes #90 tabs 05/31/22
atorvastatin 20 mg tablet 20 mg PO DAILY High Cholesterol 11/01/23
acetaminophen 325 mg tablet 650 mg PO Q4H PRN mild pain/fever>100 02/13/24
bisacodyl 10 mg rectal suppository (Dulcolax (bisacodyl)) 10 mg SD DAILY PRN constipation 02/13/24
magnesium hydroxide 400 mg/5 mL oral suspension (Milk of Magnesia) 30 ml PO DAILY PRN if no BM on day 4 02/13/24
metformin 1,000 mg tablet 1,000 mg PO BID Diabetes 02/13/24
Lactobac no.2-Bifidobac no.1-S. thermo 112.5 billion cell capsule (Visbiome) 2 cap PO DAILY Gastrointestinal Issue #30 caps 02/20/24
clopidogrel 75 mg tablet (Plavix) 75 mg PO DAILY Blood Clot Prevention/Tx 30 days #30 tabs 02/20/24
mirabegron 50 mg tablet,extended release 24 hr (Myrbetriq) 50 mg PO DAILY Urinary issue 30 days #30 tabs 02/20/24
tolterodine 2 mg tablet 2 mg PO BID Urinary Issue #30 tabs 02/20/24
cyanocobalamin (vitamin B-12) 1,000 mcg tablet 1,000 mcg PO DAILY Supplement 03/20/24
ferrous sulfate 325 mg (65 mg iron) tablet 325 mg PO DAILY Supplement 03/20/24
magnesium oxide 400 mg PO TID Supplement 03/20/24
metoprolol succinate 25 mg tablet,extended release 24 hr 25 mg PO HS Blood Pressure 03/20/24
midodrine 5 mg tablet 5 mg PO TID Blood Pressure 03/20/24
mirtazapine 15 mg tablet 15 mg PO DAILY Mental Health/Anxiety 03/20/24
pantoprazole 40 mg tablet,delayed release 40 mg PO BID GERD 03/20/24
polyethylene glycol 3350 17 gram oral powder packet (Miralax) 17 g PO BID Constipation 03/20/24
rivaroxaban 20 mg tablet (Xarelto) 20 mg PO DAILY Blood Clot Prevention/Tx 03/20/24
sodium chloride 1,000 mg soluble tablet 1,000 mg PO BID Electrolyte Repletion 03/20/24
tamsulosin 0.4 mg capsule 0.4 mg PO DAILY Urinary issue 03/20/24
amoxicillin 500 mg tablet 1,000 mg (2 x 500 mg) PO TID 14 days #84 tabs 03/30/24
torsemide 20 mg tablet 10 mg (1/2 x 20 mg) PO DAILY Fluid Retention/Swelling #0 tabs 03/30/24
Review of Systems
-
Constitutional: Reports No Symptoms
EENT: Reports No Symptoms
Respiratory: Reports Cough
Cardiac: Reports No Symptoms
Abdomen/GI: Reports No Symptoms
: Reports No Symptoms
Musculoskeletal: Reports No Symptoms
Skin: Reports No Symptoms
Neurological: Reports No Symptoms
Endocrine: Reports No Symptoms
Hematologic/Lymphatic: Reports No Symptoms
Psych: Reports No Symptoms
Physical Exam
Vital Signs
Vital Signs
Temp Pulse Resp BP Pulse Ox
98.2 F 94 19 143/94 94
04/27/24 15:18 04/27/24 21:30 04/27/24 21:30 04/27/24 21:30 04/27/24 21:30
Physical Exam
General: Well Developed, Well Nourished and No Apparent Distress
HEENT: NormoCephalic, Moist mucous membranes and Atraumatic
Respiratory: Decreased Breath Sounds
Cardiac: S1/S2 and Regular Rhythm; No Murmur or Rub
GI: Soft, Non Tender, Non Distended and Normal Bowel Sounds; No Organomegaly
Rectal: Deferred by Provider
Musculoskeletal: No Clubbing, No Cyanosis and No Edema
Skin: No Rash
Neuro: AO x 3 and Nonfocal/grossly intact
Psych: Calm
Laboratory Results
-
04/27/24 16:10
04/27/24 17:43
Laboratory Results
Total Bilirubin 0.4 mg/dl (0.2-1.3) 04/27/24 17:43
AST 10 U/L (17-59) L 04/27/24 17:43
ALT < 10 U/L (0-50) 04/27/24 17:43
Alkaline Phosphatase 116 U/L (38-126) 04/27/24 17:43
Troponin I < 0.012 ng/ml 04/27/24 18:14
Data Reviewed
-
Diagnostic Radiology: Report Reviewed by me
CT Scan: Report Reviewed by me
Lab Data: Labs Reviewed by me
Impression/Plan
-
#cough likely from COPD/pleural effusion
-Chest CT with no evidence of PE.Bilateral pleural effusions. New Mild right hilar lymphadenopathy. Likely reactive. New Moderate hiatal hernia. Stable.Stable left lower lobe pulmonary nodule for 2 years suggesting it is benign.
-Chest x-ray with no acute disease of the chest. Mild cardiomegaly. Stable. Findings suggesting COPD. Mild. new
-nebs prn for sob/wheezing
-budesonide
-robitussin prn for cough
-will give torsemide 10mg daily
# Anemia of chronic disease
-Hemoglobin stable at 10.3
-No active bleeding
-Continue to monitor
# Chronic catheter associated UTIs
#History of Enterococcus facialis bacteremia
#Chronic hypotension
-BP stable
-ctm
-midodrine continued
#Chronic HFpEF
-not in acute exacerbation
-resumed torsemide
-daily weight
-strict I &O
#Paroxysmal Atrial Fibrillation/Flutter
-Continue Xarelto for anticoagulation
-metoprolol
-monitor on tele
#Diabetes Mellitus, Type II
-, Januvia continued
-held metformin
-sliding scale.
-CHO diet
DVT proph: Xarelto
Code Status: Full Code
PT/OT
[2024-04-28] VITALS (23 sets, daily range): BP systolic 92–127; BP diastolic 57–86; PULSE 116
[2024-04-28] MEDS: PULMICORT 0.5 MG INH ×2 (07:46→20:34)
[2024-04-28] MEDS: PULMICORT INH (08:42)
[2024-04-28] MEDS: VITAMIN B-12 1000 MCG PO (08:54)
[2024-04-28] MEDS: NOVOLOG FLEXPEN-LOW RESISTANCE SC ×2 (08:54→11:57)
[2024-04-28] MEDS: FLOMAX 0.400000000000000022 MG PO (08:54)
[2024-04-28 08:55] LABS: Glucose - Point of Care 104 mg/dl (70-99)
[2024-04-28] MEDS: XARELTO 20 MG PO (08:55)
[2024-04-28] MEDS: DEMADEX 10 MG PO (08:55)
[2024-04-28] MEDS: FEOSOL 325 MG PO (08:55)
[2024-04-28] MEDS: JANUVIA 100 MG PO (08:55)
[2024-04-28] MEDS: PLAVIX 75 MG PO (08:55)
--- NOTE | 2024-04-28 10:28 | VNURNOTE ---
Chart reviewed. [facility] [place] [facility] control manager with information/concerns about patient's home situation. Info forwarded to [facility] and attending
--- NOTE | 2024-04-28 10:31 | PTOTSP ---
Dysphagia Evaluation
Patient presents with signs concerning for at least mild oral stage and unspecified pharyngeal dysphagia. He has a known history of esophageal dysphagia (i.e., tortuous esophagus, hiatal hernia). Patient declined further objective assessment via
swallow study.
Recommend:
1. IDDSI Level 4 Puree, IDDSI Level 0 Thin Liquids
2. Medications - in puree
3. Strategies: supervision/assistance, upright to 90 degrees, small single sips/bites, slow rate, reflux precautions
4. Oral care 3x daily
5. Dysphagia tx f/u at the acute care level.
[2024-04-28 11:57] LABS: Glucose - Point of Care 125 mg/dl (70-99)
--- NOTE | 2024-04-28 14:28 | W.PN.HOSP.TC ---
Today's Communication/Plan
-
iv lasix
IDDSI 4 - VSE
Echo
Assessment / Plan
Assessment / Plan
Physical Exam
General: Well Developed, Well Nourished and No Apparent Distress
HEENT: NormoCephalic, Moist mucous membranes and Atraumatic
Respiratory: Decreased Breath Sounds
Cardiac: S1/S2 and Regular Rhythm; No Murmur or Rub
GI: Soft, Non Tender, Non Distended and Normal Bowel Sounds; No Organomegaly
Rectal: Deferred by Provider
Musculoskeletal: No Clubbing, No Cyanosis and No Edema
Skin: No Rash
Neuro: AO x 3 and Nonfocal/grossly intact
Psych: Calm
#cough ikely from COPD/pleural effusion + aspiration
-Duonebs PRN
-F/u ECHO
-Speech eval - VSE; IDDSI 4
-Chest CT with no evidence of PE.Bilateral pleural effusions. New Mild right hilar lymphadenopathy. Likely reactive. New Moderate hiatal hernia. Stable.Stable left lower lobe pulmonary nodule for 2 years suggesting it is benign.
-nebs prn for sob/wheezing
-budesonide
-robitussin prn for cough
-Lasix 20mg IV daily
# Anemia of chronic disease
-Hemoglobin stable at 10.3
-No active bleeding
-Continue to monitor
# Chronic catheter associated UTIs
#History of Enterococcus facialis bacteremia
-F/u urine cultures;
#Chronic hypotension
-BP stable
-ctm
-midodrine continued
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
-iv lasix
-daily weight
-strict I &O
#Paroxysmal Atrial Fibrillation/Flutter
-Continue Xarelto for anticoagulation
-metoprolol
-monitor on tele
#Diabetes Mellitus, Type II
-, Januvia continued
-held metformin
-sliding scale.
-CHO diet
DVT proph: Xarelto
Code Status: Full Code
PT/OT
Anticipated Discharge: Within 24 hours
Subjective/Interval History
-
Date of Service: April 28, 2024
downgraded diet, concern for aspiration
Objective Data
-
Vital Signs:
Vital Signs
Temp Pulse Resp BP Pulse Ox
97.8 F 112 20 114/80 98
04/28/24 12:45 04/28/24 12:45 04/28/24 12:45 04/28/24 12:45 04/28/24 12:45
I&O
04/27/24 04/28/24 04/29/24
06:59 06:59 06:59
Output Total 900 / 900
Balance -900 / -900
Review of Systems
-
History Source: Patient
All other systems: Not reviewed unless documented
Physical Exam
-
General: No Apparent Distress and Appears Chronically Ill
HEENT: Normocephalic and Atraumatic
Respiratory: Clear to Auscultation
Cardiac: Regular Rhythm and S1/S2
GI: Soft, Nontender, Nondistended and Normal Bowel Sounds
Rectal: Deferred by Provider
Genito-urinary: Alvarado (Clear yellow)
Musculoskeletal: No Edema
Neuro: Awake
Psych: Calm
Data Reviewed
-
CT Scan: Image personally visualized and interpreted and Report Reviewed by me
Labs: Labs Reviewed by me
[2024-04-28] MEDS: LASIX IV (14:52)
--- NOTE | 2024-04-28 15:57 | CM ---
Patient seen bedside.
Able to answer a few questions.
Spoke with daughter Mike via phone.
Patient recently at [facility] and [facility] most recently, d/c 04/17/24.
Patient has patient has
[2024-04-28 15:59] LABS: Glucose - Point of Care 153 mg/dl (70-99)
[2024-04-28] MEDS: NOVOLOG FLEXPEN-LOW RESISTANCE 1 UNITS SC (16:05)
--- NOTE | 2024-04-28 16:07 | CM ---
Spoke with patient bedside, he was able to answer some questions.
Spoke with daughter Dot via phone.
Per Dot patient has private caregivers in the home and .
She would prefer for the patient to be d/c home with resumption of services.
Patient recently in [facility] 03/31/24-04/17/24.
Per daughter patient was able to ambulate 70 feet with RW at time of d/c.
Patient d/c home with private caregivers thru [facility] 4 hours per day 7 days per week and [facility].
Daughter states patient lives with spouse and mother in law.
Per daughter mother still makes the decisions and her dad does not do well in a facility as he gets depressed.
Per daughter when dad is d/c to home he gets less motivated to ambulate and sits most of the day.
Discussed patient returning to [facility] for skilled rehab at d/c and daughter stated she would need to discuss with her mother and brother but would prefer home.
Discussed [facility] and daughter was not familiar, CM explained they are available to assist with services in the community and possibly provide more assistance in the home.
Daughter agreeable to speak with [facility] ([facility] already open with patient, cm following is Jayesh p# [phone]. [facility] notified RACHEL)
CM spoke with Jayesh from [facility] and will provide information- H+P and therapy notes and fax to [phone]. Jayesh will reach out to son and daughter.
CM spoke with Lenka from [facility] and they will accept patient back with insurance approval.
PT/OT recommending skilled rehab at this time.
Plan: TBD, await [facility] f/u.
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
--- NOTE | 2024-04-28 17:25 | PTCARENOTE ---
Pt heart rate jumped up to 140s two times, then self resolved back into 110s where pt has been sitting all day. Pt is sitting in chair and asymptomatic. Dr. Garcia made aware via [facility] text.
[2024-04-28 21:25] LABS: Glucose - Point of Care 150 mg/dl (70-99)
[2024-04-28] MEDS: TOPROL XL 25 MG PO (21:44)
[2024-04-28] MEDS: ProAmatine PO (21:44)
[2024-04-28] MEDS: ROBITUSSIN 200 MG PO (23:34)
[2024-04-29 03:30] VITALS: BP 106/68
[2024-04-29 07:30] VITALS: BP 95/78
[2024-04-29 07:37] LABS: Glucose - Point of Care 112 mg/dl (70-99)
[2024-04-29] MEDS: NOVOLOG FLEXPEN-LOW RESISTANCE SC (07:49)
[2024-04-29 08:09] LABS: % Basophils 0.6 % (0-2); % Eosinophils 7.4 % (0-6); % Immature Granulocytes 0.5 % (0-0.5); % Lymphocytes 25.1 % (20.5-51.1); % Monocytes 10.5 % (1.7-9.3); % Neutrophils 55.9 % (42.2-75.2); Absolute Eosinophils 0.5 10^3/uL (0-0.7); Absolute Lymphocytes 1.6 10^3/uL (1.2-3.4); Absolute Monocytes 0.7 10^3/uL (0.1-0.6); Absolute Neutrophils 3.5 10^3/uL (1.4-6.5); Hematocrit 29.6 % (39.0-52.0); Hemoglobin 9.8 g/dL (13.0-18.0); Mean Corp Hgb Conc. 33.1 g/dL (33.0-37.0); Mean Corpuscular Hgb 29.8 pg (27.0-31.0); Mean Platelet Volume 9.5 fL (7.4-10.4); Nucleated Red Blood Cells % 0 % (-); Platelet Count 289 10^3/uL (130-400); Red Blood Cell Count 3.29 10^6/uL (4.70-6.10); Red Cell Dist. Width 16.2 % (11.5-14.5); White Blood Cell Count 6.2 10^3/uL (4.8-10.8)
[2024-04-29] MEDS: FEOSOL 325 MG PO (08:17)
[2024-04-29] MEDS: PLAVIX 75 MG PO (08:17)
[2024-04-29] MEDS: LASIX IV (08:17)
[2024-04-29] MEDS: XARELTO 20 MG PO (08:17)
[2024-04-29] MEDS: VITAMIN B-12 1000 MCG PO (08:17)
[2024-04-29] MEDS: FLOMAX 0.400000000000000022 MG PO (08:17)
[2024-04-29] MEDS: JANUVIA 100 MG PO (08:17)
[2024-04-29] MEDS: PULMICORT INH (08:31)
[2024-04-29 08:38] LABS: Blood Urea Nitrogen 12 mg/dl (9-20); Calcium 8.8 mg/dl (8.4-10.2); Carbon Dioxide 26 mmol/L (22-30); Chloride 104 mmol/L (98-107); Glucose 90 mg/dl (70-99); Magnesium 1.7 mg/dl (1.6-2.3); Potassium 4.5 mmol/L (3.5-5.1); Sodium 137 mmol/L (135-145); eGFR > 60.00
[2024-04-29 11:15] VITALS: BP 101/62
[2024-04-29 11:34] LABS: Glucose - Point of Care 249 mg/dl (70-99)
--- NOTE | 2024-04-29 11:56 | PTOTSP ---
Video Swallow Study
Summary: Patient presents with mild-moderate oral/pharyngeal dysphagia with deep laryngeal penetration of thin liquids via consecutive cup sips (did not clear larynx with cued cough/swallow) and robert silent aspiration of thin liquids via straw
with consecutive drinking (cleared trachea with cued cough).
Recommend:
1. IDDSI Level 5 (Minced and Moist), IDDSI Level 2 (Mildly Thick Liquids)
2. Medications - as best tolerated
3. Strategies: upright to 90 degrees, small single sips/bites, slow rate, reflux precautions
4. Aspiration risk hydration protocol - single sips of thin liquids via cup after oral care, in between meals
5. Oral care 3x daily
6. Dysphagia therapy for continued education, instruction in compensations (i.e., single sips with liquids, trial chin tuck), and to determine when diet advancement appropriate.
[2024-04-29] MEDS: NOVOLOG FLEXPEN-LOW RESISTANCE 2 UNITS SC ×2 (12:26→16:29)
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
--- NOTE | 2024-04-29 13:33 | W.PN.HOSP.TC ---
Today's Communication/Plan
-
iv lasix
modified diet, IDDSI 5
exchange arriaga, f/u ua/reflex
Assessment / Plan
Assessment / Plan
Physical Exam
General: Well Developed, Well Nourished and No Apparent Distress
HEENT: NormoCephalic, Moist mucous membranes and Atraumatic
Respiratory: Decreased Breath Sounds
Cardiac: S1/S2 and Regular Rhythm; No Murmur or Rub
GI: Soft, Non Tender, Non Distended and Normal Bowel Sounds; No Organomegaly
Rectal: Deferred by Provider
Musculoskeletal: No Clubbing, No Cyanosis and No Edema
Skin: No Rash
Neuro: AO x 3 and Nonfocal/grossly intact
Psych: Calm
#cough ikely from COPD/pleural effusion + aspiration
-Duonebs PRN
-F/u ECHO: Milf HFpEF; EF 55-60%
-Speech eval - VSE; IDDSI 5
-Chest CT with no evidence of PE.Bilateral pleural effusions. New Mild right hilar lymphadenopathy. Likely reactive. New Moderate hiatal hernia. Stable.Stable left lower lobe pulmonary nodule for 2 years suggesting it is benign.
-nebs prn for sob/wheezing
-budesonide
-robitussin prn for cough
-Lasix 20mg IV daily for another 24-48 hours
# Anemia of chronic disease
-Hemoglobin stable at 10.3
-No active bleeding
-Continue to monitor
# Chronic catheter associated UTIs
#History of Enterococcus facialis bacteremia
-Arriaga was not exchanged in ED;
-F/u urine cultures now that arriaga replaced;
#Chronic hypotension
-BP stable
-ctm
-midodrine continued
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
-iv lasix
-daily weight
-strict I &O
#Paroxysmal Atrial Fibrillation/Flutter
-Continue Xarelto for anticoagulation
-metoprolol
-monitor on tele
#Diabetes Mellitus, Type II
-, Januvia continued
-held metformin
-sliding scale.
-CHO diet
DVT proph: Xarelto
Code Status: Full Code
PT/OT
Anticipated Discharge: 24 - 48 hours
Subjective/Interval History
-
Date of Service: April 29, 2024
vse today, adv to IDDSI 5
Objective Data
-
Labs:
Laboratory Results
04/29/24
07:04
WBC 6.2
Hgb 9.8 L
Hct 29.6 L
Plt Count 289
Sodium 137
Potassium 4.5
Chloride 104
Carbon Dioxide 26
BUN 12
Creatinine 0.6 L
Glucose 90
Calcium 8.8
Vital Signs:
Vital Signs
Temp Pulse Resp BP Pulse Ox
97.7 F 73 18 101/62 99
04/29/24 11:15 04/29/24 11:15 04/29/24 11:15 04/29/24 11:15 04/29/24 11:15
I&O
04/28/24 04/29/24 04/30/24
06:59 06:59 06:59
Intake Total 900 / 900
Output Total 2275 / 2275
Balance -1375 / -1375
Review of Systems
-
History Source: Patient
All other systems: Not reviewed unless documented
Physical Exam
-
General: No Apparent Distress and Appears Chronically Ill
HEENT: Normocephalic and Atraumatic
Respiratory: Clear to Auscultation
Cardiac: Regular Rhythm and S1/S2
GI: Soft, Nontender, Nondistended and Normal Bowel Sounds
Rectal: Deferred by Provider
Genito-urinary: Arriaga (Clear yellow)
Musculoskeletal: No Edema
Neuro: Awake
Psych: Calm
Data Reviewed
-
CT Scan: Image personally visualized and interpreted and Report Reviewed by me
Labs: Labs Reviewed by me
[2024-04-29 13:57] LABS: Urine Albumin 2+ (Neg - Trace); Urine Bilirubin 1+ (Negative); Urine Character Clear (Clear); Urine Color Yellow; Urine Glucose Negative (Negative); Urine Ketone Trace (Negative); Urine Leukocyte 2+ (Negative); Urine Nitrite Positive (Negative); Urine Occult Blood 3+ (Negative); Urine Specific Gravity 1.025 (<1.030); Urine Urobilinogen 2+ (Neg - 1+)
[2024-04-29 14:13] LABS: Urine White Cell >100 /HPF (0-5)
[2024-04-29 14:15] LABS: Urine Bacteria Moderate (Negative)
[2024-04-29 15:05] VITALS: BP 92/56
[2024-04-29 16:20] LABS: Glucose - Point of Care 243 mg/dl (70-99)
[2024-04-29 19:10] VITALS: BP 106/65
[2024-04-29] MEDS: PULMICORT 0.5 MG INH (20:14)
[2024-04-29 21:13] LABS: Glucose - Point of Care 170 mg/dl (70-99)
[2024-04-29] MEDS: ProAmatine 5 MG PO (22:07)
[2024-04-29] MEDS: TOPROL XL 25 MG PO (22:08)
[2024-04-29 23:05] VITALS: BP 113/66
[2024-04-30 03:05] VITALS: BP 98/56
[2024-04-30 07:21] LABS: Glucose - Point of Care 136 mg/dl (70-99)
[2024-04-30 07:30] VITALS: BP 100/59
[2024-04-30] MEDS: NOVOLOG FLEXPEN-LOW RESISTANCE SC ×2 (07:35→17:04)
[2024-04-30 07:43] LABS: Hematocrit 27.9 % (39.0-52.0); Hemoglobin 9.2 g/dL (13.0-18.0); Mean Corpuscular Hgb 30.2 pg (27.0-31.0); Mean Corpuscular Volume 91.5 fL (80.0-94.0); Mean Platelet Volume 9.4 fL (7.4-10.4); Platelet Count 272 10^3/uL (130-400); Red Blood Cell Count 3.05 10^6/uL (4.70-6.10); Red Cell Dist. Width 16.2 % (11.5-14.5); White Blood Cell Count 6.3 10^3/uL (4.8-10.8)
[2024-04-30 08:00] LABS: ALT (SGPT) < 10 U/L (0-50); AST (SGOT) 9 U/L (17-59); Albumin 2.8 g/dl (3.5-5.0); Alkaline Phosphatase 100 U/L (38-126); Blood Urea Nitrogen 14 mg/dl (9-20); Calcium 8.7 mg/dl (8.4-10.2); Carbon Dioxide 23 mmol/L (22-30); Chloride 103 mmol/L (98-107); Glucose 105 mg/dl (70-99); Magnesium 1.8 mg/dl (1.6-2.3); Potassium 4.2 mmol/L (3.5-5.1); Sodium 134 mmol/L (135-145); Total Bilirubin 0.5 mg/dl (0.2-1.3); Total Protein 5.9 g/dl (6.3-8.2); eGFR > 60.00
[2024-04-30] MEDS: PULMICORT 0.5 MG INH ×2 (08:03→20:07)
[2024-04-30] MEDS: PLAVIX 75 MG PO (10:39)
[2024-04-30] MEDS: XARELTO 20 MG PO (10:39)
[2024-04-30] MEDS: VITAMIN B-12 1000 MCG PO (10:39)
[2024-04-30] MEDS: FLOMAX 0.400000000000000022 MG PO (10:39)
[2024-04-30] MEDS: JANUVIA 100 MG PO (10:39)
[2024-04-30] MEDS: FEOSOL 325 MG PO (10:39)
[2024-04-30] MEDS: LASIX 20 MG IV (10:53)
[2024-04-30] MEDS: ZOSYN 100 IV ×3 (10:57→23:00)
[2024-04-30 11:30] VITALS: BP 101/62
[2024-04-30 12:00] LABS: Glucose - Point of Care 319 mg/dl (70-99)
--- NOTE | 2024-04-30 12:05 | PTOTSP ---
ST Follow-Up
Pt continues to present with mild to moderate oropharyngeal dysphagia requiring diet modifications to assist with airway protection. Pt may have some cognitive limitations that preclude him from being able to implement diet modifications at time of
discharge.
Recommendations:
- Diet UPGRADE to SOFT BITE SIZED SOLIDS and continue with MILDLY THICK LIQUIDS; meds whole in puree as tolerated.
- ARHP in place with required oral care.
- Aspiration precautions: HOB upright fully for ALL PO intake; slow intake; alternate bites/sips.
- Pt would benefit from continued MEDICAL CODING TECHNICIAN services at next level of care to ensure carryover of diet modifications and compensatory strategies. MD/JORGE LUIS made aware.
[2024-04-30 12:27] VITALS: PULSE 83; O2SAT 95
[2024-04-30] MEDS: NOVOLOG FLEXPEN-LOW RESISTANCE 4 UNITS SC (12:45)
--- NOTE | 2024-04-30 13:29 | W.PN.HOSP.TC ---
Today's Communication/Plan
-
cont abx
iv lasix
tentative dc ready, cm aware
Assessment / Plan
Assessment / Plan
Physical Exam
General: Well Developed, Well Nourished and No Apparent Distress
HEENT: NormoCephalic, Moist mucous membranes and Atraumatic
Respiratory: Decreased Breath Sounds, mild crackles b/l lower base bases
Cardiac: S1/S2 and Regular Rhythm; No Murmur or Rub
GI: Soft, Non Tender, Non Distended and Normal Bowel Sounds; No Organomegaly
Rectal: Deferred by Provider
Musculoskeletal: No Clubbing, No Cyanosis and No Edema
Skin: No Rash
Neuro: AO x 3 and Nonfocal/grossly intact
Psych: Calm
#cough ikely from COPD/pleural effusion + aspiration
-Duonebs PRN
-F/u ECHO: Milf HFpEF; EF 55-60%
-Speech eval - VSE; IDDSI 6
-Chest CT with no evidence of PE.Bilateral pleural effusions. New Mild right hilar lymphadenopathy. Likely reactive. New Moderate hiatal hernia. Stable.Stable left lower lobe pulmonary nodule for 2 years suggesting it is benign.
-nebs prn for sob/wheezing
-budesonide
-robitussin prn for cough
-Lasix 20mg IV daily for another 24 hours
# Anemia of chronic disease
-Hemoglobin stable at 10.3
-No active bleeding
-Continue to monitor
# Chronic catheter associated UTI
#History of Enterococcus facialis bacteremia
-Arriaga was not exchanged in ED;
-F/u urine cultures now that arriaga replaced: K. Pneumoniae and P. Aeruginosa
-zosyn
#Hyponatremia
-ctm
#Chronic hypotension
-BP stable
-ctm
-midodrine continued
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
-iv lasix
-daily weight
-strict I &O
#Paroxysmal Atrial Fibrillation/Flutter
-Continue Xarelto for anticoagulation
-metoprolol
-monitor on tele
#Diabetes Mellitus, Type II
-, Januvia continued
-held metformin
-sliding scale.
-CHO diet
DVT proph: Xarelto
Code Status: Full Code
PT/OT
Anticipated Discharge: Within 24 hours
Subjective/Interval History
-
Date of Service: April 30, 2024
Pulling IVs
Objective Data
-
Labs:
Laboratory Results
04/30/24
06:43
WBC 6.3
Hgb 9.2 L
Hct 27.9 L
Plt Count 272
Sodium 134 L
Potassium 4.2
Chloride 103
Carbon Dioxide 23
BUN 14
Creatinine 0.5 L
Glucose 105 H
Calcium 8.7
Total Bilirubin 0.5
AST 9 L
ALT < 10
Alkaline Phosphatase 100
Vital Signs:
Vital Signs
Temp Pulse Resp BP Pulse Ox
98.1 F 77 18 101/62 98
04/30/24 11:30 04/30/24 11:30 04/30/24 11:30 04/30/24 11:30 04/30/24 11:30
I&O
04/29/24 04/30/24 05/01/24
06:59 06:59 06:59
Intake Total 900 / 900 300 / 300
Output Total 2275 / 2275 200 / 200
Balance -1375 / -1375 100 / 100
Review of Systems
-
History Source: Patient
All other systems: Not reviewed unless documented
Physical Exam
-
General: No Apparent Distress and Appears Chronically Ill
HEENT: Normocephalic and Atraumatic
Respiratory: Clear to Auscultation
Cardiac: Regular Rhythm and S1/S2
GI: Soft, Nontender, Nondistended and Normal Bowel Sounds
Rectal: Deferred by Provider
Genito-urinary: Arriaga (Clear yellow)
Musculoskeletal: No Edema
Neuro: Awake
Psych: Calm
Data Reviewed
-
CT Scan: Image personally visualized and interpreted and Report Reviewed by me
Labs: Labs Reviewed by me
--- NOTE | 2024-04-30 13:35 | CM ---
Addendum entered by Yoli Jackson 04/30/24 16:29:
[facility] authorization # [id number]
Approved skilled rehab
Start date 05/01/24, NRD 05/05/24
updates to Radha Bettencourt
Authorization given to [facility].
[facility]
report# [phone]
fax# [phone]
Patient will need ambulance transport.
Addendum entered by Yoli Jackson 04/30/24 16:11:
TC from son Chip, again stating his mother would like patient to return home.
Mother and grandmother in to see patient today.
CM explained patient is a max assist for transfers and Mod assist of 2 to ambulate and would need 24 hour caregivers to be safe at home.
CM explained the VN had some concerns re safety and care in the home and that is why [facility] is involved and they too believe patient needs to be in skilled rehab post hospitalization.
Son aware insurance auth initiated.
Son will discuss with mother, but does not want to upset her.
Per son Sherrell lift was ordered by the VN.
gave son main number for CM department if he needs to discuss anything tomorrow.
Await insurance auth for transfer to [facility].
Addendum entered by Yoli Jackson 04/30/24 14:21:
per daughter Dot's request, primary contact is now her brother Chip, she is secondary. Admission to switch.
Addendum entered by Yoli Jackson 04/30/24 14:18:
TC to [facility] - pended reference # [id number], clinicals faxed to [phone], await determination.
Plan: skilled rehab at [facility]
Original Note:
Spoke with RACHEL, Josefa [phone], she spoke with Dot (daughter) and texted with Chip(son). She discussed long-term plans and son who remains a bit hesitant stating there is 4 hours of help in the home.
Patient has been in [facility] in he past and willing to accept him back.
TC to Dot (primary contact) to see if she agrees with initiating insurance auth, left VM, await TCB.
TC to Chip (son) he is agreeable to short term rehab at [facility].
will initiate authorization.
TC to [facility]
NPI# [id number]
Dr Kenyetta Ervin NPI# [id number]
[2024-04-30 14:53] VITALS: BP 92/59
[2024-04-30 17:00] LABS: Glucose - Point of Care 139 mg/dl (70-99)
[2024-04-30 21:12] LABS: Glucose - Point of Care 231 mg/dl (70-99)
[2024-04-30] MEDS: ProAmatine 5 MG PO (22:28)
[2024-04-30 22:58] VITALS: BP 112/61
[2024-04-30] MEDS: TOPROL XL 25 MG PO (22:58)
[2024-05-01] MEDS: ZOSYN 100 IV ×2 (04:45→09:16)
[2024-05-01 06:00] VITALS: BMI 23.2
[2024-05-01 07:00] VITALS: BP 101/60
[2024-05-01] MEDS: DUONEB 3 ML INH (07:32)
[2024-05-01] MEDS: PULMICORT 0.5 MG INH (07:32)
[2024-05-01 08:03] LABS: Glucose - Point of Care 128 mg/dl (70-99)
[2024-05-01] MEDS: NOVOLOG FLEXPEN-LOW RESISTANCE SC (08:21)
[2024-05-01 08:30] LABS: % Eosinophils 8.1 % (0-6); % Immature Granulocytes 0.7 % (0-0.5); % Lymphocytes 21.9 % (20.5-51.1); % Monocytes 11.4 % (1.7-9.3); % Neutrophils 56.9 % (42.2-75.2); Absolute Basophils 0.1 10^3/uL (0-0.2); Absolute Eosinophils 0.5 10^3/uL (0-0.7); Absolute Lymphocytes 1.3 10^3/uL (1.2-3.4); Absolute Monocytes 0.7 10^3/uL (0.1-0.6); Absolute Neutrophils 3.3 10^3/uL (1.4-6.5); Hematocrit 29.7 % (39.0-52.0); Hemoglobin 9.7 g/dL (13.0-18.0); Mean Corp Hgb Conc. 32.7 g/dL (33.0-37.0); Mean Platelet Volume 9.4 fL (7.4-10.4); Nucleated Red Blood Cells % 0 % (-); Platelet Count 266 10^3/uL (130-400); Red Blood Cell Count 3.23 10^6/uL (4.70-6.10); White Blood Cell Count 5.8 10^3/uL (4.8-10.8)
[2024-05-01] MEDS: VITAMIN B-12 1000 MCG PO (09:15)
[2024-05-01] MEDS: FLOMAX 0.400000000000000022 MG PO (09:16)
[2024-05-01] MEDS: XARELTO 20 MG PO (09:16)
[2024-05-01] MEDS: FEOSOL 325 MG PO (09:16)
[2024-05-01] MEDS: PLAVIX 75 MG PO (09:16)
[2024-05-01] MEDS: JANUVIA 100 MG PO (09:16)
[2024-05-01] MEDS: LASIX 20 MG IV (09:16)
[2024-05-01 09:22] LABS: ALT (SGPT) < 10 U/L (0-50); AST (SGOT) 9 U/L (17-59); Alkaline Phosphatase 97 U/L (38-126); Blood Urea Nitrogen 15 mg/dl (9-20); Calcium 8.9 mg/dl (8.4-10.2); Carbon Dioxide 26 mmol/L (22-30); Chloride 101 mmol/L (98-107); Estimated Creatinine Clearance 68 ml/min; Glucose 95 mg/dl (70-99); Magnesium 1.9 mg/dl (1.6-2.3); Potassium 4.7 mmol/L (3.5-5.1); Sodium 135 mmol/L (135-145); Total Bilirubin 0.5 mg/dl (0.2-1.3); Total Protein 6.1 g/dl (6.3-8.2); eGFR > 60.00
--- NOTE | 2024-05-01 11:25 | W.PN.HOSP.TC ---
Addendum entered and electronically signed by Ky Garcia MD 05/01/24 15:48:
[id number]
Original Note:
Today's Communication/Plan
-
aspiration precautions
iddsi 6, nectar thick
20mg lasix daily
f/u bmp in 1 week
f/u pcp outpatient
Assessment / Plan
Assessment / Plan
Physical Exam
General: Well Developed, Well Nourished and No Apparent Distress
HEENT: NormoCephalic, Moist mucous membranes and Atraumatic
Respiratory: Decreased Breath Sounds, mild crackles b/l lower base bases
Cardiac: S1/S2 and Regular Rhythm; No Murmur or Rub
GI: Soft, Non Tender, Non Distended and Normal Bowel Sounds; No Organomegaly
Rectal: Deferred by Provider
Musculoskeletal: No Clubbing, No Cyanosis and No Edema
Skin: No Rash
Neuro: AO x 3 and Nonfocal/grossly intact
Psych: Calm
#cough ikely from COPD/pleural effusion + aspiration pneumonitis
-Duonebs PRN
-F/u ECHO: Milf HFpEF; EF 55-60%
-Speech eval - VSE; IDDSI 6, nectar thick
-Chest CT with no evidence of PE.Bilateral pleural effusions. New Mild right hilar lymphadenopathy. Likely reactive. New Moderate hiatal hernia. Stable.Stable left lower lobe pulmonary nodule for 2 years suggesting it is benign.
-nebs prn for sob/wheezing
-budesonide
-robitussin prn for cough
-Switch oral Lasix daily
# Anemia of chronic disease
-Hemoglobin stable at 10.3
-No active bleeding
-Continue to monitor
#Asymptomatic bacteruria
#History of Enterococcus facialis bacteremia
-Arriaga was not exchanged in ED;
-F/u urine cultures now that arriaga replaced: K. Pneumoniae and P. Aeruginosa : most likely colonization; discontinue abx
#Hyponatremia
-ctm
-resolved
#Chronic hypotension
-BP stable
-ctm
-midodrine continued
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
-iv lasix - switch to po 20mg lasix
-daily weight
-strict I &O
-F/u BMP in 1 week
#Paroxysmal Atrial Fibrillation/Flutter
-Continue Xarelto for anticoagulation
-metoprolol
-monitor on tele
#Diabetes Mellitus, Type II
-, Januvia continued
-held metformin
-sliding scale.
-CHO diet
DVT proph: Xarelto
Code Status: Full Code
PT/OT
More than 30 minutes spent in discharge including
Final examination of the patient
Summarizing hospital stay
Instructions for continuing care to all relevant caregivers
Preparation of discharge records, prescriptions, and referral forms
Total time spent (35 in minutes):
Anticipated Discharge: Today
Subjective/Interval History
-
Date of Service: May 01, 2024
No acute events, off oxygen
Objective Data
-
Labs:
Laboratory Results
05/01/24
07:22
WBC 5.8
Hgb 9.7 L
Hct 29.7 L
Plt Count 266
Sodium 135
Potassium 4.7
Chloride 101
Carbon Dioxide 26
BUN 15
Creatinine 0.8
Glucose 95
Calcium 8.9
Total Bilirubin 0.5
AST 9 L
ALT < 10
Alkaline Phosphatase 97
Vital Signs:
Vital Signs
Temp Pulse Resp BP Pulse Ox
98.0 F 72 16 101/60 98
05/01/24 07:00 05/01/24 07:34 05/01/24 07:34 05/01/24 07:00 05/01/24 08:00
I&O
04/30/24 05/01/24 05/02/24
06:59 06:59 06:59
Intake Total 300 / 300 420 / 420
Output Total 200 / 200 800 / 800
Balance 100 / 100 -380 / -380
Review of Systems
-
History Source: Patient
All other systems: Not reviewed unless documented
Data Reviewed
-
CT Scan: Image personally visualized and interpreted and Report Reviewed by me
Labs: Labs Reviewed by me
--- NOTE | 2024-05-01 11:32 | W.DS.TRANS ---
DC Summary - For[employer]
-
Discharge Instructions:
Discharge Diagnosis/Procedures cough ikely from COPD/pleural effusion +
aspiration
Diet Low Cholesterol,Low Fat,Other diet
Additional Diets IDDSI 6 - soft and bite sized; nectar thick
liquids
Activity As tolerated
Blood Work BMP in 1 week
Instructions:
Stand-Alone Forms:
Changes to Home Medications: Yes
Discharge Medications:
DC Medications w/original date entered in [employer]
sitagliptin phosphate 100 mg tablet (Januvia) 100 mg PO DAILY Diabetes #90 tabs 05/31/22
metformin 1,000 mg tablet 1,000 mg PO BID Diabetes 02/13/24
clopidogrel 75 mg tablet (Plavix) 75 mg PO DAILY Blood Clot Prevention/Tx 30 days #30 tabs 02/20/24
cyanocobalamin (vitamin B-12) 1,000 mcg tablet 1,000 mcg PO DAILY Supplement 03/20/24
ferrous sulfate 325 mg (65 mg iron) tablet 325 mg PO DAILY Supplement 03/20/24
metoprolol succinate 25 mg tablet,extended release 24 hr 25 mg PO HS Blood Pressure 03/20/24
midodrine 5 mg tablet 5 mg PO HS Blood Pressure 03/20/24
rivaroxaban 20 mg tablet (Xarelto) 20 mg PO DAILY Blood Clot Prevention/Tx 03/20/24
tamsulosin 0.4 mg capsule 0.4 mg PO DAILY Urinary issue 03/20/24
furosemide 20 mg tablet (Lasix) 20 mg PO DAILY 30 days #30 tabs 05/01/24
Home Medication Changes
furosemide 20 mg tablet (Lasix) 20 mg PO DAILY 30 days #30 tabs 05/01/24
Pending Results: No
[2024-05-01 11:48] LABS: Glucose - Point of Care 307 mg/dl (70-99)
--- NOTE | 2024-05-01 12:14 | CM ---
Addendum entered by Rachael Gamble 05/01/24 12:18:
Left a voice mail about discharge plan date/time; and ambulance moss picker time for Josefa ([facility]) #[phone] as requested
Spoke with son, Chip, (#[phone]) earlier this morning and discussed discharge plan for today. Just called him back and left a voice mail to inform him of father's ambulance moss picker time Chip
Original Note:
Plan: discharge to [facility] via ambulance
report# [phone]
fax# [phone]
Ambulance presidential support specialist scheduled @ 1545
[2024-05-01] MEDS: NOVOLOG FLEXPEN-LOW RESISTANCE 4 UNITS SC (13:30)
[2024-05-01 15:00] VITALS: BP 106/63
== END 2024-05-01 16:40 | DRG 177 ==
LOC: 4 WEST ACU 11:57
PROVIDERS: Registered Nurse; ADMITTING PHYSICIAN Hospitalist; ATTENDING PHYSICIAN Internal Medicine; EMERGENCY PHYSICIAN Emergency Medicine; FAMILY PHYSICIAN Family Medicine
DX: J69.0 Pneumonitis due to inhalation of food and vomit (principal); I50.33 Acute on chronic diastolic (congestive) heart failure; J44.1 Chronic obstructive pulmonary disease with (acute) exacerbation; E87.1 Hypo-osmolality and hyponatremia; J90 Pleural effusion, not elsewhere classified; Z11.52 Encounter for screening for COVID-19; D63.8 Anemia in other chronic diseases classified elsewhere; I48.0 Paroxysmal atrial fibrillation; I25.10 Atherosclerotic heart disease of native coronary artery without angina pectoris; I95.89 Other hypotension; E11.9 Type 2 diabetes mellitus without complications
CPT/HCPCS: 71046; 71275; 74230; 80048; 80053; 81003; 81015; 82962; 83036; 83735; 83880; 84484; 85025; 85027; 87077; 87086; 87088; 87186; 87811; 92526; 92610; 92611; 93005; 93306; 94640; 96360; 97163; 97167; 97530; 97535; 99285; Q9967

== ENCOUNTER 2024-05-21 10:18 | Emergency (ER) | payer MEDICARE, SELFPAY ==
[2024-05-21 10:25] VITALS: BP 137/104
--- NOTE | 2024-05-21 10:26 | ED.GENMED ---
History of Present Illness
General
Chief Complaint: Skin Problem
Source: patient and ambulance crew
Exam Limitations: none
Time Seen by Provider: 05/21/24 10:19
Nursing documentation reviewed up to this point in time: agreed with
History of Present Illness
History of Present Illness:
Patient is a 89-year-old male presented via EMS for evaluation. EMS reports that patient was at home being cared for by visiting nursing staff when they noticed that patient was complaining of pain in the groin/scrotal area while they were
changing him and cleaning him. Patient lives at home with . Patient presents awake alert he is oriented he is in no acute distress he has no complaints of pain at this time.
Past History
Past History
ED Past Medical History: Arrthythmia (Atrial fib), Cancer (Prostate), CHF, COPD, HTN, Hypercholesterolemia, NIDDM, Valvular disease, Other (Empyema, BPH, chronic indwelling Alvarado catheter, intermittent bladder spasms, UTi, ) and Other (Benign
prostate hypertrophy)
ED Past Surgical History: Cardiac (Valve replacement) and Orthopedic (right hip surgery)
Patient has exhibited threatening behavior?: No
PSI?: No
Social History
Tobacco: Former smoker
Alcohol: Occasional
Drug: None
Personal:
Living: jail ([facility])
Employment: Retired
Family History
Family History: Other
Review of Systems
Review of Systems
Allergies reviewed?: Yes
All Other Systems: ROS reviewed and negative except as documented in HPI and ROS
Constitutional: Reports no symptoms; Denies fever, fatigue or chills
EENT: Reports no symptoms
Respiratory: Reports no symptoms
Cardiac: Reports no symptoms
ABD/GI: Reports no symptoms
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
Musculoskeletal: Reports no symptoms
Skin: Reports no symptoms
Neurological: Reports no symptoms
Psychiatric: Reports no symptoms
Phy Exam
General Physical Exam
General Presentation: no apparent distress
General age: appears stated age
General Skin: warm and dry
General Habitus: elderly
General Mental: alert
General Hydration: dry mucous membranes
Cardiovascular Exam
Cardiovascular Exam: regular rate/rhythm, no murmur and normal peripheral pulses
Pulmonary Exam
Pulmonary Exam: lungs clear and no respiratory distress
Gastrointestinal Exam
Gastrointestinal Exam: non tender and soft
Genitourinary Exam Male
Exam Male: other (Alvarado catheter in place draining clear yellow urine bilateral testicle area appears red)
Neurological Exam
Neurological Exam: alert and oriented x3
Musculoskeletal Exam
Musculoskeletal Exam: full ROM
Skin Exam
Skin Exam: normal color and warm/dry
Psychiatric Exam
Psychiatric Exam: normal mood/affect
Course
Vital Signs
Initial and Last Documented VS:
Initial Vital Signs
Pulse Resp BP
87 27 137/104
05/21/24 10:25 05/21/24 10:25 05/21/24 10:25
Last Documented Vital Signs
Temp Pulse Resp BP Pulse Ox
97.9 F 71 21 124/80 96
05/21/24 10:39 05/21/24 11:30 05/21/24 11:30 05/21/24 11:00 05/21/24 10:44
MDM/Problems Addressed
Differential Diagnosis Includes:
not limited to: rash , yeast infection
MDM/Problems Addressed:
Patient with obvious yeast type redness to scrotal area. When patient was examined here he complained of pain to this area. This is the same type of pain that brought him here to the ER. No other further complaints. He is awake alert no acute
distress vital signs are stable. Case reviewed with ED physician nothing else further to do. manager procurement was involved in patient's care as patient is being cared for at home by and additional family members.
Will d/c home with nystatin cream
*Critical Care Note
Total Time (30-74mins, 75-104mins- exclusive of procedures): Not Applicable
ED Attending Note
-
Portions of this chart may have been created with voice recognition software.� Occasional wrong word or��sound alike� substitutions may have occurred due to the inherent limitations of voice recognition software.
Discharge Plan
Departure
Patient Disposition: Home (Routine Discharge)
Date of Disposition: 05/21/24
Time of Disposition: 11:13
Patient with high blood pressure during this ER visit?: No
Condition: Fair
Covid-19: Not Applicable
Discharge Problem:
TINEA CRURIS
Instructions: Ringworm, athlete's foot, and jock itch, Fungal Skin Rash (DC)
Prescriptions:
New
nystatin 100,000 unit/gram cream
1 applic topical TID Qty: 30 0RF
Rx Instructions:
apply to scrotum/affected area 3 times per day
No Action
Januvia 100 MG tablet
100 mg PO DAILY Qty: 90 1RF
metformin 1,000 MG tablet
1,000 mg PO BID
clopidogrel [Plavix] 75 mg tablet
75 mg PO DAILY 30 Days Qty: 30 0RF
midodrine 5 mg Tablet
5 mg PO HS
ferrous sulfate 325 mg (65 mg iron) Tablet
325 mg PO DAILY
tamsulosin 0.4 MG capsule
0.4 mg PO DAILY
Xarelto 20 mg tablet
20 mg PO DAILY
cyanocobalamin (vitamin B-12) 1,000 MCG tablet
1,000 mcg PO DAILY
metoprolol succinate 25 mg tablet extended release 24 hr
25 mg PO HS
Patient Comments:
03/20/2024, HOLD for SBP<100 or AP<60.
furosemide [Lasix] 20 mg tablet
20 mg PO DAILY 30 Days Qty: 30 0RF
Referrals:
Nikole Jain MD [Family Provider] -
Interventions
Interventions:
*Risk Screen - Suicide Last Done: 05/21/24 10:39
*General Assessment Last Done: 05/21/24 10:39
*Neglect/Abuse Screening Last Done: 05/21/24 10:39
ED- Fall Risk Assessment Last Done: 05/21/24 10:44
*ED COVID-19 Vaccine History Last Done: 05/21/24 10:39
ED-Skin Assessment Last Done: 05/21/24 10:44
Discharge Date and Time
Print Language: PASHTO
[2024-05-21 10:39] VITALS: BP 120/76
[2024-05-21 10:41] VITALS: BP 120/76
[2024-05-21 10:44] VITALS: BMI 23.1
--- NOTE | 2024-05-21 10:54 | CM ---
Addendum entered by Di Hernandez RN 05/21/24 11:46:
APS has confirmed that patient will have 8 hours of care from [facility]. Plan for home discharge.
Addendum entered by Di Hernandez RN 05/21/24 11:40:
CM updated ED STAFF ANESTHESIOLOGIST with APS involvement at home. CM updated Josefa at [facility] and she is confirming that family has 8 hours of nurse's aides set up prior to discharge. CM will updated provide once APS has confirmed.
Original Note:
CM was updated by [facility] managed care liaison that patient is presenting to ED with perineal pain. CM spoke with Josefa at [facility] . Josefa reports that she was out in the home with public health nurse from [facility] to evaluate patient. Patient was
found to be sitting in wheelchair overnight. CM confirmed that patient was discharged from [facility] on 05/18. [facility] was [facility] to [facility] and [facility]. As per Josefa, plan was to have 8 hours/per day VORTEX OPERATOR care for 1 week. was then
planning to return to 4 hours/per day. Patient's VORTEX OPERATOR agency is [facility].
Josefa endorsed that patient was discharged 'early' from [facility]. Patient has been recommended for 24 hour care.
Josefa stated that if patient is cleared for discharge for home, he can return and she will work with family to assure consistent and appropriate care in the home.
CM will update Josefa with discharge documents. Plan to fax to [phone].
[2024-05-21 11:00] VITALS: BP 124/80
== END 2024-05-21 15:46 | disposition home or self-care (01) ==
LOC: EMR 10:18
PROVIDERS: EMERGENCY PHYSICIAN Emergency Medicine; FAMILY PHYSICIAN Internal Medicine
DX: B35.6 Tinea cruris (principal); I48.91 Unspecified atrial fibrillation; I11.0 Hypertensive heart disease with heart failure; I50.9 Heart failure, unspecified; J44.9 Chronic obstructive pulmonary disease, unspecified; E78.00 Pure hypercholesterolemia, unspecified; E11.9 Type 2 diabetes mellitus without complications; N40.1 Benign prostatic hyperplasia with lower urinary tract symptoms; M19.90 Unspecified osteoarthritis, unspecified site; Z95.2 Presence of prosthetic heart valve; Z85.46 Personal history of malignant neoplasm of prostate; Z87.440 Personal history of urinary (tract) infections; Z86.16 Personal history of COVID-19; Z87.891 Personal history of nicotine dependence; Z79.01 Long term (current) use of anticoagulants; Z79.84 Long term (current) use of oral hypoglycemic drugs
CPT/HCPCS: 99283

== ENCOUNTER → 2024-06-01 16:45 | Outpatient (REF) | payer MEDICARE, SELFPAY ==
[2024-06-01 18:26] LABS: Urine Albumin 1+ (Neg - Trace); Urine Bilirubin Negative (Negative); Urine Character Slightly Cloudy (Clear); Urine Color Yellow; Urine Glucose Negative (Negative); Urine Ketone Trace (Negative); Urine Leukocyte 2+ (Negative); Urine Nitrite Positive (Negative); Urine Occult Blood 1+ (Negative); Urine Urobilinogen Negative (Neg - 1+)
[2024-06-01 19:55] LABS: Urine Bacteria Many (Negative); Urine Calcium Oxalate Crystals Present; Urine Red Blood Cell 0-2 /HPF (0-2)
== END ==
LOC: REG 16:45
PROVIDERS: ATTENDING PHYSICIAN Surgery
DX: N39.0 Urinary tract infection, site not specified (principal)
CPT/HCPCS: 81003; 81015; 87086

== ENCOUNTER 2024-08-14 16:04 | Inpatient (IN) | payer MEDICARE, SELFPAY ==
[2024-08-14] VITALS (10 sets, daily range): BP systolic 91–128; BP diastolic 58–81
[2024-08-14 12:56] LABS: % Basophils 0.9 % (0-2); % Immature Granulocytes 0.4 % (0-0.5); % Lymphocytes 29.7 % (20.5-51.1); % Monocytes 8.4 % (1.7-9.3); % Neutrophils 58.6 % (42.2-75.2); Absolute Basophils 0.1 10^3/uL (0-0.2); Absolute Eosinophils 0.1 10^3/uL (0-0.7); Absolute Lymphocytes 1.7 10^3/uL (1.2-3.4); Absolute Monocytes 0.5 10^3/uL (0.1-0.6); Absolute Neutrophils 3.3 10^3/uL (1.4-6.5); Hematocrit 34.9 % (39.0-52.0); Mean Corp Hgb Conc. 34.4 g/dL (33.0-37.0); Mean Corpuscular Hgb 31.3 pg (27.0-31.0); Mean Corpuscular Volume 91.1 fL (80.0-94.0); Mean Platelet Volume 9.3 fL (7.4-10.4); Nucleated Red Blood Cells % 0 % (-); Platelet Count 179 10^3/uL (130-400); Red Blood Cell Count 3.83 10^6/uL (4.70-6.10); Red Cell Dist. Width 18.9 % (11.5-14.5); White Blood Cell Count 5.6 10^3/uL (4.8-10.8)
--- NOTE | 2024-08-14 13:25 | CM ---
Addendum entered by Di Hernandez RN 08/14/24 14:44:
CM received collateral information from [facility] and Palliative Care. Patient is currently cared. for in his home by his and mother in law. His has suffered from a CVA and uses a cushion on the floor to move around the home. Patient's mother
in law is also elderly. Nicole from home care stated that they have multiple concerns regarding patient's care at home. Patient has been offered but family is refusing. VN and palliative care have made recommendations that patient needs more than 10
hours of care per day. Home care often finds patient incontinent of stool. GIven the patient has sacral wounds, VN feels patient is had high risk for further injury. VN further stated that patient was to be brought to the ER but refused. Son
ultimately gave permission for patient to be transported to the ER for evaluation
CM contacted [facility]. CM spoke with Chiara [facility]. She confirmed that patient has 10 hours of care a day in addition to [facility] for wound care three times a week. JORGE LUIS advised Chiara that multiple caregivers are expressing
the same concerns regarding the patient's safety at home. CM advised Nicole Casanova RN and Daniel Cordero, assistance director of [facility] that Chiara nemesio [facility] is following the case.
CM advised ED PA that patient's living conditions are unsafe and [facility] on [facility] is following.
Addendum entered by Di Hernandez RN 08/14/24 13:34:
CM reached out to Out Patient Palliative Care Team regarding any hospice discussions had while patient was home. CM continue to follow.
Original Note:
CM received updated from [facility] that patient is being brought to ED. [facility] expressed multiple concerns regarding patient's care including insufficient wound care and possible dehydration.
CM sent updated to patient's bedside RN and ED physician.
--- NOTE | 2024-08-14 13:26 | ED.GENMED ---
History of Present Illness
General
Chief Complaint: Blood Pressure Problem
Source: patient and ambulance crew
Time Seen by Provider: 08/14/24 13:15
History of Present Illness
History of Present Illness:
89yoM with a history of atrial fibrillation, CHF, hypertension, hyperlipidemia, type 2 diabetes, and BPH with a chronic Alvarado catheter presenting via EMS for evaluation of low blood pressures. Patient has visiting nurses every day for 8 hours/day.
The visiting nurse checked on him today and his blood pressure was low. Blood pressures were reportedly 82/58 and 88/60 on recheck. 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 There was concern for possible infection
and he was sent to the ED for evaluation. Patient has no complaints at this time and is unsure why he is here. Blood pressures were normal throughout EMS transport.
Patient is mostly bedbound and stays in bed about 23 hours/day. He does see palliative care about 1 time per month. He lives with his and [id number]. His son has been making most of his medical decisions recently as patient was deemed to not
have capacity after psychological evaluation. Visiting nurses are concerned about the living situation at home. Area of Aging is involved in his case.
Past History
Past History
ED Past Medical History: Arrthythmia (Atrial fib), Cancer (Prostate), CHF, COPD, HTN, Hypercholesterolemia, NIDDM, Valvular disease, Other (Empyema, BPH, chronic indwelling Alvarado catheter, intermittent bladder spasms, UTi, ) and Other (Benign
prostate hypertrophy)
ED Past Surgical History: Cardiac (Valve replacement) and Orthopedic (right hip surgery)
Patient has exhibited threatening behavior?: No
PSI?: No
Social History
Tobacco: Former smoker
Alcohol: Occasional
Drug: None
Personal:
Living: prison ([facility])
Employment: Retired
Family History
Family History: Other
Phy Exam
General Physical Exam
General Presentation: well appearing and no apparent distress
General age: appears stated age
General Skin: warm and dry
General Habitus: elderly
General Mental: alert
Cardiovascular Exam
Cardiovascular Exam: regular rate/rhythm
Pulmonary Exam
Pulmonary Exam: lungs clear, no respiratory distress, no crackles and no wheezing
Gastrointestinal Exam
Gastrointestinal Exam: non tender, soft and non distended
Skin Exam
Skin Exam: normal color, warm/dry and other (Sacral wound and R hip wound noted with surrounding blanchable erythema. No drainage, fluctuance, or crepitus. )
Psychiatric Exam
Psychiatric Exam: normal mood/affect
Course
Orders/Labs/Results
Orders:
Orders
08/14/24 12:35
Cardiac Monitoring- Treatment ONCE
IV Insert/Care/Rem.- Treatment PRN
08/14/24 12:47
Complete Blood Count/With Diff Urgent
08/14/24 13:26
0.9% Sodium Chloride 500 ml [Nss] 500 ml IV BOLUS
08/14/24 13:29
Case Management Consult ONCE
Case Management Consult: Discharge Planning
08/14/24 13:36
Basic Metabolic Panel Urgent
08/14/24 14:38
LFT [Gsnhd-Xrkw-Ottcody] Urgent
Potassium Urgent
Abnormal Lab Results
08/14/24 08/14/24 08/14/24
12:47 13:36 14:38
RBC 3.83 L 10^6/uL
(4.70-6.10)
Hgb 12.0 L g/dL
(13.0-18.0)
Hct 34.9 L %
(39.0-52.0)
MCH 31.3 H pg
(27.0-31.0)
RDW 18.9 H %
(11.5-14.5)
Chloride 108 H mmol/L
(98-107)
Creatinine 0.6 L mg/dL
(0.7-1.3)
Calcium 8.3 L mg/dl
(8.4-10.2)
AST 9 L U/L
(17-59)
Total Protein 4.9 L g/dl
(6.3-8.2)
Albumin 2.2 L g/dl
(3.5-5.0)
08/14/24 12:47
08/14/24 14:38
Vital Signs
Initial and Last Documented VS:
Initial Vital Signs
Pulse Resp Pulse Ox
97 19 97
08/14/24 12:26 08/14/24 12:26 08/14/24 12:26
Last Documented Vital Signs
Temp Pulse Resp BP Pulse Ox
98.6 F 102 21 107/68 99
08/14/24 12:32 08/14/24 15:15 08/14/24 15:15 08/14/24 15:00 08/14/24 15:15
MDM/Problems Addressed
Differential Diagnosis Includes:
89yoM here with low BPs at home which were checked by his visiting nurse. There was also concern regarding his sacral wound and possible infection. Patient has no complaints. BP 107/67 on arrival. Remainder of vitals stable and he is afebrile. He is
well appearing in no distress. Sacral wound noted on exam without any overt signs of infection. Differential diagnosis includes but is not limited to: Infection, dehydration, failure to thrive
Initial ED plan: Check CBC and CMP. IV fluid bolus.
*Critical Care Note
Total Time (30-74mins, 75-104mins- exclusive of procedures): Not Applicable
Update Note
Update Note:
Labs overall unremarkable including normal white count. Renal function and LFTs also normal. Case management consulted due to complex social situation at home. Area of aging is currently involved. He lives with his and she reportedly has a
history of a CVA. Patient is frequently soiled when his visiting nurses arrive in the morning which is certainly contributing to his sacral wounds. Visiting nurses do not feel that he is a safe discharge home. After discussion with case
management, will admit until safe discharge plan is in place. Son updated via phone.
ED Attending Note
-
Portions of this chart may have been created with voice recognition software.� Occasional wrong word or��sound alike� substitutions may have occurred due to the inherent limitations of voice recognition software.
Discharge Plan
Departure
Patient Disposition: Admit
Date of Disposition: 08/14/24
Time of Disposition: 14:54
Presentation/result/management discussed w/ accepting MD/DO: Hospitalist
Discharge Problem:
Poor social situation, Hypotension
Prescriptions:
No Action
clopidogrel [Plavix] 75 mg tablet
75 mg PO DAILY 30 Days Qty: 30 0RF
ferrous sulfate 325 mg (65 mg iron) Tablet
325 mg PO DAILY
tamsulosin 0.4 MG capsule
0.4 mg PO HS
Xarelto 20 mg tablet
20 mg PO QPM
cyanocobalamin (vitamin B-12) 1,000 MCG tablet
1,000 mcg PO DAILY
metformin 500 mg Tablet
500 mg PO BID
ascorbic acid (vitamin C) [Vitamin C] 1,000 mg Tablet
1 g PO DAILY
calcium carbonate-vitamin D3 [Calcium + D] 600 mg-5 mcg (200 unit) Tablet
1 tab PO BID
Januvia 50 mg Tablet
50 mg PO DAILY
Visbiome 112.5 billion cell Capsule
1 cap PO DAILY
olive leaf extract 250 mg Capsule
250 mg PO DAILY
Gemtesa 75 mg Tablet
75 mg PO DAILY@1500
d-mannose 500 mg Capsule
500 mg PO DAILY
Referrals:
UNKNOWN - PT DOES,NOT KNOW [Family Provider] -
Interventions
Interventions:
*Risk Screen - Suicide Last Done: 08/14/24 12:32
*General Assessment Last Done: 08/14/24 12:32
*Neglect/Abuse Screening Last Done: 08/14/24 12:32
ED- Fall Risk Assessment Last Done: 08/14/24 12:34
*ED COVID-19 Vaccine History Last Done: 08/14/24 12:34
ED- Cardiac Assessment Last Done: 08/14/24 13:30
ED- Neurological Assessment Last Done: 08/14/24 13:30
ED- Pulmonary Assessment Last Done: 08/14/24 13:30
Discharge Date and Time
Print Language: SINHALA
[2024-08-14] MEDS: NSS 500 IV (13:31)
--- NOTE | 2024-08-14 13:37 | EDRN ---
Deepak Mauricio PA in to see pt.
[2024-08-14 14:05] LABS: Blood Urea Nitrogen 16 mg/dl (9-20); Calcium 8.3 mg/dl (8.4-10.2); Carbon Dioxide 24 mmol/L (22-30); Chloride 108 mmol/L (98-107); Glucose 98 mg/dl (70-99); Sodium 137 mmol/L (135-145); eGFR > 60.00
--- NOTE | 2024-08-14 14:49 | EDRN ---
SST blood tube drawn by [place] ED PCT at this time.
[2024-08-14 15:04] LABS: ALT (SGPT) < 10 U/L (0-50); AST (SGOT) 9 U/L (17-59); Albumin 2.2 g/dl (3.5-5.0); Alkaline Phosphatase 101 U/L (38-126); Direct Bilirubin 0.2 mg/dl (0.0-0.4); Potassium 4.4 mmol/L (3.5-5.1); Total Bilirubin 0.6 mg/dl (0.2-1.3); Total Protein 4.9 g/dl (6.3-8.2)
--- NOTE | 2024-08-14 15:07 | HPS.HSE ---
Family Physician
-
Family Physician: NOT KNOW UNKNOWN - PT DOES
Chief Complaint
-
right LE pain, butt hurts
History of Present Illness
89yoM with a history of atrial fibrillation, CHF, hypertension, hyperlipidemia, type 2 diabetes, and BPH with a chronic Arriaga catheter presenting via EMS for evaluation of low blood pressures. Patient has visiting nurses every day for 8 hours/day.
The visiting nurse checked on him today and his blood pressure was low. Blood pressures were reportedly 82/58 and 88/60 on recheck. 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 There was concern for possible infection
and he was sent to the ED for evaluation. Patient stated his and his mother n law takes care of him. he stated his right LE hurts. denied KENNEDY,dizzy or syncopal episode. denied fever, chills, chest pain, sob. denied abdominal pain,n,v,d. denied
dysuria or hematuria.
admitting for further management.
Medical History
Past Medical History
Past Medical History: Reports Other
Additional Past Medical History:
bladder retention
right carotid stenosis
BPH
overactive bladder
ILD
HLD
anemia
PAD
CHF
paroxysmal atrial fib
type 2 DM
neurogenic bladder, arriaga cath
CAD
Past Surgical History: Reports Other
Additional Past Surgical History:
aortic valve replacement
right total hip replacement
carotid endarterectomy
Social History
Tobacco: Non-smoker
Alcohol: None
Drug: None
Personal:
Living: With Family
Family History
Family History: Not pertinent
Allergies / Home Medications
Allergies reflects when Allergies were last updated in [facility].
Home Medications with original date entered in [facility]
Allergy/Medication List:
Allergies
Allergy/AdvReac Type Severity Reaction Status Date / Time
No Known Allergies Allergy Verified 08/14/24 12:27
Home Medications
clopidogrel 75 mg tablet (Plavix) 75 mg PO DAILY Blood Clot Prevention/Tx 30 days #30 tabs 02/20/24
cyanocobalamin (vitamin B-12) 1,000 mcg tablet 1,000 mcg PO DAILY Supplement 03/20/24
ferrous sulfate 325 mg (65 mg iron) tablet 325 mg PO DAILY Supplement 03/20/24
rivaroxaban 20 mg tablet (Xarelto) 20 mg PO QPM Blood Clot Prevention/Tx 03/20/24
tamsulosin 0.4 mg capsule 0.4 mg PO HS Urinary issue 03/20/24
Lactobac no.2-Bifidobac no.1-S. thermo 112.5 billion cell capsule (Visbiome) 1 cap PO DAILY 08/14/24
ascorbic acid (vitamin C) 1,000 mg tablet (Vitamin C) 1 g PO DAILY 08/14/24
calcium carbonate 600 mg-vitamin D3 5 mcg (200 unit) tablet 1 tab PO BID 08/14/24
d-mannose 500 mg capsule 500 mg PO DAILY 08/14/24
metformin 500 mg tablet 500 mg PO BID 08/14/24
olive leaf extract 250 mg capsule 250 mg PO DAILY 08/14/24
sitagliptin phosphate 50 mg tablet (Januvia) 50 mg PO DAILY 08/14/24
vibegron 75 mg tablet (Gemtesa) 75 mg PO DAILY@1500 08/14/24
Review of Systems
-
Constitutional: Reports No Symptoms
EENT: Reports No Symptoms
Respiratory: Reports No Symptoms
Cardiac: Reports No Symptoms
Abdomen/GI: Reports No Symptoms
: Reports No Symptoms
Musculoskeletal: Reports No Symptoms
Skin: Reports Other (sacral wound)
Neurological: Reports No Symptoms
Endocrine: Reports No Symptoms
Hematologic/Lymphatic: Reports No Symptoms
Psych: Reports No Symptoms
Physical Exam
Vital Signs
Vital Signs
Temp Pulse Resp BP Pulse Ox
98.6 F 95 25 101/58 99
08/14/24 12:32 08/14/24 14:45 08/14/24 14:45 08/14/24 14:00 08/14/24 14:45
Physical Exam
General: Well Developed, Well Nourished and No Apparent Distress
HEENT: NormoCephalic, Moist mucous membranes and Atraumatic
Respiratory: Clear
Cardiac: S1/S2 and Regular Rhythm; No Murmur or Rub
GI: Soft, Non Tender, Non Distended and Normal Bowel Sounds; No Organomegaly
Rectal: Deferred by Provider
Musculoskeletal: No Clubbing, No Cyanosis and No Edema
Skin: Rash and Other (sacral wound)
Neuro: AO x 3 and Nonfocal/grossly intact
Psych: Calm
Laboratory Results
-
08/14/24 12:47
08/14/24 14:38
Laboratory Results
Total Bilirubin 0.6 mg/dl (0.2-1.3) 08/14/24 14:38
AST 9 U/L (17-59) L 08/14/24 14:38
ALT < 10 U/L (0-50) 08/14/24 14:38
Alkaline Phosphatase 101 U/L (38-126) 08/14/24 14:38
Data Reviewed
-
Lab Data: Labs Reviewed by me
Impression/Plan
-
#sacral wound infection
-wound care consulted
-iv vanco and Zosyn continued
-Tylenol prn for fever an pain
#generalized weakness
-PT/OT consult
-CM consulted for placement
# Chronic Chronic HFpEF
-patient not in acute exacerbation
-continue to monitor weight, i&O
#Paroxysmal Atrial Fibrillation/Flutter
-hold xarelto
#Diabetes Mellitus, Type II
-Januvia continued
-held metformin
-sliding scale.
-CHO diet
#hxt of CAD/pAD
-Plavix continued
#iron def anemia
-ferrous sulfate continued
#neurogenic bladder
-arriaga cath in place
-Flomax continued
-Gemtesa continued
DVT proph: Xarelto
Code Status: Full Code
--- NOTE | 2024-08-14 15:19 | EDRN ---
Alyssia Mcconnell HEAD WOOD GRINDER in room w/ pt. [facility] manager lan said pt will be admitted to check on hospice and to work out best care for pt as pt is believed not getting proper care at home.
--- NOTE | 2024-08-14 15:28 | WOUNDNOTE ---
WOUND/SKIN CARE NOTE: Pt identified by name and .
R buttock
R buttock
sacral area
--- NOTE | 2024-08-14 16:10 | W.PN.UPDATE ---
Update Note
Progress Note Update
This is an addendum to the H&P written by Zaida Mcconnell on 08/14/2024. Patient seen and examined independently with [facility]KE[facility] UP.
89-year-old male history of COPD, aspiration pneumonitis, anemia of chronic disease, Enterococcus bacteremia, hyponatremia, chronic hypotension, chronic HFpEF, paroxysmal atrial fibrillation on Xarelto, diabetes, sent in for low blood pressure in
the 80s systolic. He has worsening of chronic sacral wounds with foul smelling discharge.
Foul-smelling superficial wound on examination. Concerning for sepsis secondary to sacral wound infection. IV fluids. Check wound culture. Vancomycin/Zosyn. Wound care consulted. Hold Xarelto in case debridement is needed.
--- NOTE | 2024-08-14 16:21 | PHA.VAN.IN ---
Assessment
- Assessment
Renal Function: Appears similar to baseline
Concomitant Antimicrobials: ZOSYN
AUC Dosing Plan
- Dosing Variables
Dosing Weight (kg): 73.5
Dosing CrCl (ml/min): 88
Vd coefficient (L/kg): 0.7
- Empiric Dosing
Initial / Loading Dose: 1750MG
Maintenance Regimen: 1GM IV Q12H
Estimated AUC (mcg*h/mL): 521
Estimated Peak (mcg*h/mL): 32.1
Estimated Trough (mcg/ml): 13.7
Estimated Half Life (H): 8.9
Pharmacokinetics Vancomycin I
- -
Patient Age: 89
Patient Sex: Male
Vancomycin Day #: 1
Indication: Skin And Soft Tissue (SACRAL WOUND)
Requesting Provider: LOU
Height / Weight:
Height 5 ft 10.6 in
Actual Weight 73.5 kg
- Vital Signs / Lab Results
Temp Pulse Resp BP Pulse Ox
98.6 F 91 19 98/63 98
08/14/24 12:32 08/14/24 16:00 08/14/24 16:00 08/14/24 16:00 08/14/24 16:00
Lab Results - Hematology
08/14/24
12:47
WBC 5.6
Lab Results - Chemistry
08/14/24 08/14/24 08/14/24
12:47 13:36 14:38
BUN Cancelled 16
Creatinine Cancelled 0.6 L
Estimated Creat Clear Cancelled
Albumin Cancelled Cancelled 2.2 L
[2024-08-14] MEDS: NSS 1000 IV (16:34)
[2024-08-14] MEDS: ZOSYN 50 IV ×2 (16:35→21:25)
[2024-08-14] MEDS: VANCOCIN 535 MG IV (17:08)
[2024-08-14 18:29] LABS: Glucose - Point of Care 84 mg/dl (70-99)
[2024-08-14] MEDS: NOVOLOG FLEXPEN-LOW RESISTANCE SC (18:30)
[2024-08-14] MEDS: FLOMAX 0.4 MG PO (21:25)
[2024-08-14 21:38] LABS: Glucose - Point of Care 104 mg/dl (70-99)
[2024-08-15] VITALS (8 sets, daily range): BP systolic 102–151; BP diastolic 64–95; PULSE 94; O2SAT 98; BMI 22.0
[2024-08-15] MEDS: ZOSYN 50 IV ×4 (04:22→21:24)
[2024-08-15] MEDS: NSS 1000 IV ×2 (04:22→17:13)
[2024-08-15] MEDS: VANCOCIN 200 IV ×2 (05:17→17:14)
[2024-08-15 06:42] LABS: Hematocrit 32.7 % (39.0-52.0); Hemoglobin 10.8 g/dL (13.0-18.0); Mean Corpuscular Hgb 29.8 pg (27.0-31.0); Mean Corpuscular Volume 90.3 fL (80.0-94.0); Mean Platelet Volume 9.3 fL (7.4-10.4); Platelet Count 171 10^3/uL (130-400); Red Blood Cell Count 3.62 10^6/uL (4.70-6.10); Red Cell Dist. Width 18.9 % (11.5-14.5); White Blood Cell Count 5.4 10^3/uL (4.8-10.8)
[2024-08-15 07:07] LABS: Blood Urea Nitrogen 13 mg/dl (9-20); Calcium 7.8 mg/dl (8.4-10.2); Carbon Dioxide 25 mmol/L (22-30); Chloride 107 mmol/L (98-107); Estimated Creatinine Clearance 73 ml/min; Glucose 110 mg/dl (70-99); Potassium 3.7 mmol/L (3.5-5.1); Sodium 137 mmol/L (135-145); eGFR > 60.00
[2024-08-15 07:39] LABS: Glucose - Point of Care 110 mg/dl (70-99)
[2024-08-15] MEDS: NOVOLOG FLEXPEN-LOW RESISTANCE SC ×3 (08:39→16:49)
[2024-08-15] MEDS: FEOSOL 325 MG PO (08:49)
[2024-08-15] MEDS: PLAVIX 75 MG PO (08:49)
[2024-08-15] MEDS: VISBIOME 1 CAP PO (08:50)
[2024-08-15] MEDS: JANUVIA 50 MG PO (08:50)
--- NOTE | 2024-08-15 09:26 | W.PN.HOSP.TC ---
Today's Communication/Plan
-
continue IV abx
Assessment / Plan
Assessment / Plan
#sacral wound infection
-wound care consulted
-iv vanco and Zosyn continued
-Tylenol prn for fever an pain
WBC 5.4k
#generalized weakness
ambulatory dysfunction
-PT/OT consult
-CM consulted for placement
# Chronic Chronic HFpEF
-patient not in acute exacerbation
-continue to monitor weight, i&O
#Paroxysmal Atrial Fibrillation/Flutter
-hold xarelto
#Diabetes Mellitus, Type II
-Januvia continued
-held metformin
-sliding scale.
-CHO diet
a1c pending (04/29/24 was 6.0%)
#hxt of CAD/pAD
-Plavix continued
#iron def anemia
-ferrous sulfate continued
#neurogenic bladder
-arriaga cath in place
-Flomax continued
-Gemtesa continued
DVT proph: Xarelto
Code Status: Full Code
Anticipated Discharge: > 48 hours
Subjective/Interval History
-
Date of Service: August 15, 2024
Awake, alert
Objective Data
-
Labs:
Laboratory Results
08/15/24
06:21
WBC 5.4
Hgb 10.8 L
Hct 32.7 L
Plt Count 171
Sodium 137
Potassium 3.7
Chloride 107
Carbon Dioxide 25
BUN 13
Creatinine 0.7
Glucose 110 H
Calcium 7.8 L
Vital Signs:
Vital Signs
Temp Pulse Resp BP Pulse Ox
97.6 F 108 18 133/90 100
08/15/24 07:00 08/15/24 07:00 08/15/24 07:00 08/15/24 07:00 08/15/24 07:00
I&O
08/14/24 08/15/24 08/16/24
06:59 06:59 06:59
Intake Total 2119 / 2119
Output Total 325 / 325
Balance 1795 / 1795
Review of Systems
-
History Source: Patient and Coordinated Provider
Constitutional: Denies Fever
EENT: Reports No Symptoms Reported
Respiratory: Reports No Symptoms
Cardiac: Reports No Symptoms
Abdomen/GI: Reports No Symptoms
Physical Exam
-
General: No Apparent Distress and Appears Chronically Ill
HEENT: Normocephalic and Atraumatic
Respiratory: Clear to Auscultation
Cardiac: Regular Rhythm and S1/S2
GI: Soft, Nontender, Nondistended and Normal Bowel Sounds
Rectal: Deferred by Provider
Genito-urinary: Arriaga (Clear yellow, chronic arriaga)
Musculoskeletal: No Edema and Other (skin changes noted)
Neuro: Awake, Alert and Oriented
Psych: Calm
--- NOTE | 2024-08-15 09:48 | PHA.VAN.FU ---
Vancomycin Assessment / Plan
- Assessment
Renal Function: Stable
WBC's are: WNL
In the past 24 hrs, patient has been: Afebrile
Concomitant Antimicrobials: pip/tazo
- Dosing Plan
Continue: vancomycin 1 gm q12h - first dose 08/15 06
- Monitoring Plan
No level(s) ordered at this time: consider levels after . Saturday yonathan
- Follow Up
Pharmacy will continue to follow.
Vancomycin Follow UP
- -
Patient Age: 89
Patient Sex: Male
Vancomycin Day #: 2
Indication: Skin And Soft Tissue (SACRAL WOUND)
Requesting Provider: LOU
Height / Weight:
Height 5 ft 10.6 in
Actual Weight 70.76 kg
Pertinent Past Medical History: chronic Alvarado; chronic sacral wounds
- Vital Signs / Lab Results
Temp Pulse Resp BP Pulse Ox
97.6 F 108 18 133/90 100
08/15/24 07:00 08/15/24 07:00 08/15/24 07:00 08/15/24 07:00 08/15/24 07:00
Lab Results - Hematology
08/14/24 08/15/24
12:47 06:21
WBC 5.6 5.4
Lab Results - Chemistry
08/14/24 08/14/24 08/14/24
12:47 13:36 14:38
BUN Cancelled 16
Creatinine Cancelled 0.6 L
Estimated Creat Clear Cancelled
Albumin Cancelled Cancelled 2.2 L
08/15/24
06:21
BUN 13
Creatinine 0.7
Estimated Creat Clear 73
Albumin
Microbiology Results
08/14/24 17:10 Gram Stain - Preliminary
Sacral
[2024-08-15 11:00] LABS: Glycohemoglobin (HgbA1c) 5.5 % (4.0-5.6)
[2024-08-15 12:03] LABS: Glucose - Point of Care 108 mg/dl (70-99)
[2024-08-15 16:19] LABS: Glucose - Point of Care 90 mg/dl (70-99)
[2024-08-15] MEDS: FLOMAX 0.4 MG PO (21:23)
[2024-08-15 21:53] LABS: Glucose - Point of Care 84 mg/dl (70-99)
[2024-08-16] VITALS (7 sets, daily range): BP systolic 90–121; BP diastolic 50–73; BMI 23.3
[2024-08-16] MEDS: ZOSYN 50 IV ×4 (03:22→21:24)
[2024-08-16] MEDS: VANCOCIN 200 IV ×2 (05:50→18:05)
[2024-08-16 08:15] LABS: Glucose - Point of Care 86 mg/dl (70-99)
[2024-08-16] MEDS: JANUVIA 50 MG PO (08:59)
[2024-08-16] MEDS: PLAVIX 75 MG PO (08:59)
[2024-08-16] MEDS: VISBIOME 1 CAP PO (08:59)
[2024-08-16] MEDS: NOVOLOG FLEXPEN-LOW RESISTANCE SC ×3 (08:59→17:09)
[2024-08-16] MEDS: FEOSOL 325 MG PO (08:59)
--- NOTE | 2024-08-16 09:00 | PHA.VAN.FU ---
Vancomycin Assessment / Plan
- Assessment
Renal Function: Stable
WBC's are: Stable
In the past 24 hrs, patient has been: Afebrile
Concomitant Antimicrobials: pip/tazo
- Dosing Plan
Continue: vancomycin 1000 mg q12h
- Monitoring Plan
Peak Level: 08/16/24 2030 - after 4th maint dose
Trough Level: 08/17/24 0530
- Follow Up
Pharmacy will continue to follow.
Vancomycin Follow UP
- -
Patient Age: 89
Patient Sex: Male
Vancomycin Day #: 3
Indication: Skin And Soft Tissue (SACRAL WOUND)
Requesting Provider: LOU
Height / Weight:
Height 5 ft 10.6 in
Actual Weight 75.024 kg
Pertinent Past Medical History: chronic Alvarado; chronic sacral wounds
- Vital Signs / Lab Results
Temp Pulse Resp BP Pulse Ox
97.5 F 86 16 121/73 100
08/16/24 07:00 08/16/24 07:00 08/16/24 07:00 08/16/24 07:00 08/16/24 07:00
Lab Results - Hematology
08/14/24 08/15/24
12:47 06:21
WBC 5.6 5.4
Lab Results - Chemistry
08/14/24 08/14/24 08/14/24
12:47 13:36 14:38
BUN Cancelled 16
Creatinine Cancelled 0.6 L
Estimated Creat Clear Cancelled
Albumin Cancelled Cancelled 2.2 L
08/15/24
06:21
BUN 13
Creatinine 0.7
Estimated Creat Clear 73
Albumin
Microbiology Results
08/14/24 17:10 Wound Culture - Preliminary
Sacral Gram Stain - Preliminary
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
--- NOTE | 2024-08-16 10:33 | W.PN.HOSP.TC ---
Today's Communication/Plan
-
continue current abx
consider ID consult tomorrow
Assessment / Plan
Assessment / Plan
#sacral wound infection
-wound care consulted
-iv vanco and Zosyn continued
-Tylenol prn for fever and pain
WBC 5.4k
await final results of wound cultures, consider ID consult, just notified by nursing that lab called to notify showing MRSA, pt remains on Vanco
#generalized weakness
ambulatory dysfunction
-PT/OT consult
-CM consulted for placement
# Chronic Chronic HFpEF
-patient not in acute exacerbation
-continue to monitor weight, i&O
#Paroxysmal Atrial Fibrillation/Flutter
-hold xarelto
#Diabetes Mellitus, Type II
-Januvia continued
-held metformin
-sliding scale.
-CHO diet
a1c 5.5%
#hxt of CAD/pAD
-Plavix continued
#iron def anemia
-ferrous sulfate continued
#neurogenic bladder
-chronic arriaga cath in place
-Flomax continued
-Gemtesa continued
DVT proph: Xarelto
Code Status: Full Code
Anticipated Discharge: 24 - 48 hours
Subjective/Interval History
-
Date of Service: August 16, 2024
Awake, alert, voice is stronger
Objective Data
-
Vital Signs:
Vital Signs
Temp Pulse Resp BP Pulse Ox
97.5 F 86 16 121/73 100
08/16/24 07:00 08/16/24 07:00 08/16/24 07:00 08/16/24 07:00 08/16/24 07:00
I&O
08/15/24 08/16/24 08/17/24
06:59 06:59 06:59
Intake Total 2119 / 2279
Output Total 325 / 325 650 / 650
Balance 1795 / 1795 1630 / 1630
Review of Systems
-
History Source: Patient and Coordinated Provider
Constitutional: Denies Fever
EENT: Reports No Symptoms Reported
Respiratory: Reports No Symptoms
Cardiac: Reports No Symptoms
Abdomen/GI: Reports No Symptoms
Physical Exam
-
General: No Apparent Distress and Appears Chronically Ill
HEENT: Normocephalic and Atraumatic
Respiratory: Clear to Auscultation
Cardiac: Regular Rhythm and S1/S2
GI: Soft, Nontender, Nondistended and Normal Bowel Sounds
Rectal: Deferred by Provider
Genito-urinary: Arriaga (Clear yellow, chronic arriaga)
Musculoskeletal: No Edema and Other (skin changes noted)
Skin: Ulcers (Rt buttock, sacrum)
Neuro: Awake, Alert and Oriented
Psych: Calm
[2024-08-16 12:04] LABS: Glucose - Point of Care 123 mg/dl (70-99)
[2024-08-16 16:35] LABS: Glucose - Point of Care 91 mg/dl (70-99)
[2024-08-16 20:55] LABS: Vancomycin Peak 31.7 ug/ml (18-26)
[2024-08-16 21:20] LABS: Glucose - Point of Care 196 mg/dl (70-99)
[2024-08-16] MEDS: FLOMAX 0.4 MG PO (21:23)
[2024-08-16] MEDS: FLUSH (NSS) 1 FLUSH IV (21:24)
[2024-08-16] MEDS: TYLENOL 650 MG PO (22:10)
[2024-08-17] VITALS (8 sets, daily range): BP systolic 95–128; BP diastolic 57–88; PULSE 93–116; O2SAT 99; BMI 23.5
[2024-08-17] MEDS: ZOSYN 50 IV ×2 (04:45→09:40)
[2024-08-17 06:03] LABS: % Eosinophils 3.8 % (0-6); % Immature Granulocytes 0.5 % (0-0.5); % Lymphocytes 30.8 % (20.5-51.1); % Monocytes 7.9 % (1.7-9.3); Absolute Eosinophils 0.2 10^3/uL (0-0.7); Absolute Lymphocytes 1.3 10^3/uL (1.2-3.4); Absolute Monocytes 0.3 10^3/uL (0.1-0.6); Absolute Neutrophils 2.4 10^3/uL (1.4-6.5); Hematocrit 30.9 % (39.0-52.0); Hemoglobin 10.8 g/dL (13.0-18.0); Mean Corpuscular Hgb 30.3 pg (27.0-31.0); Mean Corpuscular Volume 86.6 fL (80.0-94.0); Mean Platelet Volume 9.7 fL (7.4-10.4); Nucleated Red Blood Cells % 0 % (-); Platelet Count 174 10^3/uL (130-400); Red Blood Cell Count 3.57 10^6/uL (4.70-6.10); Red Cell Dist. Width 18.3 % (11.5-14.5); White Blood Cell Count 4.2 10^3/uL (4.8-10.8)
[2024-08-17 06:13] LABS: Vancomycin Trough 22.1 ug/ml (5-20)
--- NOTE | 2024-08-17 06:18 | PTCARENOTE ---
Lab informed this RN of critical vanco trough, result=22.1. Pharmacy informed, instructed this RN to not administer vanco this AM. CLINT Hernandez made aware.
[2024-08-17] MEDS: VANCOCIN IV (06:20)
[2024-08-17 06:45] LABS: Blood Urea Nitrogen 9 mg/dl (9-20); Calcium 7.6 mg/dl (8.4-10.2); Carbon Dioxide 19 mmol/L (22-30); Chloride 107 mmol/L (98-107); Estimated Creatinine Clearance 90 ml/min; Glucose 91 mg/dl (70-99); Potassium 3.4 mmol/L (3.5-5.1); Sodium 134 mmol/L (135-145); eGFR > 60.00
[2024-08-17 07:50] LABS: Glucose - Point of Care 85 mg/dl (70-99)
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
--- NOTE | 2024-08-17 08:46 | PHA.VAN.FU ---
Vancomycin Assessment / Plan
- Assessment
Renal Function: Stable
In the past 24 hrs, patient has been: Afebrile
Concomitant Antimicrobials: piperacillin/tazobactam
- Assessment - Therapeutic Drug Monitoring
Extrapolated Cmax (mcg/mL): 33.5
Peak level was drawn: Appropriately (drawn ~1.4H after end of previous infusion)
Extrapolated Cmin (mcg/mL): 21.7
Trough Drawn: Appropriately
Levels were drawn: At steady state (levels drawn after 4th maintenance dose; although, patient may have additional accumulation with prolonged half-life)
Calculated AUC (mcg*h/mL): 653
Calculated ke: 0.0396
Calculated half life (H): 17.5
Calculated Vd (L): 77 (~1 L/kg)
Calculated Vanc CL (ml/min): 51
- Dosing Plan
Adjust Regimen to: dosing by level - hold dosing for today
- Monitoring Plan
Random Level: 08/18 600
- Follow Up
Pharmacy will continue to follow.
Vancomycin Follow UP
- -
Patient Age: 89
Patient Sex: Male
Vancomycin Day #: 4
Indication: Skin And Soft Tissue
Requesting Provider: Alyssia Mcconnell
Pertinent Antimicrobial Allergies:
NKDA
Height / Weight:
Height 5 ft 10.6 in
Actual Weight 75.478 kg
Pertinent Past Medical History: DM II, bedbound
- Vital Signs / Lab Results
Temp Pulse Resp BP Pulse Ox
98.6 F 90 17 117/80 99
08/17/24 07:30 08/17/24 07:30 08/17/24 07:30 08/17/24 07:30 08/17/24 07:30
Lab Results - Hematology
08/14/24 08/15/24 08/17/24
12:47 06:21 05:36
WBC 5.6 5.4 4.2 L
Lab Results - Chemistry
08/14/24 08/14/24 08/14/24
12:47 13:36 14:38
BUN Cancelled 16
Creatinine Cancelled 0.6 L
Estimated Creat Clear Cancelled
Albumin Cancelled Cancelled 2.2 L
08/15/24 08/17/24
06:21 05:37
BUN 13 9
Creatinine 0.7 0.6 L
Estimated Creat Clear 73 90
Albumin
Microbiology Results
08/14/24 17:10 Wound Culture - Preliminary
Sacral Escherichia coli
Gram negative bacilli
Staph aureus MRSA
Gram Stain - Preliminary
Therapeutic Drug Monitoring
Vancomycin Peak 31.7 ug/ml (18-26) H 08/16/24 20:30
Vancomycin Trough 22.1 ug/ml (5-20) H* 08/17/24 05:37
--- NOTE | 2024-08-17 09:01 | CM ---
Jayesh from [facility] called to receive an update on patient. JORGE LUIS read CM's note from yesterday. Jayesh asked for the CM assigned to patient. CM gave CM's cell number. Jayesh then had to hang up because [facility] was calling her.
[2024-08-17] MEDS: JANUVIA 50 MG PO (09:03)
[2024-08-17] MEDS: PLAVIX 75 MG PO (09:03)
[2024-08-17] MEDS: FEOSOL 325 MG PO (09:03)
[2024-08-17] MEDS: VISBIOME 1 CAP PO (09:03)
[2024-08-17] MEDS: NOVOLOG FLEXPEN-LOW RESISTANCE SC (09:09)
[2024-08-17] MEDS: KCL 40 MEQ PO (09:39)
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
--- NOTE | 2024-08-17 10:58 | WOUNDNOTE ---
SACRUM AND BUTTOCKS
--- NOTE | 2024-08-17 11:00 | WOUNDNOTE ---
WON RN note: Patient admitted with Hypotension.
See H&P for complete history.
PMH: Alvarado, UTI, CHF, A fib, R carotid artery stenosis post stent, HTN, NIDDM, anemia, depression, BPH, aortic valve replacement, former smoker, R hip replacement and prostate cancer, chronic Alvarado catheter.
Wound Location and type/assessment: Patient admitted with: R upper buttock unstageable PI, barajas/brown eschar obscuring base of wound. Sacral/buttocks scattered red excoriated skin, incontinent of soft stool, skin care given. Suspect breakdown due to
incontinent associated skin damage, Alvarado catheter in use. Heels are barely blanchable red.
Appetite: Fair-half of yogurt and few bites of pudding. Encourage protein in diet.
Pressure redistribution devices in place: Air overlay in use, reinflated. Palm check done with adequate inflation. Pillow under calves. Air chair cushion provided when oob. Nurse Jaqui aware can also use cushion on pillow under calves.
Plan: Rima care given with assist of nurse Nails, fungal powder applied to buttocks and sacrum. Adaptic then Silicone border foam applied to R upper buttock, will order Santyl to start tomorrow. Adhesive foams changed on heels.
Patient turned to L semi side lying position. Heels off bed with pillow.
Will confirm orders with hospitalist and updated RN. Care plan to be updated and will follow as needed.
Note to case management of equipment requested for discharge: hospital bed with air overlay or air mattress.
Recommend follow up at wound care center upon discharge.
[2024-08-17 11:34] LABS: Glucose - Point of Care 196 mg/dl (70-99)
[2024-08-17] MEDS: NOVOLOG FLEXPEN-LOW RESISTANCE 1 UNITS SC ×2 (13:13→17:43)
--- NOTE | 2024-08-17 14:20 | CON.ID ---
Consultation
-
Date/Time Consultation Requested: 08/17/2024 1145
Date/Time Consultation Performed: 08/17/2024 1420
Requesting Provider: Dr. Trejo
Performing Provider: Dr. Caceres
Reason for Consultation: Sacral wound
Chief Complaint / Past History
Chief Complaint
Feels weak.
History of Present Illness
Juan Saavedra is an 89-year-old man being evaluated at the request of Dr. Trejo in regards to a sacral wound. History is obtained from chart review, along with patient interview.
The patient lives with his and [id number] at home, and patient is essentially bedbound for approximately 23 hours a day at home, with visiting nurse coming out for approximately 8 hours/day. Recently, the visiting nurse checked on him and
his blood pressure was found to be low on 2 separate occasions, and he was sent to the emergency room for further evaluation. He has a known sacral wound, which reportedly is getting worse, with concern for possible infection.
At present he denies any specific complaints. He denies pain. Denies fevers or chills. Patient was found to be a poor historian, and little additional history is available from him.
Past History
Additional Past Medical History:
Diabetes mellitus
Hypertension
Dyslipidemia
paroxysmal Atrial fibrillation
Heart failure with preserved EF
BPH with chronic indwelling Alvarado catheter
Right carotid artery stenosis status post stent
Depression
R THR
Allergy History:
No Known Allergies Allergy (Verified 08/14/24 12:27)
Medications Reviewed: Yes
Current Antibiotics:
Vancomycin
Zosyn
Social History
Tobacco: Former Smoker
Alcohol: None
Drug: None
Personal:
Family History
Family History: Not Pertinent
Review of Systems
Vital Signs
Temp Pulse Resp BP Pulse Ox
98.2 F 89 17 96/57 97
08/17/24 10:56 08/17/24 10:56 08/17/24 10:56 08/17/24 10:56 08/17/24 10:56
Physical Exam
Physical Exam
Constitutional: No Acute Distress, Comfortable, Chronically Ill and Cachetic (Mild)
Head: Normocephalic
Eyes: Pupils Equal, Pupils Round, No Conjunctival Hemorrhage and Sclera Anicteric
Oral: Poor Dentition, No Thrush and No Ulcers
Cardiovascular: S1/S2; Negative S3/S4 or Murmur
Pulmonary: Clear and Non Labored
Gastrointestinal: Soft, Non Tender and Non Distended
Genito-Urinary: Alvarado and Clear Urine; Negative Turbid Urine or Hematuria
Extremities: Negative Edema, Cyanosis or Erythema
Wound: Other (A wound in the sacral region (off to the right) is noted. Dark eschar is noted over top. No significant purulence. No periwound erythema. No drainage.)
Neurological: Awake and Alert
Psychological: Calm
Lab / Diagnostic Study Results
08/17/24 05:36
08/17/24 05:37
Abs Immat Gran (auto) 0.0 10^3/uL (0-0.05) 08/17/24 05:36
Absolute Neuts (auto) 2.4 10^3/uL (1.4-6.5) 08/17/24 05:36
Absolute Lymphs (auto) 1.3 10^3/uL (1.2-3.4) 08/17/24 05:36
Absolute Monos (auto) 0.3 10^3/uL (0.1-0.6) 08/17/24 05:36
Absolute Basos (auto) 0.0 10^3/uL (0-0.2) 08/17/24 05:36
Immature Gran % 0.5 % (0-0.5) 08/17/24 05:36
Neutrophils % 56.0 % (42.2-75.2) 08/17/24 05:36
Lymphocytes % 30.8 % (20.5-51.1) 08/17/24 05:36
Monocytes % 7.9 % (1.7-9.3) 08/17/24 05:36
Eosinophils % 3.8 % (0-6) 08/17/24 05:36
Basophils % 1.0 % (0-2) 08/17/24 05:36
Microbiology Results
Micro:
08/14/24 17:10 Wound Culture - Final
Sacral Escherichia coli
Klebsiella aerogenes
Staph aureus MRSA
Gram Stain - Final
Imaging:
04/27/2024 CT chest (PE study): No evidence of pulmonary embolism. Bilateral pleural effusions noted. Mild right hilar lymphadenopathy felt to be reactive. Please see full dictation for additional detail.
Assessment / Plan
Right sacral wound
Reported hypotension; resolved
Diabetes mellitus
Hypertension
Dyslipidemia
paroxysmal Atrial fibrillation
Heart failure with preserved EF
BPH with chronic indwelling Alvarado catheter
Right carotid artery stenosis status post stent
Depression
Recommendations:
At present, no evidence of infection.
Wound culture results noted, and likely reflects superficial colonization.
May consider surgical evaluation (either inpatient or outpatient) to determine whether further debridement necessary.
Further antibiotics can be discontinued.
Would continue with local wound care. Dakin solution can be used to control superficial bioburden.
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
--- NOTE | 2024-08-17 16:00 | PTCARENOTE ---
While pt was getting up to the commode with OT, the tele franklin alarmed that pt was in vtach. ECG done showed sinus tach with PCVs and a left bundle branch block. Pt was asymptomatic. VSS. Dr. Trejo notified, new order provided to obtain mag. Unable
to obtain mag x2 attempts, pt agitated. Will inform phlebotomy.
[2024-08-17 16:33] LABS: Glucose - Point of Care 156 mg/dl (70-99)
[2024-08-17] MEDS: GLUCOPHAGE 500 MG PO (16:39)
[2024-08-17] MEDS: XARELTO 20 MG PO (17:53)
[2024-08-17 19:51] LABS: Magnesium 1.6 mg/dl (1.6-2.3)
[2024-08-17] MEDS: DESENEX/MITRAZOL/ZEASORB 1 APPLIC TOPICAL (21:21)
[2024-08-17] MEDS: FLOMAX 0.4 MG PO (21:24)
[2024-08-17 22:31] LABS: Glucose - Point of Care 144 mg/dl (70-99)
[2024-08-18 01:55] VITALS: BMI 23.3
[2024-08-18 05:54] VITALS: BP 130/84
[2024-08-18 07:00] VITALS: BP 108/73
[2024-08-18 07:16] LABS: Blood Urea Nitrogen 13 mg/dl (9-20); Calcium 7.9 mg/dl (8.4-10.2); Carbon Dioxide 18 mmol/L (22-30); Chloride 109 mmol/L (98-107); Estimated Creatinine Clearance 77 ml/min; Glucose 83 mg/dl (70-99); Magnesium 1.8 mg/dl (1.6-2.3); Potassium 4.3 mmol/L (3.5-5.1); Sodium 134 mmol/L (135-145); eGFR > 60.00
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
[2024-08-18] MEDS: JANUVIA 50 MG PO (09:03)
[2024-08-18] MEDS: GLUCOPHAGE 500 MG PO ×2 (09:03→17:17)
[2024-08-18] MEDS: PLAVIX 75 MG PO (09:03)
[2024-08-18] MEDS: VISBIOME 1 CAP PO (09:03)
[2024-08-18] MEDS: FEOSOL 325 MG PO (09:03)
[2024-08-18] MEDS: DESENEX/MITRAZOL/ZEASORB 1 APPLIC TOPICAL (09:04)
[2024-08-18 09:21] LABS: Glucose - Point of Care 99 mg/dl (70-99)
[2024-08-18] MEDS: NOVOLOG FLEXPEN-LOW RESISTANCE SC ×3 (09:28→16:54)
[2024-08-18 11:00] VITALS: BP 100/63
[2024-08-18 12:08] LABS: Glucose - Point of Care 110 mg/dl (70-99)
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
--- NOTE | 2024-08-18 13:08 | PTCARENOTE ---
patient confused, has language barrier, speaks Sinhala/Ethiopian, tolerating diet, turns with max assist x2-3, vss, will continue to monitor.
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
[2024-08-18 15:47] VITALS: BP 94/63
[2024-08-18 16:52] LABS: Glucose - Point of Care 140 mg/dl (70-99)
[2024-08-18] MEDS: XARELTO 20 MG PO (17:17)
[2024-08-18] MEDS: SANTYL OINTMENT 1 APPLIC TOPICAL (17:18)
[2024-08-18 19:55] VITALS: BP 107/68
[2024-08-18 21:41] LABS: Glucose - Point of Care 165 mg/dl (70-99)
[2024-08-18] MEDS: FLOMAX 0.4 MG PO (22:40)
[2024-08-18] MEDS: DESENEX/MITRAZOL/ZEASORB TOPICAL (22:52)
[2024-08-18 23:15] VITALS: BP 107/67
[2024-08-19] MEDS: TYLENOL 650 MG PO (01:08)
[2024-08-19 05:09] VITALS: BMI 24.3
[2024-08-19 07:27] LABS: Glucose - Point of Care 84 mg/dl (70-99)
[2024-08-19 07:48] VITALS: BP 114/76
[2024-08-19] MEDS: NOVOLOG FLEXPEN-LOW RESISTANCE SC ×3 (08:37→17:12)
[2024-08-19] MEDS: PLAVIX 75 MG PO (08:39)
[2024-08-19] MEDS: FEOSOL 325 MG PO (08:39)
[2024-08-19] MEDS: GLUCOPHAGE 500 MG PO ×2 (08:39→17:11)
[2024-08-19] MEDS: JANUVIA 50 MG PO (08:39)
[2024-08-19] MEDS: SANTYL OINTMENT 1 APPLIC TOPICAL (08:39)
[2024-08-19] MEDS: VISBIOME 1 CAP PO (08:39)
[2024-08-19] MEDS: DESENEX/MITRAZOL/ZEASORB 1 APPLIC TOPICAL (08:39)
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
--- NOTE | 2024-08-19 10:29 | CM ---
Addendum entered by Rachael Gamble 08/19/24 15:38:
Authorization for SNF submitted via
[facility]; phone # [phone]
Pending Authorization # [id number]
Addendum entered by Rachael Gamble 08/19/24 13:36:
[facility] has a SNF Bed available; and will also have a LTC bed
AUTH approval needed
[facility] NPI # [id number];
Provider: Preet NPI# [id number]
[facility]:
Report # [phone]

Addendum entered by Rachael Gamble 08/19/24 12:55:
JORGE LUIS spoke with Lenka Minaya via phone; referrals accepted @ [facility] or [facility] pending bed availability.
[facility] and [facility] are out of insurance network
JORGE LUIS also spoke with [facility] who reported that referral is in review
Plan: discharge to SNF pending bed availability and AUTH approval
Original Note:
JORGE LUIS spoke with [facility] # [phone]; instructed to secure SNF Bed when medically stable for discharge
[facility] and [facility] accepted referral pending bed availability; left a voice mail for Lenka Minaya for bed status
[facility] accepted referral
Plan: discharge to SNF when medically stable and placement secured
[2024-08-19 12:18] LABS: Glucose - Point of Care 100 mg/dl (70-99)
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
[2024-08-19 15:14] VITALS: BP 107/63
[2024-08-19 16:23] LABS: Glucose - Point of Care 139 mg/dl (70-99)
[2024-08-19] MEDS: XARELTO 20 MG PO (17:12)
--- NOTE | 2024-08-19 17:29 | CM ---
Addendum entered by Aysha Jacobo RN 08/20/24 09:51:
Correction to below note that Josefa at [facility] stated she and her Devulcanizer Operator had a long conversation with the patient's son, Chip, and he is in agreement with placing his Father in [facility]. Update to CM.
Original Note:
Call Received from Josefa at [facility], She stated that she and her Devulcanizer Operator had a long conversation with the patient's son Chip, and he is in agreement with placing his Mother in [facility].Update to CM.
[2024-08-19 21:21] LABS: Glucose - Point of Care 123 mg/dl (70-99)
[2024-08-19] MEDS: DESENEX/MITRAZOL/ZEASORB TOPICAL (22:40)
[2024-08-19] MEDS: FLOMAX 0.4 MG PO (22:40)
[2024-08-19 23:35] VITALS: BP 101/50
--- NOTE | 2024-08-20 03:40 | PTCARENOTE ---
Pt reused wound care earlier in shift.@ 0330; Pt incontinent of small soft brown BM.Pt allowed his wound care to be completed now.
[2024-08-20 05:58] VITALS: BMI 24.2
[2024-08-20 07:19] LABS: Glucose - Point of Care 80 mg/dl (70-99)
[2024-08-20 08:00] VITALS: BP 93/67
[2024-08-20] MEDS: GLUCOPHAGE 500 MG PO (08:53)
[2024-08-20] MEDS: JANUVIA 50 MG PO (08:53)
[2024-08-20] MEDS: NOVOLOG FLEXPEN-LOW RESISTANCE SC (08:53)
[2024-08-20] MEDS: VISBIOME 1 CAP PO (08:53)
[2024-08-20] MEDS: FEOSOL 325 MG PO (08:53)
[2024-08-20] MEDS: PLAVIX 75 MG PO (08:53)
[2024-08-20] MEDS: SANTYL OINTMENT TOPICAL ×2 (08:54→12:41)
[2024-08-20] MEDS: TYLENOL 650 MG PO (08:55)
[2024-08-20] MEDS: DESENEX/MITRAZOL/ZEASORB 1 APPLIC TOPICAL (08:58)
--- NOTE | 2024-08-20 09:06 | CM ---
Addendum entered by Rachael Gamble 08/20/24 10:40:
Met with patient at the bedside while son was on speaker phone
IMM benefit explained; conversation documented
Son explained discharge plan/ambulance picker tender time to father and stated that patient and family is agreeable
CM plugged in patient's cell phone and place it on bedside table for patient's easy access as requested by Son
Ambulance picker tender scheduled for [phone] today
[facility]:
Report # [phone]

Original Note:
Insurance authorization for [facility] was approved starting today, 08/20 - 08/24/2024
Authorization # [id number]
Facility should contact [facility] Neonatal Icu Coordinator, Radha Hernandez @ # [phone]

Plan: Discharge to [facility] SNF via ambulance
Report # [phone]
--- NOTE | 2024-08-20 09:22 | W.PN.ID1 ---
Date of Service
Date of Service: August 20, 2024
Today's Communication
Monitor off abx. Local wound care.
Assessment / Plan
Right sacral wound
Hypotension; resolved
Diabetes mellitus
Hypertension
Dyslipidemia
Paroxysmal atrial fibrillation
Heart failure with preserved EF
BPH with chronic indwelling Alvarado catheter
Right carotid artery stenosis status post stent
Depression
Recommendations:
Given overlying eschar, sacral wound is unstageable, but appears stable, without significant malodor, and without periwound erythema or other signs and symptoms of infection.
Wound culture results noted, and reflects superficial colonization. No need to treat.
Monitor off antibiotics.
Continue with local wound care. Dakin solution can be used to control superficial bioburden.
����������������������������������������������������������
Chief Complaint
-: Other (Sacral decubiti)
Subjective / Review of Systems
Review of Systems: No Fever
Vital Signs / Physical Exam
Vital Signs
Vital Signs
Temp Pulse Resp BP Pulse Ox
97.7 F 91 16 93/67 98
08/20/24 08:00 08/20/24 08:00 08/20/24 08:00 08/20/24 08:00 08/20/24 08:00
Physical Exam
Constitutional: No Acute Distress, Comfortable, Chronically Ill and Non-toxic
Eyes: Sclera Anicteric
Pulmonary: Non Labored
Gastrointestinal: Non Distended
Wound: Other (Sacral wound dressed. )
Neurological: Awake and Alert
Psychological: Calm
Objective Data
Lab Data
Lab Results
08/17/24 05:36
08/18/24 06:18
Estimated Creat Clear 77 ml/min 08/18/24 06:18
Total Bilirubin 0.6 mg/dl (0.2-1.3) 08/14/24 14:38
AST 9 U/L (17-59) L 08/14/24 14:38
ALT < 10 U/L (0-50) 08/14/24 14:38
Alkaline Phosphatase 101 U/L (38-126) 08/14/24 14:38
Most recent labs reviewed.
Micro Results:
08/14/24 17:10 Wound Culture - Final
Sacral Escherichia coli
Klebsiella aerogenes
Staph aureus MRSA
Gram Stain - Final
Imaging:
04/27/2024 CT chest (PE study): No evidence of pulmonary embolism. Bilateral pleural effusions noted. Mild right hilar lymphadenopathy felt to be reactive. Please see full dictation for additional detail.
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
[2024-08-20 11:53] LABS: Glucose - Point of Care 238 mg/dl (70-99)
[2024-08-20] MEDS: NOVOLOG FLEXPEN-LOW RESISTANCE 2 UNITS SC (12:24)
--- NOTE | 2024-08-20 12:45 | PTCARENOTE ---
patient refused wound care today, despite explaining to patient benefits of changing dressing as ordered, tolerating diet, turns with assist x2, vss, for discharge to [facility].
[2024-08-20 13:01] VITALS: BP 100/69
== END 2024-08-20 13:06 | DRG 593 ==
LOC: 3 WEST ACU 16:04
PROVIDERS: Internal Medicine; Physician Assistant; Registered Nurse; ADMITTING PHYSICIAN Hospitalist; ATTENDING PHYSICIAN Hospitalist; EMERGENCY PHYSICIAN Emergency Medicine; OTHER PHYSICIAN Internal Medicine Infectious Disease
DX: L89.150 Pressure ulcer of sacral region, unstageable (principal); I50.32 Chronic diastolic (congestive) heart failure; J84.9 Interstitial pulmonary disease, unspecified; R64 Cachexia; I95.9 Hypotension, unspecified; I48.0 Paroxysmal atrial fibrillation; I25.10 Atherosclerotic heart disease of native coronary artery without angina pectoris; I11.0 Hypertensive heart disease with heart failure; D50.9 Iron deficiency anemia, unspecified; E78.00 Pure hypercholesterolemia, unspecified; I65.21 Occlusion and stenosis of right carotid artery; N40.1 Benign prostatic hyperplasia with lower urinary tract symptoms; R33.8 Other retention of urine; E11.51 Type 2 diabetes mellitus with diabetic peripheral angiopathy without gangrene; N31.9 Neuromuscular dysfunction of bladder, unspecified; N32.81 Overactive bladder; F32.A Depression, unspecified; R53.1 Weakness; R26.89 Other abnormalities of gait and mobility; E87.6 Hypokalemia; F03.90 Unspecified dementia, unspecified severity, without behavioral disturbance, psychotic disturbance, mood disturbance, and anxiety; Z96.641 Presence of right artificial hip joint; Z74.01 Bed confinement status; Z95.2 Presence of prosthetic heart valve; Z87.891 Personal history of nicotine dependence; Z79.02 Long term (current) use of antithrombotics/antiplatelets; Z79.84 Long term (current) use of oral hypoglycemic drugs; Z79.01 Long term (current) use of anticoagulants; Z68.24 Body mass index [BMI] 24.0-24.9, adult
CPT/HCPCS: 80048; 80076; 80202; 82962; 83036; 83735; 84132; 85025; 85027; 87070; 87077; 87147; 87186; 87205; 93005; 96361; 96365; 96375; 97162; 97167; 97530; 97535; 99284

== ENCOUNTER → 2024-10-14 11:55 | Outpatient (REF) | payer MEDICARE, SELFPAY ==
[2024-10-14 17:15] LABS: Urine Albumin 2+ (Neg - Trace); Urine Bilirubin Negative (Negative); Urine Character Very Cloudy (Clear); Urine Color Amber; Urine Glucose Negative (Negative); Urine Ketone Negative (Negative); Urine Leukocyte 2+ (Negative); Urine Nitrite Positive (Negative); Urine Occult Blood 4+ (Negative); Urine Urobilinogen Negative (Neg - 1+)
[2024-10-14 17:37] LABS: Urine Red Blood Cell >100 /HPF (0-2); Urine Triple Phosphate Crystal Present; Urine White Cell >100 /HPF (0-5)
== END ==
LOC: CLAB 11:55
PROVIDERS: ATTENDING PHYSICIAN Surgery; FAMILY PHYSICIAN Nurse Practitioner Adult Health
DX: N39.0 Urinary tract infection, site not specified (principal)
CPT/HCPCS: 81003; 81015; 87086

== ENCOUNTER → 2024-10-23 08:45 | Outpatient (REF) | payer MEDICARE, SELFPAY ==
[2024-10-23 15:59] LABS: % Basophils 0.7 % (0-2); % Immature Granulocytes 0.4 % (0-0.5); % Lymphocytes 21.6 % (20.5-51.1); % Monocytes 7.2 % (1.7-9.3); % Neutrophils 68.1 % (42.2-75.2); Absolute Basophils 0.1 10^3/uL (0-0.2); Absolute Eosinophils 0.2 10^3/uL (0-0.7); Absolute Lymphocytes 1.6 10^3/uL (1.2-3.4); Absolute Monocytes 0.5 10^3/uL (0.1-0.6); Hematocrit 29.1 % (39.0-52.0); Mean Corp Hgb Conc. 34.4 g/dL (33.0-37.0); Mean Corpuscular Hgb 31.9 pg (27.0-31.0); Mean Platelet Volume 9.5 fL (7.4-10.4); Nucleated Red Blood Cells % 0 % (-); Platelet Count 229 10^3/uL (130-400); Red Blood Cell Count 3.13 10^6/uL (4.70-6.10); White Blood Cell Count 7.4 10^3/uL (4.8-10.8)
[2024-10-23 16:13] LABS: ALT (SGPT) < 10 U/L (0-50); AST (SGOT) 8 U/L (17-59); Albumin 2.4 g/dl (3.5-5.0); Alkaline Phosphatase 73 U/L (38-126); Blood Urea Nitrogen 11 mg/dl (9-20); Calcium 8.2 mg/dl (8.4-10.2); Carbon Dioxide 25 mmol/L (22-30); Chloride 101 mmol/L (98-107); Glucose 105 mg/dl (70-99); Potassium 4.5 mmol/L (3.5-5.1); Sodium 134 mmol/L (135-145); Total Bilirubin 0.4 mg/dl (0.2-1.3); Total Protein 5.2 g/dl (6.3-8.2); eGFR > 60.00
== END ==
LOC: CLAB 08:45
PROVIDERS: ATTENDING PHYSICIAN Nurse Practitioner Adult Health
DX: N39.0 Urinary tract infection, site not specified (principal); I11.0 Hypertensive heart disease with heart failure; I48.0 Paroxysmal atrial fibrillation
CPT/HCPCS: 36415; 80053; 85025

== ENCOUNTER → 2024-11-10 15:40 | Outpatient (REF) | payer MEDICARE, SELFPAY | LOC: CLAB 15:40 | PROVIDERS: ATTENDING PHYSICIAN Nurse Practitioner Adult Health | DX: A04.71 Enterocolitis due to Clostridium difficile, recurrent (principal) | CPT/HCPCS: 87324; 87449 ==

== ENCOUNTER 2024-12-07 17:05 | Emergency (ER) | payer MEDICARE, SELFPAY ==
[2024-12-07 17:26] VITALS: BP 110/67
--- NOTE | 2024-12-07 17:27 | ED.GENMED ---
ED Provider Triage
<Gisselle Hameed NP - Last Filed: 12/07/24 17:30>
-
Patient seen by provider in Triage?: Seen in Triage
Attestation: A medical screening examination has been initiated by a qualified medical provider. Based on the assessment performed at this time, it has been determined that an emergent medical condition may exist and the patient has been informed
that further medical evaluation and possible additional diagnostic testing may be needed.
HPI: 89-year-old male w h/o hypertension, dyslipidemia, diabetes mellitus, paroxysmal atrial fibrillation, diastolic CHF, BPH with chronic indwelling Alvarado catheter, depression, peripheral vascular disease, mostly bedbound from home is seen by
visiting nurse, visiting nurse reported that his heart rate was elevated per EMS. He arrives with heart rate in 90s. He denies CP, SOB, abdominal pain. He states he's here because 'my family wants me checked.'
GENERAL: Alert , in no apparent distress
EYE: No visual abnormalities.
NECK: Trachea midline
ENT: No visible abnormalities.
LUNGS: No acute respiratory distress
NEUROLOGICAL: Alert and oriented
SKIN: Skin intact. No visible changes.
MUSCULOSKELETAL: Moving extremities normally
PSYCH: Normal and appropriate interaction.
This is a medical evaluation conducted in person to initiate diagnostic evaluation and provide initial therapeutics. Please see further documentation by the treating clinician.
History of Present Illness
<Gisselle Hameed EXTRA HAND - Last Filed: 12/07/24 17:30>
General
Chief Complaint: Male Genito-Urinary Symptoms
Time Seen by Provider: 12/07/24 20:39
<Javier Abdi MD - Last Filed: 12/07/24 22:32>
General
Source: patient, records and family
Exam Limitations: none
Nursing documentation reviewed up to this point in time: agreed with
History of Present Illness
History of Present Illness:
89-year-old male with a past medical history of hypertension, hyperlipidemia, BPH with chronic Alvarado catheter, diabetes who presents to the emergency room via EMS for evaluation after an episode of tachycardia. Patient currently lives at home with
his and his 98-year-old [id number] as well as a 24-hour caregiver. Apparently today he had an episode of marked tachycardia and apparently appeared to be mildly tachypneic during the episode�according to his son who I spoke with directly
his heart rate was apparently 110-120 and EMS was called to the have him evaluated in an abundance of caution despite the fact that his symptoms passed after a few minutes. When I asked the patient about this episode he says that it was 'mental.'
He says that he did not and does not feel short of breath. He says he has a chronic cough from dry mouth but no different. He says he had a chest x-ray recently which was normal. He has a chronic Alvarado catheter apparently urine was cloudy,
catheter was apparently exchanged today by his visiting nurse. He denies any abdominal or flank pain. Denies any fevers or chills. He denies any chest pain or shortness of breath. He says that he wants to go home.
Past History
<Gisselle Hameed NP - Last Filed: 12/07/24 17:30>
Past History
ED Past Medical History: Arrthythmia (Atrial fib), Cancer (Prostate), CHF, COPD, HTN, Hypercholesterolemia, NIDDM, Valvular disease, Other (Empyema, BPH, chronic indwelling Alvarado catheter, intermittent bladder spasms, UTi, ) and Other (Benign
prostate hypertrophy)
ED Past Surgical History: Cardiac (Valve replacement) and Orthopedic (right hip surgery)
Patient has exhibited threatening behavior?: No
PSI?: No
Social History
Tobacco: Former smoker
Alcohol: Occasional
Drug: None
Personal:
Living: [facility] ([facility])
Employment: Retired
Family History
Family History: Other
Review of Systems
<Javier Abdi MD - Last Filed: 12/07/24 22:32>
Review of Systems
All Other Systems: ROS reviewed and negative except as documented in HPI and ROS
Constitutional: Denies fever
Respiratory: Reports cough (Chronic unchanged); Denies trouble breathing
Cardiac: Denies chest pain or palpitations
ABD/GI: Denies abdominal pain, nausea or vomiting
: Reports dark urine; Denies flank pain
Musculoskeletal: Denies neck pain or back pain
Neurological: Denies dizzy or headache
Phy Exam
<Javier Abdi MD - Last Filed: 12/07/24 22:32>
Physical Exam
Physical Exam:
General: Awake, alert, oriented x3; no acute distress
Head: Normocephalic, atraumatic
Eyes: Conjunctiva normal, sclera anicteric
Throat: Airway intact, handling secretions
Neck: Trachea midline, supple without meningismus
Lungs: Clear to auscultation bilaterally, no wheezing, rales, rhonchi
Heart: Regular rate and rhythm, systolic murmur
Abd: Soft, non distended, nontender; chronic Alvarado catheter in place, dark yellow urine no sediment noted in the bag
Neuro: No gross deficits
Skin: no rash
Extremities: No edema in extremities, equal pulses in all extremities
Scores
<Javier Abdi MD - Last Filed: 12/07/24 22:32>
Heart Failure Risk
Heart Failure Risk Score: Not Applicable
Heart Score for Chest Pain Patients
STEMI patient?: Not applicable
Withdrawal Assessment of Alcohol
Withdrawal Assessment Completed?: Not applicable
Course
<Gisselle Hameed NP - Last Filed: 12/07/24 17:30>
Orders/Labs/Results
Orders:
Orders
12/07/24 17:35
Complete Blood Count/With Diff Urgent
Comprehensive Metabolic Panel Urgent
12/07/24 17:49
Urinalysis Reflex To Culture Urgent
Date Specimen was Collected: 12/07/24
Time Specimen was Collected: 17:32
Urine Microscopic Reflex Cult Urgent
Urine Culture Urgent
VICTOR HUGO Source: U
Specimen Description:
Date Specimen was Collected: 12/07/24
Time Specimen was Collected: 17:32
12/07/24 21:46
Encourage PO Hydration-Treatme ONCE
12/07/24 21:48
Ciprofloxacin HCl [Cipro] 500 mg PO ONCE ONE
12/07/24 22:12
Electrocardiogram (*1) Urgent
Reason for Study: Bradycardia / Tachycardia
EKG- Treatment ONCE
Abnormal Lab Results
12/07/24 12/07/24
17:35 17:49
RBC 3.95 L 10^6/uL
(4.70-6.10)
Hgb 11.5 L g/dL
(13.0-18.0)
Hct 35.5 L %
(39.0-52.0)
MCHC 32.4 L g/dL
(33.0-37.0)
RDW 15.0 H %
(11.5-14.5)
Absolute Neuts (auto) 7.1 H 10^3/uL
(1.4-6.5)
Absolute Monos (auto) 0.7 H 10^3/uL
(0.1-0.6)
Lymphocytes % 16.9 L %
(20.5-51.1)
Sodium 133 L mmol/L
(135-145)
Glucose 166 H mg/dl
(70-99)
AST 10 L U/L
(17-59)
Total Protein 6.1 L g/dl
(6.3-8.2)
Albumin 2.9 L g/dl
(3.5-5.0)
Ur Occult Blood Reflex 3+ A
(Negative)
Leukocyte Esterase Rfl 2+ A
(Negative)
Urine WBC (Reflex) >100 A /HPF
(0-5)
Urine Bacteria (Reflex) Moderate A
(Negative)
Urine Albumin (Reflex) 2+ A
(Neg - Trace)
12/07/24 17:35
12/07/24 17:35
Vital Signs
Initial and Last Documented VS:
Initial Vital Signs
Temp Pulse Resp BP Pulse Ox
36.4 C 98 20 110/67 100
12/07/24 17:26 12/07/24 17:26 12/07/24 17:26 12/07/24 17:26 12/07/24 17:26
Last Documented Vital Signs
Temp Pulse Resp BP Pulse Ox
36.4 C 80 21 98/59 97
12/07/24 17:26 12/07/24 21:45 12/07/24 21:45 12/07/24 21:00 12/07/24 21:45
<Javier Abdi MD - Last Filed: 12/07/24 22:32>
Orders/Labs/Results
Orders:
Orders
12/07/24 17:35
Complete Blood Count/With Diff Urgent
Comprehensive Metabolic Panel Urgent
12/07/24 17:49
Urinalysis Reflex To Culture Urgent
Date Specimen was Collected: 12/07/24
Time Specimen was Collected: 17:32
Urine Microscopic Reflex Cult Urgent
Urine Culture Urgent
VICTOR HUGO Source: U
Specimen Description:
Date Specimen was Collected: 12/07/24
Time Specimen was Collected: 17:32
12/07/24 21:46
Encourage PO Hydration-Treatme ONCE
12/07/24 21:48
Ciprofloxacin HCl [Cipro] 500 mg PO ONCE ONE
12/07/24 22:12
Electrocardiogram (*1) Urgent
Reason for Study: Bradycardia / Tachycardia
EKG- Treatment ONCE
Abnormal Lab Results
12/07/24 12/07/24
17:35 17:49
RBC 3.95 L 10^6/uL
(4.70-6.10)
Hgb 11.5 L g/dL
(13.0-18.0)
Hct 35.5 L %
(39.0-52.0)
MCHC 32.4 L g/dL
(33.0-37.0)
RDW 15.0 H %
(11.5-14.5)
Absolute Neuts (auto) 7.1 H 10^3/uL
(1.4-6.5)
Absolute Monos (auto) 0.7 H 10^3/uL
(0.1-0.6)
Lymphocytes % 16.9 L %
(20.5-51.1)
Sodium 133 L mmol/L
(135-145)
Glucose 166 H mg/dl
(70-99)
AST 10 L U/L
(17-59)
Total Protein 6.1 L g/dl
(6.3-8.2)
Albumin 2.9 L g/dl
(3.5-5.0)
Ur Occult Blood Reflex 3+ A
(Negative)
Leukocyte Esterase Rfl 2+ A
(Negative)
Urine WBC (Reflex) >100 A /HPF
(0-5)
Urine Bacteria (Reflex) Moderate A
(Negative)
Urine Albumin (Reflex) 2+ A
(Neg - Trace)
12/07/24 17:35
12/07/24 17:35
Vital Signs
Initial and Last Documented VS:
Initial Vital Signs
Temp Pulse Resp BP Pulse Ox
36.4 C 98 20 110/67 100
12/07/24 17:26 12/07/24 17:26 12/07/24 17:26 12/07/24 17:26 12/07/24 17:26
Last Documented Vital Signs
Temp Pulse Resp BP Pulse Ox
36.4 C 80 21 98/59 97
12/07/24 17:26 12/07/24 21:45 12/07/24 21:45 12/07/24 21:00 12/07/24 21:45
<Javier Abdi MD - Last Filed: 12/07/24 22:32>
MDM/Problems Addressed
Differential Diagnosis Includes:
Infection, anemia, electrolyte derangement/dehydration, anxiety, atrial tach/SVT
MDM/Problems Addressed:
89-year-old male presents to the emergency room for evaluation after an episode of tachycardia and tachypnea at home. Symptoms resolved after a brief period and he says that he was anxious�'it was mental.' He says that he feels well and has no
complaints. His heart rate is in the 80s here. Rest of vitals normal. Physical exam as above. We sent labs including a CBC which showed stable anemia. CMP no clinically significant abnormalities. His urinalysis is abnormal�he has chronic Alvarado
catheter which requires complicates results. He is not having urinary symptoms but given his tachycardia today would err towards treating for UTI�reviewed prior cultures we will treat with ciprofloxacin. Initially plan for chest x-ray but patient
declined he says that he does not need one, he does not feel short of breath and he wishes to go home. His lungs sound clear he is not tachypneic and is not hypoxic, will forego chest x-ray. I had a long discussion on the phone with his son, no
clear indication for hospital admission at this point patient is declining admission and wishes to go home. I do not think is unreasonable. Will discharge with outpatient PCP follow-up, patient has good support at home and will return with any
issues. All questions answered.
Chronic conditions affecting care:
Chronic Alvarado catheter/BPH
<Javier Abdi MD - Last Filed: 12/07/24 22:32>
*Pulse Oximetry
Patient hypoxic: no
*EKG
Interpreted by ED Provider?: Yes
Heart Rate: 81
Rate: normal
Rhythm: sinus
[place]: left axis deviation
Interval: first degree heart block
QRS Pattern: left bundle branch block
Ischemia: no ischemia
*Critical Care Note
Total Time (30-74mins, 75-104mins- exclusive of procedures): Not Applicable
Data Reviewed
Review of Other/Old Records Reveals: Labs, Records and Testing (urine cultures)
Source: patient, records, family and ambulance crew
<Javier Abdi MD - Last Filed: 12/07/24 22:32>
Patient Management
Social determinants of health affecting care: Strong social support
Escalation/DeEscalation of care consider admission/obs:
Considered observation admission but after discussion with patient and family will discharge with close follow-up
ED Attending Note
<Gisselle Hameed NP - Last Filed: 12/07/24 17:30>
-
Portions of this chart may have been created with voice recognition software.� Occasional wrong word or��sound alike� substitutions may have occurred due to the inherent limitations of voice recognition software.
Discharge Plan
Departure
Patient Disposition: Home (Routine Discharge)
Date of Disposition: 12/07/24
Time of Disposition: 21:58
Patient with high blood pressure during this ER visit?: No
Discharge Problem:
Acute UTI, Tachycardia
Instructions: Urinary tract infections in adults
Prescriptions:
New
ciprofloxacin HCl 500 mg tablet
500 mg PO BID Qty: 14 0RF
No Action
clopidogrel [Plavix] 75 mg tablet
75 mg PO DAILY 30 Days Qty: 30 0RF
ferrous sulfate 325 mg (65 mg iron) Tablet
325 mg PO DAILY
tamsulosin 0.4 MG capsule
0.4 mg PO HS
Xarelto 20 mg tablet
20 mg PO QPM
cyanocobalamin (vitamin B-12) 1,000 MCG tablet
1,000 mcg PO DAILY
metformin 500 mg Tablet
500 mg PO BID
ascorbic acid (vitamin C) [Vitamin C] 1,000 mg Tablet
1 g PO DAILY
calcium carbonate-vitamin D3 600 mg-5 mcg (200 unit) Tablet
1 tab PO BID
Januvia 50 mg Tablet
50 mg PO DAILY
Visbiome 112.5 billion cell Capsule
1 cap PO DAILY
olive leaf extract 250 mg Capsule
250 mg PO DAILY
Gemtesa 75 mg Tablet
75 mg PO DAILY@1500
d-mannose 500 mg Capsule
500 mg PO DAILY
Referrals:
UNKNOWN - PT DOES,NOT KNOW [Family Provider] -
Activity Restrictions/Additional Instructions:
Thank you for visiting the Emergency Department at [facility].
1. Please schedule a follow up appointment as directed. Call first thing tomorrow morning to make an appointment.
2. If indicated, please take your medications as instructed and indicated on discharge paperwork.
3. If any of your symptoms do not improve, or persist, or become more severe within 6-12 hours, please return to the emergency department for further care.
4. Please return to the emergency department if you develop a headache, neck pain/stiffness, fever greater than 100.4F, chest pain, shortness of breath, persistent nausea, vomiting, slurred speech, difficulty walking, numbness/tingling, weakness,
signs of infection or any other symptoms that are worrisome to you.
Please call [phone] if you have any questions.
Interventions
Interventions:
*Risk Screen - Suicide Last Done: 12/07/24 17:26
*General Assessment Last Done: 12/07/24 17:26
*Neglect/Abuse Screening Last Done: 12/07/24 17:26
ED- Fall Risk Assessment Last Done: 12/07/24 21:12
*ED COVID-19 Vaccine History Last Done: 12/07/24 21:12
ED-Male Genitourinary Assessment Last Done: 12/07/24 21:12
Discharge Date and Time
Print Language: CITIZEN OF [place]
[2024-12-07 17:53] LABS: % Basophils 0.6 % (0-2); % Eosinophils 0.7 % (0-6); % Immature Granulocytes 0.3 % (0-0.5); % Lymphocytes 16.9 % (20.5-51.1); % Monocytes 6.8 % (1.7-9.3); % Neutrophils 74.7 % (42.2-75.2); Absolute Basophils 0.1 10^3/uL (0-0.2); Absolute Eosinophils 0.1 10^3/uL (0-0.7); Absolute Lymphocytes 1.6 10^3/uL (1.2-3.4); Absolute Monocytes 0.7 10^3/uL (0.1-0.6); Absolute Neutrophils 7.1 10^3/uL (1.4-6.5); Hematocrit 35.5 % (39.0-52.0); Hemoglobin 11.5 g/dL (13.0-18.0); Mean Corp Hgb Conc. 32.4 g/dL (33.0-37.0); Mean Corpuscular Hgb 29.1 pg (27.0-31.0); Mean Corpuscular Volume 89.9 fL (80.0-94.0); Mean Platelet Volume 8.5 fL (7.4-10.4); Nucleated Red Blood Cells % 0 % (-); Platelet Count 291 10^3/uL (130-400); Red Blood Cell Count 3.95 10^6/uL (4.70-6.10); White Blood Cell Count 9.5 10^3/uL (4.8-10.8)
[2024-12-07 18:01] LABS: Urine Albumin 2+ (Neg - Trace); Urine Bilirubin Negative (Negative); Urine Character Very Cloudy (Clear); Urine Color Yellow; Urine Glucose Negative (Negative); Urine Ketone Negative (Negative); Urine Leukocyte 2+ (Negative); Urine Nitrite Negative (Negative); Urine Occult Blood 3+ (Negative); Urine Urobilinogen Negative (Neg - 1+)
[2024-12-07 18:07] LABS: Urine Calcium Oxalate Crystals Present; Urine Squamous Cell 0-2 /LPF (Few)
[2024-12-07 18:08] LABS: ALT (SGPT) < 10 U/L (0-50); AST (SGOT) 10 U/L (17-59); Albumin 2.9 g/dl (3.5-5.0); Alkaline Phosphatase 87 U/L (38-126); Blood Urea Nitrogen 12 mg/dl (9-20); Calcium 8.9 mg/dl (8.4-10.2); Carbon Dioxide 28 mmol/L (22-30); Chloride 99 mmol/L (98-107); Glucose 166 mg/dl (70-99); Potassium 4.6 mmol/L (3.5-5.1); Sodium 133 mmol/L (135-145); Total Bilirubin 0.4 mg/dl (0.2-1.3); Total Protein 6.1 g/dl (6.3-8.2); eGFR > 60.00
[2024-12-07 18:09] LABS: Urine White Cell >100 /HPF (0-5)
[2024-12-07 18:10] LABS: Urine Bacteria Moderate (Negative)
[2024-12-07 20:39] VITALS: BP 130/85
[2024-12-07 21:00] VITALS: BP 98/59
[2024-12-07] MEDS: CIPRO 500 MG PO (22:01)
[2024-12-07 22:04] VITALS: BP 107/66
[2024-12-07 23:00] VITALS: BP 95/67
[2024-12-08] VITALS: BP 102/69
[2024-12-08 01:00] VITALS: BP 93/60
[2024-12-08 02:00] VITALS: BP 94/59
[2024-12-08 03:00] VITALS: BP 91/58
== END 2024-12-08 04:12 | disposition home or self-care (01) ==
LOC: EMR 17:05
PROVIDERS: Registered Nurse; EMERGENCY PHYSICIAN Emergency Medicine
DX: N39.0 Urinary tract infection, site not specified (principal); R00.0 Tachycardia, unspecified; Z87.891 Personal history of nicotine dependence; I11.0 Hypertensive heart disease with heart failure; I50.32 Chronic diastolic (congestive) heart failure; I48.0 Paroxysmal atrial fibrillation; E11.9 Type 2 diabetes mellitus without complications
CPT/HCPCS: 99284; 80053; 81003; 81015; 85025; 87086; 93005

== ENCOUNTER 2025-03-01 14:34 | Emergency (ER) | payer MEDICARE, SELFPAY ==
--- NOTE | 2025-03-01 14:39 | ED.GENMED ---
History of Present Illness
General
Source: patient
Exam Limitations: none
Time Seen by Provider: 03/01/25 14:36
History of Present Illness
History of Present Illness:
See MDM
Past History
Past History
ED Past Medical History: Arrthythmia (Atrial fib), Cancer (Prostate), CHF, COPD, HTN, Hypercholesterolemia, NIDDM, Valvular disease, Other (Empyema, BPH, chronic indwelling Alvarado catheter, intermittent bladder spasms, UTi, ) and Other (Benign
prostate hypertrophy)
ED Past Surgical History: Cardiac (Valve replacement) and Orthopedic (right hip surgery)
Patient has exhibited threatening behavior?: No
PSI?: No
Social History
Tobacco: Former smoker
Alcohol: Occasional
Drug: None
Personal:
Living: assisted ([facility])
Employment: Retired
Family History
Family History: Other
Phy Exam
Physical Exam
Physical Exam:
See MDM
Course
Orders/Labs/Results
Orders:
Orders
03/01/25 14:39
Alvarado Placement- Treatment ONCE
Reason for insertion: Chronic Alvarado on Admit
Procedures
Urinary Catheter
Procedure completed by: Daryl Rivera DO
Type of urinary catheter: indwelling catheter
Catheter size (kazakh): 16
Urine description: clear and yellow
Urine output (ml): 200
MDM/Problems Addressed
Differential Diagnosis Includes:
HPI and MDM Narrative:
89-year-old male presenting for Alvarado catheter placement. He pulled his Alvarado catheter out at his facility. He is on Plavix. Patient does have blood pooling by his penis. Patient likely injured the prostate. Will replace his 16 Liberian Alvarado
with another 16 Liberian Alvarado and pull some pressure on the catheter to help tamponade the bleed
Physical exam
General: Well appearing and non-toxic
HEENT: protecting airway
Neck: appears supple
CV: No evidence of cyanosis
Resp: No accessory muscle use
Abd: Non-distended
: Bleeding noted from urethra
Extremities: No deformities
Neuro: alert
Psych: Normal affect
Skin: Intact
Problems Addressed including Acute and Chronic Conditions affecting care:
1. Prostate and urethral injury
Acuity: acute
Prognosis: stable
Details: Will replace Alvarado catheter and put mild pressure on it to help tamponade the bleed
Updates
Nursing staff unable to place Alvarado catheter. I was able to place 16 Liberian coud� Alvarado catheter without difficulty. Clear urine returned
Differential Diagnosis (but not limited to): Prostate injury, urethral injury
Testing considered: Urinalysis
Drug therapy (if applicable): OTC meds, please see d/c instruction regarding Rx drugs
Amount and/or Complexity of Data Reviewed
Clinical info obtained from: Patient
External data reviewed: N/A
Labs I independently reviewed (but not limited to): N/A
Radiology: N/A
Pulse Ox: not hypoxic
EKG independently reviewed: N/A
Literary Agent: N/A
Critical Care: N/A
Risk of Complication:
Social Determinants of health: Good social support
Discussed with other providers: N/A
Escalation of Care includes Admit/Obs: After being observed in the Emergency Department, pt stable for discharge.
Occasional wrong word or 'sound a like' substitutions may have occurred due to the inherent limitations of voice recognition software. Read the chart carefully and recognize, using context, where substitutions have occurred.
*Critical Care Note
Total Time (30-74mins, 75-104mins- exclusive of procedures): Not Applicable
ED Attending Note
-
Portions of this chart may have been created with voice recognition software.� Occasional wrong word or��sound alike� substitutions may have occurred due to the inherent limitations of voice recognition software.
Discharge Plan
Departure
Patient Disposition: Home (Routine Discharge)
Date of Disposition: 03/01/25
Time of Disposition: 14:52
Patient with high blood pressure during this ER visit?: No
Discharge Problem:
Traumatic injury of prostate
Prescriptions:
No Action
clopidogrel [Plavix] 75 mg tablet
75 mg PO DAILY 30 Days Qty: 30 0RF
ferrous sulfate 325 mg (65 mg iron) Tablet
325 mg PO DAILY
tamsulosin 0.4 MG capsule
0.4 mg PO HS
Xarelto 20 mg tablet
20 mg PO QPM
cyanocobalamin (vitamin B-12) 1,000 MCG tablet
1,000 mcg PO DAILY
metformin 500 mg Tablet
500 mg PO BID
ascorbic acid (vitamin C) [Vitamin C] 1,000 mg Tablet
1 g PO DAILY
calcium carbonate-vitamin D3 600 mg-5 mcg (200 unit) Tablet
1 tab PO BID
Januvia 50 mg Tablet
50 mg PO DAILY
Visbiome 112.5 billion cell Capsule
1 cap PO DAILY
olive leaf extract 250 mg Capsule
250 mg PO DAILY
Gemtesa 75 mg Tablet
75 mg PO DAILY@1500
d-mannose 500 mg Capsule
500 mg PO DAILY
ciprofloxacin HCl 500 mg tablet
500 mg PO BID Qty: 14 0RF
Referrals:
Gustavo Hassan Jr., MD [Active] -
Activity Restrictions/Additional Instructions:
Please return for any worsening symptoms.
You may return at any time if you have further concerns.
Please follow up with your doctor at the first available appointment, preferably this week.
Please follow-up with urology.
Thank you for choosing [facility].
Discharge Date and Time
Print Language: [id number]
[2025-03-01 15:06] VITALS: BP 123/80
[2025-03-01 15:41] VITALS: BMI 20.7
[2025-03-01 17:43] VITALS: BP 151/94
== END 2025-03-01 18:29 | disposition home or self-care (01) ==
LOC: EMR 14:34
PROVIDERS: EMERGENCY PHYSICIAN Student in an Organized Health Care Education/Training Program
DX: S37.829A Unspecified injury of prostate, initial encounter (principal); X58.XXXA Exposure to other specified factors, initial encounter; I11.0 Hypertensive heart disease with heart failure; Z87.891 Personal history of nicotine dependence; Z79.02 Long term (current) use of antithrombotics/antiplatelets; Z46.6 Encounter for fitting and adjustment of urinary device
CPT/HCPCS: 99283; 51702

== ENCOUNTER 2025-04-06 11:34 | Emergency (ER) | payer MEDICARE, SELFPAY ==
[2025-04-06 11:44] VITALS: BP 118/71; BMI 21.1
--- NOTE | 2025-04-06 11:46 | ED.GENMED ---
Addendum entered and electronically signed by Jose Raul Edwards PA-C 04/07/25 13:13:
Received notification from micro lab that patient has positive blood culture. Patient has a positive aerobic blood culture bottle with gram-positive cocci in clusters. I contacted the patient and spoke to another family member as well as patient's
daughter. I recommended patient come back to the emergency department for redraw of the blood cultures as well as potential for admission for IV antibiotics.
Original Note:
History of Present Illness
General
Chief Complaint: Fever
Source: patient and records
Exam Limitations: none
Time Seen by Provider: 04/06/25 11:37
Nursing documentation reviewed up to this point in time: agreed with
History of Present Illness
History of Present Illness:
89-year-old male with past medical history of hypertension, hyperlipidemia, BPH with chronic Alvarado catheter, diabetes who presents to the emergency room from home for evaluation of fever. Visiting nurse who saw patient called ahead�patient
reportedly has had fever past few days. Is ordered for outpatient x-ray of the chest and he will (he has a chronic right heel wound) but these were not yet performed. They did note some dark urine with sediment in his chronic Alvarado. Patient says
that he feels generally unwell. He says he has had a mild cough. He denies any other specific complaints�denies any headache, chest pain, shortness of breath, abdominal pain, nausea/vomiting, diarrhea. He has a chronic heel wound but he says it
is not bothering him and he has not noted any drainage.
Past History
Past History
ED Past Medical History: Arrthythmia (Atrial fib), Cancer (Prostate), CHF, COPD, HTN, Hypercholesterolemia, NIDDM, Valvular disease, Other (Empyema, BPH, chronic indwelling Alvarado catheter, intermittent bladder spasms, UTi, ) and Other (Benign
prostate hypertrophy)
ED Past Surgical History: Cardiac (Valve replacement) and Orthopedic (right hip surgery)
Patient has exhibited threatening behavior?: No
PSI?: No
Social History
Tobacco: Former smoker
Alcohol: Occasional
Drug: None
Personal:
Living: long-term ([facility] rehab)
Employment: Retired
Family History
Family History: Other
Review of Systems
Review of Systems
All Other Systems: ROS reviewed and negative except as documented in HPI and ROS
Constitutional: Reports fever and fatigue
Respiratory: Reports cough; Denies trouble breathing
Cardiac: Denies chest pain
ABD/GI: Denies abdominal pain, nausea, vomiting or diarrhea
: Reports dark urine; Denies flank pain
Musculoskeletal: Denies neck pain or back pain
Skin: Reports other (Chronic right heel wound)
Phy Exam
Physical Exam
Physical Exam:
General: Awake, alert, oriented x3; no acute distress
Head: Normocephalic, atraumatic
Eyes: Conjunctiva normal, sclera anicteric
Throat: Airway intact, handling secretions
Neck: Trachea midline, supple without meningismus
Lungs: Clear to auscultation bilaterally, no wheezing, rales, rhonchi
Heart: Regular rate and rhythm, no murmurs, gallops, or rubs
Abd: Soft, non distended, nontender to deep palpation
: Alvarado catheter in place with dark yellow urine with some sediment
Skin: Patient has right heel wound with dressing in place; dressing was taken down: He has 2 shallow ulcerations with no drainage, no warmth, no erythema
Extremities: Bilateral lower extremity edema; extremities are warm and well-perfused
Scores
Heart Failure Risk
Heart Failure Risk Score: Not Applicable
Heart Score for Chest Pain Patients
STEMI patient?: Not applicable
Withdrawal Assessment of Alcohol
Withdrawal Assessment Completed?: Not applicable
Course
Orders/Labs/Results
Orders:
Orders
04/06/25
Electrocardiogram (*1) Stat
Reason for Study: Chest Pain
Comment: DONE
04/06/25 11:37
Alvarado Placement- Treatment ONCE
Reason for insertion: Chronic Alvarado on Admit
COVID-19 Antigen Urgent
Source: Nasal Swab
Complete Blood Count/With Diff Urgent
Comprehensive Metabolic Panel Urgent
Lactate Level [Lactic Acid] Urgent
Blood Culture Q30M
VICTOR HUGO Source: Blood/Venous
Specimen Description:
Influenza A+B Rapid Molecular Urgent
VICTOR HUGO Source: Nasal Swab
Specimen Description:
CR Foot - Right Min 3 Views Urgent
Comment:
Reason For Exam: foot wound, fever
04/06/25 11:38
CR Chest - 2 Views Urgent
Comment:
Reason For Exam: fever
04/06/25 12:23
Blood Culture Q30M
VICTOR HUGO Source: Blood/Venous
Specimen Description:
04/06/25 13:17
Urinalysis Reflex To Culture Urgent
Date Specimen was Collected: 04/06/25
Time Specimen was Collected: 11:54
Urine Microscopic Reflex Cult Urgent
Urine Culture Urgent
VICTOR HUGO Source: U
Specimen Description:
Date Specimen was Collected: 04/06/25
Time Specimen was Collected: 11:54
04/06/25 14:28
CefTRIAXone [Rocephin] 1,000 mg IV NOW STA
Abnormal Lab Results
04/06/25 04/06/25
11:37 13:17
RBC 3.79 L 10^6/uL
(4.70-6.10)
Hgb 11.3 L g/dL
(13.0-18.0)
Hct 34.1 L %
(39.0-52.0)
RDW 15.1 H %
(11.5-14.5)
Lymphocytes % 19.9 L %
(20.5-51.1)
Sodium 134 L mmol/L
(135-145)
Carbon Dioxide 31 H mmol/L
(22-30)
Creatinine 0.6 L mg/dL
(0.7-1.3)
Glucose 135 H mg/dl
(70-99)
AST 9 L U/L
(17-59)
Total Protein 5.8 L g/dl
(6.3-8.2)
Albumin 2.7 L g/dl
(3.5-5.0)
Ur Occult Blood Reflex 4+ A
(Negative)
Leukocyte Esterase Rfl 3+ A
(Negative)
Urine RBC 11-15 A /HPF
(0-2)
Urine WBC (Reflex) 50-60 A /HPF
(0-5)
Urine Bacteria (Reflex) Many A
(Negative)
Urine Albumin (Reflex) 2+ A
(Neg - Trace)
04/06/25 11:37
04/06/25 11:37
Vital Signs
Initial and Last Documented VS:
Initial Vital Signs
Temp Pulse Resp BP Pulse Ox
36.8 C 87 20 118/71 99
04/06/25 11:44 04/06/25 11:44 04/06/25 11:44 04/06/25 11:44 04/06/25 11:44
Last Documented Vital Signs
Temp Pulse Resp BP Pulse Ox
37.7 C 91 26 120/95 98
04/06/25 11:59 04/06/25 14:00 04/06/25 14:00 04/06/25 14:00 04/06/25 13:49
MDM/Problems Addressed
Differential Diagnosis Includes:
UTI, pneumonia, heel infection, bacteremia
MDM/Problems Addressed:
89-year-old male presents for fever; patient's only other specific complaint is cough. He says he feels generally unwell. Vitals and exam as above�notably afebrile here on rectal temp. Placed on IV check labs including a CBC and a CMP, lactate
and blood cultures. Send viral swabs. Check x-ray of the chest, x-ray of the heel. Will change catheter and send urinalysis. Will monitor closely reassess after the above.
Labs reviewed: CBC shows no leukocytosis�stable anemia. CMP no clinically significant abnormalities. Urinalysis is positive for infection�catheter was exchanged and fresh urine sample sent which was positive for infection; culture sent off. COVID
and flu were negative. Chest x-ray shows no acute disease. Foot x-ray shows no evidence for osteomyelitis and his wound does not appear to be acutely infected. At this point suspicion is for urinary tract infection. He has been hemodynamically
stable throughout, no fever here, heart rate 80s. I recommended that he be admitted given his age but he feels that he would prefer to go home�he does not want to stay in the hospital. He does have visiting nurse who I touch base with and they
will follow-up with him. I also spoke with patient's son to provide an update and ensure that they can excelsior picker his antibiotic and monitor at home. Will plan to discharge in keeping with his wishes on oral antibiotic but will provide a dose of IV
antibiotic prior to disposition.
Chronic conditions affecting care:
Chronic urinary retention with Alvarado catheter
*Radiology
Radiology exam reviewed: preliminary read by ED provider and radiology read reviewed
*Pulse Oximetry
Patient hypoxic: no
*Critical Care Note
Total Time (30-74mins, 75-104mins- exclusive of procedures): Not Applicable
Data Reviewed
Source: patient, records, ambulance crew and other (Visiting nurse)
Patient Management
Discussion with other providers: Other (Discussed with visiting nurse)
Escalation/DeEscalation of care consider admission/obs:
Recommended admission but patient declined, shared decision making discharged after dose of IV antibiotics for trial of outpatient antibiotics
ED Attending Note
-
Portions of this chart may have been created with voice recognition software.� Occasional wrong word or��sound alike� substitutions may have occurred due to the inherent limitations of voice recognition software.
Discharge Plan
Departure
Patient Disposition: Home (Routine Discharge)
Date of Disposition: 04/06/25
Time of Disposition: 14:35
Patient with high blood pressure during this ER visit?: No
Discharge Problem:
Acute UTI
Instructions: Urinary tract infections in adults
Prescriptions:
New
cefdinir 300 mg capsule
300 mg PO BID Qty: 20 0RF
No Action
clopidogrel [Plavix] 75 mg tablet
75 mg PO DAILY 30 Days Qty: 30 0RF
ferrous sulfate 325 mg (65 mg iron) Tablet
325 mg PO DAILY@1200
tamsulosin 0.4 MG capsule
0.4 mg PO HS
Xarelto 20 mg tablet
20 mg PO QPM
cyanocobalamin (vitamin B-12) 1,000 MCG tablet
1,000 mcg PO DAILY@1200
ascorbic acid (vitamin C) [Vitamin C] 1,000 mg Tablet
1,000 mg PO DAILY
Visbiome 112.5 billion cell Capsule
1 cap PO DAILY
olive leaf extract 250 mg Capsule
250 mg PO DAILY
Gemtesa 75 mg Tablet
75 mg PO DAILYPRN PRN (Reason: spasms)
d-mannose 500 mg Capsule
500 mg PO DAILY@1200
calcium polycarbophil [FiberCon] 625 mg Tablet
625 mg PO DAILY
alpha lipoic acid 100 mg Capsule
400 mg PO DAILY
omega 1-mwq-lek-fish oil [Fish Oil] 1,000 (120-180) mg Capsule
1 cap PO HS
turmeric 400 mg Capsule
400 mg PO DAILY@1200
Referrals:
UNKNOWN - PT NOT,INTERVIEWE [Family Provider] -
Activity Restrictions/Additional Instructions:
Thank you for visiting the Emergency Department at [facility].
1. Please schedule a follow up appointment as directed. Call first thing tomorrow morning to make an appointment.
2. If indicated, please take your medications as instructed and indicated on discharge paperwork.
3. If any of your symptoms do not improve, or persist, or become more severe within 6-12 hours, please return to the emergency department for further care.
4. Please return to the emergency department if you develop a headache, neck pain/stiffness, fever greater than 100.4F, chest pain, shortness of breath, persistent nausea, vomiting, slurred speech, difficulty walking, numbness/tingling, weakness,
signs of infection or any other symptoms that are worrisome to you.
Please call [phone] if you have any questions.
Interventions
Interventions:
*Risk Screen - Suicide Last Done: 04/06/25 11:44
*General Assessment Last Done: 04/06/25 11:44
*Neglect/Abuse Screening Last Done: 04/06/25 11:44
*ED- Fall Risk Assessment Last Done: 04/06/25 11:44
*ED COVID-19 Vaccine History Last Done: 04/06/25 11:53
ED- Neurological Assessment Last Done: 04/06/25 12:30
ED-Skin Assessment Last Done: 04/06/25 12:30
Discharge Date and Time
Print Language: TUVALUAN
[2025-04-06 12:00] VITALS: BP 109/68
[2025-04-06 12:21] LABS: % Basophils 0.8 % (0-2); % Eosinophils 2.9 % (0-6); % Immature Granulocytes 0.5 % (0-0.5); % Lymphocytes 19.9 % (20.5-51.1); % Monocytes 7.2 % (1.7-9.3); % Neutrophils 68.7 % (42.2-75.2); Absolute Basophils 0.1 10^3/uL (0-0.2); Absolute Eosinophils 0.2 10^3/uL (0-0.7); Absolute Lymphocytes 1.3 10^3/uL (1.2-3.4); Absolute Monocytes 0.5 10^3/uL (0.1-0.6); Absolute Neutrophils 4.3 10^3/uL (1.4-6.5); Hematocrit 34.1 % (39.0-52.0); Hemoglobin 11.3 g/dL (13.0-18.0); Mean Corp Hgb Conc. 33.1 g/dL (33.0-37.0); Mean Corpuscular Hgb 29.8 pg (27.0-31.0); Nucleated Red Blood Cells % 0 % (-); Platelet Count 250 10^3/uL (130-400); Red Blood Cell Count 3.79 10^6/uL (4.70-6.10); Red Cell Dist. Width 15.1 % (11.5-14.5); White Blood Cell Count 6.3 10^3/uL (4.8-10.8)
[2025-04-06 12:42] LABS: COVID-19 Antigen Negative (Negative)
[2025-04-06 12:43] LABS: ALT (SGPT) < 10 U/L (0-50); AST (SGOT) 9 U/L (17-59); Albumin 2.7 g/dl (3.5-5.0); Alkaline Phosphatase 77 U/L (38-126); Blood Urea Nitrogen 14 mg/dl (9-20); Calcium 8.8 mg/dl (8.4-10.2); Carbon Dioxide 31 mmol/L (22-30); Chloride 105 mmol/L (98-107); Estimated Creatinine Clearance 86 ml/min; Glucose 135 mg/dl (70-99); Lactic Acid 1.3 mmol/L (0.7-2.0); Potassium 4.7 mmol/L (3.5-5.1); Sodium 134 mmol/L (135-145); Total Bilirubin 0.6 mg/dl (0.2-1.3); Total Protein 5.8 g/dl (6.3-8.2); eGFR > 60.00
[2025-04-06 13:00] VITALS: BP 103/64
--- NOTE | 2025-04-06 13:25 | EDRN ---
After checking w/ Dr. Abdi and getting an okay pt given some apple juice to drink
[2025-04-06 13:31] LABS: Urine Albumin 2+ (Neg - Trace); Urine Bilirubin Negative (Negative); Urine Character Cloudy (Clear); Urine Color Yellow; Urine Glucose Negative (Negative); Urine Ketone Negative (Negative); Urine Leukocyte 3+ (Negative); Urine Nitrite Negative (Negative); Urine Occult Blood 4+ (Negative); Urine Specific Gravity 1.015 (<1.030); Urine Urobilinogen Negative (Neg - 1+)
[2025-04-06 14:00] VITALS: BP 120/95
--- NOTE | 2025-04-06 14:10 | EDRN ---
Pt wants to go home at this time.
[2025-04-06 14:21] LABS: Urine Squamous Cell 0-2 /LPF (Few)
[2025-04-06 14:22] LABS: Urine Amorphous Seen
[2025-04-06 14:24] LABS: Urine White Cell 50-60 /HPF (0-5)
[2025-04-06 14:25] LABS: Urine Bacteria Many (Negative)
[2025-04-06 15:01] VITALS: BP 119/96
[2025-04-06] MEDS: ROCEPHIN 1000 MG IV (15:22)
--- NOTE | 2025-04-06 15:31 | EDRN ---
This RN was informed by Dr. Abdi that he had called and discussed discharge w/ pt's son Chip. Pt is awaiting ambulance transport back to his home at this time. Ambulance scheduled for 18:30.
[2025-04-06 16:03] VITALS: BP 101/83
--- NOTE | 2025-04-06 16:13 | EDRN ---
Dressing that EMS applied to skin tear just above elbow rodo nickel sized w/ area cleansed w/ saline, double antibiotic ointment applied and kerlix.
--- NOTE | 2025-04-06 16:16 | EDRN ---
Pt to [facility] w/ discharge packet 41A to await ambulance. Packet contains discharge paperwork, lab results, diagnostic xrays, and EKG plus paper patient came in w/. Envelope is labeled. Alvarado cat size and balloon amount listed on front page of
discharge plan. Arleen ARREDONDO took over care of pt at this time.
== END 2025-04-06 16:25 | disposition home or self-care (01) ==
LOC: EMR 11:34
PROVIDERS: EMERGENCY PHYSICIAN Emergency Medicine
DX: N39.0 Urinary tract infection, site not specified (principal); E78.00 Pure hypercholesterolemia, unspecified; N40.0 Benign prostatic hyperplasia without lower urinary tract symptoms; I48.91 Unspecified atrial fibrillation; I11.0 Hypertensive heart disease with heart failure; I50.9 Heart failure, unspecified; J44.9 Chronic obstructive pulmonary disease, unspecified; I38 Endocarditis, valve unspecified; E11.9 Type 2 diabetes mellitus without complications; Z87.891 Personal history of nicotine dependence; Z95.2 Presence of prosthetic heart valve
CPT/HCPCS: 99283; 71046; 73630; 80053; 81003; 81015; 83605; 85025; 87040; 87086; 87147; 87205; 87502; 87811; 93005

== ENCOUNTER 2025-04-14 14:09 | Emergency (ER) | payer MEDICARE, SELFPAY ==
[2025-04-14 14:18] VITALS: BMI 21.1
--- NOTE | 2025-04-14 14:47 | ED.GENMED ---
History of Present Illness
General
Chief Complaint: Heart Rate Problem
Source: patient and long term records
Exam Limitations: none
Time Seen by Provider: 04/14/25 14:13
Nursing documentation reviewed up to this point in time: agreed with
History of Present Illness
History of Present Illness:
89-year-old male sent in by visiting nurse due to heart rate pain 10 beats higher than his usual he has been on an antibiotic for a UTI he takes a blood thinner due to A-fib, uses Ativan as needed for anxiety
He denies fever denies chills denies chest pain denies shortness of breath denies abdominal pain denies dysuria denies frequency denies weakness
Past History
Past History
ED Past Medical History: Arrthythmia (Atrial fib), Cancer (Prostate), CHF, COPD, HTN, Hypercholesterolemia, NIDDM, Valvular disease, Other (Empyema, BPH, chronic indwelling Alvarado catheter, intermittent bladder spasms, UTi, ) and Other (Benign
prostate hypertrophy)
ED Past Surgical History: Cardiac (Valve replacement) and Orthopedic (right hip surgery)
Patient has exhibited threatening behavior?: No
PSI?: No
Social History
Tobacco: Former smoker
Alcohol: Occasional
Drug: None
Personal:
Living: long term ([facility])
Employment: Retired
Family History
Family History: Other
Review of Systems
Review of Systems
All Other Systems: ROS reviewed and negative except as documented in HPI and ROS
Constitutional: Denies fever or fatigue
EENT: Reports no symptoms
Respiratory: Reports no symptoms; Denies cough or trouble breathing
Cardiac: Denies chest pain
ABD/GI: Reports no symptoms; Denies abdominal pain or vomiting
: Reports no symptoms; Denies dysuria
Musculoskeletal: Reports no symptoms
Skin: Reports no symptoms
Phy Exam
Physical Exam
Physical Exam:
Physical Exam
General: no apparent distress, not acutely ill
Neck: No jaundice
Heart: Regular
Lungs: no acute respiratory distress. clear bilaterally
Abdomen: Nontender
Neuro: alert and oriented. no focal neurological deficits
Skin: no rash
Psychiatric: well kept. interactive and cooperative
Extremities: no edema. No calf pain
Course
Vital Signs
Initial and Last Documented VS:
Initial Vital Signs
Pulse Resp Pulse Ox
99 27 100
04/14/25 14:23 04/14/25 14:23 04/14/25 14:23
Last Documented Vital Signs
Pulse Resp Pulse Ox
99 14 100
04/14/25 14:45 04/14/25 14:45 04/14/25 14:45
MDM/Problems Addressed
Differential Diagnosis Includes:
Afebrile without complaints already on antibiotics anticoagulated making PE unlikely
MDM/Problems Addressed:
Modestly elevated heart
Chronic conditions affecting care: Arrhythmia
Acute Exacerbation and/or Progression of Chronic Illness: Arrhythmia
*Pulse Oximetry
Patient hypoxic: no
*Career Development Coordinator Interpretation
Rate: normal
Interpretation: normal
Heart Rate: 88
Rhythm: sinus
*Critical Care Note
Total Time (30-74mins, 75-104mins- exclusive of procedures): Not Applicable
Data Reviewed
Review of Other/Old Records Reveals: Labs and Records
Source: patient
Prescriptions/Medications Considered But Not Given:
Beta-tamy
Further Testing Considered But Not Given:
Chest x-ray urine lab
Update Note
Update Note:
Update patient is well-appearing without complaints, already on antibiotics already anticoagulated we will monitor here hold on further workup as he is without complaints
335p-update patient remains hemodynamically stable
ED Attending Note
-
Portions of this chart may have been created with voice recognition software.� Occasional wrong word or��sound alike� substitutions may have occurred due to the inherent limitations of voice recognition software.
Discharge Plan
Departure
Patient Disposition: Home (Routine Discharge)
Date of Disposition: 04/14/25
Time of Disposition: 15:36
Patient with high blood pressure during this ER visit?: No
Condition: Good
Discharge Problem:
Paroxysmal atrial fibrillation
Instructions: Palpitations (DC), Atrial Fibrillation (DC)
Prescriptions:
No Action
clopidogrel [Plavix] 75 mg tablet
75 mg PO DAILY 30 Days Qty: 30 0RF
ferrous sulfate 325 mg (65 mg iron) Tablet
325 mg PO DAILY@1200
tamsulosin 0.4 MG capsule
0.4 mg PO HS
Xarelto 20 mg tablet
20 mg PO QPM
cyanocobalamin (vitamin B-12) 1,000 MCG tablet
1,000 mcg PO DAILY@1200
ascorbic acid (vitamin C) [Vitamin C] 1,000 mg Tablet
1,000 mg PO DAILY
Visbiome 112.5 billion cell Capsule
1 cap PO DAILY
olive leaf extract 250 mg Capsule
250 mg PO DAILY
Gemtesa 75 mg Tablet
75 mg PO DAILYPRN PRN (Reason: spasms)
d-mannose 500 mg Capsule
500 mg PO DAILY@1200
calcium polycarbophil [FiberCon] 625 mg Tablet
625 mg PO DAILY
alpha lipoic acid 100 mg Capsule
400 mg PO DAILY
omega 4-jmv-qjt-fish oil [Fish Oil] 1,000 (120-180) mg Capsule
1 cap PO HS
turmeric 400 mg Capsule
400 mg PO DAILY@1200
cefdinir 300 mg capsule
300 mg PO BID Qty: 20 0RF
Referrals:
UNKNOWN - PT DOES,NOT KNOW [Family Provider] -
Activity Restrictions/Additional Instructions:
Continue your medications as prescribed
Interventions
Interventions:
*Risk Screen - Suicide Last Done: 04/14/25 14:18
*General Assessment Last Done: 04/14/25 14:18
*Neglect/Abuse Screening Last Done: 04/14/25 14:18
*ED- Fall Risk Assessment Last Done: 04/14/25 14:18
*ED COVID-19 Vaccine History Last Done: 04/14/25 14:18
ED- Cardiac Assessment Last Done: 04/14/25 14:18
ED- Pulmonary Assessment Last Done: 04/14/25 14:18
Discharge Date and Time
Print Language: IRAQI
[2025-04-14 15:00] VITALS: BP 115/88
[2025-04-14 16:00] VITALS: BP 126/79
[2025-04-14 17:00] VITALS: BP 117/78
== END 2025-04-14 18:44 | disposition home or self-care (01) ==
LOC: EMR 14:09
PROVIDERS: EMERGENCY PHYSICIAN Emergency Medicine
DX: I48.0 Paroxysmal atrial fibrillation (principal); I11.0 Hypertensive heart disease with heart failure; I50.9 Heart failure, unspecified; E78.00 Pure hypercholesterolemia, unspecified; N40.0 Benign prostatic hyperplasia without lower urinary tract symptoms; E11.9 Type 2 diabetes mellitus without complications; M19.90 Unspecified osteoarthritis, unspecified site; F41.9 Anxiety disorder, unspecified; Z79.84 Long term (current) use of oral hypoglycemic drugs; Z79.01 Long term (current) use of anticoagulants; Z95.2 Presence of prosthetic heart valve; Z87.440 Personal history of urinary (tract) infections; Z85.46 Personal history of malignant neoplasm of prostate; Z87.891 Personal history of nicotine dependence; Z86.16 Personal history of COVID-19
CPT/HCPCS: 99283

== ENCOUNTER 2025-05-22 16:50 | Emergency (ER) | payer MEDICARE, SELFPAY ==
[2025-05-22 16:56] VITALS: BP 141/96
[2025-05-22 17:10] LABS: % Basophils 0.7 % (0-2); % Eosinophils 3.1 % (0-6); % Immature Granulocytes 0.3 % (0-0.5); % Lymphocytes 26.3 % (20.5-51.1); % Monocytes 7.7 % (1.7-9.3); % Neutrophils 61.9 % (42.2-75.2); Absolute Basophils 0.1 10^3/uL (0-0.2); Absolute Eosinophils 0.2 10^3/uL (0-0.7); Absolute Lymphocytes 1.8 10^3/uL (1.2-3.4); Absolute Monocytes 0.5 10^3/uL (0.1-0.6); Absolute Neutrophils 4.2 10^3/uL (1.4-6.5); Hematocrit 35.1 % (39.0-52.0); Hemoglobin 11.7 g/dL (13.0-18.0); Mean Corp Hgb Conc. 33.3 g/dL (33.0-37.0); Mean Corpuscular Hgb 29.9 pg (27.0-31.0); Mean Corpuscular Volume 89.8 fL (80.0-94.0); Mean Platelet Volume 9.1 fL (7.4-10.4); Nucleated Red Blood Cells % 0 % (-); Platelet Count 234 10^3/uL (130-400); Red Blood Cell Count 3.91 10^6/uL (4.70-6.10); Red Cell Dist. Width 15.9 % (11.5-14.5); White Blood Cell Count 6.8 10^3/uL (4.8-10.8)
[2025-05-22 17:12] LABS: Urine Albumin 2+ (Neg - Trace); Urine Bilirubin Negative (Negative); Urine Character Cloudy (Clear); Urine Color Yellow; Urine Glucose Negative (Negative); Urine Ketone Negative (Negative); Urine Leukocyte 3+ (Negative); Urine Nitrite Positive (Negative); Urine Occult Blood 2+ (Negative); Urine Specific Gravity 1.015 (<1.030); Urine Urobilinogen Negative (Neg - 1+); Urine pH 6.5 (5.0-9.0)
[2025-05-22 17:20] LABS: Urine Squamous Cell 0-2 /LPF (Few)
[2025-05-22 17:21] LABS: INR 1.18; PT 15.3 Sec (11.4-14.6); Urine Red Blood Cell 0-2 /HPF (0-2); Urine White Cell 50-60 /HPF (0-5)
[2025-05-22 17:22] LABS: APTT 34.6 Sec (23.4-35.0); Urine Amorphous Seen; Urine Bacteria Many (Negative)
[2025-05-22 17:23] LABS: Urine Calcium Oxalate Crystals Present
[2025-05-22 17:58] LABS: ALT (SGPT) < 10 U/L (0-50); AST (SGOT) 11 U/L (17-59); Albumin 2.5 g/dl (3.5-5.0); Alkaline Phosphatase 64 U/L (38-126); Blood Urea Nitrogen 10 mg/dl (9-20); Carbon Dioxide 27 mmol/L (22-30); Chloride 105 mmol/L (98-107); Estimated Creatinine Clearance 83 ml/min; Glucose 172 mg/dl (70-99); Potassium 4.5 mmol/L (3.5-5.1); Sodium 133 mmol/L (135-145); Total Bilirubin 0.5 mg/dl (0.2-1.3); Total Protein 5.4 g/dl (6.3-8.2); eGFR > 60.00
[2025-05-22 18:00] VITALS: BP 115/75
[2025-05-22 19:00] VITALS: BP 101/78
--- NOTE | 2025-05-22 19:35 | ED.GENMED ---
History of Present Illness
General
Chief Complaint: Fall
Source: patient
Exam Limitations: none
Time Seen by Provider: 05/22/25 19:14
History of Present Illness
History of Present Illness:
89 year old male presents via EMS from home where he lives with and [id number] as well as 24-hour home health. Home health aide stepped away temporarily and the patient slid out of his recliner. This was unwitnessed. He is on Plavix.
Patient typically nonambulatory and bedbound. I spoke with his daughter over the phone for additional history. Patient reports no pain since this injury. Triage notes that he has lower back pain but patient denies any back pain to me. He denies
arm or leg pain. No preceding lightheadedness.
Past History
Past History
ED Past Medical History: Arrthythmia (Atrial fib), Cancer (Prostate), CHF, COPD, HTN, Hypercholesterolemia, NIDDM, Valvular disease, Other (Empyema, BPH, chronic indwelling Alvarado catheter, intermittent bladder spasms, UTi, ) and Other (Benign
prostate hypertrophy)
ED Past Surgical History: Cardiac (Valve replacement) and Orthopedic (right hip surgery)
Patient has exhibited threatening behavior?: No
PSI?: No
Social History
Tobacco: Former smoker
Alcohol: Occasional
Drug: None
Personal:
Living: prison ([facility] rehab)
Employment: Retired
Family History
Family History: Other
Phy Exam
Physical Exam
Physical Exam:
General: Cachectic appearing male no acute respiratory distress
HEENT normocephalic atraumatic
Heart: Regular rate and rhythm
Lungs: Clear
Musculoskeletal exam: Spine is nontender. Good range of motion all extremities without deformity abdomen is soft and nontender chest wall is nontender
Neurologic: Alert oriented to person and place
Course
Orders/Labs/Results
Orders:
Orders
05/22/25 17:01
Complete Blood Count/With Diff Urgent
PTT Urgent
Prothrombin Time Urgent
Urinalysis Reflex To Culture Urgent
Date Specimen was Collected: 05/22/25
Time Specimen was Collected: 16:59
Urine Microscopic Reflex Cult Urgent
Urine Culture Urgent
VICTOR HUGO Source: U
Specimen Description:
Date Specimen was Collected: 05/22/25
Time Specimen was Collected: 16:59
05/22/25 17:30
Comprehensive Metabolic Panel Urgent
05/22/25 19:34
CT Head W/o Iv Contrast Urgent
Comment:
Reason For Exam: fall
0.9% Sodium Chloride 500 ml [Nss] 500 ml IV BOLUS
CefTRIAXone [Rocephin] 1,000 mg IV NOW STA
Abnormal Lab Results
05/22/25 05/22/25
17:01 17:30
RBC 3.91 L 10^6/uL
(4.70-6.10)
Hgb 11.7 L g/dL
(13.0-18.0)
Hct 35.1 L %
(39.0-52.0)
RDW 15.9 H %
(11.5-14.5)
PT 15.3 H Sec
(11.4-14.6)
Sodium 133 L mmol/L
(135-145)
Creatinine 0.5 L mg/dL
(0.7-1.3)
Glucose 172 H mg/dl
(70-99)
Calcium 8.0 L mg/dl
(8.4-10.2)
AST 11 L U/L
(17-59)
Total Protein 5.4 L g/dl
(6.3-8.2)
Albumin 2.5 L g/dl
(3.5-5.0)
Ur Occult Blood Reflex 2+ A
(Negative)
Urine Nitrite (Reflex) Positive A
(Negative)
Leukocyte Esterase Rfl 3+ A
(Negative)
Urine WBC (Reflex) 50-60 A /HPF
(0-5)
Urine Bacteria (Reflex) Many A
(Negative)
Urine Albumin (Reflex) 2+ A
(Neg - Trace)
05/22/25 17:01
05/22/25 17:30
Vital Signs
Initial and Last Documented VS:
Initial Vital Signs
Pulse Ox
99
05/22/25 16:55
Last Documented Vital Signs
Temp Pulse Resp BP Pulse Ox
97.8 F 73 24 122/79 100
05/22/25 16:56 05/22/25 20:45 05/22/25 20:45 05/22/25 20:01 05/22/25 20:45
MDM/Problems Addressed
Differential Diagnosis Includes:
Patient with chronic weakness slid out of recliner today no obvious signs of trauma. This was unwitnessed and he is on Plavix. CT of the head was ordered. He has a chronic indwelling Alvarado catheter it was reported that he had sediment in his
catheter. Urine looks like uti.
*Pulse Oximetry
SaO2: 99
Oxygen Mode of Delivery: Room air
Patient hypoxic: no
*Critical Care Note
Total Time (30-74mins, 75-104mins- exclusive of procedures): Not Applicable
Update Note
Update Note:
Spoke with daughter on the phone. CT of the head was ordered and is negative for acute finding. Patient was hydrated and started on Rocephin for urinary tract infection. He has 24-hour care at home. There is no overwhelming indication for
admission to hospital. Will make arrangements for him to go back home with an antibiotic for his urinary infection
ED Attending Note
-
Portions of this chart may have been created with voice recognition software.� Occasional wrong word or��sound alike� substitutions may have occurred due to the inherent limitations of voice recognition software.
Discharge Plan
Departure
Patient Disposition: Home (Routine Discharge)
Date of Disposition: 05/22/25
Time of Disposition: 22:04
Patient with high blood pressure during this ER visit?: No
Discharge Problem:
Acute UTI
Instructions: Preventing falls in adults
Prescriptions:
New
cefdinir 300 mg capsule
300 mg PO BID Qty: 14 0RF
No Action
clopidogrel [Plavix] 75 mg tablet
75 mg PO DAILY 30 Days Qty: 30 0RF
ferrous sulfate 325 mg (65 mg iron) Tablet
325 mg PO DAILY@1200
tamsulosin 0.4 MG capsule
0.4 mg PO HS
Xarelto 20 mg tablet
20 mg PO QPM
cyanocobalamin (vitamin B-12) 1,000 MCG tablet
1,000 mcg PO DAILY@1200
ascorbic acid (vitamin C) [Vitamin C] 1,000 mg Tablet
1,000 mg PO DAILY
Visbiome 112.5 billion cell Capsule
1 cap PO DAILY
olive leaf extract 250 mg Capsule
250 mg PO DAILY
Gemtesa 75 mg Tablet
75 mg PO DAILYPRN PRN (Reason: spasms)
d-mannose 500 mg Capsule
500 mg PO DAILY@1200
calcium polycarbophil [FiberCon] 625 mg Tablet
625 mg PO DAILY
alpha lipoic acid 100 mg Capsule
400 mg PO DAILY
omega 3-ijh-xto-fish oil [Fish Oil] 1,000 (120-180) mg Capsule
1 cap PO HS
turmeric 400 mg Capsule
400 mg PO DAILY@1200
cefdinir 300 mg capsule
300 mg PO BID Qty: 20 0RF
Referrals:
NONE,* [Family Provider, Internal Medicine]
Activity Restrictions/Additional Instructions:
Take antibiotics as directed. Continue current care. Return if needed
Interventions
Interventions:
*Risk Screen - Suicide Last Done: 05/22/25 16:57
*General Assessment Last Done: 05/22/25 16:57
*Neglect/Abuse Screening Last Done: 05/22/25 16:57
*ED- Fall Risk Assessment Last Done: 05/22/25 16:57
*ED COVID-19 Vaccine History Last Done: 05/22/25 16:57
ED-Musculoskeletal Assessment Last Done: 05/22/25 17:00
ED- Neurological Assessment Last Done: 05/22/25 17:00
ED-Skin Assessment Last Done: 05/22/25 17:00
Discharge Date and Time
Print Language: YEMENI
[2025-05-22] MEDS: NSS 500 IV (19:44)
[2025-05-22] MEDS: ROCEPHIN 1000 MG IV (19:45)
[2025-05-22 20:01] VITALS: BP 122/79
[2025-05-22 22:16] VITALS: BP 128/88
[2025-05-22 23:00] VITALS: BP 96/57
[2025-05-23] VITALS: BP 108/57
== END 2025-05-23 00:58 | disposition home or self-care (01) ==
LOC: EMR 16:50
PROVIDERS: Student in an Organized Health Care Education/Training Program; EMERGENCY PHYSICIAN Emergency Medicine
DX: N39.0 Urinary tract infection, site not specified (principal); M54.50 Low back pain, unspecified; W08.XXXA Fall from other furniture, initial encounter; N40.1 Benign prostatic hyperplasia with lower urinary tract symptoms; R64 Cachexia; I48.91 Unspecified atrial fibrillation; I11.0 Hypertensive heart disease with heart failure; I50.9 Heart failure, unspecified; J44.9 Chronic obstructive pulmonary disease, unspecified; E78.00 Pure hypercholesterolemia, unspecified; E11.9 Type 2 diabetes mellitus without complications; M19.90 Unspecified osteoarthritis, unspecified site; Z74.01 Bed confinement status; Z79.02 Long term (current) use of antithrombotics/antiplatelets; Z95.2 Presence of prosthetic heart valve; Z85.46 Personal history of malignant neoplasm of prostate; Z86.16 Personal history of COVID-19; Z87.891 Personal history of nicotine dependence
CPT/HCPCS: 99284; 96374; 96361; 70450; 80053; 81003; 81015; 85025; 85610; 85730; 87077; 87086; 87088

== ENCOUNTER 2025-06-09 15:59 | Inpatient (IN) | payer MEDICARE, SELFPAY ==
[2025-06-09] VITALS (7 sets, daily range): BP systolic 103–146; BP diastolic 70–94; BMI 20.5
[2025-06-09 12:35] LABS: Hematocrit 37.1 % (39.0-52.0); Hemoglobin 12.2 g/dL (13.0-18.0); Mean Corp Hgb Conc. 32.9 g/dL (33.0-37.0); Mean Corpuscular Volume 90.3 fL (80.0-94.0); Nucleated Red Blood Cells % 0 % (-); Platelet Count 227 10^3/uL (130-400); Red Cell Dist. Width 16.2 % (11.5-14.5); Urine Character Cloudy (Clear)
[2025-06-09 12:49] LABS: Urine Squamous Cell 0-2 /LPF (Few)
[2025-06-09 12:51] LABS: Urine White Cell >100 /HPF (0-5)
[2025-06-09 12:58] LABS: AST (SGOT) 8 U/L (17-59); Albumin 2.8 g/dl (3.5-5.0); Alkaline Phosphatase 83 U/L (38-126); Blood Urea Nitrogen 12 mg/dl (9-20); Calcium 8.9 mg/dl (8.4-10.2); Carbon Dioxide 24 mmol/L (22-30); Chloride 109 mmol/L (98-107); Estimated Creatinine Clearance 78 ml/min; Glucose 167 mg/dl (70-99); Lipase 35 U/L (23-300); Potassium 3.7 mmol/L (3.5-5.1); Sodium 135 mmol/L (135-145); Total Protein 5.8 g/dl (6.3-8.2); eGFR > 60.00
[2025-06-09 13:27] LABS: ALT (SGPT) < 10 U/L (0-50)
--- NOTE | 2025-06-09 13:48 | ED.GENMED ---
History of Present Illness
General
Chief Complaint: Weakness
Source: patient
Exam Limitations: none
Time Seen by Provider: 06/09/25 12:47
Nursing documentation reviewed up to this point in time: agreed with
History of Present Illness
History of Present Illness:
Patient is an 89-year-old male with history of atrial fibrillation, hypertension, hyperlipidemia, BPH with chronic indwelling Arriaga catheter, diabetes who presents to the emergency department via EMS for evaluation of penis. Patient poor historian
however did speak with his daughter who states that patient has been increasingly weak over the past few days. He apparently had an episode of vomiting as well as diarrhea yesterday. He has had no known fever.
Patient denies any current complaints in emergency department including headache chest pain, shortness of breath, abdominal pain.
They state that he has been at his baseline mental status. He lives at home with his and [id number]-[id number]-[id number]. He is not on any blood thinners.
Of note�patient was seen in the emergency department on 05/12/2025 and discharged with UTI with course of cefdinir X7 days. Patient's daughter believes he took this medication but is not completely sure.
Past History
Past History
ED Past Medical History: Arrthythmia (Atrial fib), Cancer (Prostate), CHF, COPD, HTN, Hypercholesterolemia, NIDDM, Valvular disease, Other (Empyema, BPH, chronic indwelling Arriaga catheter, intermittent bladder spasms, UTi, ) and Other (Benign
prostate hypertrophy)
ED Past Surgical History: Cardiac (Valve replacement) and Orthopedic (right hip surgery)
Patient has exhibited threatening behavior?: No
PSI?: No
Social History
Tobacco: Former smoker
Alcohol: Occasional
Drug: None
Personal:
Living: half-way ([facility])
Employment: Retired
Family History
Family History: Other
Review of Systems
Review of Systems
Allergies reviewed?: Yes
All Other Systems: ROS reviewed and negative except as documented in HPI and ROS
Phy Exam
Physical Exam
Physical Exam:
Vitals: Tachycardic, afebrile.
General: Patient is frail and generally weak appearing.
Skin: Warm and dry, no rashes or lesions
Head: Normocephalic, atraumatic
Eyes: Sclera nonicteric.
Throat: Protecting airway
Neck: Normal ROM, no cervical spine tenderness, no meningismus
Cardiac: Tachycardic, irregularly irregular rhythm, no murmurs.
Pulm: Mildly tachypneic. No wheezes, rales, rhonchi heard on exam
Abdomen: Abdomen soft without any areas of focal tenderness. Arriaga catheter draining cloudy urine
Extremities: No evidence of cyanosis or edema. 2+ palpable DP pulses bilaterally
Neuro: AAOx3. No focal deficits.
Psychiatric: Normal affect.
Sepsis
Sepsis Screening
Sepsis Assessment: Sepsis
Sepsis Screen
Sepsis Screen: Sepsis
Date: 06/09/25
Time: 23:36
Course
Orders/Labs/Results
Orders:
Orders
06/09/25 12:02
EKG [Electrocardiogram (*1)] Urgent
Reason for Study: Fatigue / Weakness
06/09/25 12:03
EKG- Treatment ONCE
06/09/25 12:20
Complete Blood Count/With Diff Urgent
Comprehensive Metabolic Panel Urgent
Lipase Urgent
Urinalysis Reflex To Culture Urgent
Date Specimen was Collected: 06/09/25
Time Specimen was Collected: 12:13
Comment: Arriaga Catheter
Urine Microscopic Reflex Cult Urgent
Urine Culture Urgent
VICTOR HUGO Source: U
Specimen Description:
Date Specimen was Collected: 06/09/25
Time Specimen was Collected: 12:13
06/09/25 12:54
Abdomen/Pelvis wo Contrast CT [CT Abd/pelvis Wo Iv Cont] Urgent
Comment: recent UTI, indwelling arriaga
Reason For Exam: abdominal pain, vomiting
06/09/25 13:14
Lactic Acid Q4H
Comment: CANCEL 2nd LACTIC ACID IF 1st LACTIC ACID IS LESS THAN 2
Blood Culture Q30M
VICTOR HUGO Source: Blood/Venous
Specimen Description:
Blood Culture Q30M
VICTOR HUGO Source: Blood/Venous
Specimen Description:
06/09/25 14:35
Arriaga Placement- Treatment ONCE
Reason for insertion: Chronic Arriaga on Admit
06/09/25 14:45
Ampicillin/Sulbactam 3 G [Unasyn] 3 gm 0.9% Sodium Chloride 100 ml [Nss] 100 ml IV NOW
06/09/25 Dinner
1800 calorie (15 carb) Diabetic
At Your Request: Non-Participating
06/09/25 15:44
Admit/Transfer Patient As Directed
Co-Sign Provider:
Level of Care: Inpatient admission
Assign to:: Medical/Surgical
Physician / Group: Ky Garcia
Diagnosis: UTI, constipation
Reason for Hospitalization: UTI, constipation
Expected length of stay greater than two midnights?: Yes
ELOS- Estimated Length of Stay in days: 3
I certify the patient meets the requirements for IP care: Yes
PRN Pain Medication Management As Directed
May give lesser potent ordered pain med per pt: Yes
preference::
Protocol:: Medication orders for pain may be administered in a
manner that supports deferring to patient preference
when the pt is:
- Requesting an ordered lesser potent pain medication.
Least to most potent pain medications are defined
as: acetaminophen < NSAID < tramadol < opioids
(morphine, oxycodone, hydromorphone).
- Requesting a lesser dose of the same medication IF
ORDERED.
- Requesting a less intrusive route of administration
if both routes are prescribed by the provider (PO <
IV).
06/09/25 15:46
Code Status As Directed
Resuscitation Status: Full Code
06/09/25 15:53
Acetaminophen [Tylenol] 650 mg PO Q4HPRN PRN
06/09/25 16:57
0.9% Sodium Chloride 500 ml [Nss] 500 ml IV BOLUS
Heparin 5,000 units SC Q8
Trimethobenzamide [Tigan] 200 mg IM Q6HPRN PRN
vibegron [Gemtesa] See Dose Instructions PO DAILYPRN PRN
06/09/25 16:57
WOUND/OSTOMY CONSULT Routine
Reason for Consult: sacral wound, right post ankle and right heel
Activity As Directed
Activity Level: As Tolerated
Enema As Directed
Type: Milk and molasses
Amount: 1
Frequency: PRN
Intake/ Output As Directed
Frequency: Per unit guidelines
Vital Signs As Directed
Frequency: Per unit guidelines
Weight As Directed
Frequency: Daily
Type of Scale: Standing Scale
Comment: Daily morning weight. If unable to stand, use balanced bed scale.
Weight As Directed
Frequency: Once
Type of Scale: Standing Scale
Comment: Upon Admission. If unable to stand, use balanced bed scale.
Pulse Ox/cont/shift [RESP] Routine
Quantity: 1
Special Instructions: Daily pulse oximetry at rest. If greater than 92% at rest also obtain pulse oximetry
while ambulating as tolerated.
Pt Eval And Treat Routine
Activity Level: As Tolerated
DX Deep Vein Thrombosis Video Routine
06/09/25 22:00
Tamsulosin [Flomax] 0.4 mg PO HS
06/10/25 06:00
Basic Metabolic Panel IN AM
Complete Blood Count/No Diff IN AM
06/10/25 08:00
Clopidogrel Bisulfate [Plavix] 75 mg PO DAILY
calcium polycarbophil [FiberCon] 625 mg PO DAILY
Abnormal Lab Results
06/09/25
12:20
RBC 4.11 L 10^6/uL
(4.70-6.10)
Hgb 12.2 L g/dL
(13.0-18.0)
Hct 37.1 L %
(39.0-52.0)
MCHC 32.9 L g/dL
(33.0-37.0)
RDW 16.2 H %
(11.5-14.5)
Absolute Neuts (auto) 7.9 H 10^3/uL
(1.4-6.5)
Absolute Lymphs (auto) 0.7 L 10^3/uL
(1.2-3.4)
Neutrophils % 87.3 H %
(42.2-75.2)
Lymphocytes % 8.0 L %
(20.5-51.1)
Chloride 109 H mmol/L
(98-107)
Creatinine 0.6 L mg/dL
(0.7-1.3)
Glucose 167 H mg/dl
(70-99)
AST 8 L U/L
(17-59)
Total Protein 5.8 L g/dl
(6.3-8.2)
Albumin 2.8 L g/dl
(3.5-5.0)
Urine Ketones 3+ A
(Negative)
Ur Occult Blood Reflex 4+ A
(Negative)
Leukocyte Esterase Rfl 3+ A
(Negative)
Urine RBC 7-10 A /HPF
(0-2)
Urine WBC (Reflex) >100 A /HPF
(0-5)
Urine Bacteria (Reflex) Many A
(Negative)
Urine Albumin (Reflex) 3+ A
(Neg - Trace)
06/09/25 12:20
06/09/25 12:20
Vital Signs
Initial and Last Documented VS:
Initial Vital Signs
Temp Pulse Resp BP Pulse Ox
98.4 F 113 23 109/70 97
06/09/25 12:04 06/09/25 12:04 06/09/25 12:04 06/09/25 12:04 06/09/25 12:04
Last Documented Vital Signs
Temp Pulse Resp BP Pulse Ox
98.3 F 96 15 103/71 97
06/09/25 22:22 06/09/25 22:22 06/09/25 22:22 06/09/25 22:22 06/09/25 22:22
MDM/Problems Addressed
Differential Diagnosis Includes:
Not limited to: Sepsis, UTI/cystitis, pyelonephritis, ureterolithiasis, gastroenteritis, colitis, etc.
MDM/Problems Addressed:
89-year-old male with history as documented significant for chronic indwelling arriaga catheter recently treated for UTI who presents with progressive weakness and vomiting at home. Patient tachycardic on arrival although afebrile. Physical exam as
above. Arriaga catheter is draining very cloudy, yellow urine. Given appearance of urine with chronic indwelling fully catheter and recent tx for UTI � concern for incompletely treated UTI/ascending urinary tract infection. ED plan: check labs,
lactic, UA. Will send blood cultures. Will check noncontrast CT scan abdomen/pelvis to rule out obstructing stone. Will give IV fluids. Will closely monitor and reassess.
Update: labs are reviewed. No leukocytosis. Chemistry relatively unremarkable. Urine appears infected with > 100 WBC�s and many bacteria. CT scan reveals fecal impaction and possible stercoral colitis. Also mentions possible bronchitis in RLL and
other incidental findings.
Arriaga catheter was successfully changed by RN given UTI. Manual disimpaction attempted with some soft brown stool output. Patient will likely require further bowel regimen including edema.
Overall impression is sepsis secondary to complicated UTI as well as developing stercoral colitis. Patient will require admission for IV antibiotics and close monitoring/bowel regimen. Patient started on IV Unasyn based on prior urine culture data.
Patient accepted to hospitalist service in stable condition.
Chronic conditions affecting care:
Atrial fibrillation, prostatic hypertrophy with indwelling Arriaga catheter, diabetes
Acute Exacerbation and/or Progression of Chronic Illness:
Acute UTI, fecal impaction with evidence of stercoral colitis
*Radiology
Radiology exam reviewed: radiology read reviewed
*Pulse Oximetry
SaO2: 97
Oxygen Mode of Delivery: Room air
Patient hypoxic: no
*EKG
Interpreted by ED Provider?: Yes
EKG Intrepretation Date: 06/09/25
Interpretation: abnormal
Comparison EKG: no changes
Heart Rate: 116
Rate: tachycardiac
Rhythm: a-fib
[place]: left axis deviation
Interval: long QT
QRS Pattern: left bundle branch block
Ischemia: no ischemia
*[place] Interpretation
Rate: tachycardiac
Interpretation: abnormal
Heart Rate: 106
Rhythm: sinus
*Critical Care Note
Total Time (30-74mins, 75-104mins- exclusive of procedures): Not Applicable
Data Reviewed
Review of Other/Old Records Reveals: Testing (Urine culture result from 05/22/2025-sensitive to ampicillin)
Patient Management
Discussion with other providers: Hospitalist
Escalation/DeEscalation of care consider admission/obs:
Admit for IV antibiotics given sepsis secondary to UTI as well as fecal impaction with stercoral colitis
ED Attending Note
-
Portions of this chart may have been created with voice recognition software.� Occasional wrong word or��sound alike� substitutions may have occurred due to the inherent limitations of voice recognition software.
Discharge Plan
Departure
Patient Disposition: Admit
Date of Disposition: 06/09/25
Time of Disposition: 14:47
Presentation/result/management discussed w/ accepting MD/DO: Hospitalist
Discharge Problem:
Sepsis, Complicated UTI (urinary tract infection), Stercoral colitis
Interventions
Interventions:
*Risk Screen - Suicide Last Done: 06/09/25 12:10
*General Assessment Last Done: 06/09/25 12:08
*Neglect/Abuse Screening Last Done: 06/09/25 12:10
*ED- Fall Risk Assessment Last Done: 06/09/25 12:08
*ED COVID-19 Vaccine History Last Done: 06/09/25 12:08
*Nursing Disposition Last Done: 06/09/25 16:50
ED- Cardiac Assessment Last Done: 06/09/25 12:10
ED- Neurological Assessment Last Done: 06/09/25 12:10
ED- Pulmonary Assessment Last Done: 06/09/25 12:10
Discharge Date and Time
Discharge Date/Time: 06/09/25 16:54
--- NOTE | 2025-06-09 14:55 | HPS.HSE ---
Family Physician
-
Family Physician: NOT KNOW UNKNOWN - PT DOES
Chief Complaint
-
adult failure to thrive
History of Present Illness
Patient is a 89-year-old male with past medical history significant for BPH, overactive bladder, ILD, HLD, anemia, PAD, CHF, paroxysmal atrial fib, type 2 DM, neurogenic bladder with Arriaga and CAD who presented to [facility] ED for evaluation of adult
failure to thrive. Patient is poor historian, spoke with sonChip to assist with HPI. Patient has had a general decline over past 3 days or so, he reports that it is noted that patient has had minimal PO intake, has had increased sleeping, had
increased weakness and today had an episode of emesis. Patient lives at home with spouse and [id number] with a caregiver and visiting nurse. He is bedbound at baseline. He states his mother told him that patient had elevated HR and low BP today.
Medical History
Past Medical History
Past Medical History: Reports Other
Additional Past Medical History:
right carotid stenosis
BPH
overactive bladder
ILD
HLD
anemia
PAD
CHF
paroxysmal atrial fib
type 2 DM
neurogenic bladder, arriaga cath
CAD
Past Surgical History: Reports Other
Additional Past Surgical History:
aortic valve replacement
right total hip replacement
carotid endarterectomy
Social History
Tobacco: Non-smoker
Alcohol: None
Drug: None
Personal:
Living: With Family
Family History
Family History: Not pertinent
Allergies / Home Medications
Allergies reflects when Allergies were last updated in [facility].
Home Medications with original date entered in [facility]
Allergy/Medication List:
Allergies
Allergy/AdvReac Type Severity Reaction Status Date / Time
No Known Allergies Allergy Verified 12/07/24 17:31
Home Medications
clopidogrel 75 mg tablet (Plavix) 75 mg PO DAILY Blood Clot Prevention/Tx 30 days #30 tabs 02/20/24
cyanocobalamin (vitamin B-12) 1,000 mcg tablet 1,000 mcg PO DAILY@1200 Supplement 03/20/24
tamsulosin 0.4 mg capsule 0.4 mg PO HS Urinary issue 03/20/24
Lactobac no.2-Bifidobac no.1-S. thermo 112.5 billion cell capsule (Visbiome) 1 cap PO DAILY Gastrointestinal Issue 08/14/24
ascorbic acid (vitamin C) 1,000 mg tablet (Vitamin C) 1,000 mg PO QPM Supplement 08/14/24
d-mannose 500 mg capsule 500 mg PO DAILY@1200 Supplement 08/14/24
vibegron 75 mg tablet (Gemtesa) 75 mg PO DAILYPRN PRN spasms 08/14/24
calcium polycarbophil 625 mg tablet (FiberCon) 625 mg PO DAILY 04/06/25
omega 2-zhn-stw-fish oil 1,000 mg (120 mg-180 mg) capsule (Fish Oil) 1 cap PO HS 04/06/25
turmeric 400 mg capsule 400 mg PO DAILY@1200 04/06/25
bovine cartilage 750 mg tablet 750 mg PO BID 06/09/25
Review of Systems
-
Unable to obtain full review of systems at this time due to: Dementia
History Source: Family
Constitutional: Reports Fatigue
Abdomen/GI: Reports Nausea and Vomiting
: Reports Arriaga
Neurological: Reports Weakness
Physical Exam
Vital Signs
Vital Signs
Temp Pulse Resp BP Pulse Ox
98.1 F 104 22 124/82 98
06/09/25 14:21 06/09/25 14:15 06/09/25 14:15 06/09/25 14:13 06/09/25 14:15
Physical Exam
General: No Apparent Distress and Appears Chronically Ill
HEENT: NormoCephalic and Atraumatic
Respiratory: Clear and Non Labored Respirations
Cardiac: S1/S2, Regular Rhythm and Tachycardia
GI: Soft, Non Tender and Non Distended
Rectal: Deferred by Provider
Genito-urinary: Deferred by me
Musculoskeletal: No Clubbing, No Cyanosis and No Edema
Skin: Warm and Ulcers (wound with dressing to right posterior ankle and right heel )
Neuro: Awake and Alert
Laboratory Results
-
06/09/25 12:20
06/09/25 12:20
Laboratory Results
Lactic Acid 1.2 mmol/L (0.7-2.0) 06/09/25 13:14
Total Bilirubin 0.8 mg/dl (0.2-1.3) 06/09/25 12:20
AST 8 U/L (17-59) L 06/09/25 12:20
ALT < 10 U/L (0-50) 06/09/25 12:20
Alkaline Phosphatase 83 U/L (38-126) 06/09/25 12:20
Lipase 35 U/L (23-300) 06/09/25 12:20
Data Reviewed
-
CT Scan: Report Reviewed by me (ABd/Pel: 1. Rectum is distended with stool measuring up to 8.9 cm with mild wall thickening and perirectal stranding, suggestive of impaction and possible stercoral colitis. 2. Small left pleural effusion.
Bronchial wall thickening within the right lower lobe suggestive of bronchitis. 3. Hea)
Medical Tests (Nuc Med, Echo, EKG etc): Report Reviewed by me (EKG: ATRIAL FIBRILLATION WITH RAPID VENTRICULAR RESPONSE WITH PREMATURE VENTRICULAR OR ABERRANTLY CONDUCTED COMPLEXES LEFT AXIS DEVIATION LEFT BUNDLE BRANCH BLOCK)
Lab Data: Labs Reviewed by me
Impression/Plan
-
IMPRESSION/PLAN:
#urinary tract infection
#BPH
#overactive bladder
#neurogenic bladder
Chronic Arriaga cath in place, changed in ED
UA: indicative for UTI
Urine Cx: pending
EKG: ATRIAL FIBRILLATION WITH RAPID VENTRICULAR RESPONSE WITH PREMATURE VENTRICULAR OR ABERRANTLY CONDUCTED COMPLEXES
LEFT AXIS DEVIATION
LEFT BUNDLE BRANCH BLOCK
Abd/Pel CT: 1. Rectum is distended with stool measuring up to 8.9 cm with mild wall thickening and perirectal stranding, suggestive of impaction and possible stercoral colitis.
2. Small left pleural effusion. Bronchial wall thickening within the right lower lobe suggestive of bronchitis.
3. Heavily calcified, ectatic abdominal aorta. Bulky calcified plaque at the origins of the celiac axis, SMA, and both renal arteries.
4. Chronic mild compression deformity of L3 vertebral body. Multilevel disc disease within the lumbar spine.
5. Additional findings above.
- Admit to med/surg
- IV antibiotics with Unasyn based on previous culture result
- supportive care
- IV NSS 500cc bolus
#constipation
- PRN milk of mag enema
#stage II sacral ulcer
#wound to right posterior ankle and right heel
- wound care
#HFpEF
- monitor I&Os
- daily weights
#paroxysmal atrial fib
EKG: ATRIAL FIBRILLATION WITH RAPID VENTRICULAR RESPONSE WITH PREMATURE VENTRICULAR OR ABERRANTLY CONDUCTED COMPLEXES
LEFT AXIS DEVIATION
LEFT BUNDLE BRANCH BLOCK
unknown why no anticoagulation
#type 2 DM
controlled with diet and exercise
- AccuCheck AC & HS
- SSI
- CHO diet
#CAD
#PAD
#HLD
- continue Plavix
#ILD
#anemia
hgb 12.2, hct 37.1
- stable
- monitor CBC
Code status: full code
DVT Prophylaxis: heparin sq
[2025-06-09] MEDS: UNASYN IV ×2 (15:16→22:01)
--- NOTE | 2025-06-09 15:47 | W.PN.UPDATE ---
Update Note
Progress Note Update
I saw and examined the patient.
The IMCU NURSE or PA's note was reviewed and I agree with the note.
Comment:
89-year-old male with history of atrial fibrillation, hypertension, hyperlipidemia, BPH with chronic indwelling Arriaga catheter, diabetes with recent ED visit for weakness and UTI, sent home with 7 days of cefdinir (unclear if compliant), now
presents with weakness along with vomiting at home.�
Patient poor historian although family states is at baseline mental status. �Lives at home with his and [id number]-[id number]. Has been weak over the past few days. �Also acknowledges vomiting and diarrhea. Has had hx of generalized weakness in the
past. Patient's vitals heart rate 134, afebrile, respiratory rate 20, blood pressure 140/90, saturating 98% on room air. �UA grossly positive. �CT imaging in the rectum and showing distention with mild wall thickening and perirectal stranding
suggestive of impaction and possible stercoral colitis. �Possible right lower lobe bronchitis. �
Plan�antibiotics with Unasyn and sensitive for prior cultures. �IVF as needed fecal disimpaction. �If disimpaction unsuccessful, attempt local molasses enema. �No evidence of SBO on imaging.
#Sepsis
� Secondary to complicated UTI +/- bronchitis
� Continue Unasyn
� Follow-up cultures
� Follow-up blood cultures
� Maintain MAP greater than 65
� IV fluids as needed, 500 cc now
#Impacted Stool
#Stercoral Colitis
-Disimpaction
-Milk of Molasses Enema PRN
#Chronic diastolic CHF:
-Appears euvolemic
#Paroxysmal atrial fibrillation:
Not on any rate control agent
now on anticoag outpt - defer to primary
#Diabetes mellitus type 2:
AISS
-AIC 5.5 in the past, now off meds
CAD/PAD:
-Plavix continued
Neurogenic bladder
chronic arriaga cath in place (order placed on 08/17)
Flomax continued
Gemtesa continued
DVT proph: hsq
Code Status: Full Code
[2025-06-09] MEDS: TYLENOL 650 MG PO (16:15)
[2025-06-09] MEDS: HEPARIN 5000 UNITS SC (18:02)
[2025-06-09] MEDS: NSS 500 IV (18:02)
[2025-06-09] MEDS: MIRALAX 17 GRAMS PO (18:05)
--- NOTE | 2025-06-09 19:33 | PTCARENOTE ---
Pt arrived to unit around 1730 from ED. Was a x3 staff pullover from stretcher to bed. VSS. Wound care completed, foams applied to R heel, lat morin and L hand. No pain reported. Admission questions obtained from daughter Dot. Plan of care
ongoing.
[2025-06-09 21:27] LABS: Glucose - Point of Care 124 mg/dl (70-99)
[2025-06-09] MEDS: FLOMAX 0.4 MG PO (22:02)
[2025-06-09] MEDS: HEPARIN SC (23:08)
[2025-06-10] MEDS: UNASYN IV ×4 (03:51→22:02)
[2025-06-10 05:04] VITALS: BMI 21.3
[2025-06-10 08:02] VITALS: BP 109/67
[2025-06-10 08:09] LABS: Glucose - Point of Care 99 mg/dl (70-99)
--- NOTE | 2025-06-10 08:42 | VNURNOTE ---
Chart reviewed. Patient is current with [facility]. Will continue to follow hospital course and DC plans.
[2025-06-10] MEDS: PLAVIX 75 MG PO (08:48)
[2025-06-10] MEDS: MIRALAX 17 GRAMS PO (08:48)
[2025-06-10] MEDS: HEPARIN 5000 UNITS SC ×2 (08:48→17:36)
[2025-06-10 09:34] VITALS: BP 109/70; PULSE 94; O2SAT 99
--- NOTE | 2025-06-10 10:23 | WOUNDNOTE ---
[facility] RN note: Patient admitted with UTI, constipation. Patient has a caregiver at home and is on palliative care. VN follows.
See H&P for complete history.
PMH: BPH, PAD, neurogenic bladder with Alvarado catheter, CHF, DM, bedbound/WC bound, carotid endarterectomy, R heel and ankle full thickness wounds.
Wound Location and type/assessment: Patient admitted with: R heel full thickness wound to tendon d/t PAD, R lateral lower calf full thickness wound to muscle r/t PAD, R upper lateral deep dermal ulcer d/t PAD/venous. Pedal pulses heard via portable
Doppler. Sacral/buttocks scarred from previous pressure injuries. Patient very thin with poor po. L heel blanchable red. Patient high risk for worsening and additional skin breakdown d/t poor po, very thin, PAD.
Appetite: poor.
Pressure redistribution devices in place: [employer] Accumax. MARIA ELENA Shipley to coordinate switching bed to an air bed.
Plan: Heel, RLE dressings changed. Patient incontinent of soft dark brown stool. Rima care given. Silicone border foam applied to sacrum. Patient turned to L semi side lying position with help from ISMAEL Norton. Discussed with MARIA ELENA Shipley.
Will confirm orders with Dr. Garcia.
Care plan to be updated and will follow as needed.
Note to case management of equipment requested for discharge: Air mattress if not already in place.
Recommend follow up with wound complex care nurse.
--- NOTE | 2025-06-10 10:42 | WOUNDNOTE ---
[facility] RN note: Patient admitted with UTI, constipation. Patient has a caregiver at home and is on palliative care. VN follows.
See H&P for complete history.
PMH: BPH, PAD, neurogenic bladder with Alvarado catheter, CHF, DM, bedbound/WC bound, carotid endarterectomy, R heel and ankle full thickness wounds.
Wound Location and type/assessment: Patient admitted with: R heel full thickness wound to tendon d/t PAD, R lateral lower calf full thickness wound to muscle r/t PAD, R upper lateral deep dermal ulcer d/t PAD/venous. Pedal pulses heard via portable
Doppler. Sacral/buttocks scarred from previous pressure injuries. Patient very thin with poor po. L heel blanchable red. Patient high risk for worsening and additional skin breakdown d/t poor po, very thin, PAD.
Appetite: poor.
Pressure redistribution devices in place: [employer] Accumax. MARIA ELENA Shipley to coordinate switching bed to an air bed.
Plan: Heel, RLE dressings changed. Patient incontinent of soft dark brown stool. Rima care given. Silicone border foam applied to sacrum. Patient turned to L semi side lying position with help from ISMAEL Norton. Discussed with MARIA ELENA Shipley. t/c
Spoke with patient's son Chip who confirmed patient has a hospital bed with air surface at home and a gel chair cushion. Chip confirmed conservative care is the goal, no surgery for poor circulation.
Will confirm orders with Dr. Garcia.
Care plan to be updated and will follow as needed.
Recommend follow up with wound foster care worker.
[2025-06-10 11:34] LABS: Glucose - Point of Care 112 mg/dl (70-99)
--- NOTE | 2025-06-10 13:09 | W.PN.HOSP.TC ---
Today's Communication/Plan
-
cont abx
f/u cultures
monitor bms
Assessment / Plan
Assessment / Plan
General: No Apparent Distress and Appears Chronically Ill
HEENT: NormoCephalic and Atraumatic
Respiratory: Clear and Non Labored Respirations
Cardiac: S1/S2, Regular Rhythm and Tachycardia
GI: Soft, Non Tender and Non Distended
Rectal: Deferred by Provider
Genito-urinary: Deferred by me
Musculoskeletal: No Clubbing, No Cyanosis and No Edema
Skin: Warm and Ulcers (wound with dressing to right posterior ankle and right heel )
Neuro: Awake and Alert
#Sepsis
� Secondary to complicated UTI +/- bronchitis
� Continue Unasyn
� Follow-up cultures
� Follow-up blood cultures
� Maintain MAP greater than 65
� IV fluids as needed, 500 cc now
#Impacted Stool
#Stercoral Colitis
-Disimpaction
-Milk of Molasses Enema PRN
-monitor BMs
#Chronic diastolic CHF:
-Appears euvolemic
#Paroxysmal atrial fibrillation:
Not on any rate control agent
now on anticoag outpt - defer to primary
#Diabetes mellitus type 2:
AISS
-AIC 5.5 in the past, now off meds
CAD/PAD:
-Plavix continued
Neurogenic bladder
chronic arriaga cath in place (order placed on 08/17)
Flomax continued
Gemtesa continued
DVT proph: hsq
Code Status: Full Code
Anticipated Discharge: 24 - 48 hours
Subjective/Interval History
-
Date of Service: June 10, 2025
mental status improved today
Objective Data
-
Vital Signs:
Vital Signs
Temp Pulse Resp BP Pulse Ox
98.1 F 87 14 109/67 97
07/17/25 08:02 06/10/25 08:02 06/10/25 08:02 06/10/25 08:02 06/10/25 08:02
I&O
06/09/25 06/10/25 06/11/25
06:59 06:59 06:59
Output Total 150 / 150
Balance -150 / -150
Review of Systems
-
History Source: Patient
All other systems: Not reviewed unless documented
Data Reviewed
-
CT Scan: Image personally visualized and interpreted and Report Reviewed by me
Labs: Labs Reviewed by me
[2025-06-10 13:17] VITALS: BMI 21.3
[2025-06-10 15:19] VITALS: BP 130/78
[2025-06-10 16:46] LABS: Glucose - Point of Care 98 mg/dl (70-99)
[2025-06-10] MEDS: TYLENOL 650 MG PO (19:59)
[2025-06-10 20:43] LABS: Glucose - Point of Care 123 mg/dl (70-99)
[2025-06-10] MEDS: FLOMAX 0.4 MG PO (22:02)
[2025-06-10] MEDS: HEPARIN SC (23:15)
[2025-06-10 23:29] VITALS: BP 149/96
[2025-06-11] MEDS: UNASYN IV ×2 (04:00→10:11)
[2025-06-11 07:15] VITALS: BP 139/93
[2025-06-11 07:35] LABS: Glucose - Point of Care 151 mg/dl (70-99)
--- NOTE | 2025-06-11 08:14 | PN.CDI ---
CDI
- -
CDI:
Physician Documentation Request
Admit Date: 06/09/25 15:59
Dear Doctor Jose,
Please review the following and provide your response in the progress notes.
Clinical Indicators:
- 06/10 PN 'Sepsis secondary to complication UTI'
- 'Neurogenic bladder...chronic arriaga cath in place'
- ER Physician 'chronic indwelling arriaga catheter'
- 'Arriaga catheter was successfully changed by RN given UTI'
Please clarify the relationship between these conditions:
Yes, _UTI__ is related to/associated with/due to _chronic indwelling arriaga catheter__.
No, _UTI__ is not related to/associated with/due to _chronic indwelling arriaga catheter__ but it is due to . (Please specify)
Unable to determine
Use of terms such as suspected, likely, concern for, or probable (associated with a specific diagnosis that is being evaluated, monitored, or treated as if it exists) are acceptable and can be coded in the inpatient setting, when documented at the
time of discharge.
Thank you,
Tressa Keith RN
CDI Specialist
Please use your independent medical judgment in providing your response.
--- NOTE | 2025-06-11 08:17 | PN.CDI ---
CDI
- -
CDI:
Physician Documentation Request
Admit Date: 06/09/25 15:59
Dear Doctor Jose,
Please review the following and provide your response in the progress notes.
Clinical Indicators:
- RN skin assessments indicate Stage 4 right heel pressure injury, POA
- 06/09 H&P 'wound to right posterior ankle and right heel'
Physician documentation of the type and location of wounds is required for compliant documentation. Based on the above clinical findings and your assessment, please provide the following in your progress note:
1. Location of the ulcer/wound, including laterality.
2. Type (etiology) of ulcer/wound:
- Diabetic ulcer
- Arterial (ischemic) ulcer
- Traumatic wound
- Venous stasis ulcer
- Pressure (decubitus) ulcer
- Non-healing surgical wound
- Other
- Unable to determine
Use of terms such as suspected, likely, concern for, or probable (associated with a specific diagnosis that is being evaluated, monitored, or treated as if it exists) are acceptable and can be coded in the inpatient setting, when documented at the
time of discharge.
Thank you,
Tressa Keith RN
CDI Specialist
Please use your independent medical judgment in providing your response.
*Source: National Pressure Ulcer Advisory Panel (NPUAP)
[2025-06-11] MEDS: HEPARIN 5000 UNITS SC ×2 (08:58→15:28)
[2025-06-11] MEDS: PLAVIX 75 MG PO (08:58)
[2025-06-11] MEDS: MIRALAX 17 GRAMS PO (08:59)
[2025-06-11] MEDS: SANTYL OINTMENT 1 APPLIC TOPICAL (09:13)
[2025-06-11] MEDS: TIGAN 200 MG IM (09:13)
[2025-06-11 09:31] LABS: Hematocrit 40.2 % (39.0-52.0); Hemoglobin 13.1 g/dL (13.0-18.0); Mean Corp Hgb Conc. 32.6 g/dL (33.0-37.0); Mean Corpuscular Volume 92.2 fL (80.0-94.0); Platelet Count 215 10^3/uL (130-400); Red Cell Dist. Width 16.2 % (11.5-14.5)
[2025-06-11 10:12] LABS: Blood Urea Nitrogen 10 mg/dl (9-20); Calcium 8.8 mg/dl (8.4-10.2); Carbon Dioxide 18 mmol/L (22-30); Chloride 110 mmol/L (98-107); Estimated Creatinine Clearance 81 ml/min; Glucose 167 mg/dl (70-99); Potassium 3.9 mmol/L (3.5-5.1); Sodium 138 mmol/L (135-145); eGFR > 60.00
[2025-06-11 11:46] LABS: Glucose - Point of Care 206 mg/dl (70-99)
--- NOTE | 2025-06-11 12:57 | W.PN.HOSP.TC ---
Today's Communication/Plan
-
switch to zosyn
f/u cultures
Assessment / Plan
Assessment / Plan
General: No Apparent Distress and Appears Chronically Ill
HEENT: NormoCephalic and Atraumatic
Respiratory: Clear and Non Labored Respirations
Cardiac: S1/S2, Regular Rhythm and Tachycardia
GI: Soft, Non Tender and Non Distended
Rectal: Deferred by Provider
Genito-urinary: Deferred by me
Musculoskeletal: No Clubbing, No Cyanosis and No Edema
Skin: Warm and Ulcers (wound with dressing to right posterior ankle and right heel )
Neuro: Awake and Alert
#Sepsis
� Secondary to complicated UTI +/- bronchitis
-UA prelim enterococcus and psuedomonas
� Unasyn switched to zosyn
� Follow-up cultures
� Follow-up blood cultures
� Maintain MAP greater than 65
� IV fluids as needed
#Impacted Stool, resolved
#Stercoral Colitis
-Disimpaction
-Milk of Molasses Enema PRN
-monitor BMs
#Chronic diastolic CHF:
-Appears euvolemic
#Paroxysmal atrial fibrillation:
Not on any rate control agent
now on anticoag outpt - defer to primary
#Diabetes mellitus type 2:
AISS
-AIC 5.5 in the past, now off meds
CAD/PAD:
-Plavix continued
Neurogenic bladder
chronic arriaga cath in place (order placed on 08/17)
Flomax continued
Gemtesa continued
DVT proph: hsq
Code Status: Full Code
Anticipated Discharge: 24 - 48 hours
Subjective/Interval History
-
Date of Service: June 11, 2025
no acute events
Objective Data
-
Labs:
Laboratory Results
06/11/25
09:24
WBC 6.7
Hgb 13.1
Hct 40.2
Plt Count 215
Sodium 138
Potassium 3.9
Chloride 110 H
Carbon Dioxide 18 L
BUN 10
Creatinine 0.6 L
Glucose 167 H
Calcium 8.8
Vital Signs:
Vital Signs
Temp Pulse Resp BP Pulse Ox
97.5 F 120 16 139/93 98
06/11/25 10:00 06/11/25 10:00 06/11/25 07:15 06/11/25 07:15 06/11/25 10:37
I&O
06/10/25 06/11/25 06/12/25
06:59 06:59 06:59
Intake Total 120 / 120
Output Total 150 / 150 650 / 650
Balance -150 / -150 -530 / -530
Review of Systems
-
History Source: Patient
All other systems: Not reviewed unless documented
Physical Exam
-
General: No Apparent Distress and Appears Chronically Ill
HEENT: Normocephalic and Atraumatic
Respiratory: Clear to Auscultation
Cardiac: Regular Rhythm and S1/S2
GI: Soft, Nontender, Nondistended and Normal Bowel Sounds
Rectal: Deferred by Provider
Genito-urinary: Arriaga (Clear yellow, chronic arriaga)
Musculoskeletal: No Edema and Other (skin changes noted)
Skin: Ulcers (Rt buttock, sacrum)
Neuro: Awake, Alert and Oriented
Psych: Calm
[2025-06-11] MEDS: ZOSYN 100 IV ×2 (13:40→20:07)
[2025-06-11 15:50] VITALS: BP 118/75
[2025-06-11 16:32] LABS: Glucose - Point of Care 168 mg/dl (70-99)
[2025-06-11] MEDS: LR 1000 IV (16:39)
[2025-06-11] MEDS: FLOMAX 0.4 MG PO (21:05)
[2025-06-11 21:52] LABS: Glucose - Point of Care 146 mg/dl (70-99)
[2025-06-11 23:32] VITALS: BP 116/72
[2025-06-12] MEDS: HEPARIN SC (00:59)
[2025-06-12] MEDS: ZOSYN 100 IV ×3 (02:12→13:03)
[2025-06-12 06:00] VITALS: BMI 21.5
[2025-06-12 08:15] LABS: Glucose - Point of Care 110 mg/dl (70-99)
[2025-06-12 08:24] LABS: Hematocrit 32.2 % (39.0-52.0); Hemoglobin 10.9 g/dL (13.0-18.0); Mean Corp Hgb Conc. 33.9 g/dL (33.0-37.0); Mean Corpuscular Volume 89.7 fL (80.0-94.0); Platelet Count 193 10^3/uL (130-400); Red Cell Dist. Width 16.0 % (11.5-14.5)
[2025-06-12] MEDS: PLAVIX 75 MG PO (08:51)
[2025-06-12] MEDS: HEPARIN 5000 UNITS SC (08:52)
[2025-06-12] MEDS: MIRALAX PO (09:04)
[2025-06-12 09:08] LABS: ALT (SGPT) < 10 U/L (0-50); AST (SGOT) 9 U/L (17-59); Albumin 2.4 g/dl (3.5-5.0); Alkaline Phosphatase 68 U/L (38-126); Blood Urea Nitrogen 9 mg/dl (9-20); Calcium 8.5 mg/dl (8.4-10.2); Carbon Dioxide 26 mmol/L (22-30); Chloride 108 mmol/L (98-107); Estimated Creatinine Clearance 82 ml/min; Glucose 98 mg/dl (70-99); Potassium 3.5 mmol/L (3.5-5.1); Sodium 135 mmol/L (135-145); Total Protein 5.3 g/dl (6.3-8.2); eGFR > 60.00
[2025-06-12 09:15] VITALS: BP 115/78
--- NOTE | 2025-06-12 12:22 | W.PN.HOSP.TC ---
Addendum entered and electronically signed by Ky Garcia MD 06/12/25 15:45:
Yes, _UTI__ is related to/associated with/due to _chronic indwelling arriaga catheter__
Stage 4 right heel pressure injury, POA
Addendum entered and electronically signed by Ky Garcia MD 06/12/25 15:44:
[id number]
Original Note:
Today's Communication/Plan
-
ciprofloxacin and amoxicillin to complete 14 day course total
F/u Urology, PCP outpt
F/u Labs outpt
Assessment / Plan
Assessment / Plan
General: No Apparent Distress and Appears Chronically Ill
HEENT: NormoCephalic and Atraumatic
Respiratory: Clear and Non Labored Respirations
Cardiac: S1/S2, Regular Rhythm and Tachycardia
GI: Soft, Non Tender and Non Distended
Rectal: Deferred by Provider
Genito-urinary: Deferred by me
Musculoskeletal: No Clubbing, No Cyanosis and No Edema
Skin: Warm and Ulcers (wound with dressing to right posterior ankle and right heel )
Neuro: Awake and Alert
#Sepsis
� Secondary to complicated UTI +/- bronchitis
- Urine cultures with Pseudomonas aeruginosa, Enterococcus faecalis
� Unasyn switched to zosyn�switched to amoxicillin and ciprofloxacin to complete a 14-day course total
� Blood cultures unremarkable
� Maintain MAP greater than 65
� IV fluids as needed
#Impacted Stool, resolved
#Stercoral Colitis
-Disimpaction
-Milk of Molasses Enema PRN
-monitor BMs
#Chronic diastolic CHF:
-Appears euvolemic
#Paroxysmal atrial fibrillation:
Not on any rate control agent
now on anticoag outpt - defer to primary
#Diabetes mellitus type 2:
AISS
-AIC 5.5 in the past, now off meds
CAD/PAD:
-Plavix continued
Neurogenic bladder
chronic arriaga cath in place (order placed on 08/17)
Flomax continued
Gemtesa continued
follow-up urology outpatient
DVT proph: hsq
Code Status: Full Code
More than 30 minutes spent in discharge including
Final examination of the patient
Summarizing hospital stay
Instructions for continuing care to all relevant caregivers
Preparation of discharge records, prescriptions, and referral forms
Total time spent (in minutes): 36
Anticipated Discharge: Today
Subjective/Interval History
-
Date of Service: June 12, 2025
no acute events
Objective Data
-
Labs:
Laboratory Results
06/12/25
08:02
WBC 5.3
Hgb 10.9 L
Hct 32.2 L
Plt Count 193
Sodium 135
Potassium 3.5
Chloride 108 H
Carbon Dioxide 26
BUN 9
Creatinine 0.6 L
Glucose 98
Calcium 8.5
Total Bilirubin 0.7
AST 9 L
ALT < 10
Alkaline Phosphatase 68
Vital Signs:
Vital Signs
Temp Pulse Resp BP Pulse Ox
97.9 F 107 22 115/78 99
06/12/25 09:15 06/12/25 09:15 06/12/25 09:15 06/12/25 09:15 06/12/25 09:15
I&O
06/11/25 06/12/25 06/13/25
06:59 06:59 06:59
Intake Total 120 / 120 480 / 480
Output Total 650 / 650 425 / 425
Balance -530 / -530 55 / 55
Review of Systems
-
History Source: Patient
All other systems: Not reviewed unless documented
Data Reviewed
-
CT Scan: Image personally visualized and interpreted and Report Reviewed by me
Labs: Labs Reviewed by me
[2025-06-12] MEDS: LR 1000 IV (13:03)
[2025-06-12] MEDS: FLUSH (NSS) 2 FLUSH IV (13:04)
--- NOTE | 2025-06-12 13:16 | W.DS.TRANS ---
DC Summary - [employer]
-
Discharge Instructions:
Discharge Diagnosis/Procedures Sepsis� Secondary to complicated UTI +/-
bronchitis
Diet Low Cholesterol,Low Fat
Activity As tolerated
Blood Work cbc and cmp in 1 week with pcp
Instructions:
Stand-Alone Forms:
Changes to Home Medications: Yes
Discharge Medications:
DC Medications w/original date entered in [facility]
clopidogrel 75 mg tablet (Plavix) 75 mg PO DAILY Blood Clot Prevention/Tx 30 days #30 tabs 02/20/24
cyanocobalamin (vitamin B-12) 1,000 mcg tablet 1,000 mcg PO DAILY@1200 Supplement 03/20/24
tamsulosin 0.4 mg capsule 0.4 mg PO HS Urinary issue 03/20/24
Lactobac no.2-Bifidobac no.1-S. thermo 112.5 billion cell capsule (Visbiome) 1 cap PO DAILY Gastrointestinal Issue 08/14/24
ascorbic acid (vitamin C) 1,000 mg tablet (Vitamin C) 1,000 mg PO QPM Supplement 08/14/24
d-mannose 500 mg capsule 500 mg PO DAILY@1200 Supplement 08/14/24
vibegron 75 mg tablet (Gemtesa) 75 mg PO DAILYPRN PRN spasms 08/14/24
calcium polycarbophil 625 mg tablet (FiberCon) 625 mg PO DAILY 04/06/25
omega 5-ogv-ogp-fish oil 1,000 mg (120 mg-180 mg) capsule (Fish Oil) 1 cap PO HS 04/06/25
turmeric 400 mg capsule 400 mg PO DAILY@1200 04/06/25
bovine cartilage 750 mg tablet 750 mg PO BID 06/09/25
amoxicillin 875 mg tablet 875 mg PO Q12H 13 days #26 tabs 06/12/25
ciprofloxacin HCl 750 mg tablet 750 mg PO Q12H 13 days #26 tabs 06/12/25
Home Medication Changes
amoxicillin 875 mg tablet 875 mg PO Q12H 13 days #26 tabs 06/12/25
ciprofloxacin HCl 750 mg tablet 750 mg PO Q12H 13 days #26 tabs 06/12/25
Pending Results: No
[2025-06-12 15:00] VITALS: BP 134/81
--- NOTE | 2025-06-12 15:42 | CM ---
Per attending d/c home today. Spoke to dgtr to complete assessment. Patient lives at home with live in aide and family help. He needs ambulance home. Set up for 3:30 today. Paperwork on chart for transport.
He was current with [facility]. He has hospital bed and overlay cushion for wound care needs. He wears attends and get sponge baths by his aide. Live in aide from [facility].
Dgtr asked for diet orders and supplement information. dividend clerk printed and sent home with patient with discharge paperwork.
== END 2025-06-12 15:59 | disposition home health service (06) | DRG 698 ==
LOC: 3 WEST ACU 15:59
PROVIDERS: Emergency Medicine; Physician Assistant; ADMITTING PHYSICIAN Internal Medicine; EMERGENCY PHYSICIAN Emergency Medicine
DX: T83.511A Infection and inflammatory reaction due to indwelling urethral catheter, initial encounter (principal); A41.9 Sepsis, unspecified organism; L89.614 Pressure ulcer of right heel, stage 4; I50.32 Chronic diastolic (congestive) heart failure; J84.9 Interstitial pulmonary disease, unspecified; N39.0 Urinary tract infection, site not specified; J44.89 Other specified chronic obstructive pulmonary disease; K56.41 Fecal impaction; K52.89 Other specified noninfective gastroenteritis and colitis; I11.0 Hypertensive heart disease with heart failure; I48.0 Paroxysmal atrial fibrillation; E11.9 Type 2 diabetes mellitus without complications; I25.10 Atherosclerotic heart disease of native coronary artery without angina pectoris; N31.9 Neuromuscular dysfunction of bladder, unspecified; R62.7 Adult failure to thrive; D64.9 Anemia, unspecified; N40.1 Benign prostatic hyperplasia with lower urinary tract symptoms; Z96.641 Presence of right artificial hip joint; Z87.891 Personal history of nicotine dependence; I44.7 Left bundle-branch block, unspecified; L89.152 Pressure ulcer of sacral region, stage 2; E78.00 Pure hypercholesterolemia, unspecified; I65.21 Occlusion and stenosis of right carotid artery; Z74.01 Bed confinement status; Z95.2 Presence of prosthetic heart valve; B95.2 Enterococcus as the cause of diseases classified elsewhere; B96.5 Pseudomonas (aeruginosa) (mallei) (pseudomallei) as the cause of diseases classified elsewhere
CPT/HCPCS: 74176; 80048; 80053; 81003; 81015; 82962; 83605; 83690; 85025; 85027; 87040; 87077; 87086; 87186; 93005; 96365; 97163; 99285

== ENCOUNTER 2025-07-29 17:55 | Inpatient (IN) | payer MEDICARE, SELFPAY ==
[2025-07-29] VITALS (10 sets, daily range): BP systolic 92–157; BP diastolic 56–108; BMI 19.5; BMI 18.3
[2025-07-29 14:39] LABS: Hematocrit 35.1 % (39.0-52.0); Hemoglobin 11.7 g/dL (13.0-18.0); Mean Corp Hgb Conc. 33.3 g/dL (33.0-37.0); Mean Corpuscular Volume 90.7 fL (80.0-94.0); Nucleated Red Blood Cells % 0 % (-); Platelet Count 245 10^3/uL (130-400); Red Cell Dist. Width 14.6 % (11.5-14.5)
--- NOTE | 2025-07-29 15:07 | ED.GENMED ---
History of Present Illness
<MASTER Riddle - Last Filed: 07/29/25 17:45>
General
Chief Complaint: Weakness
Source: patient and ambulance crew
Time Seen by Provider: 07/29/25 14:49
Nursing documentation reviewed up to this point in time: agreed with
History of Present Illness
History of Present Illness:
Patient is an 89-year-old male with PMH of atrial fibrillation, hypertension, hyperlipidemia, prostate cancer,and chronic arriaga cath, who presents to the ED via EMS without specific complaints. Visiting nurse reports concern for decreased urinary
output and hypotension. The patient states that he typically eats every two days but admits to adequate fluid intake. Patient denies chest pain, shortness of breath, abdominal pain, fever, chills, nausea, vomiting, or diarrhea. Patient reports
concern about the future but is unable to elaborate. He denies suicidal or homicidal ideation.
Past History
<MASTER Riddle - Last Filed: 07/29/25 17:45>
Past History
ED Past Medical History: Arrthythmia (Atrial fib), Cancer (Prostate), CHF, COPD, HTN, Hypercholesterolemia, NIDDM, Valvular disease, Other (Empyema, BPH, chronic indwelling Arriaga catheter, intermittent bladder spasms, UTi, ) and Other (Benign
prostate hypertrophy)
ED Past Surgical History: Cardiac (Valve replacement) and Orthopedic (right hip surgery)
Patient has exhibited threatening behavior?: No
PSI?: No
Social History
Tobacco: Former smoker
Alcohol: Occasional
Drug: None
Personal:
Living: with family ([facility] rehab)
Employment: Retired
Family History
Family History: Other
Review of Systems
<MASTER Riddle - Last Filed: 07/29/25 17:45>
Review of Systems
Other source history: ambulance crew
All Other Systems: ROS reviewed and negative except as documented in HPI and ROS
Constitutional: Reports no symptoms
Respiratory: Reports no symptoms
ABD/GI: Reports no symptoms
: Reports other (chronic arriaga catheter in place)
Musculoskeletal: Reports no symptoms
Neurological: Reports weakness
Phy Exam
<MASTER Riddle - Last Filed: 07/29/25 17:45>
General Physical Exam
General Habitus: elderly
General Mental: confused
General Chronic Disability: urinary catheter
Cardiovascular Exam
Cardiovascular Exam: no edema and normal peripheral pulses
Pulmonary Exam
Pulmonary Exam: lungs clear
Oxygen Status: room air
Cough: no cough
Neurological Exam
Neurological Exam: motor weakness (lower extremity)
Musculoskeletal Exam
Musculoskeletal Exam: full ROM
<Kristie Arriaga MD - Last Filed: 07/29/25 16:40>
Physical Exam
Physical Exam:
GENERAL: Alert , in no apparent distress
EYE: pupils equal and reactive, conjunctiva pink
NECK: Supple, no significant adenopathy.
ENT: o/p clr, mmm.
CARDIAC: Regular rate and rhythm .
LUNGS: Clear breath sounds bilaterally, no acute respiratory distress, no wheezes/rales/rhonchi
ABDOMEN: Soft, without focal tenderness, no r/g, no cvat
NEUROLOGICAL: Alert and oriented to place and person but not time, uncooperative with formal neurological exam, moves all extremities equally, grossly nonfocal
SKIN: Warm and dry, skin intact.
MUSCULOSKELETAL: No edema, well perfused. Right heel wrapped in cushion
PSYCH: Generally cooperative but at times agitated
Course
<MASTER Riddle - Last Filed: 07/29/25 17:45>
Orders/Labs/Results
Orders:
Orders
07/29/25 14:35
Complete Blood Count/With Diff Urgent
Comprehensive Metabolic Panel Urgent
Urinalysis Urgent
Date Specimen was Collected: 07/29/25
Time Specimen was Collected: 14:33
Urine Microscopic Urgent
Date Specimen was Collected: 07/29/25
Time Specimen was Collected: 14:33
07/29/25 16:24
Electrocardiogram (*1) Urgent
Reason for Study: Other
Other Reason for Exam: sepsis
Cardiac Monitoring- Treatment ONCE
EKG- Treatment ONCE
0.9% Sodium Chloride 1000 ml [Nss] 1,500 ml IV BOLUS
07/29/25 16:39
Cefepime HCl [Maxipime] 1,000 mg IV NOW STA
07/29/25 17:14
Sterile Water [Sterile Water For Injection] 10 ml .ROUTE .STK-MED ONE
07/29/25 17:19
Admit/Transfer Patient As Directed
Co-Sign Provider:
Level of Care: Inpatient admission
Assign to:: Medical/Surgical
Physician / Group: ajit
Diagnosis: catheter associated uti
Reason for Hospitalization: catheter associated uti
Expected length of stay greater than two midnights?: Yes
ELOS- Estimated Length of Stay in days: 2
I certify the patient meets the requirements for IP care: Yes
PRN Pain Medication Management As Directed
May give lesser potent ordered pain med per pt: Yes
preference::
Protocol:: Medication orders for pain may be administered in a
manner that supports deferring to patient preference
when the pt is:
- Requesting an ordered lesser potent pain medication.
Least to most potent pain medications are defined
as: acetaminophen < NSAID < tramadol < opioids
(morphine, oxycodone, hydromorphone).
- Requesting a lesser dose of the same medication IF
ORDERED.
- Requesting a less intrusive route of administration
if both routes are prescribed by the provider (PO <
IV).
07/29/25 17:20
Code Status As Directed
Resuscitation Status: Full Code
07/29/25 17:27
Lactic Acid Urgent
Abnormal Lab Results
07/29/25
14:35
RBC 3.87 L 10^6/uL
(4.70-6.10)
Hgb 11.7 L g/dL
(13.0-18.0)
Hct 35.1 L %
(39.0-52.0)
RDW 14.6 H %
(11.5-14.5)
Sodium 130 L mmol/L
(135-145)
Creatinine 0.5 L mg/dL
(0.7-1.3)
Glucose 136 H mg/dl
(70-99)
AST 8 L U/L
(17-59)
Total Protein 5.3 L g/dl
(6.3-8.2)
Albumin 2.4 L g/dl
(3.5-5.0)
Urine Occult Blood 3+ A
(Negative)
Urine Nitrite Positive A
(Negative)
Ur Leukocyte Esterase 3+ A
(Negative)
Urine WBC >100 A /HPF
(0-5)
Urine Bacteria Many A
(Negative)
Urine Albumin 3+ A
(Neg - Trace)
07/29/25 14:35
07/29/25 14:35
Vital Signs
Initial and Last Documented VS:
Initial Vital Signs
Pulse Resp BP Pulse Ox
98 18 92/60 98
07/29/25 14:24 07/29/25 14:24 07/29/25 14:24 07/29/25 14:24
Last Documented Vital Signs
Temp Pulse Resp BP Pulse Ox
97.8 F 108 27 157/108 98
07/29/25 14:32 07/29/25 17:00 07/29/25 17:00 07/29/25 17:00 07/29/25 15:07
<Kristie Arriaga MD - Last Filed: 07/29/25 16:40>
Orders/Labs/Results
Orders:
Orders
07/29/25 14:35
Complete Blood Count/With Diff Urgent
Comprehensive Metabolic Panel Urgent
Urinalysis Urgent
Date Specimen was Collected: 07/29/25
Time Specimen was Collected: 14:33
Urine Microscopic Urgent
Date Specimen was Collected: 07/29/25
Time Specimen was Collected: 14:33
07/29/25 16:24
Electrocardiogram (*1) Urgent
Reason for Study: Other
Other Reason for Exam: sepsis
Cardiac Monitoring- Treatment ONCE
EKG- Treatment ONCE
0.9% Sodium Chloride 1000 ml [Nss] 1,500 ml IV BOLUS
07/29/25 16:39
Cefepime HCl [Maxipime] 1,000 mg IV NOW STA
07/29/25 17:14
Sterile Water [Sterile Water For Injection] 10 ml .ROUTE .STK-MED ONE
07/29/25 17:19
Admit/Transfer Patient As Directed
Co-Sign Provider:
Level of Care: Inpatient admission
Assign to:: Medical/Surgical
Physician / Group: ajit
Diagnosis: catheter associated uti
Reason for Hospitalization: catheter associated uti
Expected length of stay greater than two midnights?: Yes
ELOS- Estimated Length of Stay in days: 2
I certify the patient meets the requirements for IP care: Yes
PRN Pain Medication Management As Directed
May give lesser potent ordered pain med per pt: Yes
preference::
Protocol:: Medication orders for pain may be administered in a
manner that supports deferring to patient preference
when the pt is:
- Requesting an ordered lesser potent pain medication.
Least to most potent pain medications are defined
as: acetaminophen < NSAID < tramadol < opioids
(morphine, oxycodone, hydromorphone).
- Requesting a lesser dose of the same medication IF
ORDERED.
- Requesting a less intrusive route of administration
if both routes are prescribed by the provider (PO <
IV).
07/29/25 17:20
Code Status As Directed
Resuscitation Status: Full Code
07/29/25 17:27
Lactic Acid Urgent
Abnormal Lab Results
07/29/25
14:35
RBC 3.87 L 10^6/uL
(4.70-6.10)
Hgb 11.7 L g/dL
(13.0-18.0)
Hct 35.1 L %
(39.0-52.0)
RDW 14.6 H %
(11.5-14.5)
Sodium 130 L mmol/L
(135-145)
Creatinine 0.5 L mg/dL
(0.7-1.3)
Glucose 136 H mg/dl
(70-99)
AST 8 L U/L
(17-59)
Total Protein 5.3 L g/dl
(6.3-8.2)
Albumin 2.4 L g/dl
(3.5-5.0)
Urine Occult Blood 3+ A
(Negative)
Urine Nitrite Positive A
(Negative)
Ur Leukocyte Esterase 3+ A
(Negative)
Urine WBC >100 A /HPF
(0-5)
Urine Bacteria Many A
(Negative)
Urine Albumin 3+ A
(Neg - Trace)
07/29/25 14:35
07/29/25 14:35
Vital Signs
Initial and Last Documented VS:
Initial Vital Signs
Pulse Resp BP Pulse Ox
98 18 92/60 98
07/29/25 14:24 07/29/25 14:24 07/29/25 14:24 07/29/25 14:24
Last Documented Vital Signs
Temp Pulse Resp BP Pulse Ox
97.8 F 108 27 157/108 98
07/29/25 14:32 07/29/25 17:00 07/29/25 17:00 07/29/25 17:00 07/29/25 15:07
<MASTER Riddle - Last Filed: 07/29/25 17:45>
MDM/Problems Addressed
Chronic conditions affecting care:
Prostatic hypertrophy, urinary tract infection, a-fib, htn
Chronic conditions affecting care: HTN and COPD
<MASTER Riddle - Last Filed: 07/29/25 17:45>
*Pulse Oximetry
SaO2: 98
Oxygen Mode of Delivery: Room air
Patient hypoxic: no
*Critical Care Note
Total Time (30-74mins, 75-104mins- exclusive of procedures): Not Applicable
<Kristie Arriaga MD - Last Filed: 07/29/25 16:40>
Update Note
Update Note:
Patient presents to the Emergency Department with ___hypotension and decreased output
Number and Complexity of Problems Addressed at the Encounter
� Chronic conditions affecting care:
� Acute Exacerbation and/or Progression of Chronic Illness:
� Differential Diagnosis includes: But not limited to urinary retention, UTI, urosepsis, dehydration, etc. etc.
Amount and/or Complexity of Data to be Reviewed and Analyzed
� I performed an independent evaluation of and my interpretation is:
EKG: Read by me, normal sinus rhythm, left bundle branch block, no acute ischemia
CT:
Xrays:
Laboratory Studies: Normal white blood cell counts, UA very suspicious for UTI baseline anemia
Other:
� Review of other/old records reveals: Discharge summary from May 2025 reviewed at that time patient admitted with urosepsis plus minus bronchitis I will review his prior urinary cultures and deciding which antibiotic to give
him today
� Clinical information was obtained by an independent historian:
� Prescriptions/Medications Considered but not given:
� Further testing considered but not performed:
Risk of Complications and/or Morbidity or Mortality of Patient Management
� Social determinants of health affecting care:
� Discussion with other providers (PCP, Hospitalists, Consultants, etc):
� Escalation of care including admission/observation vs risk of discharge considered: Clinical evaluation highly suspicious for UTI with hypotension. IV fluids administered, blood pressure now normal. Urine sample from May
sensitive to cefepime, will order now, discussed with hospitalist for admission, continue to monitor closely
ED Attending Note
<MASTER Riddle - Last Filed: 07/29/25 17:45>
-
Portions of this chart may have been created with voice recognition software.� Occasional wrong word or��sound alike� substitutions may have occurred due to the inherent limitations of voice recognition software.
Discharge Plan
Departure
Patient Disposition: Admit
Date of Disposition: 07/29/25
Time of Disposition: 16:39
Admit to: Telemetry
Presentation/result/management discussed w/ accepting MD/DO: Hospitalist
Condition: Fair
Discharge Problem:
Acute UTI
Prescriptions:
No Action
clopidogrel [Plavix] 75 mg tablet
75 mg PO DAILY 30 Days Qty: 30 0RF
tamsulosin 0.4 MG capsule
0.4 mg PO HS
ascorbic acid (vitamin C) [Vitamin C] 1,000 mg Tablet
1,000 mg PO QPM
Visbiome 112.5 billion cell Capsule
1 cap PO DAILY
Gemtesa 75 mg Tablet
75 mg PO DAILYPRN PRN (Reason: spasms)
d-mannose 500 mg Capsule
500 mg PO DAILY@1200
calcium polycarbophil [FiberCon] 625 mg Tablet
625 mg PO DAILY
omega 3-eeg-tep-fish oil [Fish Oil] 1,000 (120-180) mg Capsule
1 cap PO HS
turmeric 400 mg Capsule
400 mg PO DAILY@1200
bovine cartilage 750 mg Tablet
750 mg PO BID
acetaminophen [Tylenol] 325 mg Tablet
650 mg PO Q6HPRN PRN (Reason: mild pain)
A and D Cream
1 applic TOPICAL DAILYPRN PRN (Reason: lower butt wound)
coQ10 (ubiquinol) 100 mg Capsule
100 mg PO HS
Palmitoylethanolamide
1 cap PO DAILYPRN PRN (Reason: mild pain)
Rx Instructions:
Palmitoylethanolamide (PEA)
Interventions
Interventions:
*Risk Screen - Suicide Last Done: 07/29/25 14:52
*General Assessment Last Done: 07/29/25 14:52
*Neglect/Abuse Screening Last Done: 07/29/25 14:52
*ED COVID-19 Vaccine History Last Done: 07/29/25 14:55
ED- Cardiac Assessment Last Done: 07/29/25 16:00
ED- Neurological Assessment Last Done: 07/29/25 14:51
ED- Pulmonary Assessment Last Done: 07/29/25 16:00
Discharge Date and Time
Print Language: TURKISH
[2025-07-29 15:43] LABS: ALT (SGPT) < 10 U/L (0-50); AST (SGOT) 8 U/L (17-59); Albumin 2.4 g/dl (3.5-5.0); Alkaline Phosphatase 87 U/L (38-126); Blood Urea Nitrogen 10 mg/dl (9-20); Calcium 8.7 mg/dl (8.4-10.2); Carbon Dioxide 27 mmol/L (22-30); Chloride 103 mmol/L (98-107); Estimated Creatinine Clearance 81 ml/min; Glucose 136 mg/dl (70-99); Potassium 4.5 mmol/L (3.5-5.1); Sodium 130 mmol/L (135-145); Total Protein 5.3 g/dl (6.3-8.2); eGFR > 60.00
[2025-07-29 16:25] LABS: Urine Character Clear (Clear)
[2025-07-29 16:33] LABS: Urine Squamous Cell 0-2 /LPF (Few)
[2025-07-29 16:34] LABS: Urine White Cell >100 /HPF (0-5)
[2025-07-29] MEDS: NSS 1500 IV (17:01)
[2025-07-29] MEDS: MAXIPIME 1000 MG IV (17:20)
--- NOTE | 2025-07-29 17:22 | HPS.HSE ---
Family Physician
-
Family Physician: * NONE
Chief Complaint
-
hypotension
History of Present Illness
89-year-old male past medical history of chronic HFpEF, aortic valve replacement, carotid artery stenosis status post endarterectomy, paroxysmal atrial fibrillation, type 2 diabetes, CAD, PAD, COPD, aspiration pneumonitis, neurogenic bladder with
chronic Alvarado catheter, prior Enterococcus bacteremia, presenting because visiting nurse was concerned for decreased urinary output and hypotension. Patient denies chest pain or shortness of breath or abdominal pain or fevers or chills or nausea or
vomiting or diarrhea.
Patient denies any complaints but states his last bowel movement was a week ago.
Medical History
Past Medical History
Past Medical History: Reports Other (chronic HFpEF, aortic valve replacement, carotid artery stenosis status post endarterectomy, paroxysmal atrial fibrillation, type 2 diabetes, CAD, PAD, COPD, aspiration pneumonitis, neurogenic bladder with
chronic Alvarado catheter, prior Enterococcus bacteremia,)
Past Surgical History: Reports None
Social History
Tobacco: Non-smoker
Alcohol: None
Drug: None
Family History
Family History: Not pertinent
Allergies / Home Medications
Allergies reflects when Allergies were last updated in [facility].
Home Medications with original date entered in [facility]
Allergy/Medication List:
Allergies
Allergy/AdvReac Type Severity Reaction Status Date / Time
No Known Allergies Allergy Verified 07/29/25 14:46
Home Medications
clopidogrel 75 mg tablet (Plavix) 75 mg PO DAILY Blood Clot Prevention/Tx 30 days #30 tabs 02/20/24
tamsulosin 0.4 mg capsule 0.4 mg PO HS Urinary issue 03/20/24
Lactobac no.2-Bifidobac no.1-S. thermo 112.5 billion cell capsule (Visbiome) 1 cap PO DAILY Gastrointestinal Issue 08/14/24
ascorbic acid (vitamin C) 1,000 mg tablet (Vitamin C) 1,000 mg PO QPM Supplement 08/14/24
d-mannose 500 mg capsule 500 mg PO DAILY@1200 Supplement 08/14/24
vibegron 75 mg tablet (Gemtesa) 75 mg PO DAILYPRN PRN spasms 08/14/24
calcium polycarbophil 625 mg tablet (FiberCon) 625 mg PO DAILY 04/06/25
omega 1-ybg-tme-fish oil 1,000 mg (120 mg-180 mg) capsule (Fish Oil) 1 cap PO HS 04/06/25
turmeric 400 mg capsule 400 mg PO DAILY@1200 04/06/25
bovine cartilage 750 mg tablet 750 mg PO BID 06/09/25
Review of Systems
-
History Source: Patient
A 12 point ROS was completed and negative except as noted: Yes
Constitutional: Reports No Symptoms
EENT: Reports No Symptoms
Respiratory: Reports No Symptoms
Cardiac: Reports No Symptoms
Abdomen/GI: Reports No Symptoms
: Reports No Symptoms
Musculoskeletal: Reports No Symptoms
Skin: Reports No Symptoms
Neurological: Reports No Symptoms
Endocrine: Reports No Symptoms
Hematologic/Lymphatic: Reports No Symptoms
Psych: Reports No Symptoms
Physical Exam
Vital Signs
Vital Signs
Temp Pulse Resp BP Pulse Ox
97.8 F 108 27 157/108 98
07/29/25 14:32 07/29/25 17:00 07/29/25 17:00 07/29/25 17:00 07/29/25 15:07
Physical Exam
General: Well Developed, Well Nourished and No Apparent Distress
HEENT: NormoCephalic, Moist mucous membranes and Atraumatic
Respiratory: Clear
Cardiac: S1/S2 and Regular Rhythm; No Murmur or Rub
GI: Soft, Non Tender, Non Distended and Normal Bowel Sounds; No Organomegaly
Rectal: Deferred by Provider
Musculoskeletal: No Clubbing, No Cyanosis and No Edema
Skin: No Rash
Neuro: Nonfocal/grossly intact
Laboratory Results
-
07/29/25 14:35
07/29/25 14:35
Laboratory Results
Total Bilirubin 0.7 mg/dl (0.2-1.3) 07/29/25 14:35
AST 8 U/L (17-59) L 07/29/25 14:35
ALT < 10 U/L (0-50) 07/29/25 14:35
Alkaline Phosphatase 87 U/L (38-126) 07/29/25 14:35
Data Reviewed
-
Lab Data: Labs Reviewed by me
Old Records: Reviewed
Impression/Plan
-
IMPRESSION:
PLAN:
# Catheter associated UTI
-Transient hypotension 92/60 improved with IV fluids
- Urinalysis greater than 100 WBC, +3 leukocyte esterase, positive nitrates, +3 blood
- Prior urine culture showed Pseudomonas, E. coli, Enterococcus
-Urine culture pending
-IV fluids given
- Check urine culture
- Zosyn
- Alvarado catheter changed here
# Constipation
- No bowel movement in 1 week as per patient
-No abdominal pain or symptoms
- MiraLAX daily, Dulcolax as needed
Chronic HFpEF
Aortic valve replacement
Paroxysmal atrial fibrillation
Carotid artery stenosis status post endarterectomy
CAD
- Continue Plavix
PAD
COPD
History of aspiration pneumonitis
Neurogenic bladder/BPH with chronic Alvarado catheter
- Continue Gemtesa, tamsulosin
Prior Enterococcus bacteremia
Full code
DVT prophylaxis�heparin
Regular diet
[2025-07-29] MEDS: HEPARIN SC (20:48)
[2025-07-29] MEDS: NSS 1000 IV (21:11)
--- NOTE | 2025-07-29 21:45 | PTCARENOTE ---
Pt admitted to 2131 from ED. AAO to self, forgetful, ANVIK. Oriented to environment. Pulled over to bed x 3 staff, Pt yells at times with care. Incontinent a moderate amount loose brown stool. Plan of care discussed. Bed alarm on. Call franklin within
reach.
[2025-07-29] MEDS: FLOMAX 0.4 MG PO (22:38)
[2025-07-29] MEDS: VITAMIN C 1000 MG PO (22:38)
[2025-07-30] MEDS: ZOSYN 50 IV ×2 (00:20→05:39)
[2025-07-30 06:00] VITALS: BMI 18.6
[2025-07-30 07:04] VITALS: BP 105/66
--- NOTE | 2025-07-30 07:40 | W.PN.UPDATE ---
Update Note
Progress Note Update
I saw and evaluated the patient. I reviewed the resident�s note and agree with findings and plan as documented in the resident�s note.
Gen: NAD, Awake and alert
Eyes: EOMI, PERRLA, no scleral icterus.
Neck: supple.
CV: RRR, +S1/S2, no m/r/g.
Resp: CTAB, no rales, wheezes, or rhonchi.
Abd: +BS, soft, NT, ND
Skin: No rashes.
Neuro: CN 2-12 intact, non-focal.
Psych: Normal mood and affect.
Hypotension:
-Patient sent to the ER for decreased urine output and hypotension. Concern for CAUTI by ER on admission as pt hypotensive. Note, reports of poor PO intake.
-h/o neurogenic bladder/BPH with chronic Arriaga catheter, cont Flomax
-Hypotension was transient and improved with IVFs (2500cc on admission followed by maintenance IVFs)
-U/A suggestive of UTI yet these findings are expected with chronic arriaga
-prior UCx showed Pseudomonas, E. coli, Enterococcus
-cont Zosyn for now
-arriaga catheter changed
-c/s ID
-overall, I hightly doubt CAUTI/acute infection. Suspect that hypotension more likely decreased oral intake.
Constipation:
-no BM in 1 week as per patient
-No abdominal pain or symptoms
-MiraLAX daily, Dulcolax as needed
Other problems:
Chronic HFpEF
h/o AVF
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
NISHA s/p endarterectomy
CAD: cont Plavix
PAD: cont Plavix
COPD, not in acute exac
FULL/heparin
--- NOTE | 2025-07-30 08:26 | VNURNOTE ---
Chart reviewed. Patient is current with [facility]. Will continue to follow hospital course and DC plans.
[2025-07-30 08:53] LABS: ALT (SGPT) < 10 U/L (0-50); AST (SGOT) 10 U/L (17-59); Albumin 2.3 g/dl (3.5-5.0); Alkaline Phosphatase 83 U/L (38-126); Blood Urea Nitrogen 9 mg/dl (9-20); Calcium 8.1 mg/dl (8.4-10.2); Carbon Dioxide 26 mmol/L (22-30); Chloride 106 mmol/L (98-107); Estimated Creatinine Clearance 76 ml/min; Glucose 83 mg/dl (70-99); Potassium 4.1 mmol/L (3.5-5.1); Sodium 132 mmol/L (135-145); Total Protein 5.3 g/dl (6.3-8.2); eGFR > 60.00
[2025-07-30 08:55] LABS: Hematocrit 36.5 % (39.0-52.0); Hemoglobin 11.9 g/dL (13.0-18.0); Mean Corp Hgb Conc. 32.6 g/dL (33.0-37.0); Mean Corpuscular Volume 91.7 fL (80.0-94.0); Nucleated Red Blood Cells % 0 % (-); Platelet Count 243 10^3/uL (130-400); Red Cell Dist. Width 14.6 % (11.5-14.5)
[2025-07-30] MEDS: HEPARIN 5000 UNITS SC ×2 (09:22→20:12)
[2025-07-30] MEDS: VISBIOME 1 CAP PO (09:24)
[2025-07-30] MEDS: PLAVIX 75 MG PO (09:24)
[2025-07-30] MEDS: MIRALAX 17 GRAMS PO (09:24)
[2025-07-30] MEDS: NSS 1000 IV (09:25)
--- NOTE | 2025-07-30 09:58 | CON.ID ---
Consultation
-
Date/Time Consultation Requested: 07/30/2025826
Date/Time Consultation Performed: 07/30/2025 0927
Requesting Provider: Dr. Pena
Performing Provider: Dr. Caceres
Reason for Consultation: CAUTI
Chief Complaint / Past History
Chief Complaint
Feels weak.
History of Present Illness
Juan Saavedra is an 89-year-old man being evaluated at the request of Dr. Arroyo re: possible CAUTI. History is obtained from chart review, along with patient interview.
The patient presents to [facility]: 07/29, having been sent in by visiting nurse regarding concern for decreased urinary output. Additionally, the patient evidently was hypotensive when she was there.
At present, patient is unclear as to why he was sent to the hospital. He denies any complaints. He denies any pain. He denies any fevers or chills. He denies any nausea, vomiting or diarrhea. He denies any suprapubic pain.
Initial ER workup did not reveal a leukocytosis. Urinalysis from the Alvarado catheter revealed positive nitrates and pyuria.
Past History
Additional Past Medical History:
Diabetes mellitus
Hypertension
Dyslipidemia
pA fib
CHF with preserved EF
BPH / Neurogenic bladder with chronic indwelling Alvarado catheter
Right carotid artery stenosis
Depression
COPD
Additional Past Surgical History:
AVR
Carotid endarterectomy
R THR
Allergy History:
No Known Allergies Allergy (Verified 07/29/25 14:46)
Medications Reviewed: Yes
Current Antibiotics:
Zosyn 3.375 gm IV q.6 hours
Social History
Tobacco: Former Smoker
Alcohol: None
Drug: None
Personal:
Family History
Family History: Not Pertinent
Review of Systems
Vital Signs
Temp Pulse Resp BP Pulse Ox
97.6 F 76 20 105/66 99
07/30/25 07:04 07/30/25 07:04 07/30/25 07:04 07/30/25 07:04 07/30/25 07:04
Physical Exam
Physical Exam
Constitutional: No Acute Distress, Comfortable, Chronically Ill and Cachetic (Mild)
Head: Normocephalic
Eyes: Pupils Equal, Pupils Round, No Conjunctival Hemorrhage and Sclera Anicteric
Oral: Poor Dentition, No Thrush and No Ulcers
Cardiovascular: S1/S2; Negative S3/S4 or Murmur
Pulmonary: Clear and Non Labored
Gastrointestinal: Soft, Non Tender and Non Distended
Genito-Urinary: Alvarado, Clear Urine and Other (Minimal sediment); Negative Turbid Urine or Hematuria
Extremities: Negative Edema, Cyanosis or Erythema
Wound: Other (Stage II sacral wound.)
Neurological: Awake and Alert
Psychological: Calm
Lab / Diagnostic Study Results
07/30/25 07:35
07/30/25 07:35
Abs Immat Gran (auto) 0.0 10^3/uL (0-0.05) 07/30/25 07:35
Absolute Neuts (auto) 3.0 10^3/uL (1.4-6.5) 07/30/25 07:35
Absolute Lymphs (auto) 1.1 10^3/uL (1.2-3.4) L 07/30/25 07:35
Absolute Monos (auto) 0.3 10^3/uL (0.1-0.6) 07/30/25 07:35
Absolute Basos (auto) 0.1 10^3/uL (0-0.2) 07/30/25 07:35
Immature Gran % 0.2 % (0-0.5) 07/30/25 07:35
Neutrophils % 63.1 % (42.2-75.2) 07/30/25 07:35
Lymphocytes % 23.7 % (20.5-51.1) 07/30/25 07:35
Monocytes % 6.9 % (1.7-9.3) 07/30/25 07:35
Eosinophils % 5.0 % (0-6) 07/30/25 07:35
Basophils % 1.1 % (0-2) 07/30/25 07:35
Lactic Acid 1.2 mmol/L (0.7-2.0) 07/29/25 17:27
Urine WBC >100 /HPF (0-5) A 07/29/25 14:35
Ur Squamous Epith Cells 0-2 /LPF (Few) 07/29/25 14:35
Microbiology Results
Micro:
08/14/24 17:10 Wound Culture - Final
Sacral Escherichia coli
Klebsiella aerogenes
Staph aureus MRSA
Gram Stain - Final
Imaging:
06/09/2025 CT abdomen/pelvis: rectum is distended with stool measuring up to 8.9 cm. Mild wall thickening and perirectal stranding is noted. Possible stercoral colitis noted. Small left pleural effusion noted. Bronchial wall thickening noted. A
heavily calcified and ectatic abdominal aorta is noted. Please see full dictation for additional detail.
04/27/2024 CT chest (PE study): No evidence of pulmonary embolism. Bilateral pleural effusions noted. Mild right hilar lymphadenopathy felt to be reactive. Please see full dictation for additional detail.
Assessment / Plan
Hypertension; likely secondary to decreased oral intake
- B/P improved with fluids.
Urine with pyuria
- secondary to chronic urinary catheter.
- Currently urine clear. No systemic signs or symptoms of infection at present.
Diabetes mellitus
Hypertension
Dyslipidemia
pA-fib
CHF with preserved EF
BPH / Neurogenic bladder with chronic indwelling Alvarado catheter
Right carotid artery stenosis
Depression
COPD
Non-ambulatory
Recommendations:
Urinalysis findings not unexpected given chronic nature of Alvarado catheter, and does not indicate infection, but rather colonization.
Patient is without systemic symptoms (without fever and without leukocytosis or a left shift.)
Discontinue further antibiotics and observe.
--- NOTE | 2025-07-30 12:46 | W.PN.HOSP.TC ---
Today's Communication/Plan
-
Antibiotics discontinued per ID recommendations.
Consulted psychiatry for apparent report of suicidal ideation.
Assessment / Plan
Assessment / Plan
89-year-old male past medical history of chronic HFpEF, aortic valve replacement, carotid artery stenosis status post endarterectomy, paroxysmal atrial fibrillation, type 2 diabetes, CAD, PAD, COPD, aspiration pneumonitis, neurogenic bladder with
chronic Alvarado catheter, prior Enterococcus bacteremia, presenting because visiting nurse was concerned for decreased urinary output and hypotension. Patient denies chest pain or shortness of breath or abdominal pain or fevers or chills or nausea or
vomiting or diarrhea.
Patient denies any complaints but states his last bowel movement was a week ago.
# Catheter associated UTI
-Transient hypotension 92/60 improved with IV fluids
- Urinalysis greater than 100 WBC, +3 leukocyte esterase, positive nitrates, +3 blood
- Prior urine culture showed Pseudomonas, E. coli, Enterococcus
- Urine culture pending
- IV fluids given
- Check urine culture
- Zosyn: Discontinued per ID recommendations
- Alvarado catheter changed here
#Suicidal ideation
Tylenol appears to be suicide plan, which since patient states he does not have access to where he lives
Denies him being diagnosed with depression, having a psychiatrist, being on antidepressants
� Psych consulted
# Constipation
- No bowel movement in 1 week as per patient
-No abdominal pain or symptoms
- MiraLAX daily, Dulcolax as needed
Chronic HFpEF
Aortic valve replacement
Paroxysmal atrial fibrillation
Carotid artery stenosis status post endarterectomy
CAD
- Continue Plavix
PAD
COPD
History of aspiration pneumonitis
Neurogenic bladder/BPH with chronic Alvarado catheter
- Continue Gemtesa, tamsulosin
Prior Enterococcus bacteremia
Full code
DVT prophylaxis�heparin
Regular diet
Dispo: Home with home care
Anticipated Discharge: 24 - 48 hours
Subjective/Interval History
-
Date of Service: July 30, 2025
No acute events overnight. Patient appears hard of hearing, and it is unclear if he understood the questions asked. He would not respond to some questions and just stare at me, as if he did not understand. Patient had no complaints, other than
saying 'suicide' while pointing to his forehead. Then he said 'Tylenol', which seems to be his suicide plan. When asked if he has access to Tylenol where he lives, he said no. He denied having a psychiatrist or being on an antidepressant.
Patient was eating breakfast avidly.
Objective Data
-
Labs:
Laboratory Results
07/30/25
07:35
WBC 4.8
Hgb 11.9 L
Hct 36.5 L
Plt Count 243
Sodium 132 L
Potassium 4.1
Chloride 106
Carbon Dioxide 26
BUN 9
Creatinine 0.5 L
Glucose 83
Calcium 8.1 L
Total Bilirubin 0.9
AST 10 L
ALT < 10
Alkaline Phosphatase 83
Vital Signs:
Vital Signs
Temp Pulse Resp BP Pulse Ox
97.6 F 76 20 105/66 99
07/30/25 07:04 07/30/25 07:04 07/30/25 07:04 07/30/25 07:04 07/30/25 07:04
I&O
07/29/25 07/30/25 07/31/25
06:59 06:59 06:59
Intake Total 1090 / 1090
Output Total 600 / 600
Balance 490 / 490
Review of Systems
-
History Source: Patient
All other systems: Reviewed and negative
Psych: Reports Other (Appears to have reported suicidal thoughts)
Physical Exam
-
General: Well Developed, No Apparent Distress and Comfortable
HEENT: Normocephalic, Atraumatic, Nose Appears Normal, Ears Appear Normal and Other (Dark skin discoloration on the face)
Respiratory: Clear to Auscultation
Cardiac: Regular Rhythm and S1/S2
GI: Soft, Nontender, Nondistended and Normal Bowel Sounds
Genito-urinary: No Costovertebral Tender
Musculoskeletal: No Clubbing, No Cyanosis, No Edema, Edema, Right Lower Extrem, Edema, Left Lower Extrem and Other (Discolored, mangled toes and toenails)
Skin: Warm and Dry
Neuro: Awake and Alert
Psych: Calm
Data Reviewed
-
Total Time Spent with Patient (in minutes): 25
Labs: Labs Reviewed by me
--- NOTE | 2025-07-30 13:33 | W.DCSUMMARY ---
Discharge Summary
Discharge Data
Date of Admission: 07/29/25
Date of Discharge: 07/30/25
Total time spent discharging patient (in min): 35
-
Pending Results: No
Hospital Course
Primary diagnoses:
Hypertension
Asymptomatic bacteriuria with chronic Alvarado
Possible suicidal ideation
89-year-old male past medical history of chronic HFpEF, aortic valve replacement, carotid artery stenosis status post endarterectomy, paroxysmal atrial fibrillation, type 2 diabetes, CAD, PAD, COPD, aspiration pneumonitis, neurogenic bladder with
chronic Alvarado catheter, prior Enterococcus bacteremia, presenting because visiting nurse was concerned for decreased urinary output and hypotension. Patient denies chest pain or shortness of breath or abdominal pain or fevers or chills or nausea or
vomiting or diarrhea. Patient denies any complaints but states his last bowel movement was a week ago.
# Asymptomatic bacteriuria with chronic urinary catheter
-Transient hypotension 92/60 improved with IV fluids
- Urinalysis greater than 100 WBC, +3 leukocyte esterase, positive nitrates, +3 blood
- Prior urine culture showed Pseudomonas, E. coli, Enterococcus
- Urine culture pending
- IV fluids given
- Check urine culture
- Zosyn started: Discontinued per ID recommendations
- Alvarado catheter changed here
#Suicidal ideation
Tylenol appears to be suicide plan. When asked if he has access to Tylenol where he lives, patient said no.
Denies him being diagnosed with depression, having a psychiatrist, being on antidepressants.
Patient appears to be hard of hearing (although he denied this) and/or have cognitive impairment, as he would not respond to questions and would stare at me often until I repeated my questions multiple times.
� Psych consulted: Started Lexapro 5 mg p.o. daily
# Constipation
- No bowel movement in 1 week as per patient
-No abdominal pain or symptoms
- MiraLAX daily, Dulcolax as needed
# CAD
- Continue Plavix
#Neurogenic bladder/BPH with chronic Alvarado catheter
- Continue Gemtesa, tamsulosin
Discharge Plan
-
Patient Disposition: Home with Home Care
Discharge Diagnosis/Procedures: Hypotension
Urine with pyuria
Suicidal ideation
Condition: Fair
Diet: Low Cholesterol
Activity: As tolerated
Driving Restrictions: Not until seen by your Dr
Bathing Restrictions: None
Referrals:
NONE,* [Family Provider, Internal Medicine]
Additional Discharge Medication Instructions: Please start taking Lexapro 5 mg orally once a day.
Prescriptions:
New
escitalopram oxalate [Lexapro] 5 mg tablet
5 mg PO DAILY Qty: 30 0RF
Continued
clopidogrel [Plavix] 75 mg tablet
75 mg PO DAILY 30 Days Qty: 30 0RF
tamsulosin 0.4 MG capsule
0.4 mg PO HS
ascorbic acid (vitamin C) [Vitamin C] 1,000 mg Tablet
1,000 mg PO QPM
Visbiome 112.5 billion cell Capsule
1 cap PO DAILY
Gemtesa 75 mg Tablet
75 mg PO DAILYPRN PRN (Reason: spasms)
d-mannose 500 mg Capsule
500 mg PO DAILY@1200
calcium polycarbophil [FiberCon] 625 mg Tablet
625 mg PO DAILY
omega 3-max-imw-fish oil [Fish Oil] 1,000 (120-180) mg Capsule
1 cap PO HS
turmeric 400 mg Capsule
400 mg PO DAILY@1200
bovine cartilage 750 mg Tablet
750 mg PO BID
acetaminophen [Tylenol] 325 mg Tablet
650 mg PO Q6HPRN PRN (Reason: mild pain)
A and D Cream
1 applic TOPICAL DAILYPRN PRN (Reason: lower butt wound)
coQ10 (ubiquinol) 100 mg Capsule
100 mg PO HS
Palmitoylethanolamide
1 cap PO DAILYPRN PRN (Reason: mild pain)
Rx Instructions:
Palmitoylethanolamide (PEA)
Discharge Date and Time
Print Language: SINGAPOREAN
--- NOTE | 2025-07-30 13:44 | CM ---
Reviewed the chart notes and spoke with the patient's son Chip via telephone. Patient resides with spouse and [id number] in a two story home with two steps to enter. The patient is confined to the first level. The patient has a hospital bed
and wheelchair. The patient is current with [facility] and they are following. The patient has been to [facility]. The patient is for discharge back to home where he has 17/06 caregiver [facility] ([phone]) through [facility]. CM continues to be
available to patient/family and is monitoring medical plan for needs at discharge.
Plan: Discharge patient back to home with resumption of [facility] services.
Medical necessity and transport forms on chart.
[2025-07-30 15:00] VITALS: BP 122/83
[2025-07-30] MEDS: VITAMIN C 1000 MG PO (17:24)
[2025-07-30] MEDS: NSS IV (17:25)
--- NOTE | 2025-07-30 18:48 | CS.PSYCHR ---
Consult Summary - Psychiatry
-
pt seen by me this afternoon at request of team after pt made motion of shooting self in head and said 'suicide'
89 yo male with multiple serious medical problems admitted for weakness, hypotension and decreased urinary output. Has been in decline for some time, with indwelling arriaga, poor po intake, poor ambulation, hard of hearing, hx of prostate ca, CHF, A
fib, copd. Lives at home with and her mother (99 yo) and senior clinical research scientist. [facility] nurse had voiced concern so brought to ED
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 Has son in [place], other children in [place].
As team spoke about discharge with him he reportedly mentioned suicide
I spoke with son who confiremed that pt has occasionally talked about how limited his life is, and at times wants to but has never dwelt on it for long and son has no concern about completed suicide (partly because of the logistics of his living
situation.)
No prior psychiatric treatment, though son mentions he was put on remeron in past and did not like it.
On my exam pt is lying in bed, requires some effort on my part to wake him up. difficult to tell how much of my questioning he understands due to hearing problem (made worse by his lying on his good right ear.) At first says he wants to , that he
is depressed, but then after further history taking said he was not suicidal, wants to live, wants to remain full code. when I questioned him about this, states 'people are complicated, sometimes contradictory.' Oriented to self, hospital, month.
Gave history consistent with what son had said.
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
Physical limitations make pt unplaceable in psychiatric hospital. Son feels he has done better at home than at rehab stays in past.
Son agreeable to trial of low dose of lexapro, as is patient
[2025-07-30 19:30] VITALS: BP 126/74
== END 2025-07-30 20:21 | disposition home health service (06) | DRG 699 ==
LOC: 2 NORTH 17:55
PROVIDERS: Emergency Medicine; ADMITTING PHYSICIAN Hospitalist; ATTENDING PHYSICIAN Internal Medicine; CONSULT PHYSICIAN Internal Medicine Infectious Disease; CONSULT PHYSICIAN Psychiatry & Neurology Psychiatry; EMERGENCY PHYSICIAN Emergency Medicine
DX: T83.518A Infection and inflammatory reaction due to other urinary catheter, initial encounter (principal); I50.32 Chronic diastolic (congestive) heart failure; N39.0 Urinary tract infection, site not specified; R45.851 Suicidal ideations; K59.00 Constipation, unspecified; I25.10 Atherosclerotic heart disease of native coronary artery without angina pectoris; Z79.02 Long term (current) use of antithrombotics/antiplatelets; F32.A Depression, unspecified; Y84.6 Urinary catheterization as the cause of abnormal reaction of the patient, or of later complication, without mention of misadventure at the time of the procedure; I11.0 Hypertensive heart disease with heart failure; I48.0 Paroxysmal atrial fibrillation; E11.9 Type 2 diabetes mellitus without complications; J44.9 Chronic obstructive pulmonary disease, unspecified; N31.9 Neuromuscular dysfunction of bladder, unspecified; N40.0 Benign prostatic hyperplasia without lower urinary tract symptoms; E78.00 Pure hypercholesterolemia, unspecified; Z85.46 Personal history of malignant neoplasm of prostate; Z87.891 Personal history of nicotine dependence; Z95.2 Presence of prosthetic heart valve
CPT/HCPCS: 80053; 81003; 81015; 83605; 85025; 93005; 96361; 96374; 99285